=== PATIENT | female | born 1930 | race Caucasian/White ===

== ENCOUNTER 2018-07-12 09:23 | Inpatient (IN) | payer BC ==
[~2018-07-12] VITALS: Ht 170.2 cm; Wt 77.6 kg
[~2018-07-12 09:23] MED LIST: LEVO125T5 PO; MELO15TA23 PO; METO50TA6 PO; VERA180T6 PO; bp med
[2018-07-12] MEDS ORDERED: IV NORMAL SALINE 1000ML BAG 1,000 ML IV SCH (10:13)
[2018-07-12] MEDS ORDERED: IPRATRPIUM/ALBUTEROL 0.5/2.5MG 3 ML NEBU. NEB ONE (10:15)
[2018-07-12] MEDS ORDERED: methylPREDNISolone SOD SUCC PF 125 MG/2 ML VIAL. IV ONE (10:15)
[2018-07-12 10:25] LABS: BASO # 0.1 x10^3/uL (0.0-0.2); BASO % 0 % (0-3); EOS # 0.1 x10^3/uL (0.0-0.7); EOS % 1 % (0-3); HEMATOCRIT 35.1 % (36.0-47.0); LYMPH # 1.2 x10^3/uL (1.0-4.8); LYMPH % 9 % (24-48); MEAN CORPUSCULAR HEMOGLOBIN 33 pg (25-35); MEAN CORPUSCULAR HGB CONC 34 g/dL (31-37); MEAN CORPUSCULAR VOLUME 96 fL (79-100); MONO # 0.9 x10^3/uL (0.0-1.1); MONO % 7 % (0-9); NEUT # 10.8 x10^3uL (1.8-7.7); NEUT % 83 % (31-73); PLATELET COUNT 207 x10^3/uL (140-400); RED BLOOD COUNT 3.67 x10^6/uL (3.50-5.40); RED CELL DISTRIBUTION WIDTH 14.1 % (11.5-14.5)
[2018-07-12 10:45] LABS: CALCIUM 9.8 mg/dL (8.5-10.1); CREATININE 1.1 mg/dL (0.6-1.0); GFR 47.1; POTASSIUM 3.9 mmol/L (3.5-5.1)
--- NOTE | 2018-07-12 10:52 | RAD ---
CHEST PA LATERAL Clinical indications: shortness of breath COMPARISON: 03/15/2018. Findings: Bilateral mild perihilar interstitial pulmonary edema is seen. Small bilateral pleural effusions are seen right greater than left. There is mild right lung base atelectasis or focal alveolar pulmonary edema. No pneumothorax is seen. The heart size is enlarged but stable. The mediastinum and pulmonary vasculature are unremarkable. Impression: Mild to moderate CHF. Electronically signed by: Eddi Castillo MD (07/12/2018 10:49 AM) [place] [id number]
[2018-07-12 10:53] LABS: ALBUMIN 3.6 g/dL (3.4-5.0); ALBUMIN/GLOBULIN RATIO 1.3 (1.0-1.7); TOTAL BILIRUBIN 0.7 mg/dL (0.2-1.0); TOTAL PROTEIN 6.3 g/dL (6.4-8.2)
[2018-07-12] MEDS ORDERED: cefTRIAXone IV Push 1 GM VIAL. IVP ONE (11:15)
--- NOTE | 2018-07-12 11:21 | PHYS DOC ---
Past Medical History Past Medical History: Arthritis, Hypertension, Hypothyroid Additional Past Medical Histor: CHRONIC KNEE PAIN Past Surgical History: No Surgical History Alcohol Use: None Drug Use: None Adult General Chief Complaint Chief Complaint: SHORTNESS OF BREATH HPI HPI Patient is a 88 year old female who presents with complaining of shortness of breath. Patient complaining of nonproductive cough and shortness of breath for 2 weeks and seen by her primary care physician and treated with a course of antibiotic that was finished one week ago but continued to have shortness of breath and generalized weakness and not feeling good. Patient complaining of mild nasal congestion and sore throat and denies chest pain, fever and chills, vomiting and diarrhea, urinary symptoms, sick contact. Review of Systems Review of Systems Constitutional: Denies fever or chills [] Eyes: Denies change in visual acuity, redness, or eye pain [] HENT: Reports nasal congestion and sore throat Respiratory: Reports cough and shortness of breath Cardiovascular: No additional information not addressed in HPI [] GI: Denies abdominal pain, nausea, vomiting, bloody stools or diarrhea [] : Denies dysuria or hematuria [] Musculoskeletal: Denies back pain or joint pain [] Integument: Denies rash or skin lesions [] Neurologic: Denies headache, focal weakness or sensory changes [] Endocrine: Denies polyuria or polydipsia [] All other systems were reviewed and found to be within normal limits, except as documented in this note. Current Medications Current Medications Current Medications Medications (Trade) Dose Ordered Sig/Jagdish Start Time Stop Time Status Last Admin Dose Admin Albuterol/ Ipratropium (Duoneb) 3 ml 1X ONCE 07/12/18 10:15 07/12/18 10:18 DC 07/12/18 11:14 3 ML Methylprednisolone Sodium Succinate (SOLU-Medrol 125MG VIAL) 125 mg 1X ONCE 07/12/18 10:15 07/12/18 10:18 DC 07/12/18 10:15 125 MG Sodium Chloride 1,000 ml @ 1,000 mls/hr Q1H 07/12/18 10:13 07/12/18 11:12 DC 07/12/18 10:13 1,000 MLS/HR Allergies Allergies Allergies Coded Allergies Type Severity Reaction Last Updated Verified No Known Drug Allergies 03/10/18 No Physical Exam Physical Exam Constitutional: Well developed, well nourished, moderate distress, non-toxic appearance. [] HENT: Normocephalic, atraumatic, bilateral external ears normal, oropharynx moist, no oral exudates, nose normal. [] Eyes: PERRLA, EOMI, conjunctiva normal, no discharge. [] Neck: Normal range of motion, no tenderness, supple, no stridor. [] Cardiovascular:Heart rate regular rhythm, no murmur [] Lungs & Thorax: Mild respiratory distress with intercostal dissection and bilateral basilar rales. Abdomen: Bowel sounds normal, soft, no tenderness, no masses, no pulsatile masses. [] Skin: Warm, dry, no erythema, no rash. [] Back: No tenderness, no CVA tenderness. [] Extremities: No tenderness, no cyanosis, no clubbing, ROM intact, trace bilateral lower extremity edema. [] Neurologic: Alert and oriented X 3, normal motor function, normal sensory function, no focal deficits noted. [] Psychologic: Affect anxious, judgement normal, mood normal. [] Current Patient Data Vital Signs Vital Signs Date Time Temp Pulse Resp B/P (MAP) Pulse Ox O2 Delivery O2 Flow Rate FiO2 07/12/18 11:00 78 16 159/75 (103) 94 Room Air 07/12/18 10:07 97.5 97.5 Lab Values Laboratory Tests Test 07/12/18 10:05 White Blood Count 13.0 x10^3/uL (4.0-11.0) H Red Blood Count 3.67 x10^6/uL (3.50-5.40) Hemoglobin 12.0 g/dL (12.0-15.5) Hematocrit 35.1 % (36.0-47.0) L Mean Corpuscular Volume 96 fL (79-100) Mean Corpuscular Hemoglobin 33 pg (25-35) Mean Corpuscular Hemoglobin Concent 34 g/dL (31-37) Red Cell Distribution Width 14.1 % (11.5-14.5) Platelet Count 207 x10^3/uL (140-400) Neutrophils (%) (Auto) 83 % (31-73) H Lymphocytes (%) (Auto) 9 % (24-48) L Monocytes (%) (Auto) 7 % (0-9) Eosinophils (%) (Auto) 1 % (0-3) Basophils (%) (Auto) 0 % (0-3) Neutrophils # (Auto) 10.8 x10^3uL (1.8-7.7) H Lymphocytes # (Auto) 1.2 x10^3/uL (1.0-4.8) Monocytes # (Auto) 0.9 x10^3/uL (0.0-1.1) Eosinophils # (Auto) 0.1 x10^3/uL (0.0-0.7) Basophils # (Auto) 0.1 x10^3/uL (0.0-0.2) D-Dimer (Payton) 2.20 ug/mlFEU (0.00-0.50) H Sodium Level 144 mmol/L (136-145) Potassium Level 3.9 mmol/L (3.5-5.1) Chloride Level 108 mmol/L (98-107) H Carbon Dioxide Level 23 mmol/L (21-32) Anion Gap 13 (6-14) Blood Urea Nitrogen 20 mg/dL (7-20) Creatinine 1.1 mg/dL (0.6-1.0) H Estimated GFR (Cockcroft-Gault) 47.1 BUN/Creatinine Ratio 18 (6-20) Glucose Level 105 mg/dL (70-99) H Lactic Acid Level 2.3 mmol/L (0.4-2.0) H Calcium Level 9.8 mg/dL (8.5-10.1) Total Bilirubin 0.7 mg/dL (0.2-1.0) Aspartate Amino Transferase (AST) 23 U/L (15-37) Alanine Aminotransferase (ALT) 19 U/L (14-59) Alkaline Phosphatase 83 U/L (46-116) Creatine Kinase 53 U/L (26-192) Troponin I Quantitative 0.329 ng/mL (0.000-0.055) SK-Laz-E-Type Natriuretic Peptide 38240 pg/mL (0-449) H Total Protein 6.3 g/dL (6.4-8.2) L Albumin 3.6 g/dL (3.4-5.0) Albumin/Globulin Ratio 1.3 (1.0-1.7) Triglycerides Level 106 mg/dL (0-150) Cholesterol Level 166 mg/dL (0-200) LDL Cholesterol, Calculated 78 mg/dL (0-100) VLDL Cholesterol, Calculated 21 mg/dL (0-40) Non-HDL Cholesterol Calculated 99 mg/dL (0-129) HDL Cholesterol 67 mg/dL (40-60) H Cholesterol/HDL Ratio 2.5 Thyroid Stimulating Hormone (TSH) 4.138 uIU/mL (0.358-3.74) H Laboratory Tests 07/12/18 10:05 Laboratory Tests 07/12/18 10:05 EKG EKG EKG interpreted by a bee. EKG at 1107 showed normal sinus rhythm at rate of 78, Q-wave in anteroseptal leads, questionable ST elevation in V2 that was not presenting EKG dated 03/10/2018 with new inverted T waves in lateral leads. Radiology/Procedures Radiology/Procedures [place] [id number] [place] [address] IMAGING REPORT Signed PATIENT: FATEMEH CLAY ACCOUNT: [id number] : 1930 LOCATION: ER AGE: 88 SEX: F EXAM STATUS: REG ER ORD. PHYSICIAN: BHAVYA FIGUEROA MD REASON: shortness of breath PROCEDURE: CHEST PA & LATERAL CHEST PA LATERAL Clinical indications: shortness of breath COMPARISON: 03/15/2018. Findings: Bilateral mild perihilar interstitial pulmonary edema is seen. Small bilateral pleural effusions are seen right greater than left. There is mild right lung base atelectasis or focal alveolar pulmonary edema. No pneumothorax is seen. The heart size is enlarged but stable. The mediastinum and pulmonary vasculature are unremarkable. Impression: Mild to moderate CHF. Electronically signed by: Geetha Castillo MD (07/12/2018 10:49 AM) [facility] DICTATED and SIGNED BY: GEETHA CASTILLO MD DATE: 07/12/18 1049 [facility] [address] [place], [place] [id number] IMAGING REPORT Signed PATIENT: FATEMEH CLAY ACCOUNT: [id number] : 1930 LOCATION: [address] [place] [address] AGE: 88 SEX: F EXAM STATUS: ADM IN ORD. PHYSICIAN: BHAVYA FIGUEROA MD REASON: shortness of breath, elevated d-dimer PROCEDURE: CT ANGIOGRAPHY CHEST Examination: CT ANGIOGRAPHY CHEST History: soa elevated d dimer inj 90ml Omni 350 no prev Comparison/Correlation: 07/12/2018 two-view chest x-ray exam Findings: Axial images of chest were obtained following IV contrast contrast arteriography protocol. Sagittal and coronal reformatted images were provided. MIP images provided. Moderate size right pleural effusion is present. Small moderate-sized left pleural effusion noted. Minimal adjacent atelectasis bilaterally is present. Pulmonary arterial vasculature is normal with no thromboembolic disease. Ascending thoracic aortic diameter 4.4 cm is present. Descending thoracic aortic diameter of 3.1 cm evident. Bony structures are unremarkable. Cardiomegaly noted. Mitral annular calcification is notable. Pulmonary vasculature is congested. Right main and right lower lobe bronchomalacia noted. Moderate-sized hiatal hernia is present. Partially visualized upper abdomen is unremarkable. Right renal superficial cyst noted. Calcified granulomas involve the spleen. Impression: No pulmonary arterial thromboembolic disease although evaluation may be limited in the small regions of atelectasis involving the lower lobes. Moderate-sized right pleural effusion. Small moderate-sized left pleural effusion. Congestive heart failure. Hiatal hernia. PQRS Compliance Statement: One or more of the following individualized dose reduction techniques were utilized for this examination: 1. Automated exposure control 2. Adjustment of the mA and/or kV according to patient size 3. Use of iterative reconstruction technique Electronically signed by: Shad Benson MD (07/12/2018 1:03 PM) [facility] DICTATED and SIGNED BY: SAHD BENSON MD DATE: 07/12/18 1303 Course & Med Decision Making Course & Med Decision Making Pertinent Labs and Imaging studies reviewed. (See chart for details) Evaluation of patient in ER showed 88-year-old female patient with complaining of shortness of breath and nonproductive cough for 2 weeks that did not get better with outpatient treatment. Patient had BNP of 12,000 with marked elevation of troponin and lactic acid. Chest x-ray showed pleural effusion without infiltration. Patient had 1 dose of antibiotic in ER.Patient requiring admission for further evaluation and treatment. Discussed with Dr. Rai who is in agreement with admission. Discussed findings and plan with patient and family, who acknowledge understanding and agreement. Dragon Disclaimer Dragon Disclaimer This electronic medical record was generated, in whole or in part, using a voice recognition dictation system. Departure Departure Impression: Primary Impression: Acute respiratory distress Additional Impressions: Acute exacerbation of CHF (congestive heart failure) SIRS (systemic inflammatory response syndrome) Elevated troponin Elevated d-dimer Pleural effusion on right Disposition: 09 ADMITTED INPATIENT (@1113) Admitting Physician: Yaya Muñoz (accepted admission at 1112) Condition: GUARDED Referrals: YAYA MUÑOZ MD (PCP) Problem Qualifiers Additional Impressions: Acute exacerbation of CHF (congestive heart failure) Heart failure type: unspecified Qualified Codes: I50.9 - Heart failure, unspecified BHAVYA FIGUEROA MD Jul 12, 2018 11:21
--- NOTE | 2018-07-12 11:36 | EKG ---
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
[2018-07-12] MEDS ORDERED: ASPIRIN 325 MG TABLET ONE (11:39)
[2018-07-12] MEDS ORDERED: NITROGLYCERIN SUBLINGUAL 0.4 MG BOTTLE OF 25. SL ONE (11:39)
[2018-07-12] MEDS ORDERED: IOHEXOL 300 MG/ML 100ML VIAL. IV ONE (11:45)
--- NOTE | 2018-07-12 11:57 | PDOC2 ---
ANETTE ALTMAN SET UP MECHANIC 07/12/18 1157: CARDIAC CONSULT DATE OF CONSULT Date of Consult DATE: 07/12/18 TIME: 11:44 REASON FOR CONSULT Reason for Consult: Dyspnea, CHF REFERRING PHYSICIAN Referring Physician: Moise SOURCE Source: Chart review, Patient HISTORY OF PRESENT ILLNESS HISTORY OF PRESENT ILLNESS This is a pleasant 88 yo female admitted for complains of shortness of breath. Reports that she went to her PCP about 2 weeks ago and was treated for bronchitis. At that time she was having nonproductive cough and no fever. She was given antibiotics and inhalers. Her symptoms did not get better. Reports that in the last 2 weeks her SOA has been progressing particularly with exertion and has gotten worse and her activity tolerance has decreased and experiencing orthopnea. No wheezing, fever, nor productive cough but intermittently has been having diaphoresis. No sensation of nausea or chest pain but did have some right neck and shoulder tightness that did not last long. Occasionally has been having palpitations. No significant leg edema. She does not check her BP but h er BP is currently high and has been taking her medications regularly. No recent falls, injury, syncope, arrhythmias and no hx of CAD nor CHF. No past stress test or LHC. She does take ASA. She has not been getting much sleep and stressed and taking care of her who has alzheimers. PAST MEDICAL HISTORY Past Medical History Cardiovascular: HTN, Hyperlipidemia, mod AI Pulmonary: No pertinent hx CENTRAL NERVOUS SYSTEM: Essential tremors, 02/2018 CVA GI: No pertinent hx Heme/Onc: No pertinent hx Hepatobiliary: No pertinent hx Psych: Anxiety Musculoskeletal: Osteoarthritis, 02/2018 fall resulting to left distal radius fracture Rheumatologic: No pertinent hx Infectious disease: No pertinent hx ENT: [place], uses hearing aids Renal/: UTI Endocrine: Hypothyroidism, Osteoporosis Dermatology: No pertinent hx PAST SURGICAL HISTORY Past Surgical History Left radius ORIF, cataract removal FAMILY HISTORY Family History: Coronary Artery Disease (father), Heart Disease (mother "has hole in her heart") SOCIAL HISTORY Smoke: No ALCOHOL: none Drugs: None Lives: with Family CURRENT MEDICATIONS CURRENT MEDICATIONS Current Medications Medications (Trade) Dose Ordered Sig/Jagdish Route PRN Reason Start Time Stop Time Status Last Admin Dose Admin Sodium Chloride 1,000 ml @ 1,000 mls/hr Q1H IV 07/12/18 10:13 07/12/18 11:12 DC 07/12/18 10:13 Albuterol/ Ipratropium (Duoneb) 3 ml 1X ONCE NEB 07/12/18 10:15 07/12/18 10:18 DC 07/12/18 11:14 Methylprednisolone Sodium Succinate (SOLU-Medrol 125MG VIAL) 125 mg 1X ONCE IV 07/12/18 10:15 07/12/18 10:18 DC 07/12/18 10:15 ALLERGIES ALLERGIES: Coded Allergies: No Known Drug Allergies (Unverified , 03/10/18) ROS Review of System 14 point ROS evaluated with pertinent positives noted per HPI PHYSICAL EXAM General: Alert, Oriented X3, Cooperative, No acute distress HEENT: Atraumatic, Mucous membr. moist/pink Lungs: Clear to auscultation, Normal air movement Heart: Regular rate (SR), Other (2/6 diatolic murmur to ERB) Abdomen: Soft, No tenderness Extremities: No cyanosis, Other (trace LE edema) Skin: No breakdown, No significant lesion Neuro: Normal speech, Sensation intact Psych/Mental Status: Mental status NL, Mood NL MUSCULOSKELETAL: Osteoarthritic changes both hands VITALS VITALS Vital Signs Date Time Temp Pulse Resp B/P (MAP) Pulse Ox O2 Delivery O2 Flow Rate FiO2 07/12/18 11:15 95 Room Air 07/12/18 10:07 97.5 79 17 141/69 (93) 97.5 LABS Lab: Laboratory Tests Test 07/12/18 10:05 White Blood Count 13.0 x10^3/uL (4.0-11.0) Red Blood Count 3.67 x10^6/uL (3.50-5.40) Hemoglobin 12.0 g/dL (12.0-15.5) Hematocrit 35.1 % (36.0-47.0) Mean Corpuscular Volume 96 fL (79-100) Mean Corpuscular Hemoglobin 33 pg (25-35) Mean Corpuscular Hemoglobin Concent 34 g/dL (31-37) Red Cell Distribution Width 14.1 % (11.5-14.5) Platelet Count 207 x10^3/uL (140-400) Neutrophils (%) (Auto) 83 % (31-73) Lymphocytes (%) (Auto) 9 % (24-48) Monocytes (%) (Auto) 7 % (0-9) Eosinophils (%) (Auto) 1 % (0-3) Basophils (%) (Auto) 0 % (0-3) Neutrophils # (Auto) 10.8 x10^3uL (1.8-7.7) Lymphocytes # (Auto) 1.2 x10^3/uL (1.0-4.8) Monocytes # (Auto) 0.9 x10^3/uL (0.0-1.1) Eosinophils # (Auto) 0.1 x10^3/uL (0.0-0.7) Basophils # (Auto) 0.1 x10^3/uL (0.0-0.2) D-Dimer (Payton) 2.20 ug/mlFEU (0.00-0.50) Sodium Level 144 mmol/L (136-145) Potassium Level 3.9 mmol/L (3.5-5.1) Chloride Level 108 mmol/L (98-107) Carbon Dioxide Level 23 mmol/L (21-32) Anion Gap 13 (6-14) Blood Urea Nitrogen 20 mg/dL (7-20) Creatinine 1.1 mg/dL (0.6-1.0) Estimated GFR (Cockcroft-Gault) 47.1 BUN/Creatinine Ratio 18 (6-20) Glucose Level 105 mg/dL (70-99) Lactic Acid Level 2.3 mmol/L (0.4-2.0) Calcium Level 9.8 mg/dL (8.5-10.1) Total Bilirubin 0.7 mg/dL (0.2-1.0) Aspartate Amino Transf (AST/SGOT) 23 U/L (15-37) Alanine Aminotransferase (ALT/SGPT) 19 U/L (14-59) Alkaline Phosphatase 83 U/L (46-116) Creatine Kinase 53 U/L (26-192) Troponin I Quantitative 0.329 ng/mL (0.000-0.055) NT-Nmd-E-Type Natriuretic Peptide 64250 pg/mL (0-449) Total Protein 6.3 g/dL (6.4-8.2) Albumin 3.6 g/dL (3.4-5.0) Albumin/Globulin Ratio 1.3 (1.0-1.7) ECHOCARDIOGRAM ECHOCARDIOGRAM <Conclusion> The left ventricular systolic function is normal and the ejection fraction is within normal range. The Ejection Fraction is 55-60%. There is normal LV segmental wall motion. Doppler and Color Flow revealed moderate aortic regurgitation. The ascending aorta is mildly dilated at 4.0 cm. DATE: 03/13/18 1028 ASSESSMENT/PLAN ASSESSMENT/PLAN 1. Acute diastolic CHF: suspect ischemic in origin 2. NSTEMI: initial trop at 0.32 with EKG suspicious of ischemia. No CP currently 3. Valvular insufficiency: mod AI 4. HTN: labile 5. Recent CVA: 02/2018 Recommendations 1. ASA. Heparin drip 2. Lipids. TSH, Limited TTE. 3. Lasix therapy 4. Awaiting CTA of chest. [facility] tentatively planned for tomorrow, risks and benefits discussed with pt and daughters, agreeable to proceed. 5. Monitor BP trend post lasix. labetolol IV PRN. BRITANY CUENCA MD 07/12/18 0908: CARDIAC CONSULT ASSESSMENT/PLAN ASSESSMENT/PLAN Pt. seen and examined. Agree with above TERMINAL SUPERINTENDENT note. EKG concerning for LAD disease. Symptoms suspicious for coronary etiology. Patient is still functional. Will plan for aggressive care. ANETTE ALTMAN SET UP MECHANIC Jul 12, 2018 11:57 BRITANY CUENCA MD Jul 12, 2018 17:58
[2018-07-12] MEDS ORDERED: CONTRAST GIVEN. MC PRN (12:00)
[2018-07-12] MEDS ORDERED: IOHEXOL 350 MG/ML 100 ML VIAL. IV ONE ×2 (12:00)
[2018-07-12 12:21] LABS: CHOLESTEROL/HDL RATIO 2.5
[2018-07-12] MEDS ORDERED: FUROSEMIDE 40 MG/4 ML VIAL. ONE (12:25)
--- NOTE | 2018-07-12 12:47 | NUR ---
Patient arrived to room 203 via bed from ER at 1247. Patient A&Ox4. No complaints of pain. Patient has shortness of breath. BP elevated. The patient, FATEMEH CLAY, 88 y/o, F admitted by HARDEEP MARIE MD, was given written information regarding hospital policies, unit procedures and contact persons. Valuables were checked and noted. Will continue to monitor.
[2018-07-12 12:50] VITALS: BP 169/93
[2018-07-12] MEDS ORDERED: METOPROLOL TART IMMED RELEASE 50 MG TABLET. PO SCH (13:00)
[2018-07-12] MEDS ORDERED: LABETALOL 20 MG/4 ML DISP.SYRIN. IVP PRN (13:00)
[2018-07-12] MEDS ORDERED: ENOXAPARIN 40 MG/0.4 ML SYRINGE. SQ SCH (13:00)
[2018-07-12] MEDS ORDERED: VERAPAMIL SR 180 MG TABLET.ER. PO SCH (13:00)
[2018-07-12] MEDS: LEVOTHYROXINE 125 MCG TABLET PO SCH (13:00)
[2018-07-12] MEDS ORDERED: FUROSEMIDE 40 MG/4 ML VIAL. IVP ONE (13:00)
[2018-07-12 13:01] LABS: INFLUENZA A PATIENT NEGATIVE (NEGATIVE); INFLUENZA B PATIENT NEGATIVE (NEGATIVE)
--- NOTE | 2018-07-12 13:06 | RAD ---
Examination: CT ANGIOGRAPHY CHEST History: soa elevated d dimer inj 90ml Omni 350 no prev Comparison/Correlation: 07/12/2018 two-view chest x-ray exam Findings: Axial images of chest were obtained following IV contrast contrast arteriography protocol. Sagittal and coronal reformatted images were provided. MIP images provided. Moderate size right pleural effusion is present. Small moderate-sized left pleural effusion noted. Minimal adjacent atelectasis bilaterally is present. Pulmonary arterial vasculature is normal with no thromboembolic disease. Ascending thoracic aortic diameter 4.4 cm is present. Descending thoracic aortic diameter of 3.1 cm evident. Bony structures are unremarkable. Cardiomegaly noted. Mitral annular calcification is notable. Pulmonary vasculature is congested. Right main and right lower lobe bronchomalacia noted. Moderate-sized hiatal hernia is present. Partially visualized upper abdomen is unremarkable. Right renal superficial cyst noted. Calcified granulomas involve the spleen. Impression: No pulmonary arterial thromboembolic disease although evaluation may be limited in the small regions of atelectasis involving the lower lobes. Moderate-sized right pleural effusion. Small moderate-sized left pleural effusion. Congestive heart failure. Hiatal hernia. PQRS Compliance Statement: One or more of the following individualized dose reduction techniques were utilized for this examination: 1. Automated exposure control 2. Adjustment of the mA and/or kV according to patient size 3. Use of iterative reconstruction technique Electronically signed by: Shad Mancera MD (07/12/2018 1:03 PM) [facility]
[2018-07-12] MEDS ORDERED: BUDE10.2 IH (13:13)
[2018-07-12] MEDS ORDERED: ALPR0.5T PO (13:13)
[2018-07-12] MEDS ORDERED: CALC500T30 PO (13:13)
[2018-07-12] MEDS ORDERED: ASPI325T8 PO (13:13)
--- NOTE | 2018-07-12 13:15 | HP ---
ADMIT DATE: 07/12/2018 CHIEF COMPLAINT: Shortness of breath. HISTORY OF PRESENT ILLNESS: The patient is an 88-year-old female who for the last 24 hours began having increasing shortness of breath, especially when she does activity or lies down. She was told to go directly to the Emergency Room after office enquiry, but the patient delayed approximately 24 hours and then came to the hospital with increasing shortness of breath. She was found to have evidence of congestive heart failure and slightly elevated troponin as well as positive D-dimer. Due to constellation of symptoms, the patient was admitted for rule out TN protocol and treatment for CHF. Evaluation for pulmonary embolus is still pending at this time and non-ST elevated TN. The patient also had elevated lactic acid of 2.3. PAST MEDICAL HISTORY: Significant for recent right lacunar CVA, longstanding hypertension, hypothyroidism, high cholesterol, osteoporosis, essential tremor, generalized anxiety disorder, moderate aortic insufficiency. MEDICATIONS: The patient's medications on admission are metoprolol extended release 50 mg daily, verapamil 180 mg daily, aspirin 325 mg daily, Synthroid 125 mcg daily, Meloxicam 50 mg daily, Xanax 0.5 t.i.d. p.r.n. PAST SURGICAL HISTORY: Significant for left wrist surgery after fracture. FAMILY HISTORY: Noncontributory. SOCIAL HISTORY: The patient never smokes. She does not use alcohol. She is and lives with her spouse who is diagnosed with end-stage Alzheimer's and is at total care at this time. ALLERGIES: The patient has no known drug allergies. REVIEW OF SYSTEMS: Significant for shortness of breath as mentioned in HPI. She denies cough, congestion, fever, chills, abdominal pain, nausea, vomiting, diarrhea, recent weight gain or weight loss. PHYSICAL EXAMINATION: GENERAL: She is a well-nourished, well-developed 88-year-old female, in no apparent distress on my exam, she is alert and oriented x 3. HEENT: Benign. NECK: Supple. CARDIAC: Regular rate and rhythm. LUNGS: Clear with decreased breath sounds in the bases. ABDOMEN: Soft, nontender, without masses. EXTREMITIES: 2+ pulse without significant edema. NEUROLOGIC: Showed no unilateral findings. ASSESSMENT: 1. Non-ST elevated myocardial infarction. 2. Acute systolic congestive heart failure. 3. Lactic acidosis. 4. Aortic insufficiency history. PLAN: To proceed with diuresis, cardiology consultation, await CTA for evaluation of pulmonary embolus, proceed with rule out TN and stress testing or cardiac catheterization as indicated. HARDEEP MARIE MD DR: DENISHA/bao JOB#: [id number] / [id number]
[2018-07-12] MEDS ORDERED: HEPARIN for IV BOLUS 10,000 UNIT/10 ML VIAL. IV PRN (13:45)
[2018-07-12] MEDS ORDERED: HEPARIN 25,000UTS/500ML PREMIX 500 ML IV PRN (13:45)
[2018-07-12 15:09] VITALS: BP 171/79
[2018-07-12 15:27] LABS: BILIRUBIN,URINE NEGATIVE (NEG); CLARITY,URINE CLEAR; NITRITE,URINE NEGATIVE (NEG); PROTEIN,URINE NEGATIVE (NEG-TRACE); UROBILINOGEN,URINE 0.2 mg/dL (0.2 mg/dL)
[2018-07-12 15:31] LABS: COLOR,URINE STRAW
[2018-07-12 15:33] LABS: BACTERIA,URINE FEW /HPF (0-FEW); RBC,URINE OCC /HPF (0-2); WBC,URINE OCC /HPF (0-4)
[2018-07-12 15:34] LABS: SQUAMOUS EPITHELIAL CELL,UR FEW /LPF
[2018-07-12 15:49] VITALS: BP 117/57
[2018-07-12] MEDS: ASPIRIN 325 MG TABLET PO SCH (16:00)
[2018-07-12] MEDS: ALPRAZolam 0.5 MG TABLET PO SCH ×2 (16:15→20:16)
[2018-07-12 19:00] VITALS: BP 153/91
--- NOTE | 2018-07-12 19:40 | CARD ---
MR#: [id number] Date of Study: 07/12/2018 Ordering Physician: ANETTE ALTMAN, Referring Physician: HARDEEP MARIE, Tech: Allegra Dickinson APPROVED REPORT EXAM: Two-dimensional and M-mode echocardiogram with Doppler and color Doppler. Other Information Quality : GoodHR: 88bpm INDICATION Elevated Troponin 2D DIMENSIONS RVDd2.2 (2.9-3.5cm)Left Atrium(2D)4.6 (1.6-4.0cm) IVSd1.6 (0.7-1.1cm)Aortic Root(2D)3.1 (2.0-3.7cm) LVDd5.5 (3.9-5.9cm)LVOT Diameter2.3 (1.8-2.4cm) PWd1.3 (0.7-1.1cm)LVDs3.7 (2.5-4.0cm) FS (%) 31.7 %SV85.6 ml LVEF(%)59.1 (>50%) Tricuspid Valve RAP [id number] LEFT VENTRICLE The Left Ventricle is moderately dilated. There is moderate concentric left ventricular hypertrophy. The systolic function is severely impaired. EF 25% The septum, apex, and anterior wall are severely h ypokinetic. Diastology Doppler and color-flow analysis was not performed. RIGHT VENTRICLE The right ventricle is normal size. There is normal right ventricular wall thickness. The right ventr icular systolic function is normal. ATRIA The left atrium size is normal. The right atrium size is normal. The interatrial septum is intact wit h no evidence for an atrial septal defect or patent foramen ovale as noted on 2-D or Doppler imaging. AORTIC VALVE The aortic valve is thickened with restricted leaflet motion and moderate calcification. Doppler and color-flow analysis was not performed. GREAT VESSELS The aortic root is normal in size. Significant ascending aortic dilation noted at 4.4 cm The IVC is n ormal in size and collapses >50% with inspiration. PERICARDIAL EFFUSION There is a large left pleural effusion. There is a trace pericardial effusion. Critical Notification Critical Value: No <Conclusion> The systolic function is severely impaired. EF 25% The septum, apex, and anterior wall are severely hypokinetic. Significant ascending aortic dilation noted at 4.4 cm There is a large left pleural effusion. Signed by : Charanjit Kyle, Electronically Approved : 07/12/2018 19:39:55
[2018-07-12] MEDS: METOPROLOL TART IMMED RELEASE 25 MG TABLET. PO SCH (21:15)
[2018-07-12 23:00] VITALS: BP 141/83
[2018-07-13] VITALS (7 sets, daily range): BP systolic 107–151; BP diastolic 65–91
[2018-07-13 04:28] LABS: BASO % 0 % (0-3); EOS % 0 % (0-3); HEMATOCRIT 33.4 % (36.0-47.0); HEMOGLOBIN 11.3 g/dL (12.0-15.5); LYMPH # 1.3 x10^3/uL (1.0-4.8); LYMPH % 13 % (24-48); MEAN CORPUSCULAR HEMOGLOBIN 32 pg (25-35); MEAN CORPUSCULAR HGB CONC 34 g/dL (31-37); MEAN CORPUSCULAR VOLUME 95 fL (79-100); MONO # 0.5 x10^3/uL (0.0-1.1); MONO % 5 % (0-9); NEUT # 8.1 x10^3uL (1.8-7.7); NEUT % 82 % (31-73); PLATELET COUNT 193 x10^3/uL (140-400); RED BLOOD COUNT 3.51 x10^6/uL (3.50-5.40); RED CELL DISTRIBUTION WIDTH 14.5 % (11.5-14.5); WHITE BLOOD COUNT 9.9 x10^3/uL (4.0-11.0)
[2018-07-13 04:39] LABS: CREATININE 1.1 mg/dL (0.6-1.0); GFR 47.1; POTASSIUM 3.3 mmol/L (3.5-5.1)
[2018-07-13] MEDS: LEVOTHYROXINE 125 MCG TABLET PO SCH (05:35)
[2018-07-13] MEDS ORDERED: LIDOCAINE 1% PF 2 ML VIAL. ONE (08:33)
[2018-07-13] MEDS: FUROSEMIDE 40 MG/4 ML VIAL. IVP SCH (08:49)
[2018-07-13] MEDS: POTASSIUM CHLORIDE 20 MEQ TABLET.ER. PO SCH (08:49)
[2018-07-13] MEDS: ASPIRIN 325 MG TABLET PO SCH (08:49)
[2018-07-13] MEDS: ALPRAZolam 0.5 MG TABLET PO SCH ×3 (08:49→21:25)
[2018-07-13] MEDS: METOPROLOL TART IMMED RELEASE 25 MG TABLET. PO SCH ×2 (08:50→21:24)
[2018-07-13] MEDS ORDERED: IOHEXOL 300 MG/ML 100ML VIAL. ONE ×2 (09:10→10:12)
[2018-07-13] MEDS ORDERED: MIDAZOLAM HCL/PF 2 MG/2 ML VIAL. ONE (09:33)
[2018-07-13] MEDS ORDERED: VERAPAMIL 5 MG/2 ML VIAL. ONE (09:33)
[2018-07-13] MEDS ORDERED: fentaNYL PF VIAL 100 MCG/2 ML VIAL ONE (09:33)
[2018-07-13] MEDS ORDERED: HEPARIN for IV BOLUS 10,000 UNIT/10 ML VIAL. ONE (09:33)
[2018-07-13] MEDS ORDERED: NITROGLYCERIN 200 MCG/2 ML SYRINGE FOR CATH/VASC LAB. ONE ×2 (09:34→10:22)
[2018-07-13] MEDS ORDERED: TIROFIBAN 5MG -0.9% NS 100 ML IV ONE (10:00)
[2018-07-13] MEDS ORDERED: HEPARIN for IV BOLUS 10,000 UNIT/10 ML VIAL. IART ONE (10:30)
[2018-07-13] MEDS ORDERED: HEPARIN for IV BOLUS 10,000 UNIT/10 ML VIAL. IV ONE (10:30)
[2018-07-13] MEDS ORDERED: fentaNYL PF VIAL 100 MCG/2 ML VIAL IV ONE (10:30)
[2018-07-13] MEDS ORDERED: LIDOCAINE 1% PF 2 ML VIAL. INJ ONE (10:30)
[2018-07-13] MEDS ORDERED: MIDAZOLAM HCL/PF 2 MG/2 ML VIAL. IV ONE (10:30)
[2018-07-13] MEDS ORDERED: IOHEXOL 300 MG/ML 100ML VIAL. IART ONE (10:30)
[2018-07-13] MEDS ORDERED: VERAPAMIL 5 MG/2 ML VIAL. IART ONE (10:30)
[2018-07-13] MEDS ORDERED: TIROFIBAN 5MG -0.9% NS 100 ML IV PRN (10:30)
[2018-07-13] MEDS ORDERED: TICAGRELOR 90 MG TABLET. PO ONE (10:30)
[2018-07-13] MEDS ORDERED: NITROGLYCERIN 200 MCG/2 ML SYRINGE FOR CATH/VASC LAB. IART ONE (10:30)
[2018-07-13] MEDS ORDERED: TICAGRELOR 90 MG TABLET. ONE (10:38)
--- NOTE | 2018-07-13 11:04 | PDOC ---
MODERATE SEDATION ASSESSMENT RISKS/ALTERNATIVES Risks/Alternatives Risks and alternatives of this type of sedation and procedure discussed with: RISK/ALTERNATIVES: Patient H & P ON CHART H & P H & P on chart and reviewed for co-morbid conditions and appropriate labs. H&P ON CHART: Yes STATUS PREG STATUS ASSESSED: N/A MEDS/ALLERGIES REVIEWED Meds/Allergies Reviewed Medications and Allergies including time and route of recently administered narcotics and sedatives. MEDS/ALLERGIES REVIEWED: Yes ASA RATING ASA RATING: II AIRWAY ASSESSMENT Airway Assessment Airway patency, oral function limitations, presence of caps, crowns, dentures, partials, and ability to extend neck assessed. AIRWAY ASSESSMENT: Yes MALLAMPATI SCORE MALLAMPATI SCORE: II PRE-SEDATION ASSESSMENT PRE-SEDATION ASSESSMENT: Yes BRITANY CUENCA MD Jul 13, 2018 11:04
[2018-07-13] MEDS ORDERED: 0.9 % SODIUM CHLORIDE 10 ML DISP.SYRIN. IV PRN (11:15)
[2018-07-13] MEDS ORDERED: fentaNYL PF VIAL 100 MCG/2 ML VIAL IV PRN (11:15)
[2018-07-13] MEDS ORDERED: AMIODARONE 150 MG in IV DEXTROSE 5% 100ML 100 ML IV PRN (11:15)
[2018-07-13] MEDS ORDERED: ACETAMINOPHEN 325 MG TABLET. PO PRN (11:15)
[2018-07-13] MEDS ORDERED: NITROGLYCERIN SUBLINGUAL 0.4 MG BOTTLE OF 25. SL PRN (11:15)
[2018-07-13] MEDS ORDERED: ATROPINE 0.5 MG/5 ML DISP.SYRINGE. IV PRN (11:15)
[2018-07-13] MEDS ORDERED: LIDOCAINE 2% 100 MG/5 ML SYRINGE. IV PRN (11:15)
--- NOTE | 2018-07-13 15:40 | NUR ---
SS following up with discharge planning. SS reviewed pt chart. Pt is from home with spouse and is currently on room air. Pt receiving heart cath. PT/OT ordered. SS will await PT/OT evaluations and recommendations and will proceed accordingly with discharge planning.
--- NOTE | 2018-07-13 17:06 | CARD ---
MR#: [id number] Date of Study: 07/13/2018 Ordering Physician: ANETTE ALTMAN, Referring Physician: HARDEEP MARIE, Tech: RT Amira (R) BLAINE APPROVED REPORT Technologist: RT Amira (R) BLAINE Nurse: Aidee Miner R.N. Procedure(s) performed: MOD SED: 56 FLUORO TIME 13.2MIN DOSE: 94.02 CONTRAST 188ML LHC, Coronary angiography, PCI of the LAD HISTORY The patient is a 88 year-old female with a history of : coronary artery disease, hypertension, dyslip idemia. INDICATION The indication(s) include : pericarditis, non-STEMI , abnormal ECG, dyspnea, cardiomyopathy. CS Clinical Frailty Scale [facility] Clinical Frailty Scale: Moderately Frail Heart Failure Heart Failure: Yes If Yes, Newly Diagnosed: Yes If Yes, HF Type: Diastolic Systolic If Yes, NYHA Class: Class III PROCEDURE NARRATIVE INFORMED CONSENT: After explaining the risks and benefits of the procedure and alternatives, informed consent was obtained. The patient was brought electively to the cardiac catheterization lab. A timeout was performed confi rming the patient's name, date of , procedure, and site of procedure. All necessary personnel w ere wearing the appropriate protective equipment and radiation monitor devices. (See nursing notes for medications administered). ACCESS: The right wrist was sterilely prepped and draped in the usual fashion. The right wrist was infiltrat ed with 1 mL of 2% lidocaine for subcutaneous anesthesia. A 6 [place] [employer] glide sheath was inserte d into the right radial artery without difficulty. CORONARY ANGIOGRAPHY: Right and left coronary angiography was performed using a 6Fr TIG 4.0 catheter. Left ventricular en d diastolic pressure was obtained with a TIG catheter and pullback was performed. All catheter excha nges and advancements were performed over a guidewire. FINDINGS: HEMODYNAMICS: LVEDP 22 mm Hg No gradient on LV to aortic pullback. AO: 128/78 LEFT VENTRICULOGRAM: Deferred due to known EF of 25%. CORONARY ANGIOGRAPHY: LM is a large caliber vessel with normal angiographic appearance. LAD is a large caliber vessel with a proximal 90% stenosis with NIECY 1 flow. Ramus is a moderate to large caliber vessel with normal angiographic apeparance. LCx is a moderate caliber non-dominant vessel with mild luminal irregularities. OM1 is a moderate caliber vessel with normal angiographic appearance. RCA is a large caliber dominant vessel with mild luminal irregularities. RPDA and RPL are moderate caliber vessels with normal angiographic appearance. The distal RPDA is see n to provide robust right to left collaterals to the LAD. INTERVENTIONAL TECHNIQUE: PCI OF THE LAD This case was complex due to significant tortuousity of the LAD and difficulty with wiring. Heparin a nd tirofiban were used for anticoagulation. Through a 6Fr EBU 4.0 guide catheter, a 0.014'' Choice PT wire was used to cross the lesion. Next, the lesion was angioplastied with a Trek 3.0/12 mm balloon at stented with a Resolute 3.5/18 LIYAH at 16 dima. Final post-PCI angiography demonstrated excellent st ent expansion with NIECY 3 flow in the LAD. The patient received Ticagrelor 180mg at case completion. CLOSURE: At case completion the right radial sheath was removed and a Terumo radial band was applied with 13 m l of air. COMPLICATIONS: The patient tolerated the procedure well and there were no immediate complications. NIECY Flow NIECY Flow (Pre-Intervention): NIECY-1 NIECY Flow (Post-Intervention): NIECY-3 Conclusion 1. One vessel CAD 2. Elevated left sided filling pressures. 3. Successful PCI of the LAD with implantation of a Resolute 3.5/18 LIYAH. Recommendations ASA 81mg daily Atorvastatin therapy Ticagrelor 90mg bid for 1 year if tolerated. Signed by : Charanjit Kyle, Electronically Approved : 07/13/2018 17:06:24
--- NOTE | 2018-07-13 17:32 | PDOC ---
PROGRESS NOTES Subjective Subjective Patient doing well status post cardiac catheter with new stent to LAD. Patient still having some epigastric discomfort and shortness of breath and O2 sats are stable. Cardiac echo shows EF down to 25% with anterior hypokinesis Objective Objective Vital Signs Date Time Temp Pulse Resp B/P (MAP) Pulse Ox O2 Delivery O2 Flow Rate FiO2 07/13/18 15:00 98.1 82 18 151/86 (107) 97 Room Air 98.1 Intake and Output 07/13/18 07:00 Intake Total 1011.6 ml Output Total 1400 ml Balance -388.4 ml Intake Oral 700 ml IV Total 311.6 ml Output Urine Total 1400 ml # Voids 3 # Bowel Movements 2 Physical Exam Abdomen: Normal bowel sounds Heart: Regular rate Extremities: No edema General: Alert Lungs: Clear to auscultation Assessment Assessment Problems Medical Problems: (1) Acute exacerbation of CHF (congestive heart failure) Status: Acute (2) Acute respiratory distress Status: Acute (3) Elevated d-dimer Status: Acute (4) Elevated troponin Status: Acute (5) Pleural effusion on right Status: Acute (6) SIRS (systemic inflammatory response syndrome) Status: Acute Coronary artery disease Status post stent to LAD Non-ST elevated myocardial infarction. Acute systolic congestive heart failure. Acute respiratory failure Lactic acidosis. Aortic insufficiency history. Plan Plan of Care Continue cardiac care. Proceed with PT and OT modalities. Comment Review of Relevant I have reviewed the following items luna (where applicable) has been applied. Labs Laboratory Tests Test 07/12/18 10:05 07/12/18 12:30 07/12/18 13:50 07/12/18 14:45 White Blood Count 13.0 x10^3/uL (4.0-11.0) Red Blood Count 3.67 x10^6/uL (3.50-5.40) Hemoglobin 12.0 g/dL (12.0-15.5) Hematocrit 35.1 % (36.0-47.0) Mean Corpuscular Volume 96 fL (79-100) Mean Corpuscular Hemoglobin 33 pg (25-35) Mean Corpuscular Hemoglobin Concent 34 g/dL (31-37) Red Cell Distribution Width 14.1 % (11.5-14.5) Platelet Count 207 x10^3/uL (140-400) Neutrophils (%) (Auto) 83 % (31-73) Lymphocytes (%) (Auto) 9 % (24-48) Monocytes (%) (Auto) 7 % (0-9) Eosinophils (%) (Auto) 1 % (0-3) Basophils (%) (Auto) 0 % (0-3) Neutrophils # (Auto) 10.8 x10^3uL (1.8-7.7) Lymphocytes # (Auto) 1.2 x10^3/uL (1.0-4.8) Monocytes # (Auto) 0.9 x10^3/uL (0.0-1.1) Eosinophils # (Auto) 0.1 x10^3/uL (0.0-0.7) Basophils # (Auto) 0.1 x10^3/uL (0.0-0.2) D-Dimer (Payton) 2.20 ug/mlFEU (0.00-0.50) Sodium Level 144 mmol/L (136-145) Potassium Level 3.9 mmol/L (3.5-5.1) Chloride Level 108 mmol/L (98-107) Carbon Dioxide Level 23 mmol/L (21-32) Anion Gap 13 (6-14) Blood Urea Nitrogen 20 mg/dL (7-20) Creatinine 1.1 mg/dL (0.6-1.0) Estimated GFR (Cockcroft-Gault) 47.1 BUN/Creatinine Ratio 18 (6-20) Glucose Level 105 mg/dL (70-99) Lactic Acid Level 2.3 mmol/L (0.4-2.0) 2.0 mmol/L (0.4-2.0) Calcium Level 9.8 mg/dL (8.5-10.1) Total Bilirubin 0.7 mg/dL (0.2-1.0) Aspartate Amino Transf (AST/SGOT) 23 U/L (15-37) Alanine Aminotransferase (ALT/SGPT) 19 U/L (14-59) Alkaline Phosphatase 83 U/L (46-116) Creatine Kinase 53 U/L (26-192) Troponin I Quantitative 0.329 ng/mL (0.000-0.055) 0.304 ng/mL (0.000-0.055) NG-Zep-O-Type Natriuretic Peptide 30365 pg/mL (0-449) Total Protein 6.3 g/dL (6.4-8.2) Albumin 3.6 g/dL (3.4-5.0) Albumin/Globulin Ratio 1.3 (1.0-1.7) Triglycerides Level 106 mg/dL (0-150) Cholesterol Level 166 mg/dL (0-200) LDL Cholesterol, Calculated 78 mg/dL (0-100) VLDL Cholesterol, Calculated 21 mg/dL (0-40) Non-HDL Cholesterol Calculated 99 mg/dL (0-129) HDL Cholesterol 67 mg/dL (40-60) Cholesterol/HDL Ratio 2.5 Thyroid Stimulating Hormone (TSH) 4.138 uIU/mL (0.358-3.74) Influenza Type A Antigen Negative (NEGATIVE) Influenza Type B Antigen Negative (NEGATIVE) Urine Collection Type Unknown Urine Color Straw Urine Clarity Clear Urine pH 6.0 Urine Specific [place] 1.015 Urine Protein Negative mg/dL (NEG-TRACE) Urine Glucose (UA) Negative mg/dL (NEG) Urine Ketones (Stick) Negative mg/dL (NEG) Urine Blood Negative (NEG) Urine Nitrite Negative (NEG) Urine Bilirubin Negative (NEG) Urine Urobilinogen Dipstick 0.2 mg/dL (0.2 mg/dL) Urine Leukocyte Esterase Negative (NEG) Urine RBC Occ /HPF (0-2) Urine WBC Occ /HPF (0-4) Urine Squamous Epithelial Cells Few /LPF Urine Bacteria Few /HPF (0-FEW) Test 07/12/18 20:30 07/13/18 03:00 07/13/18 03:15 Heparin Anti-Xa Act, Unfractionated 0.29 IU/mL (0.30-0.70) 0.56 IU/mL (0.30-0.70) Troponin I Quantitative 0.270 ng/mL (0.000-0.055) White Blood Count 9.9 x10^3/uL (4.0-11.0) Red Blood Count 3.51 x10^6/uL (3.50-5.40) Hemoglobin 11.3 g/dL (12.0-15.5) Hematocrit 33.4 % (36.0-47.0) Mean Corpuscular Volume 95 fL (79-100) Mean Corpuscular Hemoglobin 32 pg (25-35) Mean Corpuscular Hemoglobin Concent 34 g/dL (31-37) Red Cell Distribution Width 14.5 % (11.5-14.5) Platelet Count 193 x10^3/uL (140-400) Neutrophils (%) (Auto) 82 % (31-73) Lymphocytes (%) (Auto) 13 % (24-48) Monocytes (%) (Auto) 5 % (0-9) Eosinophils (%) (Auto) 0 % (0-3) Basophils (%) (Auto) 0 % (0-3) Neutrophils # (Auto) 8.1 x10^3uL (1.8-7.7) Lymphocytes # (Auto) 1.3 x10^3/uL (1.0-4.8) Monocytes # (Auto) 0.5 x10^3/uL (0.0-1.1) Eosinophils # (Auto) 0.0 x10^3/uL (0.0-0.7) Basophils # (Auto) 0.0 x10^3/uL (0.0-0.2) Sodium Level 143 mmol/L (136-145) Potassium Level 3.3 mmol/L (3.5-5.1) Chloride Level 106 mmol/L (98-107) Carbon Dioxide Level 23 mmol/L (21-32) Anion Gap 14 (6-14) Blood Urea Nitrogen 20 mg/dL (7-20) Creatinine 1.1 mg/dL (0.6-1.0) Estimated GFR (Cockcroft-Gault) 47.1 Glucose Level 138 mg/dL (70-99) Calcium Level 9.0 mg/dL (8.5-10.1) Laboratory Tests Test 07/12/18 20:30 07/13/18 03:00 07/13/18 03:15 Heparin Anti-Xa Act, Unfractionated 0.29 IU/mL (0.30-0.70) 0.56 IU/mL (0.30-0.70) Troponin I Quantitative 0.270 ng/mL (0.000-0.055) White Blood Count 9.9 x10^3/uL (4.0-11.0) Red Blood Count 3.51 x10^6/uL (3.50-5.40) Hemoglobin 11.3 g/dL (12.0-15.5) Hematocrit 33.4 % (36.0-47.0) Mean Corpuscular Volume 95 fL (79-100) Mean Corpuscular Hemoglobin 32 pg (25-35) Mean Corpuscular Hemoglobin Concent 34 g/dL (31-37) Red Cell Distribution Width 14.5 % (11.5-14.5) Platelet Count 193 x10^3/uL (140-400) Neutrophils (%) (Auto) 82 % (31-73) Lymphocytes (%) (Auto) 13 % (24-48) Monocytes (%) (Auto) 5 % (0-9) Eosinophils (%) (Auto) 0 % (0-3) Basophils (%) (Auto) 0 % (0-3) Neutrophils # (Auto) 8.1 x10^3uL (1.8-7.7) Lymphocytes # (Auto) 1.3 x10^3/uL (1.0-4.8) Monocytes # (Auto) 0.5 x10^3/uL (0.0-1.1) Eosinophils # (Auto) 0.0 x10^3/uL (0.0-0.7) Basophils # (Auto) 0.0 x10^3/uL (0.0-0.2) Sodium Level 143 mmol/L (136-145) Potassium Level 3.3 mmol/L (3.5-5.1) Chloride Level 106 mmol/L (98-107) Carbon Dioxide Level 23 mmol/L (21-32) Anion Gap 14 (6-14) Blood Urea Nitrogen 20 mg/dL (7-20) Creatinine 1.1 mg/dL (0.6-1.0) Estimated GFR (Cockcroft-Gault) 47.1 Glucose Level 138 mg/dL (70-99) Calcium Level 9.0 mg/dL (8.5-10.1) Microbiology 07/12/18 Blood Culture - Preliminary, Resulted NO GROWTH AFTER 1 DAY Medications Current Medications Sodium Chloride 1,000 ml @ 1,000 mls/hr Q1H IV Last administered on 07/12/18at 10:13; Start 07/12/18 at 10:13; Stop 07/12/18 at 11:12; Status DC Albuterol/ Ipratropium (Duoneb) 3 ml 1X ONCE NEB Last administered on 07/12/18at 11:14; Start 07/12/18 at 10:15; Stop 07/12/18 at 10:18; Status DC Methylprednisolone Sodium Succinate (SOLU-Medrol 125MG VIAL) 125 mg 1X ONCE IV Last administered on 07/12/18at 10:15; Start 07/12/18 at 10:15; Stop 07/12/18 at 10:18; Status DC Ceftriaxone Sodium (Rocephin) 1 gm 1X ONCE IVP Last administered on 07/12/18at 11:15; Start 07/12/18 at 11:15; Stop 07/12/18 at 11:16; Status DC Aspirin (Rhett Aspirin) 325 mg STK-MED ONCE .ROUTE ; Start 07/12/18 at 11:39; Stop 07/12/18 at 11:40; Status DC Nitroglycerin (Nitrostat) 0.4 mg STK-MED ONCE SL ; Start 07/12/18 at 11:39; Stop 07/12/18 at 11:40; Status DC Iohexol (Omnipaque 300 Mg/ml) 90 ml 1X ONCE IV Last administered on 07/13/18at 10:34; Start 07/12/18 at 11:45; Stop 07/12/18 at 11:47; Status DC Iohexol (Omnipaque 350 Mg/ml) 90 ml 1X ONCE IV Last administered on 07/12/18at 12:00; Start 07/12/18 at 12:00; Stop 07/12/18 at 12:01; Status DC Iohexol (Omnipaque 350 Mg/ml) 90 ml 1X ONCE IV ; Start 07/12/18 at 12:00; Stop 07/12/18 at 12:01; Status DC Info (CONTRAST GIVEN -- Rx MONITORING) 1 each PRN DAILY PRN MC SEE COMMENTS; Start 07/12/18 at 12:00; Stop 07/14/18 at 11:59 Furosemide (Lasix) 40 mg 1X ONCE IVP Last administered on 07/12/18at 12:28; Start 07/12/18 at 13:00; Stop 07/12/18 at 13:01; Status DC Furosemide (Lasix) 40 mg STK-MED ONCE .ROUTE ; Start 07/12/18 at 12:25; Stop 07/12/18 at 12:26; Status DC Metoprolol Tartrate (Lopressor) 50 mg DAILY PO ; Start 07/12/18 at 13:00; Stop 07/13/18 at 09:44; Status DC Levothyroxine Sodium (Synthroid) 125 mcg DAILY06 PO Last administered on 07/13/18at 05:35; Start 07/12/18 at 13:00 Verapamil HCl (Calan Sr) 180 mg DAILY PO ; Start 07/12/18 at 13:00; Stop 07/12/18 at 20:50; Status DC Enoxaparin Sodium (Lovenox 40mg Syringe) 40 mg Q24H SQ ; Start 07/12/18 at 1 3:00; Stop 07/12/18 at 13:00; Status DC Labetalol HCl (Normodyne Iv Push) 20 mg PRN Q2HR PRN IVP HYPERTENSION, SEE COMMENTS; Start 07/12/18 at 13:00 Heparin Sodium/ Dextrose 500 ml @ 19.8 mls/hr CONT PRN IV SEE I/O RECORD Last administered on 07/12/18at 14:39; Start 07/12/18 at 13:45 Heparin Sodium (Porcine) (Heparin Sodium) 2,050 unit PRN Q6HRS PRN IV FOR UFH LEVEL LESS THAN 0.2; Start 07/12/18 at 13:45 Alprazolam (Xanax) 0.25 mg TID PO Last administered on 07/13/18at 14:05; Start 07/12/18 at 16:15 Aspirin (Rhett Aspirin) 325 mg DAILY PO Last administered on 07/13/18at 08:49; Start 07/12/18 at 16:00 Metoprolol Tartrate (Lopressor) 25 mg BID PO Last administered on 07/13/18at 08:50; Start 07/12/18 at 21:00 Furosemide (Lasix) 40 mg DAILY IVP Last administered on 07/13/18at 08:49; Start 07/13/18 at 09:00 Potassium Chloride (Klor-Con) 20 meq DAILYWBKFT PO Last administered on at 08:49; Start 07/13/18 at 08:00 Lidocaine HCl (Xylocaine-Mpf 1% 2ml Vial) 2 ml STK-MED ONCE .ROUTE ; Start 07/13/18 at 08:33; Stop 07/13/18 at 08:34; Status DC Heparin Sodium/ Sodium Chloride 1,000 ml @ As Directed STK-MED ONCE .ROUTE ; Start 07/13/18 at 08:33; Stop 07/13/18 at 08:34; Status DC Iohexol (Omnipaque 300 Mg/ml) 100 ml STK-MED ONCE .ROUTE ; Start 07/13/18 at 09:10; Stop 07/13/18 at 09:11; Status DC Fentanyl Citrate (Fentanyl 2ml Vial) 100 mcg STK-MED ONCE .ROUTE ; Start 07/13/18 at 09:33; Stop 07/13/18 at 09:34; Status DC Midazolam HCl (Versed) 2 mg STK-MED ONCE .ROUTE ; Start 07/13/18 at 09:33; Stop 07/13/18 at 09:34; Status DC Heparin Sodium (Porcine) (Heparin Sodium) 10,000 unit STK-MED ONCE .ROUTE ; Start 07/13/18 at 09:33; Stop 07/13/18 at 09:34; Status DC Verapamil HCl (Verapamil) 5 mg STK-MED ONCE .ROUTE ; Start 07/13/18 at 09:33; Stop 07/13/18 at 09:34; Status DC Nitroglycerin (Nitroglycerin) 200 mcg STK-MED ONCE .ROUTE ; Start 07/13/18 at 09:34; Stop 07/13/18 at 09:35; Status DC Tirofiban/Sodium Chloride 100 ml @ As Directed STK-MED ONCE IV ; Start 07/13/18 at 10:00; Stop 07/13/18 at 10:01; Status DC Iohexol (Omnipaque 300 Mg/ml) 100 ml STK-MED ONCE .ROUTE ; Start 07/13/18 at 10:12; Stop 07/13/18 at 10:13; Status DC Nitroglycerin (Nitroglycerin) 200 mcg STK-MED ONCE .ROUTE ; Start 07/13/18 at 10:22; Stop 07/13/18 at 10:23; Status DC Nitroglycerin (Nitroglycerin) 400 mcg 1X ONCE IART Last administered on 07/13/18at 10:37; Start 07/13/18 at 10:30; Stop 07/13/18 at 10:31; Status DC Verapamil HCl (Verapamil) 2.5 mg 1X ONCE IART Last administered on 07/13/18at 10:35; Start 07/13/18 at 10:30; Stop 07/13/18 at 10:31; Status DC Heparin Sodium (Porcine) (Heparin Sodium) 2,500 unit 1X ONCE IART Last administered on 07/13/18at 10:40; Start 07/13/18 at 10:30; Stop 07/13/18 at 10:31; Status DC Heparin Sodium/ Sodium Chloride (HEPARIN for ARTERIAL LINE FLUSH) 1,000 unit 1X ONCE IART Last administered on 07/13/18 10:32; Start 07/13/18 at 10:30; Stop 07/13/18 at 10:31; Status DC Midazolam HCl (Versed) 1 mg 1X ONCE IV Last administered on 07/13/18 10:36; Start 07/13/18 at 10:30; Stop 07/13/18 at 10:31; Status DC Fentanyl Citrate (Fentanyl 2ml Vial) 50 mcg 1X ONCE IV Last administered on 07/13/18 10:35; Start 07/13/18 at 10:30; Stop 07/13/18 at 10:31; Status DC Iohexol (Omnipaque 300 Mg/ml) 100 ml 1X ONCE IART Last administered on 07/13/18 10:34; Start 07/13/18 at 10:30; Stop 07/13/18 at 10:31; Status DC Heparin Sodium (Porcine) (Heparin Sodium) 3,000 unit 1X ONCE IV Last administered on 07/13/18 10:33; Start 07/13/18 at 10:30; Stop 07/13/18 at 10:31; Status DC Tirofiban/Sodium Chloride 100 ml @ 0 mls/hr CONT PRN IV PER PROTOCOL Last administered on 07/13/18at 10:37; Start 07/13/18 at 10:30; Stop 07/13/18 at 10:40; Status DC Lidocaine HCl (Xylocaine-Mpf 1% 2ml Vial) 1 ml 1X ONCE INJ Last administered on 07/13/18 10:30; Start 07/13/18 at 10:30; Stop 07/13/18 at 10:31; Status DC Ticagrelor (Brilinta) 180 mg 1X ONCE PO Last administered on 07/13/18 10:40; Start 07/13/18 at 10:30; Stop 07/13/18 at 10:31; Status DC Ticagrelor (Brilinta) 90 mg STK-MED ONCE .ROUTE ; Start 07/13/18 at 10:38; Stop 07/13/18 at 10:39; Status DC Sodium Chloride (Normal Saline Flush) 3 ml QSHIFT PRN IV AFTER MEDS AND BLOOD DRAWS; Start 07/13/18 at 11:15 Ticagrelor (Brilinta) 90 mg BID PO ; Start 07/14/18 at 09:00 Atorvastatin Calcium (Lipitor) 40 mg QHS PO ; Start 07/13/18 at 21:00 Acetaminophen (Tylenol) 650 mg PRN Q6HRS PRN PO MILD PAIN / TEMP; Start 07/13/18 at 11:15 Fentanyl Citrate (Fentanyl 2ml Vial) 50 mcg PRN Q1HR PRN IV MODERATE OR SEVERE PAIN; Start 07/13/18 at 11:15 Nitroglycerin (Nitrostat) 0.4 mg PRN Q5MIN PRN SL CHEST PAIN; Start 07/13/18 at 11:15 Amiodarone HCl 150 mg/Dextrose 103 ml @ 600 mls/hr 1X PRN PRN IV FOR VENTRICUL AR TACHYCARDIA; Start 07/13/18 at 11:15 Lidocaine HCl (Lidocaine HCl 2% Abboject) 100 mg 1X PRN PRN IV FOR VENTRICULAR TACHYCARDIA; Start 07/13/18 at 11:15 Atropine Sulfate (ATROPINE 0.5mg SYRINGE) 0.5 mg PRN 1X PRN IV BRADYCARDIA; Start 07/13/18 at 11:15 Active Scripts Active Reported Calcium (Calcium Carbonate) 500 Mg Tablet 500 Mg PO DAILY Xanax (Alprazolam) 0.5 Mg Tablet 0.5 Tab PO TID Symbicort 160-4.5 Mcg Inhaler (Budesonide/Formoterol Fumarate) 10.2 Gm Hfa.aer.ad 2 Puff IH BID Aspirin 325 Mg Tablet 325 Mg PO DAILY Levothyroxine Sodium 125 Mcg Tablet 1 Tab PO DAILY Meloxicam 15 Mg Tablet 1 Tab PO DAILY Metoprolol Tartrate 50 Mg Tablet 1 Tab PO DAILY Verapamil Er (Verapamil Hcl) 180 Mg Tablet.er 180 Mg PO DAILY [bp med] Vitals/I & O Vital Sign - Last 24 Hours 07/12/18 07/12/18 07/12/18 07/12/18 19:00 19:50 21:15 23:00 Temp 97.9 97.6 97.9 97.6 Pulse 85 85 78 Resp 18 20 B/P (MAP) 153/91 (111) 153/91 141/83 (102) Pulse Ox 92 90 O2 Delivery Room Air Room Air Room Air 07/13/18 07/13/18 07/13/18 07/13/18 03:00 07:00 08:00 08:50 Temp 97.7 97.4 97.7 97.4 Pulse 85 82 82 Resp 22 18 B/P (MAP) 150/91 (110) 150/74 (99) 150/74 Pulse Ox 87 91 O2 Delivery Room Air Room Air Room Air 07/13/18 07/13/18 07/13/18 07/13/18 10:35 10:35 10:45 11:30 Temp 96.2 96.2 Pulse 82 78 79 Resp 12 18 20 B/P (MAP) 150/74 145/82 (103) Pulse Ox 91 90 96 O2 Delivery Room Air Room Air Room Air 07/13/18 15:00 Temp 98.1 98.1 Pulse 82 Resp 18 B/P (MAP) 151/86 (107) Pulse Ox 97 O2 Delivery Room Air Intake and Output 07/12/18 07/12/18 07/13/18 15:00 23:00 07:00 Intake Total 500 ml 511.6 ml Output Total 600 ml 500 ml 300 ml Balance -600 ml 0 ml 211.6 ml HARDEEP MARIE MD Jul 13, 2018 17:32
--- NOTE | 2018-07-13 17:43 | RAD ---
PORTABLE CHEST 1V History: Shortness of breath.. Comparison with one day earlier. The cardiac silhouette remains widened. There is an increase in bilateral predominantly interstitial infiltrates. Small pleural effusions are similar. No evidence of pneumothorax. No area of new lobar airspace consolidation is seen. Regional skeleton appears grossly intact IMPRESSION: Worsening of bilateral pulmonary edema/infiltrate. Similar small pleural effusions. Electronically signed by: Yaya Saul MD (07/13/2018 5:40 PM) [id number]
[2018-07-13] MEDS: ATORVASTATIN CALCIUM 20 MG TABLET PO SCH (21:24)
[2018-07-14] VITALS (8 sets, daily range): BP systolic 91–132; BP diastolic 50–69
[2018-07-14] MEDS: LEVOTHYROXINE 125 MCG TABLET PO SCH (06:01)
[2018-07-14 06:15] LABS: CALCIUM 8.8 mg/dL (8.5-10.1); CREATININE 1.2 mg/dL (0.6-1.0); GFR 42.6; POTASSIUM 3.2 mmol/L (3.5-5.1)
[2018-07-14] MEDS: METOPROLOL TART IMMED RELEASE 25 MG TABLET. PO SCH ×2 (08:12→20:35)
[2018-07-14] MEDS ORDERED: DIGOXIN IV 500 MCG/2 ML AMPUL. ONE (08:16)
[2018-07-14] MEDS ORDERED: METOPROLOL TARTRATE 5 MG/5 ML VIAL. IVP ONE ×2 (08:16→08:30)
--- NOTE | 2018-07-14 08:27 | PDOC ---
DIRK BEAN ROCK STAR 07/14/18 0827: CARDIO Progress Notes Date and Time Date of Service 07/14/18 Time of Evaluation 0825 Subjective Subjective: No Chest Pain Comments: palpitatons this am. Also had bloody BM last night adn again this am Vitals Vitals Vital Signs Date Time Temp Pulse Resp B/P (MAP) Pulse Ox O2 Delivery O2 Flow Rate FiO2 07/14/18 08:12 154 126/69 07/14/18 02:43 20 94 Room Air 07/13/18 23:03 97.6 97.6 07/13/18 19:45 2.0 Weight Weight [ ] Input and Output Intake and Output Intake and Output 07/14/18 07:00 Intake Total 740.17 ml Output Total 200 ml Balance 540.17 ml Intake Oral 650 ml IV Total 90.17 ml Output Urine Total 200 ml # Voids 7 # Bowel Movements 1 Laboratory Labs Laboratory Tests Test 07/14/18 05:15 Sodium Level 144 mmol/L (136-145) Potassium Level 3.2 mmol/L (3.5-5.1) Chloride Level 108 mmol/L (98-107) Carbon Dioxide Level 23 mmol/L (21-32) Anion Gap 13 (6-14) Blood Urea Nitrogen 35 mg/dL (7-20) Creatinine 1.2 mg/dL (0.6-1.0) Estimated GFR (Cockcroft-Gault) 42.6 Glucose Level 120 mg/dL (70-99) Calcium Level 8.8 mg/dL (8.5-10.1) Microbiology Micro Microbiology 07/12/18 Blood Culture - Preliminary, Resulted NO GROWTH AFTER 1 DAY Physical Exam HEENT: Neck Supple W Full Motion Chest: Symmetric LUNGS: Clear to Auscultation, Other (diminished bases) Heart: S1S2, irregularly irregular (AFIB rate 150) Abdomen: Soft N/T Extremities: No Edema, Other (right radial arteriotomy site soft, clean, and dry. Neurovascular status intact) Neurology: alert, oriented, follow commands Assessment Assessment 1. CAD s/p PCI/LIYAH to LAD 2. Acute systolic HF 3. NSTEMI 4. ICM; LVEF 25% 5. AFIB with RVR; new onset. rate presently 150 6. Valvular insufficiency: mod AI 7. Hypertension 8. Recent CVA 9. Ascending aortic aneurysm; 4.4 cm per echo 10. Hypokalemia 11. Hematochezia; episode last night and agin this morning with moderate amount of blood. Recommendations Digoxin IV x1 now Metoprolol 5mg IV x1 now. Fluid challenge with 1/2 NS 500cc bolus If rate unresponsive to above, will start Amiodarone gtt Replace K, Check Mg- replace as warranted Recheck H and H Hold ASA and Brilinta now with significant rectal bleeding. Continue statin, BB Add ACEi given significant CMP Cardiac rehab referral BRITANY CUENCA MD 07/14/18 1655: CARDIO Progress Notes Plan Plan Pt. seen and examined. Agree with above RECORDS AND INFORMATION MANAGER note. She has been tachycardic but resting comfortably in bed. No chest pain. On amio, metoprolol and given dig TIcagrelor held due to bleeding. When no further bloody stools, restart asa, plavix. She does not appear to be in kilo HF, no aggressive diuresis given low BP's. Consider CVN tuesday if she still is tachycardic but this may be an issue if she is not able to be anticoagulated. Hopefully, she will continue to improve. Overall, she is critically ill and i discussed this with her daughter. Late presentation of a NSTEMI likely with severe ischemic CMP. Supportive care. DIRK BEAN APRN Jul 14, 2018 08:27 BRITANY CUENCA MD Jul 14, 2018 16:55
[2018-07-14] MEDS ORDERED: DIGOXIN IV 500 MCG/2 ML AMPUL. IV ONE ×2 (08:30→10:00)
[2018-07-14] MEDS ORDERED: POTASSIUM CHLORIDE 20 MEQ TABLET.ER. PO ONE (08:45)
[2018-07-14] MEDS: ASPIRIN ENTERIC COATED 81 MG TABLET.DR. PO SCH (09:00)
[2018-07-14] MEDS: FUROSEMIDE 40 MG/4 ML VIAL. IVP SCH ×2 (09:00→10:10)
[2018-07-14] MEDS: LISINOPRIL 5 MG TABLET. PO SCH (09:00)
[2018-07-14] MEDS: TICAGRELOR 90 MG TABLET. PO SCH ×2 (09:00→20:35)
--- NOTE | 2018-07-14 09:18 | HP ---
ADMIT DATE: 07/12/2018 CHIEF COMPLAINT: Shortness of breath. HISTORY OF PRESENT ILLNESS: The patient is an 88-year-old female who for the last 24 hours began having increasing shortness of breath, especially when she does activity or lies down. She was told to go directly to the Emergency Room after office enquiry, but the patient delayed approximately 24 hours and then came to the hospital with increasing shortness of breath. She was found to have evidence of congestive heart failure and slightly elevated troponin as well as positive D-dimer. Due to constellation of symptoms, the patient was admitted for rule out CO protocol and treatment for CHF. Evaluation for pulmonary embolus is still pending at this time and non-ST elevated CO. The patient also had elevated lactic acid of 2.3. PAST MEDICAL HISTORY: Significant for recent right lacunar CVA, longstanding hypertension, hypothyroidism, high cholesterol, osteoporosis, essential tremor, generalized anxiety disorder, moderate aortic insufficiency. MEDICATIONS: The patient's medications on admission are metoprolol extended release 50 mg daily, verapamil 180 mg daily, aspirin 325 mg daily, Synthroid 125 mcg daily, Meloxicam 50 mg daily, Xanax 0.5 t.i.d. p.r.n. PAST SURGICAL HISTORY: Significant for left wrist surgery after fracture. FAMILY HISTORY: Noncontributory. SOCIAL HISTORY: The patient never smokes. She does not use alcohol. She is and lives with her spouse who is diagnosed with end-stage Alzheimer's and is at total care at this time. ALLERGIES: The patient has no known drug allergies. REVIEW OF SYSTEMS: Significant for shortness of breath as mentioned in HPI. She denies cough, congestion, fever, chills, abdominal pain, nausea, vomiting, diarrhea, recent weight gain or weight loss. PHYSICAL EXAMINATION: GENERAL: She is a well-nourished, well-developed 88-year-old female, in no apparent distress on my exam, she is alert and oriented x 3. HEENT: Benign. NECK: Supple. CARDIAC: Regular rate and rhythm. LUNGS: Clear with decreased breath sounds in the bases. ABDOMEN: Soft, nontender, without masses. EXTREMITIES: 2+ pulse without significant edema. NEUROLOGIC: Showed no unilateral findings. ASSESSMENT: 1. Non-ST elevated myocardial infarction. 2. Acute systolic congestive heart failure. 3. Lactic acidosis. 4. Aortic insufficiency history. PLAN: To proceed with diuresis, cardiology consultation, await CTA for evaluation of pulmonary embolus, proceed with rule out CO and stress testing or cardiac catheterization as indicated. HARDEEP MARIE MD DR: DENISHA/bao JOB#: [id number] / [id number]
--- NOTE | 2018-07-14 09:19 | PDOC ---
PROGRESS NOTES Subjective Subjective Patient feeling weak this am bloody BM reported last night. SVT with rate ~150. HGB pending and IV dig and Beta anjum given this am. Objective Objective Vital Signs Date Time Temp Pulse Resp B/P (MAP) Pulse Ox O2 Delivery O2 Flow Rate FiO2 07/14/18 08:27 154 126/69 07/14/18 07:00 98.1 22 97 Room Air 98.1 07/13/18 19:45 2.0 Intake and Output 07/14/18 07:00 Intake Total 740.17 ml Output Total 200 ml Balance 540.17 ml Intake Oral 650 ml IV Total 90.17 ml Output Urine Total 200 ml # Voids 7 # Bowel Movements 1 Physical Exam Abdomen: Normal bowel sounds Heart: Other (Tach) Extremities: No edema General: Alert Lungs: Clear to auscultation Assessment Assessment Problems Medical Problems: (1) Acute exacerbation of CHF (congestive heart failure) Status: Acute (2) Acute respiratory distress Status: Acute (3) Elevated d-dimer Status: Acute (4) Elevated troponin Status: Acute (5) Pleural effusion on right Status: Acute (6) SIRS (systemic inflammatory response syndrome) Status: Acute SVT lower GI bleed Coronary artery disease Status post stent to LAD Non-ST elevated myocardial infarction. Acute systolic congestive heart failure. Acute respiratory failure Lactic acidosis. Aortic insufficiency history. Plan Plan of Care Rate control per card Consult GI Continue post MO & stent management Comment Review of Relevant I have reviewed the following items luna (where applicable) has been applied. Labs Laboratory Tests Test 07/12/18 10:05 07/12/18 12:30 07/12/18 13:50 07/12/18 14:45 White Blood Count 13.0 x10^3/uL (4.0-11.0) Red Blood Count 3.67 x10^6/uL (3.50-5.40) Hemoglobin 12.0 g/dL (12.0-15.5) Hematocrit 35.1 % (36.0-47.0) Mean Corpuscular Volume 96 fL (79-100) Mean Corpuscular Hemoglobin 33 pg (25-35) Mean Corpuscular Hemoglobin Concent 34 g/dL (31-37) Red Cell Distribution Width 14.1 % (11.5-14.5) Platelet Count 207 x10^3/uL (140-400) Neutrophils (%) (Auto) 83 % (31-73) Lymphocytes (%) (Auto) 9 % (24-48) Monocytes (%) (Auto) 7 % (0-9) Eosinophils (%) (Auto) 1 % (0-3) Basophils (%) (Auto) 0 % (0-3) Neutrophils # (Auto) 10.8 x10^3uL (1.8-7.7) Lymphocytes # (Auto) 1.2 x10^3/uL (1.0-4.8) Monocytes # (Auto) 0.9 x10^3/uL (0.0-1.1) Eosinophils # (Auto) 0.1 x10^3/uL (0.0-0.7) Basophils # (Auto) 0.1 x10^3/uL (0.0-0.2) D-Dimer (Payton) 2.20 ug/mlFEU (0.00-0.50) Sodium Level 144 mmol/L (136-145) Potassium Level 3.9 mmol/L (3.5-5.1) Chloride Level 108 mmol/L (98-107) Carbon Dioxide Level 23 mmol/L (21-32) Anion Gap 13 (6-14) Blood Urea Nitrogen 20 mg/dL (7-20) Creatinine 1.1 mg/dL (0.6-1.0) Estimated GFR (Cockcroft-Gault) 47.1 BUN/Creatinine Ratio 18 (6-20) Glucose Level 105 mg/dL (70-99) Lactic Acid Level 2.3 mmol/L (0.4-2.0) 2.0 mmol/L (0.4-2.0) Calcium Level 9.8 mg/dL (8.5-10.1) Total Bilirubin 0.7 mg/dL (0.2-1.0) Aspartate Amino Transf (AST/SGOT) 23 U/L (15-37) Alanine Aminotransferase (ALT/SGPT) 19 U/L (14-59) Alkaline Phosphatase 83 U/L (46-116) Creatine Kinase 53 U/L (26-192) Troponin I Quantitative 0.329 ng/mL (0.000-0.055) 0.304 ng/mL (0.000-0.055) UL-Msu-H-Type Natriuretic Peptide 35735 pg/mL (0-449) Total Protein 6.3 g/dL (6.4-8.2) Albumin 3.6 g/dL (3.4-5.0) Albumin/Globulin Ratio 1.3 (1.0-1.7) Triglycerides Level 106 mg/dL (0-150) Cholesterol Level 166 mg/dL (0-200) LDL Cholesterol, Calculated 78 mg/dL (0-100) VLDL Cholesterol, Calculated 21 mg/dL (0-40) Non-HDL Cholesterol Calculated 99 mg/dL (0-129) HDL Cholesterol 67 mg/dL (40-60) Cholesterol/HDL Ratio 2.5 Thyroid Stimulating Hormone (TSH) 4.138 uIU/mL (0.358-3.74) Influenza Type A Antigen Negative (NEGATIVE) Influenza Type B Antigen Negative (NEGATIVE) Urine Collection Type Unknown Urine Color Straw Urine Clarity Clear Urine pH 6.0 Urine Specific [place] 1.015 Urine Protein Negative mg/dL (NEG-TRACE) Urine Glucose (UA) Negative mg/dL (NEG) Urine Ketones (Stick) Negative mg/dL (NEG) Urine Blood Negative (NEG) Urine Nitrite Negative (NEG) Urine Bilirubin Negative (NEG) Urine Urobilinogen Dipstick 0.2 mg/dL (0.2 mg/dL) Urine Leukocyte Esterase Negative (NEG) Urine RBC Occ /HPF (0-2) Urine WBC Occ /HPF (0-4) Urine Squamous Epithelial Cells Few /LPF Urine Bacteria Few /HPF (0-FEW) Test 07/12/18 20:30 07/13/18 03:00 07/13/18 03:15 07/14/18 05:15 Heparin Anti-Xa Act, Unfractionated 0.29 IU/mL (0.30-0.70) 0.56 IU/mL (0.30-0.70) Troponin I Quantitative 0.270 ng/mL (0.000-0.055) White Blood Count 9.9 x10^3/uL (4.0-11.0) Red Blood Count 3.51 x10^6/uL (3.50-5.40) Hemoglobin 11.3 g/dL (12.0-15.5) Hematocrit 33.4 % (36.0-47.0) Mean Corpuscular Volume 95 fL (79-100) Mean Corpuscular Hemoglobin 32 pg (25-35) Mean Corpuscular Hemoglobin Concent 34 g/dL (31-37) Red Cell Distribution Width 14.5 % (11.5-14.5) Platelet Count 193 x10^3/uL (140-400) Neutrophils (%) (Auto) 82 % (31-73) Lymphocytes (%) (Auto) 13 % (24-48) Monocytes (%) (Auto) 5 % (0-9) Eosinophils (%) (Auto) 0 % (0-3) Basophils (%) (Auto) 0 % (0-3) Neutrophils # (Auto) 8.1 x10^3uL (1.8-7.7) Lymphocytes # (Auto) 1.3 x10^3/uL (1.0-4.8) Monocytes # (Auto) 0.5 x10^3/uL (0.0-1.1) Eosinophils # (Auto) 0.0 x10^3/uL (0.0-0.7) Basophils # (Auto) 0.0 x10^3/uL (0.0-0.2) Sodium Level 143 mmol/L (136-145) 144 mmol/L (136-145) Potassium Level 3.3 mmol/L (3.5-5.1) 3.2 mmol/L (3.5-5.1) Chloride Level 106 mmol/L (98-107) 108 mmol/L (98-107) Carbon Dioxide Level 23 mmol/L (21-32) 23 mmol/L (21-32) Anion Gap 14 (6-14) 13 (6-14) Blood Urea Nitrogen 20 mg/dL (7-20) 35 mg/dL (7-20) Creatinine 1.1 mg/dL (0.6-1.0) 1.2 mg/dL (0.6-1.0) Estimated GFR (Cockcroft-Gault) 47.1 42.6 Glucose Level 138 mg/dL (70-99) 120 mg/dL (70-99) Calcium Level 9.0 mg/dL (8.5-10.1) 8.8 mg/dL (8.5-10.1) Magnesium Level 2.1 mg/dL (1.8-2.4) Laboratory Tests Test 07/14/18 05:15 Sodium Level 144 mmol/L (136-145) Potassium Level 3.2 mmol/L (3.5-5.1) Chloride Level 108 mmol/L (98-107) Carbon Dioxide Level 23 mmol/L (21-32) Anion Gap 13 (6-14) Blood Urea Nitrogen 35 mg/dL (7-20) Creatinine 1.2 mg/dL (0.6-1.0) Estimated GFR (Cockcroft-Gault) 42.6 Glucose Level 120 mg/dL (70-99) Calcium Level 8.8 mg/dL (8.5-10.1) Magnesium Level 2.1 mg/dL (1.8-2.4) Microbiology 07/12/18 Blood Culture - Preliminary, Resulted NO GROWTH AFTER 1 DAY Medications Current Medications Sodium Chloride 1,000 ml @ 1,000 mls/hr Q1H IV Last administered on 07/12/18at 10:13; Start 07/12/18 at 10:13; Stop 07/12/18 at 11:12; Status DC Albuterol/ Ipratropium (Duoneb) 3 ml 1X ONCE NEB Last administered on 07/12/18at 11:14; Start 07/12/18 at 10:15; Stop 07/12/18 at 10:18; Status DC Methylprednisolone Sodium Succinate (SOLU-Medrol 125MG VIAL) 125 mg 1X ONCE IV Last administered on 07/12/18at 10:15; Start 07/12/18 at 10:15; Stop 07/12/18 at 10:18; Status DC Ceftriaxone Sodium (Rocephin) 1 gm 1X ONCE IVP Last administered on 07/12/18at 11:15; Start 07/12/18 at 11:15; Stop 07/12/18 at 11:16; Status DC Aspirin (Rhett Aspirin) 325 mg STK-MED ONCE .ROUTE ; Start 07/12/18 at 11:39; Stop 07/12/18 at 11:40; Status DC Nitroglycerin (Nitrostat) 0.4 mg STK-MED ONCE SL ; Start 07/12/18 at 11:39; St op 07/12/18 at 11:40; Status DC Iohexol (Omnipaque 300 Mg/ml) 90 ml 1X ONCE IV Last administered on 07/13/18at 10:34; Start 07/12/18 at 11:45; Stop 07/12/18 at 11:47; Status DC Iohexol (Omnipaque 350 Mg/ml) 90 ml 1X ONCE IV Last administered on 07/12/18at 12:00; Start 07/12/18 at 12:00; Stop 07/12/18 at 12:01; Status DC Iohexol (Omnipaque 350 Mg/ml) 90 ml 1X ONCE IV ; Start 07/12/18 at 12:00; Stop 07/12/18 at 12:01; Status DC Info (CONTRAST GIVEN -- Rx MONITORING) 1 each PRN DAILY PRN MC SEE COMMENTS; Start 07/12/18 at 12:00; Stop 07/14/18 at 11:59 Furosemide (Lasix) 40 mg 1X ONCE IVP Last administered on 07/12/18at 12:28; Start 07/12/18 at 13:00; Stop 07/12/18 at 13:01; Status DC Furosemide (Lasix) 40 mg STK-MED ONCE .ROUTE ; Start 07/12/18 at 12:25; Stop 07/12/18 at 12:26; Status DC Metoprolol Tartrate (Lopressor) 50 mg DAILY PO ; Start 07/12/18 at 13:00; Stop 07/13/18 at 09:44; Status DC Levothyroxine Sodium (Synthroid) 125 mcg DAILY06 PO Last administered on 07/14/18at 06:01; Start 07/12/18 at 13:00 Verapamil HCl (Calan Sr) 180 mg DAILY PO ; Start 07/12/18 at 13:00; Stop 07/12/18 at 20:50; Status DC Enoxaparin Sodium (Lovenox 40mg Syringe) 40 mg Q24H SQ ; Start 07/12/18 at 13:00; Stop 07/12/18 at 13:00; Status DC Labetalol HCl (Normodyne Iv Push) 20 mg PRN Q2HR PRN IVP HYPERTENSION, SEE COMMENTS; Start 07/12/18 at 13:00 Heparin Sodium/ Dextrose 500 ml @ 19.8 mls/hr CONT PRN IV SEE I/O RECORD Last administered on 07/12/18at 14:39; Start 07/12/18 at 13:45 Heparin Sodium (Porcine) (Heparin Sodium) 2,050 unit PRN Q6HRS PRN IV FOR UFH LEVEL LESS THAN 0.2; Start 07/12/18 at 13:45 Alprazolam (Xanax) 0.25 mg TID PO Last administered on 07/13/18at 21:25; Start 07/12/18 at 16:15 Aspirin (Rhett Aspirin) 325 mg DAILY PO Last administered on 07/13/18at 08:49; Start 07/12/18 at 16:00; Stop 07/14/18 at 08:24; Status DC Metoprolol Tartrate (Lopressor) 25 mg BID PO Last administered on 07/14/18at 08:12; Start 07/12/18 at 21:00 Furosemide (Lasix) 40 mg DAILY IVP Last administered on 07/13/18at 08:49; Start 07/13/18 at 09:00 Potassium Chloride (Klor-Con) 20 meq DAILYWBKFT PO Last administered on 07/13/18at 08:49; Start 07/13/18 at 08:00 Lidocaine HCl (Xylocaine-Mpf 1% 2ml Vial) 2 ml STK-MED ONCE .ROUTE ; Start 07/13/18 at 08:33; Stop 07/13/18 at 08:34; Status DC Heparin Sodium/ Sodium Chloride 1,000 ml @ As Directed STK-MED ONCE .ROUTE ; Start 07/13/18 at 08:33; Stop 07/13/18 at 08:34; Status DC Iohexol (Omnipaque 300 Mg/ml) 100 ml STK-MED ONCE .ROUTE ; Start 07/13/18 at 09:10; Stop 07/13/18 at 09:11; Status DC Fentanyl Citrate (Fentanyl 2ml Vial) 100 mcg STK-MED ONCE .ROUTE ; Start 07/13/18 at 09:33; Stop 07/13/18 at 09:34; Status DC Midazolam HCl (Versed) 2 mg STK-MED ONCE .ROUTE ; Start 07/13/18 at 09:33; Stop 07/13/18 at 09:34; Status DC Heparin Sodium (Porcine) (Heparin Sodium) 10,000 unit STK-MED ONCE .ROUTE ; Start 07/13/18 at 09:33; Stop 07/13/18 at 09:34; Status DC Verapamil HCl (Verapamil) 5 mg STK-MED ONCE .ROUTE ; Start 07/13/18 at 09:33; Stop 07/13/18 at 09:34; Status DC Nitroglycerin (Nitroglycerin) 200 mcg STK-MED ONCE .ROUTE ; Start 07/13/18 at 09:34; Stop 07/13/18 at 09:35; Status DC Tirofiban/Sodium Chloride 100 ml @ As Directed STK-MED ONCE IV ; Start 07/13/18 at 10:00; Stop 07/13/18 at 10:01; Status DC Iohexol (Omnipaque 300 Mg/ml) 100 ml STK-MED ONCE .ROUTE ; Start 07/13/18 at 10:12; Stop 07/13/18 at 10:13; Status DC Nitroglycerin (Nitroglycerin) 200 mcg STK-MED ONCE .ROUTE ; Start 07/13/18 at 10:22; Stop 07/13/18 at 10:23; Status DC Nitroglycerin (Nitroglycerin) 400 mcg 1X ONCE IART Last administered on 07/13/18at 10:37; Start 07/13/18 at 10:30; Stop 07/13/18 at 10:31; Status DC Verapamil HCl (Verapamil) 2.5 mg 1X ONCE IART Last administered on 07/13/18at 10:35; Start 07/13/18 at 10:30; Stop 07/13/18 at 10:31; Status DC Heparin Sodium (Porcine) (Heparin Sodium) 2,500 unit 1X ONCE IART Last administered on 07/13/18at 10:40; Start 07/13/18 at 10:30; Stop 07/13/18 at 10:31; Status DC Heparin Sodium/ Sodium Chloride (HEPARIN for ARTERIAL LINE FLUSH) 1,000 unit 1X ONCE IART Last administered on 07/13/18at 10:32; Start 07/13/18 at 10:30; Stop 07/13/18 at 10:31; Status DC Midazolam HCl (Versed) 1 mg 1X ONCE IV Last administered on 07/13/18at 10:36; Start 07/13/18 at 10:30; Stop 07/13/18 at 10:31; Status DC Fentanyl Citrate (Fentanyl 2ml Vial) 50 mcg 1X ONCE IV Last administered on 07/13/18at 10:35; Start 07/13/18 at 10:30; Stop 07/13/18 at 10:31; Status DC Iohexol (Omnipaque 300 Mg/ml) 100 ml 1X ONCE IART Last administered on 07/13/18at 10:34; Start 07/13/18 at 10:30; Stop 07/13/18 at 10:31; Status DC Heparin Sodium (Porcine) (Heparin Sodium) 3,000 unit 1X ONCE IV Last administered on 07/13/18at 10:33; Start 07/13/18 at 10:30; Stop 07/13/18 at 10:31; Status DC Tirofiban/Sodium Chloride 100 ml @ 0 mls/hr CONT PRN IV PER PROTOCOL Last administered on 07/13/18at 10:37; Start 07/13/18 at 10:30; Stop 07/13/18 at 10:40; Status DC Lidocaine HCl (Xylocaine-Mpf 1% 2ml Vial) 1 ml 1X ONCE INJ Last administered on 07/13/18at 10:30; Start 07/13/18 at 10:30; Stop 07/13/18 at 10:31; Status DC Ticagrelor (Brilinta) 180 mg 1X ONCE PO Last administered on 07/13/18at 10:40; Start 07/13/18 at 10:30; Stop 07/13/18 at 10:31; Status DC Ticagrelor (Brilinta) 90 mg STK-MED ONCE .ROUTE ; Start 07/13/18 at 10:38; Stop 07/13/18 at 10:39; Status DC Sodium Chloride (Normal Saline Flush) 3 ml QSHIFT PRN IV AFTER MEDS AND BLOOD DRAWS; Start 07/13/18 at 11:15 Ticagrelor (Brilinta) 90 mg BID PO ; Start 07/14/18 at 09:00 Atorvastatin Calcium (Lipitor) 40 mg QHS PO Last administered on 07/13/18at 21:24; Start 07/13/18 at 21:00 Acetaminophen (Tylenol) 650 mg PRN Q6HRS PRN PO MILD PAIN / TEMP; Start 07/13/18 at 11:15 Fentanyl Citrate (Fentanyl 2ml Vial) 50 mcg PRN Q1HR PRN IV MODERATE OR SEVERE PAIN; Start 07/13/18 at 11:15 Nitroglycerin (Nitrostat) 0.4 mg PRN Q5MIN PRN SL CHEST PAIN; Start 07/13/18 at 11:15 Amiodarone HCl 150 mg/Dextrose 103 ml @ 600 mls/hr 1X PRN PRN IV FOR VENTRIC ULAR TACHYCARDIA; Start 07/13/18 at 11:15 Lidocaine HCl (Lidocaine HCl 2% Abboject) 100 mg 1X PRN PRN IV FOR VENTRICULAR TACHYCARDIA; Start 07/13/18 at 11:15 Atropine Sulfate (ATROPINE 0.5mg SYRINGE) 0.5 mg PRN 1X PRN IV BRADYCARDIA; Start 07/13/18 at 11:15 Digoxin (Lanoxin) 500 mcg 1X ONCE IV Last administered on 07/14/18at 08:27; Start 07/14/18 at 08:30; Stop 07/14/18 at 08:31; Status DC Metoprolol Tartrate (Lopressor Vial) 5 mg 1X ONCE IVP Last administered on 07/14/18at 08:18; Start 07/14/18 at 08:30; Stop 07/14/18 at 08:31; Status DC Metoprolol Tartrate (Lopressor Vial) 5 mg STK-MED ONCE IVP ; Start 07/14/18 at 08:16; Stop 07/14/18 at 08:17; Status DC Digoxin (Lanoxin) 500 mcg STK-MED ONCE .ROUTE ; Start 07/14/18 at 08:16; Stop 07/14/18 at 08:17; Status DC Aspirin (Ecotrin) 81 mg DAILYWBKFT PO ; Start 07/14/18 at 09:00 Lisinopril (Prinivil) 5 mg DAILY PO ; Start 07/14/18 at 09:00 Potassium Chloride (Klor-Con) 20 meq 1X ONCE PO ; Start 07/14/18 at 08:45; Stop 07/14/18 at 08:46; Status DC Active Scripts Active Reported Calcium (Calcium Carbonate) 500 Mg Tablet 500 Mg PO DAILY Xanax (Alprazolam) 0.5 Mg Tablet 0.5 Tab PO TID Symbicort 160-4.5 Mcg Inhaler (Budesonide/Formoterol Fumarate) 10.2 Gm Hfa.aer.ad 2 Puff IH BID Aspirin 325 Mg Tablet 325 Mg PO DAILY Levothyroxine Sodium 125 Mcg Tablet 1 Tab PO DAILY Meloxicam 15 Mg Tablet 1 Tab PO DAILY Metoprolol Tartrate 50 Mg Tablet 1 Tab PO DAILY Verapamil Er (Verapamil Hcl) 180 Mg Tablet.er 180 Mg PO DAILY [bp med] Vitals/I & O Vital Sign - Last 24 Hours 07/13/18 07/13/18 07/13/18 07/13/18 10:35 10:35 10:45 11:30 Temp 96.2 96.2 Pulse 82 78 79 Resp 12 18 20 B/P (MAP) 150/74 145/82 (103) Pulse Ox 91 90 96 O2 Delivery Room Air Room Air Room Air 07/13/18 07/13/18 07/13/18 07/13/18 15:00 19:30 19:45 21:24 Temp 98.1 98.1 98.1 98.1 Pulse 82 84 84 Resp 18 18 B/P (MAP) 151/86 (107) 107/69 (82) 107/69 Pulse Ox 97 96 O2 Delivery Room Air Room Air Nasal Cannula O2 Flow Rate 2.0 07/13/18 07/14/18 07/14/18 07/14/18 23:03 02:43 07:00 08:12 Temp 97.6 98.1 97.6 98.1 Pulse 82 80 94 154 Resp 18 20 22 B/P (MAP) 107/65 (79) 126/69 (88) 123/60 (81) 126/69 Pulse Ox 95 94 97 O2 Delivery Room Air Room Air Room Air 07/14/18 07/14/18 08:18 08:27 Pulse 154 154 B/P (MAP) 126/69 126/69 Intake and Output 07/13/18 07/13/18 07/14/18 15:00 23:00 07:00 Intake Total 420 ml 320.17 ml Output Total 200 ml Balance 420 ml 320.17 ml -200 ml HARDEEP MARIE MD Jul 14, 2018 09:19
[2018-07-14 10:00] LABS: BASO # 0.1 x10^3/uL (0.0-0.2); BASO % 1 % (0-3); EOS # 0.1 x10^3/uL (0.0-0.7); EOS % 1 % (0-3); HEMATOCRIT 30.1 % (36.0-47.0); LYMPH # 3.3 x10^3/uL (1.0-4.8); LYMPH % 18 % (24-48); MEAN CORPUSCULAR HEMOGLOBIN 32 pg (25-35); MEAN CORPUSCULAR HGB CONC 33 g/dL (31-37); MEAN CORPUSCULAR VOLUME 97 fL (79-100); MONO # 1.7 x10^3/uL (0.0-1.1); MONO % 9 % (0-9); NEUT # 12.8 x10^3uL (1.8-7.7); NEUT % 71 % (31-73); PLATELET COUNT 223 x10^3/uL (140-400); RED BLOOD COUNT 3.11 x10^6/uL (3.50-5.40); RED CELL DISTRIBUTION WIDTH 14.7 % (11.5-14.5)
[2018-07-14] MEDS ORDERED: IV 1/2 NORMAL SALINE 500 ML IV ONE (10:00)
[2018-07-14] MEDS: POTASSIUM CHLORIDE 20 MEQ TABLET.ER. PO SCH (10:10)
[2018-07-14] MEDS: ALPRAZolam 0.5 MG TABLET PO SCH ×3 (10:11→20:35)
[2018-07-14] MEDS ORDERED: AMIODARONE 150 MG in IV DEXTROSE 5% 100ML 100 ML IV ONE (10:30)
[2018-07-14] MEDS ORDERED: AMIODARONE 900 MG in IV DEXTROSE 5% 500 ML IV PRN (10:30)
[2018-07-14 11:15] LABS: % ATYL 5 % (0-0); % BANDS 1 % (0-9); % LYMPHS 12 % (24-48); % MONOS 5 % (0-10); % SEGS 77 % (35-66); PLT ESTIMATE ADEQUATE (ADEQUATE)
--- NOTE | 2018-07-14 11:38 | PDOC2 ---
GI CONSULT Reason For Consult: Bloody stool HPI: HPI: 88 y/o female s/p cardiac cath w/ stent placement yesterday. Has since passed "bloody stool" x 2 - staff says once last night and once this morning, pt says "quite a bit of dark red blood." History is a bit challenging - she is a bit drowsy, [place], and family says her speech is slurred. ASA and Brilinta held. Currently tachycardic. Rare reflux. Denies dysphagia, n/v, and abd pain. Denies diarrhea or constipation. No previous EGD or colonoscopy. No GB, liver, pancreas, or PUD history. PMH: PMH: CAD w/ stent, ICM, A Fib, HTN, HLD, AAA, essential tremor, CVA, anxiety, OA, [place], UTI, hypothyroidism, osteoporosis left radius ORIF, cataract removal FH: Family History: CAD Social History: Smoke: No ALCOHOL: none Drugs: None ROS: Per HPI. Vitals: Vitals: Vital Signs Date Time Temp Pulse Resp B/P (MAP) Pulse Ox O2 Delivery O2 Flow Rate FiO2 07/14/18 11:00 98.2 135 24 91/60 (70) 100 Room Air 98.2 07/14/18 08:00 2.0 Labs: Labs: Laboratory Tests Test 07/14/18 05:15 07/14/18 09:45 Sodium Level 144 mmol/L (136-145) Potassium Level 3.2 mmol/L (3.5-5.1) Chloride Level 108 mmol/L (98-107) Carbon Dioxide Level 23 mmol/L (21-32) Anion Gap 13 (6-14) Blood Urea Nitrogen 35 mg/dL (7-20) Creatinine 1.2 mg/dL (0.6-1.0) Estimated GFR (Cockcroft-Gault) 42.6 Glucose Level 120 mg/dL (70-99) Calcium Level 8.8 mg/dL (8.5-10.1) Magnesium Level 2.1 mg/dL (1.8-2.4) White Blood Count 18.0 x10^3/uL (4.0-11.0) Red Blood Count 3.11 x10^6/uL (3.50-5.40) Hemoglobin 10.0 g/dL (12.0-15.5) Hematocrit 30.1 % (36.0-47.0) Mean Corpuscular Volume 97 fL (79-100) Mean Corpuscular Hemoglobin 32 pg (25-35) Mean Corpuscular Hemoglobin Concent 33 g/dL (31-37) Red Cell Distribution Width 14.7 % (11.5-14.5) Platelet Count 223 x10^3/uL (140-400) Neutrophils (%) (Auto) 71 % (31-73) Lymphocytes (%) (Auto) 18 % (24-48) Monocytes (%) (Auto) 9 % (0-9) Eosinophils (%) (Auto) 1 % (0-3) Basophils (%) (Auto) 1 % (0-3) Neutrophils # (Auto) 12.8 x10^3uL (1.8-7.7) Lymphocytes # (Auto) 3.3 x10^3/uL (1.0-4.8) Monocytes # (Auto) 1.7 x10^3/uL (0.0-1.1) Eosinophils # (Auto) 0.1 x10^3/uL (0.0-0.7) Basophils # (Auto) 0.1 x10^3/uL (0.0-0.2) Segmented Neutrophils % 77 % (35-66) Band Neutrophils % 1 % (0-9) Lymphocytes % 12 % (24-48) Atypical Lymphocytes % (Manual) 5 % (0-0) Monocytes % 5 % (0-10) Platelet Estimate Adequate (ADEQUATE) Allergies: Coded Allergies: No Known Drug Allergies (Unverified , 03/10/18) Medications: Current Medications Medications (Trade) Dose Ordered Sig/Jagdish Route PRN Reason Start Time Stop Time Status Last Admin Dose Admin Atorvastatin Calcium (Lipitor) 40 mg QHS PO 07/13/18 21:00 07/13/18 21:24 Digoxin (Lanoxin) 500 mcg 1X ONCE IV 07/14/18 08:30 07/14/18 08:31 DC 07/14/18 08:27 Metoprolol Tartrate (Lopressor Vial) 5 mg 1X ONCE IVP 07/14/18 08:30 07/14/18 08:31 DC 07/14/18 08:18 Potassium Chloride (Klor-Con) 20 meq 1X ONCE PO 07/14/18 08:45 07/14/18 08:46 DC 07/14/18 10:10 Digoxin (Lanoxin) 250 mcg 1X ONCE IV 07/14/18 10:00 07/14/18 10:01 DC 07/14/18 09:52 Amiodarone HCl 150 mg/Dextrose 103 ml @ 600 mls/hr 1X ONCE IV 07/14/18 10:30 07/14/18 10:40 DC 07/14/18 10:55 Imaging: Imaging: CXR 07/12 Impression: Mild to moderate CHF. Chest CTA Impression: No pulmonary arterial thromboembolic disease although evaluation may be limited in the small regions of atelectasis involving the lower lobes. Moderate-sized right pleural effusion. Small moderate-sized left pleural effusion. Congestive heart failure. Hiatal hernia. Echocardiogram <Conclusion> The systolic function is severely impaired. EF 25% The septum, apex, and anterior wall are severely hypokinetic. Significant ascending aortic dilation noted at 4.4 cm There is a large left pleural effusion. CXR 07/13 IMPRESSION: Worsening of bilateral pulmonary edema/infiltrate. Similar small pleural effusions. Cardiac Cath Conclusion 1. One vessel CAD 2. Elevated left sided filling pressures. 3. Successful PCI of the LAD with implantation of a Resolute 3.08/05 LIYAH. PE: GEN: ill HEENT: Atraumatic, PERRL LUNGS: tachypneic HEART: tachycardic, irregular ABD: NABS, S/ND/NT EXTREMITY: No edema SKIN: No rashes, no jaundice NEURO/PSYCH: A & O 3 A/P: A/P: NSTEMI, ICM, CHF, CAD s/p stent placement 07/13/18 H/o CVA Hematochezia Anemia CRC screen - none -- Returned to see w/ Dr. Sosa, d/w RN - family concerned w/ slurred speech, defer to Dr. Muñoz re: ?neuro eval. Difficult situation w/ bleeding and recent stent placement - medical therapy for now, consider bleeding scan (though unclear if she'd tolerate). Monitor labs and for recurrent bleeding, transfuse as needed. JOSE DE JESUS LYMAN Jul 14, 2018 11:38
[2018-07-14] MEDS: PANTOPRAZOLE 40 MG TABLET.DR. PO SCH (13:00)
[2018-07-14] MEDS: ATORVASTATIN CALCIUM 20 MG TABLET PO SCH (20:35)
[2018-07-15] VITALS (9 sets, daily range): BP systolic 104–148; BP diastolic 55–70
[2018-07-15] MEDS: LEVOTHYROXINE 125 MCG TABLET PO SCH (06:14)
[2018-07-15] MEDS: PANTOPRAZOLE 40 MG TABLET.DR. PO SCH (08:54)
[2018-07-15] MEDS: METOPROLOL TART IMMED RELEASE 25 MG TABLET. PO SCH ×2 (08:55→21:08)
[2018-07-15] MEDS: LISINOPRIL 5 MG TABLET. PO SCH (08:55)
[2018-07-15] MEDS: POTASSIUM CHLORIDE 20 MEQ TABLET.ER. PO SCH ×2 (08:55→16:33)
[2018-07-15] MEDS: ALPRAZolam 0.5 MG TABLET PO SCH ×3 (08:55→21:08)
[2018-07-15] MEDS: FUROSEMIDE 40 MG/4 ML VIAL. IVP SCH (08:56)
[2018-07-15] MEDS: ASPIRIN ENTERIC COATED 81 MG TABLET.DR. PO SCH (11:00)
[2018-07-15] MEDS: TICAGRELOR 90 MG TABLET. PO SCH ×2 (11:00→21:09)
--- NOTE | 2018-07-15 11:10 | PDOC ---
PROGRESS NOTES Subjective Subjective Patient denied any palpitations or chest pain Objective Objective Vital Signs Date Time Temp Pulse Resp B/P (MAP) Pulse Ox O2 Delivery O2 Flow Rate FiO2 07/15/18 08:55 79 119/58 07/15/18 08:00 Nasal Cannula 2.0 07/15/18 07:20 97.7 18 99 97.7 Intake and Output 07/15/18 06:59 Intake Total 900 ml Balance 900 ml Intake Oral 900 ml # Bowel Movements 1 Physical Exam Abdomen: Normal bowel sounds Heart: Other (Tach) Extremities: No edema General: Alert HEENT: Atraumatic, Mucous membr. moist/pink Lungs: Clear to auscultation MUSCULOSKELETAL: Osteoarthritic changes both hands Neuro: Normal speech, Sensation intact Psych/Mental Status: Mental status NL, Mood NL Skin: No breakdown, No significant lesion Assessment Assessment 1. CAD s/p PCI/LIYAH to LAD. Clinically stable and chest pain-free. Ticagrelor resumed. 2. Acute on chronic systolic HF. ICM, EF 25%. Clinically well compensated. Continue current medical regimen. 3. Paroxysmal AFIB: Presently in sinus rhythm but telemetry showed episodes of A. fib with RVR. Continue amiodarone infusion and change to PO once protocol completed. She is a poor candidate for long-term anticoagulation 4. Hypertension: Controlled 5. Ascending aortic aneurysm; 4.4 cm per echo 6. Hematochezia, improved, treat per GI Plan Plan of Care Problems Medical Problems: (1) Acute exacerbation of CHF (congestive heart failure) Status: Acute (2) Acute respiratory distress Status: Acute (3) Elevated d-dimer Status: Acute (4) Elevated troponin Status: Acute (5) Pleural effusion on right Status: Acute (6) SIRS (systemic inflammatory response syndrome) Status: Acute Comment Review of Relevant I have reviewed the following items luna (where applicable) has been applied. Labs Microbiology 07/12/18 Blood Culture - Preliminary, Resulted NO GROWTH AFTER 3 DAYS Medications Current Medications Pantoprazole Sodium (Protonix) 40 mg DAILYAC PO Last administered on 07/15/18at 08:54; Start 07/14/18 at 13:00 Vitals/I & O Vital Sign - Last 24 Hours 07/14/18 07/14/18 07/14/18 07/14/18 15:18 19:15 19:15 20:35 Temp 97.3 97.6 97.3 97.6 Pulse 134 128 86 Resp 20 17 B/P (MAP) 102/50 (67) 113/52 (72) 113/52 Pulse Ox 100 98 O2 Delivery Nasal Cannula Nasal Cannula Nasal Cannula O2 Flow Rate 2.0 2.0 07/14/18 07/14/18 07/14/18 07/15/18 21:00 22:00 23:51 00:01 Temp 97.9 97.9 Pulse 82 70 70 72 Resp 18 B/P (MAP) 115/56 (75) 132/62 (85) 125/57 (79) 105/56 (72) Pulse Ox 97 O2 Delivery Nasal Cannula O2 Flow Rate 2.0 07/15/18 07/15/18 07/15/18 07/15/18 01:00 02:00 03:48 07:20 Temp 99.3 97.7 99.3 97.7 Pulse 80 82 75 79 Resp 18 18 B/P (MAP) 113/62 (79) 112/57 (75) 125/60 (81) 119/58 (78) Pulse Ox 98 99 O2 Delivery Nasal Cannula Nasal Cannula O2 Flow Rate 2.0 2.0 07/15/18 07/15/18 07/15/18 08:00 08:55 08:55 Pulse 79 79 B/P (MAP) 119/58 119/58 O2 Delivery Nasal Cannula O2 Flow Rate 2.0 Intake and Output 07/14/18 07/14/18 07/15/18 14:59 22:59 06:59 Intake Total 300 ml 400 ml 200 ml Balance 300 ml 400 ml 200 ml ARACELI PARSONS MD Jul 15, 2018 11:10
--- NOTE | 2018-07-15 13:38 | PDOC ---
PROGRESS NOTES Subjective Subjective Patient without complaint, denies CP or SOA at this time. Objective Objective Vital Signs Date Time Temp Pulse Resp B/P (MAP) Pulse Ox O2 Delivery O2 Flow Rate FiO2 07/15/18 11:00 95.8 71 18 104/55 (71) 100 Nasal Cannula 2.0 95.8 Intake and Output 07/15/18 06:59 Intake Total 900 ml Balance 900 ml Intake Oral 900 ml # Bowel Movements 1 Physical Exam Abdomen: Normal bowel sounds, Soft, No tenderness Heart: Regular rate Extremities: No edema General: Alert, Oriented X3, No acute distress Lungs: Clear to auscultation Assessment Assessment Problems Medical Problems: (1) Acute exacerbation of CHF (congestive heart failure) Status: Acute (2) Acute respiratory distress Status: Acute (3) Elevated d-dimer Status: Acute (4) Elevated troponin Status: Acute (5) Pleural effusion on right Status: Acute (6) SIRS (systemic inflammatory response syndrome) Status: Acute Plan Plan of Care 1. NSTEMI with acute systolic CHF - s/p stent placement. Stable. Had Afib with RVR but this appears to have resolved and she is now maintaining sinus rhythm. Continue tx per Cardiology. On ASA and Brilinta. 2. rectal bleeding - has occurred intermittently since cath. Last stool today was without visible blood. Check CBC in AM. GI following. 3. hypokalemia - increase po replacement and follow lab. 4. HTN - well controlled, continue present medication. Comment Review of Relevant I have reviewed the following items luna (where applicable) has been applied. Labs Laboratory Tests Test 07/14/18 05:15 07/14/18 09:45 Sodium Level 144 mmol/L (136-145) Potassium Level 3.2 mmol/L (3.5-5.1) Chloride Level 108 mmol/L (98-107) Carbon Dioxide Level 23 mmol/L (21-32) Anion Gap 13 (6-14) Blood Urea Nitrogen 35 mg/dL (7-20) Creatinine 1.2 mg/dL (0.6-1.0) Estimated GFR (Cockcroft-Gault) 42.6 Glucose Level 120 mg/dL (70-99) Calcium Level 8.8 mg/dL (8.5-10.1) Magnesium Level 2.1 mg/dL (1.8-2.4) White Blood Count 18.0 x10^3/uL (4.0-11.0) Red Blood Count 3.11 x10^6/uL (3.50-5.40) Hemoglobin 10.0 g/dL (12.0-15.5) Hematocrit 30.1 % (36.0-47.0) Mean Corpuscular Volume 97 fL (79-100) Mean Corpuscular Hemoglobin 32 pg (25-35) Mean Corpuscular Hemoglobin Concent 33 g/dL (31-37) Red Cell Distribution Width 14.7 % (11.5-14.5) Platelet Count 223 x10^3/uL (140-400) Neutrophils (%) (Auto) 71 % (31-73) Lymphocytes (%) (Auto) 18 % (24-48) Monocytes (%) (Auto) 9 % (0-9) Eosinophils (%) (Auto) 1 % (0-3) Basophils (%) (Auto) 1 % (0-3) Neutrophils # (Auto) 12.8 x10^3uL (1.8-7.7) Lymphocytes # (Auto) 3.3 x10^3/uL (1.0-4.8) Monocytes # (Auto) 1.7 x10^3/uL (0.0-1.1) Eosinophils # (Auto) 0.1 x10^3/uL (0.0-0.7) Basophils # (Auto) 0.1 x10^3/uL (0.0-0.2) Segmented Neutrophils % 77 % (35-66) Band Neutrophils % 1 % (0-9) Lymphocytes % 12 % (24-48) Atypical Lymphocytes % (Manual) 5 % (0-0) Monocytes % 5 % (0-10) Platelet Estimate Adequate (ADEQUATE) Microbiology 07/12/18 Blood Culture - Preliminary, Resulted NO GROWTH AFTER 3 DAYS Medications Current Medications Sodium Chloride 1,000 ml @ 1,000 mls/hr Q1H IV Last administered on 07/12/18at 10:13; Start 07/12/18 at 10:13; Stop 07/12/18 at 11:12; Status DC Albuterol/ Ipratropium (Duoneb) 3 ml 1X ONCE NEB Last administered on 07/12/18at 11:14; Start 07/12/18 at 10:15; Stop 07/12/18 at 10:18; Status DC Methylprednisolone Sodium Succinate (SOLU-Medrol 125MG VIAL) 125 mg 1X ONCE IV Last administered on 07/12/18at 10:15; Start 07/12/18 at 10:15; Stop 07/12/18 at 10:18; Status DC Ceftriaxone Sodium (Rocephin) 1 gm 1X ONCE IVP Last administered on 07/12/18at 11:15; Start 07/12/18 at 11:15; Stop 07/12/18 at 11:16; Status DC Aspirin (Rhett Aspirin) 325 mg STK-MED ONCE .ROUTE ; Start 07/12/18 at 11:39; Stop 07/12/18 at 11:40; Status DC Nitroglycerin (Nitrostat) 0.4 mg STK-MED ONCE SL ; Start 07/12/18 at 11:39; Stop 07/12/18 at 11:40; Status DC Iohexol (Omnipaque 300 Mg/ml) 90 ml 1X ONCE IV Last administered on 07/13/18at 10:34; Start 07/12/18 at 11:45; Stop 07/12/18 at 11:47; Status DC Iohexol (Omnipaque 350 Mg/ml) 90 ml 1X ONCE IV Last administered on 07/12/18at 12:00; Start 07/12/18 at 12:00; Stop 07/12/18 at 12:01; Status DC Iohexol (Omnipaque 350 Mg/ml) 90 ml 1X ONCE IV ; Start 07/12/18 at 12:00; Stop 07/12/18 at 12:01; Status DC Info (CONTRAST GIVEN -- Rx MONITORING) 1 each PRN DAILY PRN MC SEE COMMENTS; Start 07/12/18 at 12:00; Stop 07/14/18 at 11:59; Status DC Furosemide (Lasix) 40 mg 1X ONCE IVP Last administered on 07/12/18at 12:28; Start 07/12/18 at 13:00; Stop 07/12/18 at 13:01; Status DC Furosemide (Lasix) 40 mg STK-MED ONCE .ROUTE ; Start 07/12/18 at 12:25; Stop 07/12/18 at 12:26; Status DC Metoprolol Tartrate (Lopressor) 50 mg DAILY PO ; Start 07/12/18 at 13:00; Stop 07/13/18 at 09:44; Status DC Levothyroxine Sodium (Synthroid) 125 mcg DAILY06 PO Last administered on 07/15/18at 06:14; Start 07/12/18 at 13:00 Verapamil HCl (Calan Sr) 180 mg DAILY PO ; Start 07/12/18 at 13:00; Stop 07/12/18 at 20:50; Status DC Enoxaparin Sodium (Lovenox 40mg Syringe) 40 mg Q24H SQ ; Start 07/12/18 at 13:00; Stop 07/12/18 at 13:00; Status DC Labetalol HCl (Normodyne Iv Push) 20 mg PRN Q2HR PRN IVP HYPERTENSION, SEE COMMENTS; Start 07/12/18 at 13:00 Heparin Sodium/ Dextrose 500 ml @ 19.8 mls/hr CONT PRN IV SEE I/O RECORD Last administered on 07/12/18at 14:39; Start 07/12/18 at 13:45; Stop 07/14/18 at 10:52; Status DC Heparin Sodium (Porcine) (Heparin Sodium) 2,050 unit PRN Q6HRS PRN IV FOR UFH LEVEL LESS THAN 0.2; Start 07/12/18 at 13:45; Stop 07/14/18 at 10:52; Status DC Alprazolam (Xanax) 0.25 mg TID PO Last administered on 07/15/18at 08:55; Start 07/12/18 at 16:15 Aspirin (Rhett Aspirin) 325 mg DAILY PO Last administered on 07/13/18at 08:49; Start 07/12/18 at 16:00; Stop 07/14/18 at 08:24; Status DC Metoprolol Tartrate (Lopressor) 25 mg BID PO Last administered on 07/15/18at 08:55; Start 07/12/18 at 21:00 Furosemide (Lasix) 40 mg DAILY IVP Last administered on 07/15/18at 08:56; Start 07/13/18 at 09:00 Potassium Chloride (Klor-Con) 20 meq DAILYWBKFT PO Last administered on 07/15/18at 08:55; Start 07/13/18 at 08:00 Lidocaine HCl (Xylocaine-Mpf 1% 2ml Vial) 2 ml STK-MED ONCE .ROUTE ; Start 07/13/18 at 08:33; Stop 07/13/18 at 08:34; Status DC Heparin Sodium/ Sodium Chloride 1,000 ml @ As Directed STK-MED ONCE .ROUTE ; Start 07/13/18 at 08:33; Stop 07/13/18 at 08:34; Status DC Iohexol (Omnipaque 300 Mg/ml) 100 ml STK-MED ONCE .ROUTE ; Start 07/13/18 at 09:10; Stop 07/13/18 at 09:11; Status DC Fentanyl Citrate (Fentanyl 2ml Vial) 100 mcg STK-MED ONCE .ROUTE ; Start 07/13/18 at 09:33; Stop 07/13/18 at 09:34; Status DC Midazolam HCl (Versed) 2 mg STK-MED ONCE .ROUTE ; Start 07/13/18 at 09:33; Stop 07/13/18 at 09:34; Status DC Heparin Sodium (Porcine) (Heparin Sodium) 10,000 unit STK-MED ONCE .ROUTE ; Start 07/13/18 at 09:33; Stop 07/13/18 at 09:34; Status DC Verapamil HCl (Verapamil) 5 mg STK-MED ONCE .ROUTE ; Start 07/13/18 at 09:33; Stop 07/13/18 at 09:34; Status DC Nitroglycerin (Nitroglycerin) 200 mcg STK-MED ONCE .ROUTE ; Start 07/13/18 at 09:34; Stop 07/13/18 at 09:35; Status DC Tirofiban/Sodium Chloride 100 ml @ As Directed STK-MED ONCE IV ; Start 07/13/18 at 10:00; Stop 07/13/18 at 10:01; Status DC Iohexol (Omnipaque 300 Mg/ml) 100 ml STK-MED ONCE .ROUTE ; Start 07/13/18 at 10:12; Stop 07/13/18 at 10:13; Status DC Nitroglycerin (Nitroglycerin) 200 mcg STK-MED ONCE .ROUTE ; Start 07/13/18 at 10:22; Stop 07/13/18 at 10:23; Status DC Nitroglycerin (Nitroglycerin) 400 mcg 1X ONCE IART Last administered on 07/13/18at 10:37; Start 07/13/18 at 10:30; Stop 07/13/18 at 10:31; Status DC Verapamil HCl (Verapamil) 2.5 mg 1X ONCE IART Last administered on 07/13/18 10:35; Start 07/13/18 at 10:30; Stop 07/13/18 at 10:31; Status DC Heparin Sodium (Porcine) (Heparin Sodium) 2,500 unit 1X ONCE IART Last administered on 07/13/18at 10:40; Start 07/13/18 at 10:30; Stop 07/13/18 at 10:31; Status DC Heparin Sodium/ Sodium Chloride (HEPARIN for ARTERIAL LINE FLUSH) 1,000 unit 1X ONCE IART Last administered on 07/13/18 10:32; Start 07/13/18 at 10:30; Stop 07/13/18 at 10:31; Status DC Midazolam HCl (Versed) 1 mg 1X ONCE IV Last administered on 07/13/18at 10:36; Start 07/13/18 at 10:30; Stop 07/13/18 at 10:31; Status DC Fentanyl Citrate (Fentanyl 2ml Vial) 50 mcg 1X ONCE IV Last administered on 07/13/18 10:35; Start 07/13/18 at 10:30; Stop 07/13/18 at 10:31; Status DC Iohexol (Omnipaque 300 Mg/ml) 100 ml 1X ONCE IART Last administered on 07/13/18at 10:34; Start 07/13/18 at 10:30; Stop 07/13/18 at 10:31; Status DC Heparin Sodium (Porcine) (Heparin Sodium) 3,000 unit 1X ONCE IV Last administered on 07/13/18 10:33; Start 07/13/18 at 10:30; Stop 07/13/18 at 10:31; Status DC Tirofiban/Sodium Chloride 100 ml @ 0 mls/hr CONT PRN IV PER PROTOCOL Last administered on 07/13/18at 10:37; Start 07/13/18 at 10:30; Stop 07/13/18 at 10:40; Status DC Lidocaine HCl (Xylocaine-Mpf 1% 2ml Vial) 1 ml 1X ONCE INJ Last administered on 07/13/18at 10:30; Start 07/13/18 at 10:30; Stop 07/13/18 at 10:31; Status DC Ticagrelor (Brilinta) 180 mg 1X ONCE PO Last administered on 07/13/18at 10:40; Start 07/13/18 at 10:30; Stop 07/13/18 at 10:31; Status DC Ticagrelor (Brilinta) 90 mg STK-MED ONCE .ROUTE ; Start 07/13/18 at 10:38; Stop 07/13/18 at 10:39; Status DC Sodium Chloride (Normal Saline Flush) 3 ml QSHIFT PRN IV AFTER MEDS AND BLOOD DRAWS; Start 07/13/18 at 11:15 Ticagrelor (Brilinta) 90 mg BID PO Last administered on 07/15/18at 11:00; Start 07/14/18 at 09:00 Atorvastatin Calcium (Lipitor) 40 mg QHS PO Last administered on 07/14/18at 20:35; Start 07/13/18 at 21:00 Acetaminophen (Tylenol) 650 mg PRN Q6HRS PRN PO MILD PAIN / TEMP; Start 07/13/18 at 11:15 Fentanyl Citrate (Fentanyl 2ml Vial) 50 mcg PRN Q1HR PRN IV MODERATE OR SEVERE PAIN; Start 07/13/18 at 11:15 Nitroglycerin (Nitrostat) 0.4 mg PRN Q5MIN PRN SL CHEST PAIN; Start 07/13/18 at 11:15 Amiodarone HCl 150 mg/Dextrose 103 ml @ 600 mls/hr 1X PRN PRN IV FOR VENTRICULAR TACHYCARDIA; Start 07/13/18 at 11:15 Lidocaine HCl (Lidocaine HCl 2% Abboject) 100 mg 1X PRN PRN IV FOR VENTRICULAR TACHYCARDIA; Start 07/13/18 at 11:15 Atropine Sulfate (ATROPINE 0.5mg SYRINGE) 0.5 mg PRN 1X PRN IV BRADYCARDIA; Start 07/13/18 at 11:15 Digoxin (Lanoxin) 500 mcg 1X ONCE IV Last administered on 07/14/18at 08:27; Start 07/14/18 at 08:30; Stop 07/14/18 at 08:31; Status DC Metoprolol Tartrate (Lopressor Vial) 5 mg 1X ONCE IVP Last administered on 07/14/18at 08:18; Start 07/14/18 at 08:30; Stop 07/14/18 at 08:31; Status DC Metoprolol Tartrate (Lopressor Vial) 5 mg STK-MED ONCE IVP ; Start 07/14/18 at 08:16; Stop 07/14/18 at 08:17; Status DC Digoxin (Lanoxin) 500 mcg STK-MED ONCE .ROUTE ; Start 07/14/18 at 08:16; Stop 07/14/18 at 08:17; Status DC Aspirin (Ecotrin) 81 mg DAILYWBKFT PO Last administered on 07/15/18at 11:00; Start 07/14/18 at 09:00 Lisinopril (Prinivil) 5 mg DAILY PO Last administered on 07/15/18at 08:55; Start 07/14/18 at 09:00 Potassium Chloride (Klor-Con) 20 meq 1X ONCE PO Last administered on 07/14/18at 10:10; Start 07/14/18 at 08:45; Stop 07/14/18 at 08:46; Status DC Digoxin (Lanoxin) 250 mcg 1X ONCE IV Last administered on 07/14/18at 09:52; Start 07/14/18 at 10:00; Stop 07/14/18 at 10:01; Status DC Sodium Chloride 500 ml @ 0 mls/hr 1X ONCE IV Last administered on 07/14/18at 10:00; Start 07/14/18 at 10:00; Stop 07/14/18 at 10:01; Status DC Amiodarone HCl 150 mg/Dextrose 103 ml @ 600 mls/hr 1X ONCE IV Last administered on 07/14/18at 10:55; Start 07/14/18 at 10:30; Stop 07/14/18 at 10:40; Status DC Amiodarone HCl 900 mg/Dextrose 518 ml @ 0 mls/hr CONT PRN IV SEE I/O RECORD; Start 07/14/18 at 10:30; Stop 07/15/18 at 10:29; Status DC Pantoprazole Sodium (Protonix) 40 mg DAILYAC PO Last administered on 07/15/18at 08:54; Start 07/14/18 at 13:00 Active Scripts Active Reported Calcium (Calcium Carbonate) 500 Mg Tablet 500 Mg PO DAILY Xanax (Alprazolam) 0.5 Mg Tablet 0.5 Tab PO TID Symbicort 160-4.5 Mcg Inhaler (Budesonide/Formoterol Fumarate) 10.2 Gm Hfa.aer.ad 2 Puff IH BID Aspirin 325 Mg Tablet 325 Mg PO DAILY Levothyroxine Sodium 125 Mcg Tablet 1 Tab PO DAILY Meloxicam 15 Mg Tablet 1 Tab PO DAILY Metoprolol Tartrate 50 Mg Tablet 1 Tab PO DAILY Verapamil Er (Verapamil Hcl) 180 Mg Tablet.er 180 Mg PO DAILY [bp med] Vitals/I & O Vital Sign - Last 24 Hours 07/14/18 07/14/18 07/14/18 07/14/18 15:18 19:15 19:15 20:35 Temp 97.3 97.6 97.3 97.6 Pulse 134 128 86 Resp B/P (MAP) 102/50 (67) 113/52 (72) 113/52 Pulse Ox 100 98 O2 Delivery Nasal Cannula Nasal Cannula Nasal Cannula O2 Flow Rate 2.0 2.0 07/14/18 07/14/18 07/14/18 07/15/18 21:00 22:00 23:51 00:01 Temp 97.9 97.9 Pulse 82 70 70 72 Resp B/P (MAP) 115/56 (75) 132/62 (85) 125/57 (79) 105/56 (72) Pulse Ox 97 O2 Delivery Nasal Cannula O2 Flow Rate 2.0 07/15/18 07/15/18 07/15/18 07/15/18 01:00 02:00 03:48 07:20 Temp 99.3 97.7 99.3 97.7 Pulse 80 82 75 79 Resp 18 18 B/P (MAP) 113/62 (79) 112/57 (75) 125/60 (81) 119/58 (78) Pulse Ox 98 99 O2 Delivery Nasal Cannula Nasal Cannula O2 Flow Rate 2.0 2.0 07/15/18 07/15/18 07/15/18 07/15/18 08:00 08:55 08:55 11:00 Temp 95.8 95.8 Pulse 79 79 71 Resp 18 B/P (MAP) 119/58 119/58 104/55 (71) Pulse Ox 100 O2 Delivery Nasal Cannula Nasal Cannula O2 Flow Rate 2.0 2.0 Intake and Output 07/14/18 07/14/18 07/15/18 14:59 22:59 06:59 Intake Total 300 ml 400 ml 200 ml Balance 300 ml 400 ml 200 ml JR RUDOLPH MD Jul 15, 2018 13:38
--- NOTE | 2018-07-15 14:01 | PDOC ---
Subjective: Subjective: One stool with blood this am. One brown stool that followed. Hgb not checked today Objective: Vital Signs: Vital Signs Date Time Temp Pulse Resp B/P (MAP) Pulse Ox O2 Delivery O2 Flow Rate FiO2 07/15/18 11:00 95.8 71 18 104/55 (71) 100 Nasal Cannula 2.0 95.8 Labs: NA Physical Exam: Physical Exam: PE: GEN: ill HEENT: Atraumatic, PERRL LUNGS: tachypneic HEART: tachycardic, irregular ABD: NABS, S/ND/NT EXTREMITY: No edema SKIN: No rashes, no jaundice NEURO/PSYCH: A & O 3 Assessment & Plan: Assessment : A/P: A/P: NSTEMI, ICM, CHF, CAD s/p stent placement 07/13/18 H/o CVA Hematochezia Anemia CRC screen - none Plan: 1) Check Hgb today and tomorrow ADAN BRADLEY MD Jul 15, 2018 14:01
[2018-07-15 16:01] LABS: BASO % 0 % (0-3); EOS # 0.5 x10^3/uL (0.0-0.7); EOS % 4 % (0-3); HEMATOCRIT 28.1 % (36.0-47.0); HEMOGLOBIN 9.3 g/dL (12.0-15.5); LYMPH # 1.8 x10^3/uL (1.0-4.8); LYMPH % 13 % (24-48); MEAN CORPUSCULAR HEMOGLOBIN 32 pg (25-35); MEAN CORPUSCULAR HGB CONC 33 g/dL (31-37); MEAN CORPUSCULAR VOLUME 98 fL (79-100); MONO % 7 % (0-9); NEUT # 10.9 x10^3uL (1.8-7.7); NEUT % 77 % (31-73); PLATELET COUNT 181 x10^3/uL (140-400); RED BLOOD COUNT 2.88 x10^6/uL (3.50-5.40); RED CELL DISTRIBUTION WIDTH 14.8 % (11.5-14.5); WHITE BLOOD COUNT 14.2 x10^3/uL (4.0-11.0)
[2018-07-15] MEDS: AMIODARONE HCL 200 MG TABLET. PO SCH (16:33)
[2018-07-15] MEDS: ATORVASTATIN CALCIUM 20 MG TABLET PO SCH (21:09)
[2018-07-16 03:00] VITALS: BP 124/62
[2018-07-16] MEDS: LEVOTHYROXINE 125 MCG TABLET PO SCH (04:19)
[2018-07-16 05:26] LABS: BASO # 0.1 x10^3/uL (0.0-0.2); BASO % 1 % (0-3); EOS # 0.7 x10^3/uL (0.0-0.7); EOS % 6 % (0-3); HEMATOCRIT 25.8 % (36.0-47.0); HEMOGLOBIN 8.6 g/dL (12.0-15.5); LYMPH # 1.9 x10^3/uL (1.0-4.8); LYMPH % 16 % (24-48); MEAN CORPUSCULAR HEMOGLOBIN 32 pg (25-35); MEAN CORPUSCULAR HGB CONC 33 g/dL (31-37); MEAN CORPUSCULAR VOLUME 97 fL (79-100); MONO # 0.9 x10^3/uL (0.0-1.1); MONO % 8 % (0-9); NEUT # 8.2 x10^3uL (1.8-7.7); NEUT % 69 % (31-73); PLATELET COUNT 161 x10^3/uL (140-400); RED BLOOD COUNT 2.66 x10^6/uL (3.50-5.40); WHITE BLOOD COUNT 11.8 x10^3/uL (4.0-11.0)
[2018-07-16 05:45] LABS: CALCIUM 8.8 mg/dL (8.5-10.1); CREATININE 1.1 mg/dL (0.6-1.0); GFR 47.1; POTASSIUM 3.4 mmol/L (3.5-5.1)
[2018-07-16 07:26] VITALS: BP 117/63
[2018-07-16] MEDS: METOPROLOL TART IMMED RELEASE 25 MG TABLET. PO SCH ×2 (09:07→20:58)
[2018-07-16] MEDS: POTASSIUM CHLORIDE 20 MEQ TABLET.ER. PO SCH ×3 (09:07→16:39)
[2018-07-16] MEDS: ASPIRIN ENTERIC COATED 81 MG TABLET.DR. PO SCH (09:07)
[2018-07-16] MEDS: ALPRAZolam 0.5 MG TABLET PO SCH ×3 (09:08→20:58)
[2018-07-16] MEDS: AMIODARONE HCL 200 MG TABLET. PO SCH (09:08)
[2018-07-16] MEDS: TICAGRELOR 90 MG TABLET. PO SCH ×2 (09:08→20:58)
[2018-07-16] MEDS: LISINOPRIL 5 MG TABLET. PO SCH (09:08)
[2018-07-16] MEDS: FUROSEMIDE 40 MG/4 ML VIAL. IVP SCH (09:08)
[2018-07-16] MEDS: PANTOPRAZOLE 40 MG TABLET.DR. PO SCH (09:08)
[2018-07-16 10:35] VITALS: BP 152/66
--- NOTE | 2018-07-16 11:00 | PDOC ---
Subjective: Subjective: She admits to blood yesterday in her bowel movement Objective: Vital Signs: Vital Signs Date Time Temp Pulse Resp B/P (MAP) Pulse Ox O2 Delivery O2 Flow Rate FiO2 07/16/18 10:35 97.9 69 18 152/66 (94) 98 Room Air 97.9 07/16/18 08:00 2.0 Labs: Laboratory Tests Test 07/15/18 15:43 07/16/18 04:44 White Blood Count 14.2 x10^3/uL (4.0-11.0) 11.8 x10^3/uL (4.0-11.0) Red Blood Count 2.88 x10^6/uL (3.50-5.40) 2.66 x10^6/uL (3.50-5.40) Hemoglobin 9.3 g/dL (12.0-15.5) 8.6 g/dL (12.0-15.5) Hematocrit 28.1 % (36.0-47.0) 25.8 % (36.0-47.0) Mean Corpuscular Volume 98 fL (79-100) 97 fL (79-100) Mean Corpuscular Hemoglobin 32 pg (25-35) 32 pg (25-35) Mean Corpuscular Hemoglobin Concent 33 g/dL (31-37) 33 g/dL (31-37) Red Cell Distribution Width 14.8 % (11.5-14.5) 15.0 % (11.5-14.5) Platelet Count 181 x10^3/uL (140-400) 161 x10^3/uL (140-400) Neutrophils (%) (Auto) 77 % (31-73) 69 % (31-73) Lymphocytes (%) (Auto) 13 % (24-48) 16 % (24-48) Monocytes (%) (Auto) 7 % (0-9) 8 % (0-9) Eosinophils (%) (Auto) 4 % (0-3) 6 % (0-3) Basophils (%) (Auto) 0 % (0-3) 1 % (0-3) Neutrophils # (Auto) 10.9 x10^3uL (1.8-7.7) 8.2 x10^3uL (1.8-7.7) Lymphocytes # (Auto) 1.8 x10^3/uL (1.0-4.8) 1.9 x10^3/uL (1.0-4.8) Monocytes # (Auto) 1.0 x10^3/uL (0.0-1.1) 0.9 x10^3/uL (0.0-1.1) Eosinophils # (Auto) 0.5 x10^3/uL (0.0-0.7) 0.7 x10^3/uL (0.0-0.7) Basophils # (Auto) 0.0 x10^3/uL (0.0-0.2) 0.1 x10^3/uL (0.0-0.2) Sodium Level 144 mmol/L (136-145) Potassium Level 3.4 mmol/L (3.5-5.1) Chloride Level 110 mmol/L (98-107) Carbon Dioxide Level 24 mmol/L (21-32) Anion Gap 10 (6-14) Blood Urea Nitrogen 25 mg/dL (7-20) Creatinine 1.1 mg/dL (0.6-1.0) Estimated GFR (Cockcroft-Gault) 47.1 Glucose Level 99 mg/dL (70-99) Calcium Level 8.8 mg/dL (8.5-10.1) Physical Exam: Physical Exam: GEN: NAD HEENT: OP clear CV: S1S2 without murmurs, rubs, or gallops RESP: CTAB without wheezing, rhonchi, or crackles ABD: NABS, SNT/ND EXT: No edema NEURO: AAO x 3 Assessment & Plan: Assessment : A/P: A/P: NSTEMI, ICM, CHF, CAD s/p stent placement 07/13/18 H/o CVA Hematochezia Anemia Hgb 9/3 to 8.6 CRC screen - none Plan: 1) Check Hgb tomorrow. ADAN Toney MD Jul 16, 2018 11:00
--- NOTE | 2018-07-16 11:18 | PDOC ---
PROGRESS NOTES Subjective Subjective Patient without complaint. Denies pain. Objective Objective Vital Signs Date Time Temp Pulse Resp B/P (MAP) Pulse Ox O2 Delivery O2 Flow Rate FiO2 07/16/18 10:35 97.9 69 18 152/66 (94) 98 Room Air 97.9 07/16/18 08:00 2.0 Intake and Output 07/16/18 06:59 Intake Total 515 ml Output Total 850 ml Balance -335 ml Intake Oral 515 ml Output Urine Total 600 ml Stool Total 250 ml # Voids 2 # Bowel Movements 2 Physical Exam Abdomen: Normal bowel sounds, Soft, No tenderness Heart: Regular rate Extremities: No edema General: Alert, Oriented X3, No acute distress Lungs: Clear to auscultation Assessment Assessment Problems Medical Problems: (1) Acute exacerbation of CHF (congestive heart failure) Status: Acute (2) Acute respiratory distress Status: Acute (3) Elevated d-dimer Status: Acute (4) Elevated troponin Status: Acute (5) Pleural effusion on right Status: Acute (6) SIRS (systemic inflammatory response syndrome) Status: Acute Plan Plan of Care 1. NSTEMI with acute systolic CHF - stable. Continue tx per Cardiology, including ASA and Brilinta. 2. afib with RVR - resolved, now on po Amiodarone. 3. rectal bleeding - Hgb a little lower than two days ago, now 8.6. Some blood seen with stool intermittently but does not appear to be large amounts. Continue to follow closely. 4. HTN - controlled, continue present medications. 5. hypokalemia - level still a little low, increase po replacement again and follow lab. Comment Review of Relevant I have reviewed the following items luna (where applicable) has been applied. Labs Laboratory Tests Test 07/15/18 15:43 07/16/18 04:44 White Blood Count 14.2 x10^3/uL (4.0-11.0) 11.8 x10^3/uL (4.0-11.0) Red Blood Count 2.88 x10^6/uL (3.50-5.40) 2.66 x10^6/uL (3.50-5.40) Hemoglobin 9.3 g/dL (12.0-15.5) 8.6 g/dL (12.0-15.5) Hematocrit 28.1 % (36.0-47.0) 25.8 % (36.0-47.0) Mean Corpuscular Volume 98 fL (79-100) 97 fL (79-100) Mean Corpuscular Hemoglobin 32 pg (25-35) 32 pg (25-35) Mean Corpuscular Hemoglobin Concent 33 g/dL (31-37) 33 g/dL (31-37) Red Cell Distribution Width 14.8 % (11.5-14.5) 15.0 % (11.5-14.5) Platelet Count 181 x10^3/uL (140-400) 161 x10^3/uL (140-400) Neutrophils (%) (Auto) 77 % (31-73) 69 % (31-73) Lymphocytes (%) (Auto) 13 % (24-48) 16 % (24-48) Monocytes (%) (Auto) 7 % (0-9) 8 % (0-9) Eosinophils (%) (Auto) 4 % (0-3) 6 % (0-3) Basophils (%) (Auto) 0 % (0-3) 1 % (0-3) Neutrophils # (Auto) 10.9 x10^3uL (1.8-7.7) 8.2 x10^3uL (1.8-7.7) Lymphocytes # (Auto) 1.8 x10^3/uL (1.0-4.8) 1.9 x10^3/uL (1.0-4.8) Monocytes # (Auto) 1.0 x10^3/uL (0.0-1.1) 0.9 x10^3/uL (0.0-1.1) Eosinophils # (Auto) 0.5 x10^3/uL (0.0-0.7) 0.7 x10^3/uL (0.0-0.7) Basophils # (Auto) 0.0 x10^3/uL (0.0-0.2) 0.1 x10^3/uL (0.0-0.2) Sodium Level 144 mmol/L (136-145) Potassium Level 3.4 mmol/L (3.5-5.1) Chloride Level 110 mmol/L (98-107) Carbon Dioxide Level 24 mmol/L (21-32) Anion Gap 10 (6-14) Blood Urea Nitrogen 25 mg/dL (7-20) Creatinine 1.1 mg/dL (0.6-1.0) Estimated GFR (Cockcroft-Gault) 47.1 Glucose Level 99 mg/dL (70-99) Calcium Level 8.8 mg/dL (8.5-10.1) Laboratory Tests Test 07/15/18 15:43 07/16/18 04:44 White Blood Count 14.2 x10^3/uL (4.0-11.0) 11.8 x10^3/uL (4.0-11.0) Red Blood Count 2.88 x10^6/uL (3.50-5.40) 2.66 x10^6/uL (3.50-5.40) Hemoglobin 9.3 g/dL (12.0-15.5) 8.6 g/dL (12.0-15.5) Hematocrit 28.1 % (36.0-47.0) 25.8 % (36.0-47.0) Mean Corpuscular Volume 98 fL (79-100) 97 fL (79-100) Mean Corpuscular Hemoglobin 32 pg (25-35) 32 pg (25-35) Mean Corpuscular Hemoglobin Concent 33 g/dL (31-37) 33 g/dL (31-37) Red Cell Distribution Width 14.8 % (11.5-14.5) 15.0 % (11.5-14.5) Platelet Count 181 x10^3/uL (140-400) 161 x10^3/uL (140-400) Neutrophils (%) (Auto) 77 % (31-73) 69 % (31-73) Lymphocytes (%) (Auto) 13 % (24-48) 16 % (24-48) Monocytes (%) (Auto) 7 % (0-9) 8 % (0-9) Eosinophils (%) (Auto) 4 % (0-3) 6 % (0-3) Basophils (%) (Auto) 0 % (0-3) 1 % (0-3) Neutrophils # (Auto) 10.9 x10^3uL (1.8-7.7) 8.2 x10^3uL (1.8-7.7) Lymphocytes # (Auto) 1.8 x10^3/uL (1.0-4.8) 1.9 x10^3/uL (1.0-4.8) Monocytes # (Auto) 1.0 x10^3/uL (0.0-1.1) 0.9 x10^3/uL (0.0-1.1) Eosinophils # (Auto) 0.5 x10^3/uL (0.0-0.7) 0.7 x10^3/uL (0.0-0.7) Basophils # (Auto) 0.0 x10^3/uL (0.0-0.2) 0.1 x10^3/uL (0.0-0.2) Sodium Level 144 mmol/L (136-145) Potassium Level 3.4 mmol/L (3.5-5.1) Chloride Level 110 mmol/L (98-107) Carbon Dioxide Level 24 mmol/L (21-32) Anion Gap 10 (6-14) Blood Urea Nitrogen 25 mg/dL (7-20) Creatinine 1.1 mg/dL (0.6-1.0) Estimated GFR (Cockcroft-Gault) 47.1 Glucose Level 99 mg/dL (70-99) Calcium Level 8.8 mg/dL (8.5-10.1) Microbiology 07/12/18 Blood Culture - Preliminary, Resulted NO GROWTH AFTER 4 DAYS Medications Current Medications Sodium Chloride 1,000 ml @ 1,000 mls/hr Q1H IV Last administered on 07/12/18at 10:13; Start 07/12/18 at 10:13; Stop 07/12/18 at 11:12; Status DC Albuterol/ Ipratropium (Duoneb) 3 ml 1X ONCE NEB Last administered on 07/12/18at 11:14; Start 07/12/18 at 10:15; Stop 07/12/18 at 10:18; Status DC Methylprednisolone Sodium Succinate (SOLU-Medrol 125MG VIAL) 125 mg 1X ONCE IV Last administered on 07/12/18at 10:15; Start 07/12/18 at 10:15; Stop 07/12/18 at 10:18; Status DC Ceftriaxone Sodium (Rocephin) 1 gm 1X ONCE IVP Last administered on 07/12/18at 11:15; Start 07/12/18 at 11:15; Stop 07/12/18 at 11:16; Status DC Aspirin (Rhett Aspirin) 325 mg STK-MED ONCE .ROUTE ; Start 07/12/18 at 11:39; Stop 07/12/18 at 11:40; Status DC Nitroglycerin (Nitrostat) 0.4 mg STK-MED ONCE SL ; Start 07/12/18 at 11:39; Stop 07/12/18 at 11:40; Status DC Iohexol (Omnipaque 300 Mg/ml) 90 ml 1X ONCE IV Last administered on 07/13/18at 10:34; Start 07/12/18 at 11:45; Stop 07/12/18 at 11:47; Status DC Iohexol (Omnipaque 350 Mg/ml) 90 ml 1X ONCE IV Last administered on 07/12/18at 12:00; Start 07/12/18 at 12:00; Stop 07/12/18 at 12:01; Status DC Iohexol (Omnipaque 350 Mg/ml) 90 ml 1X ONCE IV ; Start 07/12/18 at 12:00; Stop 07/12/18 at 12:01; Status DC Info (CONTRAST GIVEN -- Rx MONITORING) 1 each PRN DAILY PRN MC SEE COMMENTS; Start 07/12/18 at 12:00; Stop 07/14/18 at 11:59; Status DC Furosemide (Lasix) 40 mg 1X ONCE IVP Last administered on 07/12/18at 12:28; Start 07/12/18 at 13:00; Stop 07/12/18 at 13:01; Status DC Furosemide (Lasix) 40 mg STK-MED ONCE .ROUTE ; Start 07/12/18 at 12:25; Stop 07/12/18 at 12:26; Status DC Metoprolol Tartrate (Lopressor) 50 mg DAILY PO ; Start 07/12/18 at 13:00; Stop 07/13/18 at 09:44; Status DC Levothyroxine Sodium (Synthroid) 125 mcg DAILY06 PO Last administered on 07/16/18at 04:19; Start 07/12/18 at 13:00 Verapamil HCl (Calan Sr) 180 mg DAILY PO ; Start 07/12/18 at 13:00; Stop 07/12/18 at 20:50; Status DC Enoxaparin Sodium (Lovenox 40mg Syringe) 40 mg Q24H SQ ; Start 07/12/18 at 13:00; Stop 07/12/18 at 13:00; Status DC Labetalol HCl (Normodyne Iv Push) 20 mg PRN Q2HR PRN IVP HYPERTENSION, SEE COMMENTS; Start 07/12/18 at 13:00 Heparin Sodium/ Dextrose 500 ml @ 19.8 mls/hr CONT PRN IV SEE I/O RECORD Last administered on 07/12/18at 14:39; Start 07/12/18 at 13:45; Stop 07/14/18 at 10:52; Status DC Heparin Sodium (Porcine) (Heparin Sodium) 2,050 unit PRN Q6HRS PRN IV FOR UFH LEVEL LESS THAN 0.2; Start 07/12/18 at 13:45; Stop 07/14/18 at 10:52; Status DC Alprazolam (Xanax) 0.25 mg TID PO Last administered on 07/16/18at 09:08; Start 07/12/18 at 16:15 Aspirin (Rhett Aspirin) 325 mg DAILY PO Last administered on 07/13/18at 08:49; Start 07/12/18 at 16:00; Stop 07/14/18 at 08:24; Status DC Metoprolol Tartrate (Lopressor) 25 mg BID PO Last administered on 07/16/18at 09:07; Start 07/12/18 at 21:00 Furosemide (Lasix) 40 mg DAILY IVP Last administered on 07/16/18at 09:08; Start 07/13/18 at 09:00 Potassium Chloride (Klor-Con) 20 meq DAILYWBKFT PO Last administered on 07/15/18at 08:55; Start 07/13/18 at 08:00; Stop 07/15/18 at 13:34; Status DC Lidocaine HCl (Xylocaine-Mpf 1% 2ml Vial) 2 ml STK-MED ONCE .ROUTE ; Start 07/13/18 at 08:33; Stop 07/13/18 at 08:34; Status DC Heparin Sodium/ Sodium Chloride 1,000 ml @ As Directed STK-MED ONCE .ROUTE ; Start 07/13/18 at 08:33; Stop 07/13/18 at 08:34; Status DC Iohexol (Omnipaque 300 Mg/ml) 100 ml STK-MED ONCE .ROUTE ; Start 07/13/18 at 09:10; Stop 07/13/18 at 09:11; Status DC Fentanyl Citrate (Fentanyl 2ml Vial) 100 mcg STK-MED ONCE .ROUTE ; Start 07/13/18 at 09:33; Stop 07/13/18 at 09:34; Status DC Midazolam HCl (Versed) 2 mg STK-MED ONCE .ROUTE ; Start 07/13/18 at 09:33; Stop 07/13/18 at 09:34; Status DC Heparin Sodium (Porcine) (Heparin Sodium) 10,000 unit STK-MED ONCE .ROUTE ; Start 07/13/18 at 09:33; Stop 07/13/18 at 09:34; Status DC Verapamil HCl (Verapamil) 5 mg STK-MED ONCE .ROUTE ; Start 07/13/18 at 09:33; Stop 07/13/18 at 09:34; Status DC Nitroglycerin (Nitroglycerin) 200 mcg STK-MED ONCE .ROUTE ; Start 07/13/18 at 09:34; Stop 07/13/18 at 09:35; Status DC Tirofiban/Sodium Chloride 100 ml @ As Directed STK-MED ONCE IV ; Start 07/13/18 at 10:00; Stop 07/13/18 at 10:01; Status DC Iohexol (Omnipaque 300 Mg/ml) 100 ml STK-MED ONCE .ROUTE ; Start 07/13/18 at 10:12; Stop 07/13/18 at 10:13; Status DC Nitroglycerin (Nitroglycerin) 200 mcg STK-MED ONCE .ROUTE ; Start 07/13/18 at 10:22; Stop 07/13/18 at 10:23; Status DC Nitroglycerin (Nitroglycerin) 400 mcg 1X ONCE IART Last administered on 07/13/18at 10:37; Start 07/13/18 at 10:30; Stop 07/13/18 at 10:31; Status DC Verapamil HCl (Verapamil) 2.5 mg 1X ONCE IART Last administered on 07/13/18at 10:35; Start 07/13/18 at 10:30; Stop 07/13/18 at 10:31; Status DC Heparin Sodium (Porcine) (Heparin Sodium) 2,500 unit 1X ONCE IART Last administered on 07/13/18 10:40; Start 07/13/18 at 10:30; Stop 07/13/18 at 10:31; Status DC Heparin Sodium/ Sodium Chloride (HEPARIN for ARTERIAL LINE FLUSH) 1,000 unit 1X ONCE IART Last administered on 07/13/18 10:32; Start 07/13/18 at 10:30; Stop 07/13/18 at 10:31; Status DC Midazolam HCl (Versed) 1 mg 1X ONCE IV Last administered on 07/13/18 10:36; Start 07/13/18 at 10:30; Stop 07/13/18 at 10:31; Status DC Fentanyl Citrate (Fentanyl 2ml Vial) 50 mcg 1X ONCE IV Last administered on 07/13/18 10:35; Start 07/13/18 at 10:30; Stop 07/13/18 at 10:31; Status DC Iohexol (Omnipaque 300 Mg/ml) 100 ml 1X ONCE IART Last administered on 07/13/18 10:34; Start 07/13/18 at 10:30; Stop 07/13/18 at 10:31; Status DC Heparin Sodium (Porcine) (Heparin Sodium) 3,000 unit 1X ONCE IV Last administered on 07/13/18 10:33; Start 07/13/18 at 10:30; Stop 07/13/18 at 10:31; Status DC Tirofiban/Sodium Chloride 100 ml @ 0 mls/hr CONT PRN IV PER PROTOCOL Last administered on 07/13/18 10:37; Start 07/13/18 at 10:30; Stop 07/13/18 at 10:40; Status DC Lidocaine HCl (Xylocaine-Mpf 1% 2ml Vial) 1 ml 1X ONCE INJ Last administered on 07/13/18at 10:30; Start 07/13/18 at 10:30; Stop 07/13/18 at 10:31; Status DC Ticagrelor (Brilinta) 180 mg 1X ONCE PO Last administered on 07/13/18at 10:40; Start 07/13/18 at 10:30; Stop 07/13/18 at 10:31; Status DC Ticagrelor (Brilinta) 90 mg STK-MED ONCE .ROUTE ; Start 07/13/18 at 10:38; Stop 07/13/18 at 10:39; Status DC Sodium Chloride (Normal Saline Flush) 3 ml QSHIFT PRN IV AFTER MEDS AND BLOOD DRAWS; Start 07/13/18 at 11:15 Ticagrelor (Brilinta) 90 mg BID PO Last administered on 07/16/18at 09:08; Start 07/14/18 at 09:00 Atorvastatin Calcium (Lipitor) 40 mg QHS PO Last administered on 07/15/18at 21:09; Start 07/13/18 at 21:00 Acetaminophen (Tylenol) 650 mg PRN Q6HRS PRN PO MILD PAIN / TEMP; Start 07/13/18 at 11:15 Fentanyl Citrate (Fentanyl 2ml Vial) 50 mcg PRN Q1HR PRN IV MODERATE OR SEVERE PAIN; Start 07/13/18 at 11:15 Nitroglycerin (Nitrostat) 0.4 mg PRN Q5MIN PRN SL CHEST PAIN; Start 07/13/18 at 11:15 Amiodarone HCl 150 mg/Dextrose 103 ml @ 600 mls/hr 1X PRN PRN IV FOR VENTRICULAR TACHYCARDIA; Start 07/13/18 at 11:15 Lidocaine HCl (Lidocaine HCl 2% Abboject) 100 mg 1X PRN PRN IV FOR VENTRICULAR TACHYCARDIA; Start 07/13/18 at 11:15 Atropine Sulfate (ATROPINE 0.5mg SYRINGE) 0.5 mg PRN 1X PRN IV BRADYCARDIA; Start 07/13/18 at 11:15 Digoxin (Lanoxin) 500 mcg 1X ONCE IV Last administered on 07/14/18at 08:27; Start 07/14/18 at 08:30; Stop 07/14/18 at 08:31; Status DC Metoprolol Tartrate (Lopressor Vial) 5 mg 1X ONCE IVP Last administered on 07/14/18at 08:18; Start 07/14/18 at 08:30; Stop 07/14/18 at 08:31; Status DC Metoprolol Tartrate (Lopressor Vial) 5 mg STK-MED ONCE IVP ; Start 07/14/18 at 08:16; Stop 07/14/18 at 08:17; Status DC Digoxin (Lanoxin) 500 mcg STK-MED ONCE .ROUTE ; Start 07/14/18 at 08:16; Stop 07/14/18 at 08:17; Status DC Aspirin (Ecotrin) 81 mg DAILYWBKFT PO Last administered on 07/16/18 09:07; Start 07/14/18 at 09:00 Lisinopril (Prinivil) 5 mg DAILY PO Last administered on 07/16/18 09:08; Start 07/14/18 at 09:00 Potassium Chloride (Klor-Con) 20 meq 1X ONCE PO Last administered on 07/14/18 10:10; Start 07/14/18 at 08:45; Stop 07/14/18 at 08:46; Status DC Digoxin (Lanoxin) 250 mcg 1X ONCE IV Last administered on 07/14/18 09:52; Start 07/14/18 at 10:00; Stop 07/14/18 at 10:01; Status DC Sodium Chloride 500 ml @ 0 mls/hr 1X ONCE IV Last administered on 07/14/18 10:00; Start 07/14/18 at 10:00; Stop 07/14/18 at 10:01; Status DC Amiodarone HCl 150 mg/Dextrose 103 ml @ 600 mls/hr 1X ONCE IV Last administered on 07/14/18at 10:55; Start 07/14/18 at 10:30; Stop 07/14/18 at 10:40; Status DC Amiodarone HCl 900 mg/Dextrose 518 ml @ 0 mls/hr CONT PRN IV SEE I/O RECORD; Start 07/14/18 at 10:30; Stop 07/15/18 at 10:29; Status DC Pantoprazole Sodium (Protonix) 40 mg DAILYAC PO Last administered on 07/16/18 09:08; Start 07/14/18 at 13:00 Potassium Chloride (Klor-Con) 20 meq BIDWMEALS PO Last administered on 07/16/18 09:07; Start 07/15/18 at 17:00 Amiodarone HCl (Cordarone) 200 mg DAILY PO Last administered on 07/16/18 09:08; Start 07/15/18 at 15:30 Active Scripts Active Reported Calcium (Calcium Carbonate) 500 Mg Tablet 500 Mg PO DAILY Xanax (Alprazolam) 0.5 Mg Tablet 0.5 Tab PO TID Symbicort 160-4.5 Mcg Inhaler (Budesonide/Formoterol Fumarate) 10.2 Gm Hfa.aer.ad 2 Puff IH BID Aspirin 325 Mg Tablet 325 Mg PO DAILY Levothyroxine Sodium 125 Mcg Tablet 1 Tab PO DAILY Meloxicam 15 Mg Tablet 1 Tab PO DAILY Metoprolol Tartrate 50 Mg Tablet 1 Tab PO DAILY Verapamil Er (Verapamil Hcl) 180 Mg Tablet.er 180 Mg PO DAILY [bp med] Vitals/I & O Vital Sign - Last 24 Hours 07/15/18 07/15/18 07/15/18 07/15/18 14:57 16:33 19:00 19:32 Temp 96.9 98.4 96.9 98.4 Pulse 74 74 81 Resp 18 16 B/P (MAP) 117/57 (77) 117/57 135/70 (91) Pulse Ox 100 100 O2 Delivery Nasal Cannula Nasal Cannula Nasal Cannula O2 Flow Rate 2.0 2.0 2.0 07/15/18 07/15/18 07/16/18 07/16/18 21:08 23:00 03:00 07:26 Temp 97.7 97.7 98.0 97.7 97.7 98.0 Pulse 74 69 72 81 Resp 17 17 17 B/P (MAP) 117/57 148/67 (94) 124/62 (82) 117/63 (81) Pulse Ox 100 98 98 O2 Delivery Nasal Cannula Nasal Cannula Nasal Cannula O2 Flow Rate 2.0 2.0 2.0 07/16/18 07/16/18 07/16/18 07/16/18 08:00 09:07 09:08 09:08 Pulse 81 81 81 B/P (MAP) 117/63 117/63 117/63 O2 Delivery Nasal Cannula O2 Flow Rate 2.0 07/16/18 10:35 Temp 97.9 97.9 Pulse 69 Resp 18 B/P (MAP) 152/66 (94) Pulse Ox 98 O2 Delivery Room Air Intake and Output 07/15/18 07/15/18 07/16/18 14:59 22:59 06:59 Intake Total 270 ml 230 ml 15 ml Output Total 250 ml 600 ml Balance 20 ml -370 ml 15 ml JR RUDOLPH MD Jul 16, 2018 11:18
--- NOTE | 2018-07-16 11:34 | PDOC ---
PROGRESS NOTES Subjective Subjective Denied any chest pain or palpitations Objective Objective Vital Signs Date Time Temp Pulse Resp B/P (MAP) Pulse Ox O2 Delivery O2 Flow Rate FiO2 07/16/18 10:35 97.9 69 18 152/66 (94) 98 Room Air 97.9 07/16/18 08:00 2.0 l Intake and Output 07/16/18 06:59 Intake Total 515 ml Output Total 850 ml Balance -335 ml Intake Oral 515 ml Output Urine Total 600 ml Stool Total 250 ml # Voids 2 # Bowel Movements 2 Physical Exam Abdomen: Normal bowel sounds, Soft, No tenderness Heart: Regular rate Extremities: No edema General: Alert, Oriented X3, No acute distress HEENT: Atraumatic, Mucous membr. moist/pink Lungs: Clear to auscultation MUSCULOSKELETAL: Osteoarthritic changes both hands Neuro: Normal speech, Sensation intact Psych/Mental Status: Mental status NL, Mood NL Skin: No breakdown, No significant lesion Assessment Assessment 1. CAD s/p PCI/LIYAH to LAD. Clinically stable and chest pain-free. Continue current medications including Ticagrelor 2. Acute on chronic systolic HF. ICM, EF 25%. Clinically well compensated. Continue current medical regimen. 3. Paroxysmal AFIB: Presently in sinus rhythm but telemetry showed episodes of A. fib with RVR. Continue amiodarone. She is a poor candidate for long-term anticoagulation 4. Hypertension: Controlled 5. Ascending aortic aneurysm; 4.4 cm per echo 6. Hematochezia, improved, treat per GI Plan Plan of Care Problems Medical Problems: (1) Acute exacerbation of CHF (congestive heart failure) Status: Acute (2) Acute respiratory distress Status: Acute (3) Elevated d-dimer Status: Acute (4) Elevated troponin Status: Acute (5) Pleural effusion on right Status: Acute (6) SIRS (systemic inflammatory response syndrome) Status: Acute Comment Review of Relevant I have reviewed the following items luna (where applicable) has been applied. Labs Laboratory Tests Test 07/15/18 15:43 07/16/18 04:44 White Blood Count 14.2 x10^3/uL (4.0-11.0) 11.8 x10^3/uL (4.0-11.0) Red Blood Count 2.88 x10^6/uL (3.50-5.40) 2.66 x10^6/uL (3.50-5.40) Hemoglobin 9.3 g/dL (12.0-15.5) 8.6 g/dL (12.0-15.5) Hematocrit 28.1 % (36.0-47.0) 25.8 % (36.0-47.0) Mean Corpuscular Volume 98 fL (79-100) 97 fL (79-100) Mean Corpuscular Hemoglobin 32 pg (25-35) 32 pg (25-35) Mean Corpuscular Hemoglobin Concent 33 g/dL (31-37) 33 g/dL (31-37) Red Cell Distribution Width 14.8 % (11.5-14.5) 15.0 % (11.5-14.5) Platelet Count 181 x10^3/uL (140-400) 161 x10^3/uL (140-400) Neutrophils (%) (Auto) 77 % (31-73) 69 % (31-73) Lymphocytes (%) (Auto) 13 % (24-48) 16 % (24-48) Monocytes (%) (Auto) 7 % (0-9) 8 % (0-9) Eosinophils (%) (Auto) 4 % (0-3) 6 % (0-3) Basophils (%) (Auto) 0 % (0-3) 1 % (0-3) Neutrophils # (Auto) 10.9 x10^3uL (1.8-7.7) 8.2 x10^3uL (1.8-7.7) Lymphocytes # (Auto) 1.8 x10^3/uL (1.0-4.8) 1.9 x10^3/uL (1.0-4.8) Monocytes # (Auto) 1.0 x10^3/uL (0.0-1.1) 0.9 x10^3/uL (0.0-1.1) Eosinophils # (Auto) 0.5 x10^3/uL (0.0-0.7) 0.7 x10^3/uL (0.0-0.7) Basophils # (Auto) 0.0 x10^3/uL (0.0-0.2) 0.1 x10^3/uL (0.0-0.2) Sodium Level 144 mmol/L (136-145) Potassium Level 3.4 mmol/L (3.5-5.1) Chloride Level 110 mmol/L (98-107) Carbon Dioxide Level 24 mmol/L (21-32) Anion Gap 10 (6-14) Blood Urea Nitrogen 25 mg/dL (7-20) Creatinine 1.1 mg/dL (0.6-1.0) Estimated GFR (Cockcroft-Gault) 47.1 Glucose Level 99 mg/dL (70-99) Calcium Level 8.8 mg/dL (8.5-10.1) Microbiology 07/12/18 Blood Culture - Preliminary, Resulted NO GROWTH AFTER 4 DAYS Medications Current Medications Amiodarone HCl (Cordarone) 200 mg DAILY PO Last administered on 07/16/18at 09:08; Start 07/15/18 at 15:30 Potassium Chloride (Klor-Con) 20 meq BIDWMEALS PO Last administered on 07/16/18at 09:07; Start 07/15/18 at 17:00; Stop 07/16/18 at 11:09; Status DC Potassium Chloride (Klor-Con) 20 meq TIDWMEALS PO ; Start 07/16/18 at 12:00 Vitals/I & O Vital Sign - Last 24 Hours 07/15/18 07/15/18 07/15/18 07/15/18 14:57 16:33 19:00 19:32 Temp 96.9 98.4 96.9 98.4 Pulse 74 74 81 Resp 18 16 B/P (MAP) 117/57 (77) 117/57 135/70 (91) Pulse Ox 100 100 O2 Delivery Nasal Cannula Nasal Cannula Nasal Cannula O2 Flow Rate 2.0 2.0 2.0 07/15/18 07/15/18 07/16/18 07/16/18 21:08 23:00 03:00 07:26 Temp 97.7 97.7 98.0 97.7 97.7 98.0 Pulse 74 69 72 81 Resp 17 17 17 B/P (MAP) 117/57 148/67 (94) 124/62 (82) 117/63 (81) Pulse Ox 100 98 98 O2 Delivery Nasal Cannula Nasal Cannula Nasal Cannula O2 Flow Rate 2.0 2.0 2.0 07/16/18 07/16/18 07/16/18 07/16/18 08:00 09:07 09:08 09:08 Pulse 81 81 81 B/P (MAP) 117/63 117/63 117/63 O2 Delivery Nasal Cannula O2 Flow Rate 2.0 07/16/18 10:35 Temp 97.9 97.9 Pulse 69 Resp 18 B/P (MAP) 152/66 (94) Pulse Ox 98 O2 Delivery Room Air Intake and Output 07/15/18 07/15/18 07/16/18 14:59 22:59 06:59 Intake Total 270 ml 230 ml 15 ml Output Total 250 ml 600 ml Balance 20 ml -370 ml 15 ml ARACELI PARSONS MD Jul 16, 2018 11:33
[2018-07-16 14:51] VITALS: BP 119/62
[2018-07-16 19:10] VITALS: BP 106/62
[2018-07-16] MEDS: ATORVASTATIN CALCIUM 20 MG TABLET PO SCH (20:58)
[2018-07-16 23:39] VITALS: BP 114/50
[2018-07-17] VITALS (8 sets, daily range): BP systolic 103–155; BP diastolic 58–67
[2018-07-17] MEDS: LEVOTHYROXINE 125 MCG TABLET PO SCH (05:38)
[2018-07-17 06:19] LABS: HEMATOCRIT 27.7 % (36.0-47.0); HEMOGLOBIN 9.3 g/dL (12.0-15.5); RED BLOOD COUNT 2.87 x10^6/uL (3.50-5.40); RED CELL DISTRIBUTION WIDTH 14.9 % (11.5-14.5); WHITE BLOOD COUNT 10.5 x10^3/uL (4.0-11.0)
[2018-07-17 06:22] LABS: CALCIUM 8.8 mg/dL (8.5-10.1); CREATININE 1.2 mg/dL (0.6-1.0); GFR 42.6; POTASSIUM 3.7 mmol/L (3.5-5.1)
[2018-07-17] MEDS: FUROSEMIDE 40 MG/4 ML VIAL. IVP SCH (09:16)
[2018-07-17] MEDS: POTASSIUM CHLORIDE 20 MEQ TABLET.ER. PO SCH ×3 (09:16→17:14)
[2018-07-17] MEDS: LISINOPRIL 5 MG TABLET. PO SCH (09:17)
[2018-07-17] MEDS: ALPRAZolam 0.5 MG TABLET PO SCH ×3 (09:17→20:49)
[2018-07-17] MEDS: ASPIRIN ENTERIC COATED 81 MG TABLET.DR. PO SCH (09:17)
[2018-07-17] MEDS: TICAGRELOR 90 MG TABLET. PO SCH ×2 (09:17→20:49)
[2018-07-17] MEDS: METOPROLOL TART IMMED RELEASE 25 MG TABLET. PO SCH ×2 (09:18→20:49)
[2018-07-17] MEDS: PANTOPRAZOLE 40 MG TABLET.DR. PO SCH (09:18)
[2018-07-17] MEDS: AMIODARONE HCL 200 MG TABLET. PO SCH (09:18)
--- NOTE | 2018-07-17 11:29 | PDOC ---
Subjective: Subjective: No bleeding - had a normal stool this morning, tolerating PO - "eating better," denies pain. Family present. Objective: Objective: D/w RN - no bleeding, ?DC soon Vital Signs: Vital Signs Date Time Temp Pulse Resp B/P (MAP) Pulse Ox O2 Delivery O2 Flow Rate FiO2 07/17/18 10:54 97.3 63 16 122/58 (79) 97 Room Air 97.3 07/16/18 08:00 2.0 Labs: Laboratory Tests Test 07/17/18 05:00 07/17/18 05:30 White Blood Count 10.5 x10^3/uL Red Blood Count 2.87 x10^6/uL Hemoglobin 9.3 g/dL Hematocrit 27.7 % Mean Corpuscular Volume 97 fL Mean Corpuscular Hemoglobin 32 pg Mean Corpuscular Hemoglobin Concent 34 g/dL Red Cell Distribution Width 14.9 % Platelet Count 179 x10^3/uL Sodium Level 145 mmol/L Potassium Level 3.7 mmol/L Chloride Level 110 mmol/L Carbon Dioxide Level 25 mmol/L Anion Gap 10 Blood Urea Nitrogen 20 mg/dL Creatinine 1.2 mg/dL Estimated GFR (Cockcroft-Gault) 42.6 Glucose Level 106 mg/dL Calcium Level 8.8 mg/dL BLOOD CULTURE Final NO GROWTH AFTER 5 DAYS PE: GEN: NAD LUNGS: CTAB HEART: RRR ABD: NABS, S/ND/NT NEURO/PSYCH: A & O 3 A/P: CAD s/p stent placement, A Fib - back on Brilinta and ASA Hematochezia - resolved, no previous colonoscopy Anemia - stable -- No further bleeding. Drift in Hgb since admission but stable. JOSE DE JESUS LYMAN Jul 17, 2018 11:29
[2018-07-17] MEDS ORDERED: ATOR20TA58 PO (13:44)
[2018-07-17] MEDS ORDERED: LISI-338 PO (13:44)
[2018-07-17] MEDS ORDERED: POTA20TA4 PO (13:44)
[2018-07-17] MEDS ORDERED: TICA90TA PO (13:44)
[2018-07-17] MEDS ORDERED: AMIO200T4 PO (13:44)
[2018-07-17] MEDS ORDERED: FURO-68 PO (13:44)
[2018-07-17] MEDS ORDERED: Pantoprazole PO (13:44)
--- NOTE | 2018-07-17 13:48 | PDOC ---
PROGRESS NOTES Subjective Subjective Patient feeling better but still very weak. PT recc SNU care. Objective Objective Vital Signs Date Time Temp Pulse Resp B/P (MAP) Pulse Ox O2 Delivery O2 Flow Rate FiO2 07/17/18 10:54 97.3 63 16 122/58 (79) 97 Room Air 97.3 07/16/18 08:00 2.0 Intake and Output 07/17/18 06:59 Intake Total 420 ml Output Total 350 ml Balance 70 ml Intake Oral 420 ml Output Urine Total 350 ml # Voids 2 # Bowel Movements 2 Physical Exam Abdomen: Normal bowel sounds Heart: Regular rate Extremities: No edema General: Alert Lungs: Clear to auscultation Assessment Assessment Problems Medical Problems: (1) Acute exacerbation of CHF (congestive heart failure) Status: Acute (2) Acute respiratory distress Status: Acute (3) Elevated d-dimer Status: Acute (4) Elevated troponin Status: Acute (5) Pleural effusion on right Status: Acute (6) SIRS (systemic inflammatory response syndrome) Status: Acute Coronary artery disease Status post stent to LAD Non-ST elevated myocardial infarction. Acute systolic congestive heart failure. EF 25% Acute respiratory failure Aortic insufficiency history. Lower GI bleed Plan Plan of Care Continue PT/Ot transfer to SNU when able. Change to po Lasix if ok with cardiology Comment Review of Relevant I have reviewed the following items luna (where applicable) has been applied. Labs Laboratory Tests Test 07/15/18 15:43 07/16/18 04:44 07/17/18 05:00 07/17/18 05:30 White Blood Count 14.2 x10^3/uL (4.0-11.0) 11.8 x10^3/uL (4.0-11.0) 10.5 x10^3/uL (4.0-11.0) Red Blood Count 2.88 x10^6/uL (3.50-5.40) 2.66 x10^6/uL (3.50-5.40) 2.87 x10^6/uL (3.50-5.40) Hemoglobin 9.3 g/dL (12.0-15.5) 8.6 g/dL (12.0-15.5) 9.3 g/dL (12.0-15.5) Hematocrit 28.1 % (36.0-47.0) 25.8 % (36.0-47.0) 27.7 % (36.0-47.0) Mean Corpuscular Volume 98 fL (79-100) 97 fL (79-100) 97 fL (79-100) Mean Corpuscular Hemoglobin 32 pg (25-35) 32 pg (25-35) 32 pg (25-35) Mean Corpuscular Hemoglobin Concent 33 g/dL (31-37) 33 g/dL (31-37) 34 g/dL (31-37) Red Cell Distribution Width 14.8 % (11.5-14.5) 15.0 % (11.5-14.5) 14.9 % (11.5-14.5) Platelet Count 181 x10^3/uL (140-400) 161 x10^3/uL (140-400) 179 x10^3/uL (140-400) Neutrophils (%) (Auto) 77 % (31-73) 69 % (31-73) Lymphocytes (%) (Auto) 13 % (24-48) 16 % (24-48) Monocytes (%) (Auto) 7 % (0-9) 8 % (0-9) Eosinophils (%) (Auto) 4 % (0-3) 6 % (0-3) Basophils (%) (Auto) 0 % (0-3) 1 % (0-3) Neutrophils # (Auto) 10.9 x10^3uL (1.8-7.7) 8.2 x10^3uL (1.8-7.7) Lymphocytes # (Auto) 1.8 x10^3/uL (1.0-4.8) 1.9 x10^3/uL (1.0-4.8) Monocytes # (Auto) 1.0 x10^3/uL (0.0-1.1) 0.9 x10^3/uL (0.0-1.1) Eosinophils # (Auto) 0.5 x10^3/uL (0.0-0.7) 0.7 x10^3/uL (0.0-0.7) Basophils # (Auto) 0.0 x10^3/uL (0.0-0.2) 0.1 x10^3/uL (0.0-0.2) Sodium Level 144 mmol/L (136-145) 145 mmol/L (136-145) Potassium Level 3.4 mmol/L (3.5-5.1) 3.7 mmol/L (3.5-5.1) Chloride Level 110 mmol/L (98-107) 110 mmol/L (98-107) Carbon Dioxide Level 24 mmol/L (21-32) 25 mmol/L (21-32) Anion Gap 10 (6-14) 10 (6-14) Blood Urea Nitrogen 25 mg/dL (7-20) 20 mg/dL (7-20) Creatinine 1.1 mg/dL (0.6-1.0) 1.2 mg/dL (0.6-1.0) Estimated GFR (Cockcroft-Gault) 47.1 42.6 Glucose Level 99 mg/dL (70-99) 106 mg/dL (70-99) Calcium Level 8.8 mg/dL (8.5-10.1) 8.8 mg/dL (8.5-10.1) Laboratory Tests Test 07/17/18 05:00 07/17/18 05:30 White Blood Count 10.5 x10^3/uL (4.0-11.0) Red Blood Count 2.87 x10^6/uL (3.50-5.40) Hemoglobin 9.3 g/dL (12.0-15.5) Hematocrit 27.7 % (36.0-47.0) Mean Corpuscular Volume 97 fL (79-100) Mean Corpuscular Hemoglobin 32 pg (25-35) Mean Corpuscular Hemoglobin Concent 34 g/dL (31-37) Red Cell Distribution Width 14.9 % (11.5-14.5) Platelet Count 179 x10^3/uL (140-400) Sodium Level 145 mmol/L (136-145) Potassium Level 3.7 mmol/L (3.5-5.1) Chloride Level 110 mmol/L (98-107) Carbon Dioxide Level 25 mmol/L (21-32) Anion Gap 10 (6-14) Blood Urea Nitrogen 20 mg/dL (7-20) Creatinine 1.2 mg/dL (0.6-1.0) Estimated GFR (Cockcroft-Gault) 42.6 Glucose Level 106 mg/dL (70-99) Calcium Level 8.8 mg/dL (8.5-10.1) Microbiology 07/12/18 Blood Culture - Final, Complete NO GROWTH AFTER 5 DAYS Medications Current Medications Sodium Chloride 1,000 ml @ 1,000 mls/hr Q1H IV Last administered on 07/12/18at 10:13; Start 07/12/18 at 10:13; Stop 07/12/18 at 11:12; Status DC Albuterol/ Ipratropium (Duoneb) 3 ml 1X ONCE NEB Last administered on 07/12/18at 11:14; Start 07/12/18 at 10:15; Stop 07/12/18 at 10:18; Status DC Methylprednisolone Sodium Succinate (SOLU-Medrol 125MG VIAL) 125 mg 1X ONCE IV Last administered on 07/12/18at 10:15; Start 07/12/18 at 10:15; Stop 07/12/18 at 10:18; Status DC Ceftriaxone Sodium (Rocephin) 1 gm 1X ONCE IVP Last administered on 07/12/18at 11:15; Start 07/12/18 at 11:15; Stop 07/12/18 at 11:16; Status DC Aspirin (Rhett Aspirin) 325 mg STK-MED ONCE .ROUTE ; Start 07/12/18 at 11:39; Stop 07/12/18 at 11:40; Status DC Nitroglycerin (Nitrostat) 0.4 mg STK-MED ONCE SL ; Start 07/12/18 at 11:39; Stop 07/12/18 at 11:40; Status DC Iohexol (Omnipaque 300 Mg/ml) 90 ml 1X ONCE IV Last administered on 07/13/18at 10:34; Start 07/12/18 at 11:45; Stop 07/12/18 at 11:47; Status DC Iohexol (Omnipaque 350 Mg/ml) 90 ml 1X ONCE IV Last administered on 07/12/18at 12:00; Start 07/12/18 at 12:00; Stop 07/12/18 at 12:01; Status DC Iohexol (Omnipaque 350 Mg/ml) 90 ml 1X ONCE IV ; Start 07/12/18 at 12:00; Stop 07/12/18 at 12:01; Status DC Info (CONTRAST GIVEN -- Rx MONITORING) 1 each PRN DAILY PRN MC SEE COMMENTS; Start 07/12/18 at 12:00; Stop 07/14/18 at 11:59; Status DC Furosemide (Lasix) 40 mg 1X ONCE IVP Last administered on 07/12/18at 12:28; Start 07/12/18 at 13:00; Stop 07/12/18 at 13:01; Status DC Furosemide (Lasix) 40 mg STK-MED ONCE .ROUTE ; Start 07/12/18 at 12:25; Stop 07/12/18 at 12:26; Status DC Metoprolol Tartrate (Lopressor) 50 mg DAILY PO ; Start 07/12/18 at 13:00; Stop 07/13/18 at 09:44; Status DC Levothyroxine Sodium (Synthroid) 125 mcg DAILY06 PO Last administered on 07/17/18at 05:38; Start 07/12/18 at 13:00 Verapamil HCl (Calan Sr) 180 mg DAILY PO ; Start 07/12/18 at 13:00; Stop 07/12/18 at 20:50; Status DC Enoxaparin Sodium (Lovenox 40mg Syringe) 40 mg Q24H SQ ; Start 07/12/18 at 13:00; Stop 07/12/18 at 13:00; Status DC Labetalol HCl (Normodyne Iv Push) 20 mg PRN Q2HR PRN IVP HYPERTENSION, SEE COMMENTS; Start 07/12/18 at 13:00 Heparin Sodium/ Dextrose 500 ml @ 19.8 mls/hr CONT PRN IV SEE I/O RECORD Last administered on 07/12/18at 14:39; Start 07/12/18 at 13:45; Stop 07/14/18 at 10:52; Status DC Heparin Sodium (Porcine) (Heparin Sodium) 2,050 unit PRN Q6HRS PRN IV FOR UFH LEVEL LESS THAN 0.2; Start 07/12/18 at 13:45; Stop 07/14/18 at 10:52; Status DC Alprazolam (Xanax) 0.25 mg TID PO Last administered on 07/17/18at 09:17; Start 07/12/18 at 16:15 Aspirin (Rhett Aspirin) 325 mg DAILY PO Last administered on 07/13/18at 08:49; Start 07/12/18 at 16:00; Stop 07/14/18 at 08:24; Status DC Metoprolol Tartrate (Lopressor) 25 mg BID PO Last administered on 07/17/18at 09:18; Start 07/12/18 at 21:00 Furosemide (Lasix) 40 mg DAILY IVP Last administered on 07/17/18at 09:16; Start 07/13/18 at 09:00 Potassium Chloride (Klor-Con) 20 meq DAILYWBKFT PO Last administered on 07/15/18at 08:55; Start 07/13/18 at 08:00; Stop 07/15/18 at 13:34; Status DC Lidocaine HCl (Xylocaine-Mpf 1% 2ml Vial) 2 ml STK-MED ONCE .ROUTE ; Start 07/13/18 at 08:33; Stop 07/13/18 at 08:34; Status DC Heparin Sodium/ Sodium Chloride 1,000 ml @ As Directed STK-MED ONCE .ROUTE ; Start 07/13/18 at 08:33; Stop 07/13/18 at 08:34; Status DC Iohexol (Omnipaque 300 Mg/ml) 100 ml STK-MED ONCE .ROUTE ; Start 07/13/18 at 09:10; Stop 07/13/18 at 09:11; Status DC Fentanyl Citrate (Fentanyl 2ml Vial) 100 mcg STK-MED ONCE .ROUTE ; Start 07/13/18 at 09:33; Stop 07/13/18 at 09:34; Status DC Midazolam HCl (Versed) 2 mg STK-MED ONCE .ROUTE ; Start 07/13/18 at 09:33; Stop 07/13/18 at 09:34; Status DC Heparin Sodium (Porcine) (Heparin Sodium) 10,000 unit STK-MED ONCE .ROUTE ; Start 07/13/18 at 09:33; Stop 07/13/18 at 09:34; Status DC Verapamil HCl (Verapamil) 5 mg STK-MED ONCE .ROUTE ; Start 07/13/18 at 09:33; Stop 07/13/18 at 09:34; Status DC Nitroglycerin (Nitroglycerin) 200 mcg STK-MED ONCE .ROUTE ; Start 07/13/18 at 09:34; Stop 07/13/18 at 09:35; Status DC Tirofiban/Sodium Chloride 100 ml @ As Directed STK-MED ONCE IV ; Start 07/13/18 at 10:00; Stop 07/13/18 at 10:01; Status DC Iohexol (Omnipaque 300 Mg/ml) 100 ml STK-MED ONCE .ROUTE ; Start 07/13/18 at 10:12; Stop 07/13/18 at 10:13; Status DC Nitroglycerin (Nitroglycerin) 200 mcg STK-MED ONCE .ROUTE ; Start 07/13/18 at 10:22; Stop 07/13/18 at 10:23; Status DC Nitroglycerin (Nitroglycerin) 400 mcg 1X ONCE IART Last administered on 07/13/18at 10:37; Start 07/13/18 at 10:30; Stop 07/13/18 at 10:31; Status DC Verapamil HCl (Verapamil) 2.5 mg 1X ONCE IART Last administered on 07/13/18at 10:35; Start 07/13/18 at 10:30; Stop 07/13/18 at 10:31; Status DC Heparin Sodium (Porcine) (Heparin Sodium) 2,500 unit 1X ONCE IART Last administered on 07/13/18at 10:40; Start 07/13/18 at 10:30; Stop 07/13/18 at 10:31; Status DC Heparin Sodium/ Sodium Chloride (HEPARIN for ARTERIAL LINE FLUSH) 1,000 unit 1X ONCE IART Last administered on 07/13/18at 10:32; Start 07/13/18 at 10:30; Stop 07/13/18 at 10:31; Status DC Midazolam HCl (Versed) 1 mg 1X ONCE IV Last administered on 07/13/18at 10:36; Start 07/13/18 at 10:30; Stop 07/13/18 at 10:31; Status DC Fentanyl Citrate (Fentanyl 2ml Vial) 50 mcg 1X ONCE IV Last administered on 07/13/18at 10:35; Start 07/13/18 at 10:30; Stop 07/13/18 at 10:31; Status DC Iohexol (Omnipaque 300 Mg/ml) 100 ml 1X ONCE IART Last administered on 07/13/18at 10:34; Start 07/13/18 at 10:30; Stop 07/13/18 at 10:31; Status DC Heparin Sodium (Porcine) (Heparin Sodium) 3,000 unit 1X ONCE IV Last a dministered on 07/13/18at 10:33; Start 07/13/18 at 10:30; Stop 07/13/18 at 10:31; Status DC Tirofiban/Sodium Chloride 100 ml @ 0 mls/hr CONT PRN IV PER PROTOCOL Last administered on 07/13/18at 10:37; Start 07/13/18 at 10:30; Stop 07/13/18 at 10:40; Status DC Lidocaine HCl (Xylocaine-Mpf 1% 2ml Vial) 1 ml 1X ONCE INJ Last administered on 07/13/18at 10:30; Start 07/13/18 at 10:30; Stop 07/13/18 at 10:31; Status DC Ticagrelor (Brilinta) 180 mg 1X ONCE PO Last administered on 07/13/18at 10:40; Start 07/13/18 at 10:30; Stop 07/13/18 at 10:31; Status DC Ticagrelor (Brilinta) 90 mg STK-MED ONCE .ROUTE ; Start 07/13/18 at 10:38; Stop 07/13/18 at 10:39; Status DC Sodium Chloride (Normal Saline Flush) 3 ml QSHIFT PRN IV AFTER MEDS AND BLOOD DRAWS; Start 07/13/18 at 11:15 Ticagrelor (Brilinta) 90 mg BID PO Last administered on 07/17/18at 09:17; Start 07/14/18 at 09:00 Atorvastatin Calcium (Lipitor) 40 mg QHS PO Last administered on 07/16/18at 20:58; Start 07/13/18 at 21:00 Acetaminophen (Tylenol) 650 mg PRN Q6HRS PRN PO MILD PAIN / TEMP; Start 07/13/18 at 11:15 Fentanyl Citrate (Fentanyl 2ml Vial) 50 mcg PRN Q1HR PRN IV MODERATE OR SEVERE PAIN; Start 07/13/18 at 11:15 Nitroglycerin (Nitrostat) 0.4 mg PRN Q5MIN PRN SL CHEST PAIN; Start 07/13/18 at 11:15 Amiodarone HCl 150 mg/Dextrose 103 ml @ 600 mls/hr 1X PRN PRN IV FOR VENTRICULAR TACHYCARDIA; Start 07/13/18 at 11:15 Lidocaine HCl (Lidocaine HCl 2% Abboject) 100 mg 1X PRN PRN IV FOR VENTRICULAR TACHYCARDIA; Start 07/13/18 at 11:15 Atropine Sulfate (ATROPINE 0.5mg SYRINGE) 0.5 mg PRN 1X PRN IV BRADYCARDIA; Start 07/13/18 at 11:15 Digoxin (Lanoxin) 500 mcg 1X ONCE IV Last administered on 07/14/18at 08:27; Start 07/14/18 at 08:30; Stop 07/14/18 at 08:31; Status DC Metoprolol Tartrate (Lopressor Vial) 5 mg 1X ONCE IVP Last administered on 07/14/18at 08:18; Start 07/14/18 at 08:30; Stop 07/14/18 at 08:31; Status DC Metoprolol Tartrate (Lopressor Vial) 5 mg STK-MED ONCE IVP ; Start 07/14/18 at 08:16; Stop 07/14/18 at 08:17; Status DC Digoxin (Lanoxin) 500 mcg STK-MED ONCE .ROUTE ; Start 07/14/18 at 08:16; Stop 07/14/18 at 08:17; Status DC Aspirin (Ecotrin) 81 mg DAILYWBKFT PO Last administered on 07/17/18at 09:17; Start 07/14/18 at 09:00 Lisinopril (Prinivil) 5 mg DAILY PO Last administered on 07/17/18at 09:17; Start 07/14/18 at 09:00 Potassium Chloride (Klor-Con) 20 meq 1X ONCE PO Last administered on 07/14/18at 10:10; Start 07/14/18 at 08:45; Stop 07/14/18 at 08:46; Status DC Digoxin (Lanoxin) 250 mcg 1X ONCE IV Last administered on 07/14/18at 09:52; Start 07/14/18 at 10:00; Stop 07/14/18 at 10:01; Status DC Sodium Chloride 500 ml @ 0 mls/hr 1X ONCE IV Last administered on 07/14/18at 10:00; Start 07/14/18 at 10:00; Stop 07/14/18 at 10:01; Status DC Amiodarone HCl 150 mg/Dextrose 103 ml @ 600 mls/hr 1X ONCE IV Last administered on 07/14/18at 10:55; Start 07/14/18 at 10:30; Stop 07/14/18 at 10:40; Status DC Amiodarone HCl 900 mg/Dextrose 518 ml @ 0 mls/hr CONT PRN IV SEE I/O RECORD; Start 07/14/18 at 10:30; Stop 07/15/18 at 10:29; Status DC Pantoprazole Sodium (Protonix) 40 mg DAILYAC PO Last administered on 07/17/18at 09:18; Start 07/14/18 at 13:00 Potassium Chloride (Klor-Con) 20 meq BIDWMEALS PO Last administered on 07/16/18at 09:07; Start 07/15/18 at 17:00; Stop 07/16/18 at 11:09; Status DC Amiodarone HCl (Cordarone) 200 mg DAILY PO Last administered on 07/17/18at 09:18; Start 07/15/18 at 15:30 Potassium Chloride (Klor-Con) 20 meq TIDWMEALS PO Last administered on 07/17/18at 12:25; Start 07/16/18 at 12:00 Active Scripts Active Lasix (Furosemide) 40 Mg Tablet 1 Tab PO DAILY [Pantoprazole] 40 MG Tablet.dr 40 Mg PO DAILYAC 30 Days Klor-Con M20 (Potassium Chloride) 20 Meq Tab.er.prt 20 Meq PO DAILY 30 Days Lisinopril 5 Mg Tablet 5 Mg PO DAILY 30 Days Atorvastatin Calcium 20 Mg Tablet 40 Mg PO QHS 30 Days Amiodarone Hcl 200 Mg Tablet 200 Mg PO DAILY 30 Days Brilinta (Ticagrelor) 90 Mg Tablet 90 Mg PO BID 30 Days Reported Calcium (Calcium Carbonate) 500 Mg Tablet 500 Mg PO DAILY Xanax (Alprazolam) 0.5 Mg Tablet 0.5 Tab PO TID Symbicort 160-4.5 Mcg Inhaler (Budesonide/Formoterol Fumarate) 10.2 Gm Hfa.aer.ad 2 Puff IH BID Aspirin 325 Mg Tablet 325 Mg PO DAILY Levothyroxine Sodium 125 Mcg Tablet 1 Tab PO DAILY Meloxicam 15 Mg Tablet 1 Tab PO DAILY Metoprolol Tartrate 50 Mg Tablet 1 Tab PO DAILY Verapamil Er (Verapamil Hcl) 180 Mg Tablet.er 180 Mg PO DAILY [bp med] Vitals/I & O Vital Sign - Last 24 Hours 07/16/18 07/16/18 07/16/18 07/16/18 14:51 19:10 19:41 20:58 Temp 98.1 97.6 98.1 97.6 Pulse 79 85 85 Resp 18 17 B/P (MAP) 119/62 (81) 106/62 (77) 106/62 Pulse Ox 97 96 O2 Delivery Room Air Room Air Room Air 07/16/18 07/17/18 07/17/18 07/17/18 23:39 03:35 07:00 08:00 Temp 98.1 97.8 97.4 98.1 97.8 97.4 Pulse 66 71 71 Resp 18 18 16 B/P (MAP) 114/50 (71) 149/67 (94) 155/67 (96) Pulse Ox 97 96 98 O2 Delivery Room Air Room Air Room Air Room Air 07/17/18 07/17/18 07/17/18 07/17/18 08:01 08:05 09:17 09:18 Temp 97.4 97.4 97.4 97.4 Pulse 71 71 71 71 Resp 16 16 B/P (MAP) 155/63 (93) 155/63 (93) 155/63 155/63 Pulse Ox 98 98 O2 Delivery Room Air Room Air 07/17/18 07/17/18 09:18 10:54 Temp 97.3 97.3 Pulse 71 63 Resp 16 B/P (MAP) 155/63 122/58 (79) Pulse Ox 97 O2 Delivery Room Air Intake and Output 07/16/18 07/16/18 07/17/18 14:59 22:59 06:59 Intake Total 320 ml 100 ml Output Total 200 ml 150 ml Balance 320 ml -200 ml -50 ml HARDEEP MARIE MD Jul 17, 2018 13:48
--- NOTE | 2018-07-17 14:17 | NUR ---
SW following up with referral regarding SNU evaluation. SW met with to discuss PT/OT recommendations, alf unit choices, and Medicare coverage. Pt has been notified of Medicare coverage (stay is covered in full the first 20 days and starting on day 21, they will be responsible for 20% of the cost) regarding alf units. Pt [facility] due to being there in the past. SW phoned and faxed referral, phone: [phone], fax: [phone]. SW will await acceptance decision and proceed accordingly.
[2018-07-17] MEDS: ATORVASTATIN CALCIUM 20 MG TABLET PO SCH (20:49)
--- NOTE | 2018-07-17 21:04 | PDOC ---
PROGRESS NOTES Subjective Subjective Feeling better but complaining of generalized fatigue Objective Objective Vital Signs Date Time Temp Pulse Resp B/P (MAP) Pulse Ox O2 Delivery O2 Flow Rate FiO2 07/17/18 20:49 76 114/63 07/17/18 19:36 98.0 16 100 Room Air 98.0 07/16/18 08:00 2.0 Intake and Output 07/17/18 07:00 Intake Total 420 ml Output Total 350 ml Balance 70 ml Intake Oral 420 ml Output Urine Total 350 ml # Voids 2 # Bowel Movements 2 Physical Exam Abdomen: Normal bowel sounds Heart: Regular rate Extremities: No edema General: Alert HEENT: Atraumatic, Mucous membr. moist/pink Lungs: Clear to auscultation MUSCULOSKELETAL: Osteoarthritic changes both hands Neuro: Normal speech, Sensation intact Psych/Mental Status: Mental status NL, Mood NL Skin: No breakdown, No significant lesion Assessment Assessment 1. CAD s/p PCI/LIYAH to LAD. Clinically stable and chest pain-free. Continue current medications including Ticagrelor 2. Acute on chronic systolic HF. ICM, EF 25%. Clinically well compensated. Change Lasix to PO 3. Paroxysmal AFIB: Presently in sinus rhythm but telemetry showed episodes of A. fib with RVR. Continue amiodarone. She is a poor candidate for long-term anticoagulation 4. Hypertension: Controlled 5. Ascending aortic aneurysm; 4.4 cm per echo 6. Hematochezia, improved, treat per GI Plan for transfer to SNU. Follow up with our office in one month. Plan Plan of Care Problems Medical Problems: (1) Acute exacerbation of CHF (congestive heart failure) Status: Acute (2) Acute respiratory distress Status: Acute (3) Elevated d-dimer Status: Acute (4) Elevated troponin Status: Acute (5) Pleural effusion on right Status: Acute (6) SIRS (systemic inflammatory response syndrome) Status: Acute Comment Review of Relevant I have reviewed the following items luna (where applicable) has been applied. Labs Laboratory Tests Test 07/17/18 05:00 07/17/18 05:30 White Blood Count 10.5 x10^3/uL (4.0-11.0) Red Blood Count 2.87 x10^6/uL (3.50-5.40) Hemoglobin 9.3 g/dL (12.0-15.5) Hematocrit 27.7 % (36.0-47.0) Mean Corpuscular Volume 97 fL (79-100) Mean Corpuscular Hemoglobin 32 pg (25-35) Mean Corpuscular Hemoglobin Concent 34 g/dL (31-37) Red Cell Distribution Width 14.9 % (11.5-14.5) Platelet Count 179 x10^3/uL (140-400) Sodium Level 145 mmol/L (136-145) Potassium Level 3.7 mmol/L (3.5-5.1) Chloride Level 110 mmol/L (98-107) Carbon Dioxide Level 25 mmol/L (21-32) Anion Gap 10 (6-14) Blood Urea Nitrogen 20 mg/dL (7-20) Creatinine 1.2 mg/dL (0.6-1.0) Estimated GFR (Cockcroft-Gault) 42.6 Glucose Level 106 mg/dL (70-99) Calcium Level 8.8 mg/dL (8.5-10.1) Microbiology 07/12/18 Blood Culture - Final, Complete NO GROWTH AFTER 5 DAYS Vitals/I & O Vital Sign - Last 24 Hours 07/16/18 07/17/18 07/17/18 07/17/18 23:39 03:35 07:00 08:00 Temp 98.1 97.8 97.4 98.1 97.8 97.4 Pulse 66 71 71 Resp 18 18 16 B/P (MAP) 114/50 (71) 149/67 (94) 155/67 (96) Pulse Ox 97 96 98 O2 Delivery Room Air Room Air Room Air Room Air 07/17/18 07/17/18 07/17/18 07/17/18 08:01 08:05 09:17 09:18 Temp 97.4 97.4 97.4 97.4 Pulse 71 71 71 71 Resp 16 16 B/P (MAP) 155/63 (93) 155/63 (93) 155/63 155/63 Pulse Ox 98 98 O2 Delivery Room Air Room Air 07/17/18 07/17/18 07/17/18 07/17/18 09:18 10:54 15:17 19:10 Temp 97.3 97.7 97.3 97.7 Pulse 71 63 70 Resp 16 16 B/P (MAP) 155/63 122/58 (79) 103/58 (73) Pulse Ox 97 98 O2 Delivery Room Air Room Air Room Air 07/17/18 07/17/18 19:36 20:49 Temp 98.0 98.0 Pulse 76 76 Resp 16 B/P (MAP) 114/63 (80) 114/63 Pulse Ox 100 O2 Delivery Room Air Intake and Output 07/16/18 07/16/18 07/17/18 15:00 23:00 07:00 Intake Total 320 ml 100 ml Output Total 200 ml 150 ml Balance 320 ml -200 ml -50 ml ARACELI PARSONS MD Jul 17, 2018 21:04
[2018-07-18 03:56] VITALS: BP 125/60
[2018-07-18] MEDS: LEVOTHYROXINE 125 MCG TABLET PO SCH (05:05)
[2018-07-18 07:00] VITALS: BP 130/61
[2018-07-18] MEDS: TICAGRELOR 90 MG TABLET. PO SCH ×2 (08:40→20:13)
[2018-07-18] MEDS: AMIODARONE HCL 200 MG TABLET. PO SCH (08:40)
[2018-07-18] MEDS: ASPIRIN ENTERIC COATED 81 MG TABLET.DR. PO SCH (08:40)
[2018-07-18] MEDS: METOPROLOL TART IMMED RELEASE 25 MG TABLET. PO SCH ×2 (08:41→20:13)
[2018-07-18] MEDS: FUROSEMIDE 40 MG TABLET. PO SCH (08:41)
[2018-07-18] MEDS: PANTOPRAZOLE 40 MG TABLET.DR. PO SCH (08:42)
[2018-07-18] MEDS: POTASSIUM CHLORIDE 20 MEQ TABLET.ER. PO SCH ×3 (08:42→17:00)
[2018-07-18] MEDS: ALPRAZolam 0.5 MG TABLET PO SCH ×3 (08:43→20:13)
[2018-07-18] MEDS: LISINOPRIL 5 MG TABLET. PO SCH (08:43)
--- NOTE | 2018-07-18 09:23 | SNU/HH DC ---
DISCHARGE ORDERS DISCHARGE INFORMATION: DISCHARGE DATE: Jul 18, 2018 FINAL DIAGNOSIS Problems Medical Problems: (1) Acute exacerbation of CHF (congestive heart failure) Status: Acute (2) Acute respiratory distress Status: Acute (3) Elevated d-dimer Status: Acute (4) Elevated troponin Status: Acute (5) Pleural effusion on right Status: Acute (6) SIRS (systemic inflammatory response syndrome) Status: Acute CONDITION ON DISCHARGE: Stable CODE STATUS: Code Status: Full RESIDENTIAL: SNF STAY <30 DAYS: Yes POST DISCHARGE ORDERS: ACTIVITY ORDERS: Activity as tolerated WEIGHT BEARING STATUS: No restrictions DIET AFTER DISCHARGE: Cardiac WOUND/INCISION CARE: Ice to area for comfort, Keep wound/cast CDI CHECKS AFTER DISCHARGE: CHECKS AFTER DISCHARGE: Check blood press - daily TREATMENT/EQUIPMENT ORDERS: Physical Therapy For: Evalulation/Treatment Occupational Therapy For: Evaluation/Treatment Speech Language Pathology For: Evaluation/Treatment DISCHARGE MEDICATIONS: Home Meds Active Scripts Furosemide (LASIX) 40 Mg Tablet, 1 TAB PO DAILY for chf, #90 TAB 1 Refill Prov:HARDEEP MARIE MD 07/17/18 [Pantoprazole] [address] [place] Conflict Check, 40 MG PO DAILYAC for gi bleed for 30 Days, #30 Prov:HARDEEP MARIE MD 07/17/18 Potassium Chloride (KLOR-CON M20) 20 Meq Tab.er.prt, 20 MEQ PO DAILY for chf for 30 Days, #30 TAB.SR Prov:HARDEEP MARIE MD 07/17/18 Lisinopril (LISINOPRIL) 5 Mg Tablet, 5 MG PO DAILY for cad for 30 Days, #30 TAB Prov:HARDEEP MARIE MD 07/17/18 Atorvastatin Calcium (ATORVASTATIN CALCIUM) 20 Mg Tablet, 40 MG PO QHS for cad for 30 Days, #60 TAB Prov:HARDEEP MARIE MD 07/17/18 Amiodarone Hcl (AMIODARONE HCL) 200 Mg Tablet, 200 MG PO DAILY for afib for 30 Days, #30 TAB Prov:HARDEEP MARIE MD 07/17/18 Ticagrelor (BRILINTA) 90 Mg Tablet, 90 MG PO BID for CAD for 30 Days, #60 TAB 3 Refills Prov:HARDEEP MARIE MD 07/17/18 Reported Medications Calcium Carbonate (CALCIUM) 500 Mg Tablet, 500 MG PO DAILY for , TAB 07/12/18 Alprazolam (XANAX) 0.5 Mg Tablet, 0.5 TAB PO TID for , #90 TAB 07/12/18 Budesonide/Formoterol Fumarate (SYMBICORT 160-4.5 MCG INHALER) 10.2 Gm Hfa.aer.ad, 2 PUFF IH BID for , #1 INHALER 5 Refills 07/12/18 Aspirin (ASPIRIN) 325 Mg Tablet, 325 MG PO DAILY for , TAB 07/12/18 Levothyroxine Sodium (LEVOTHYROXINE SODIUM) 125 Mcg Tablet, 1 TAB PO DAILY for hypothyroidism, #30 TAB 5 Refills 03/11/18 Metoprolol Tartrate (METOPROLOL TARTRATE) 50 Mg Tablet, 1 TAB PO DAILY for hypertension, #60 TAB 5 Refills 03/11/18 Discontinued Reported Medications Meloxicam (MELOXICAM) 15 Mg Tablet, 1 TAB PO DAILY for antinflammatory, #30 TAB 2 Refills 03/11/18 Verapamil Hcl (VERAPAMIL ER) 180 Mg Tablet.er, 180 MG PO DAILY for heart rhythm, TAB.SR 03/11/18 [bp med] No Conflict Check, for bp 03/11/18 HARDEEP MARIE MD Jul 18, 2018 09:23
[2018-07-18 09:53] LABS: BASO # 0.1 x10^3/uL (0.0-0.2); BASO % 1 % (0-3); EOS # 0.5 x10^3/uL (0.0-0.7); EOS % 5 % (0-3); HEMATOCRIT 30.3 % (36.0-47.0); HEMOGLOBIN 10.2 g/dL (12.0-15.5); LYMPH % 19 % (24-48); MEAN CORPUSCULAR HEMOGLOBIN 33 pg (25-35); MEAN CORPUSCULAR HGB CONC 34 g/dL (31-37); MEAN CORPUSCULAR VOLUME 98 fL (79-100); MONO # 0.8 x10^3/uL (0.0-1.1); MONO % 8 % (0-9); NEUT % 68 % (31-73); PLATELET COUNT 221 x10^3/uL (140-400); RED BLOOD COUNT 3.09 x10^6/uL (3.50-5.40); RED CELL DISTRIBUTION WIDTH 15.6 % (11.5-14.5); WHITE BLOOD COUNT 10.3 x10^3/uL (4.0-11.0)
--- NOTE | 2018-07-18 10:02 | PDOC ---
Subjective: Subjective: Denies bleeding. Objective: Objective: Reviewed w/ RN - no bleeding, awaiting bed at for DC. Vital Signs: Vital Signs Date Time Temp Pulse Resp B/P (MAP) Pulse Ox O2 Delivery O2 Flow Rate FiO2 07/18/18 08:43 69 125/60 07/18/18 08:00 Room Air 07/18/18 07:00 97.4 18 98 97.4 Labs: Laboratory Tests Test 07/18/18 08:35 White Blood Count 10.3 x10^3/uL Red Blood Count 3.09 x10^6/uL Hemoglobin 10.2 g/dL Hematocrit 30.3 % Mean Corpuscular Volume 98 fL Mean Corpuscular Hemoglobin 33 pg Mean Corpuscular Hemoglobin Concent 34 g/dL Red Cell Distribution Width 15.6 % Platelet Count 221 x10^3/uL Neutrophils (%) (Auto) 68 % Lymphocytes (%) (Auto) 19 % Monocytes (%) (Auto) 8 % Eosinophils (%) (Auto) 5 % Basophils (%) (Auto) 1 % Neutrophils # (Auto) 7.0 x10^3uL Lymphocytes # (Auto) 2.0 x10^3/uL Monocytes # (Auto) 0.8 x10^3/uL Eosinophils # (Auto) 0.5 x10^3/uL Basophils # (Auto) 0.1 x10^3/uL PE: GEN: NAD - sitting on toilet in restroom, staff helping LUNGS: room air NEURO/PSYCH: A & O 3 A/P: CAD s/p stent placement, A Fib Hematochezia - resolved Anemia - stable -- Stable from GI standpoint. DC per primary. JOSE DE JESUS LYMAN Jul 18, 2018 10:02
[2018-07-18 10:11] LABS: CREATININE 1.3 mg/dL (0.6-1.0); GFR 38.8
[2018-07-18 11:00] VITALS: BP 95/54
--- NOTE | 2018-07-18 13:00 | NUR ---
[facility] following pt. S[facility]EN re-faxed referral to [facility]. Pt is accepted pending insurance approval. Per Granddaughter request, SOREN provided pt's granddaughter with Medicaid application. DELMIS ACOSTA.
[2018-07-18 15:00] VITALS: BP 100/55
--- NOTE | 2018-07-18 15:39 | PDOC ---
PROGRESS NOTES Subjective Subjective Patient doing well. Patient still extremely fatigued. Objective Objective Vital Signs Date Time Temp Pulse Resp B/P (MAP) Pulse Ox O2 Delivery O2 Flow Rate FiO2 07/18/18 11:00 97.4 67 18 95/54 (68) 98 Room Air 97.4 07/16/18 08:00 2.0 Intake and Output 07/18/18 07:00 Intake Total 520 ml Output Total 200 ml Balance 320 ml Intake Oral 520 ml Output Urine Total 200 ml # Voids 8 Physical Exam Abdomen: Normal bowel sounds Heart: Regular rate Extremities: No edema General: Alert Lungs: Clear to auscultation Assessment Assessment Problems Medical Problems: (1) Acute exacerbation of CHF (congestive heart failure) Status: Acute (2) Acute respiratory distress Status: Acute (3) Elevated d-dimer Status: Acute (4) Elevated troponin Status: Acute (5) Pleural effusion on right Status: Acute (6) SIRS (systemic inflammatory response syndrome) Status: Acute Coronary artery disease Status post stent to LAD Non-ST elevated myocardial infarction. Acute systolic congestive heart failure. EF 25% Acute respiratory failure Aortic insufficiency history. Lower GI bleed Plan Plan of Care Continue PT/Ot transfer to SNU when able. Change to po Lasix if ok with cardiology Comment Review of Relevant I have reviewed the following items luna (where applicable) has been applied. Labs Laboratory Tests Test 07/17/18 05:00 07/17/18 05:30 07/18/18 08:35 White Blood Count 10.5 x10^3/uL (4.0-11.0) 10.3 x10^3/uL (4.0-11.0) Red Blood Count 2.87 x10^6/uL (3.50-5.40) 3.09 x10^6/uL (3.50-5.40) Hemoglobin 9.3 g/dL (12.0-15.5) 10.2 g/dL (12.0-15.5) Hematocrit 27.7 % (36.0-47.0) 30.3 % (36.0-47.0) Mean Corpuscular Volume 97 fL (79-100) 98 fL (79-100) Mean Corpuscular Hemoglobin 32 pg (25-35) 33 pg (25-35) Mean Corpuscular Hemoglobin Concent 34 g/dL (31-37) 34 g/dL (31-37) Red Cell Distribution Width 14.9 % (11.5-14.5) 15.6 % (11.5-14.5) Platelet Count 179 x10^3/uL (140-400) 221 x10^3/uL (140-400) Sodium Level 145 mmol/L (136-145) 144 mmol/L (136-145) Potassium Level 3.7 mmol/L (3.5-5.1) 4.0 mmol/L (3.5-5.1) Chloride Level 110 mmol/L (98-107) 108 mmol/L (98-107) Carbon Dioxide Level 25 mmol/L (21-32) 26 mmol/L (21-32) Anion Gap 10 (6-14) 10 (6-14) Blood Urea Nitrogen 20 mg/dL (7-20) 18 mg/dL (7-20) Creatinine 1.2 mg/dL (0.6-1.0) 1.3 mg/dL (0.6-1.0) Estimated GFR (Cockcroft-Gault) 42.6 38.8 Glucose Level 106 mg/dL (70-99) 100 mg/dL (70-99) Calcium Level 8.8 mg/dL (8.5-10.1) 9.0 mg/dL (8.5-10.1) Neutrophils (%) (Auto) 68 % (31-73) Lymphocytes (%) (Auto) 19 % (24-48) Monocytes (%) (Auto) 8 % (0-9) Eosinophils (%) (Auto) 5 % (0-3) Basophils (%) (Auto) 1 % (0-3) Neutrophils # (Auto) 7.0 x10^3uL (1.8-7.7) Lymphocytes # (Auto) 2.0 x10^3/uL (1.0-4.8) Monocytes # (Auto) 0.8 x10^3/uL (0.0-1.1) Eosinophils # (Auto) 0.5 x10^3/uL (0.0-0.7) Basophils # (Auto) 0.1 x10^3/uL (0.0-0.2) Laboratory Tests Test 07/18/18 08:35 White Blood Count 10.3 x10^3/uL (4.0-11.0) Red Blood Count 3.09 x10^6/uL (3.50-5.40) Hemoglobin 10.2 g/dL (12.0-15.5) Hematocrit 30.3 % (36.0-47.0) Mean Corpuscular Volume 98 fL (79-100) Mean Corpuscular Hemoglobin 33 pg (25-35) Mean Corpuscular Hemoglobin Concent 34 g/dL (31-37) Red Cell Distribution Width 15.6 % (11.5-14.5) Platelet Count 221 x10^3/uL (140-400) Neutrophils (%) (Auto) 68 % (31-73) Lymphocytes (%) (Auto) 19 % (24-48) Monocytes (%) (Auto) 8 % (0-9) Eosinophils (%) (Auto) 5 % (0-3) Basophils (%) (Auto) 1 % (0-3) Neutrophils # (Auto) 7.0 x10^3uL (1.8-7.7) Lymphocytes # (Auto) 2.0 x10^3/uL (1.0-4.8) Monocytes # (Auto) 0.8 x10^3/uL (0.0-1.1) Eosinophils # (Auto) 0.5 x10^3/uL (0.0-0.7) Basophils # (Auto) 0.1 x10^3/uL (0.0-0.2) Sodium Level 144 mmol/L (136-145) Potassium Level 4.0 mmol/L (3.5-5.1) Chloride Level 108 mmol/L (98-107) Carbon Dioxide Level 26 mmol/L (21-32) Anion Gap 10 (6-14) Blood Urea Nitrogen 18 mg/dL (7-20) Creatinine 1.3 mg/dL (0.6-1.0) Estimated GFR (Cockcroft-Gault) 38.8 Glucose Level 100 mg/dL (70-99) Calcium Level 9.0 mg/dL (8.5-10.1) Microbiology 07/12/18 Blood Culture - Final, Complete NO GROWTH AFTER 5 DAYS Medications Current Medications Sodium Chloride 1,000 ml @ 1,000 mls/hr Q1H IV Last administered on 07/12/18at 10:13; Start 07/12/18 at 10:13; Stop 07/12/18 at 11:12; Status DC Albuterol/ Ipratropium (Duoneb) 3 ml 1X ONCE NEB Last administered on 07/12/18at 11:14; Start 07/12/18 at 10:15; Stop 07/12/18 at 10:18; Status DC Methylprednisolone Sodium Succinate (SOLU-Medrol 125MG VIAL) 125 mg 1X ONCE IV Last administered on 07/12/18at 10:15; Start 07/12/18 at 10:15; Stop 07/12/18 at 10:18; Status DC Ceftriaxone Sodium (Rocephin) 1 gm 1X ONCE IVP Last administered on 07/12/18at 11:15; Start 07/12/18 at 11:15; Stop 07/12/18 at 11:16; Status DC Aspirin (Rhett Aspirin) 325 mg STK-MED ONCE .ROUTE ; Start 07/12/18 at 11:39; Stop 07/12/18 at 11:40; Status DC Nitroglycerin (Nitrostat) 0.4 mg STK-MED ONCE SL ; Start 07/12/18 at 11:39; Stop 07/12/18 at 11:40; Status DC Iohexol (Omnipaque 300 Mg/ml) 90 ml 1X ONCE IV Last administered on 07/13/18at 10:34; Start 07/12/18 at 11:45; Stop 07/12/18 at 11:47; Status DC Iohexol (Omnipaque 350 Mg/ml) 90 ml 1X ONCE IV Last administered on 07/12/18at 12:00; Start 07/12/18 at 12:00; Stop 07/12/18 at 12:01; Status DC Iohexol (Omnipaque 350 Mg/ml) 90 ml 1X ONCE IV ; Start 07/12/18 at 12:00; Stop 07/12/18 at 12:01; Status DC Info (CONTRAST GIVEN -- Rx MONITORING) 1 each PRN DAILY PRN MC SEE COMMENTS; Start 07/12/18 at 12:00; Stop 07/14/18 at 11:59; Status DC Furosemide (Lasix) 40 mg 1X ONCE IVP Last administered on 07/12/18at 12:28; St art 07/12/18 at 13:00; Stop 07/12/18 at 13:01; Status DC Furosemide (Lasix) 40 mg STK-MED ONCE .ROUTE ; Start 07/12/18 at 12:25; Stop 07/12/18 at 12:26; Status DC Metoprolol Tartrate (Lopressor) 50 mg DAILY PO ; Start 07/12/18 at 13:00; Stop 07/13/18 at 09:44; Status DC Levothyroxine Sodium (Synthroid) 125 mcg DAILY06 PO Last administered on 07/18/18at 05:05; Start 07/12/18 at 13:00 Verapamil HCl (Calan Sr) 180 mg DAILY PO ; Start 07/12/18 at 13:00; Stop 07/12/18 at 20:50; Status DC Enoxaparin Sodium (Lovenox 40mg Syringe) 40 mg Q24H SQ ; Start 07/12/18 at 13:00; Stop 07/12/18 at 13:00; Status DC Labetalol HCl (Normodyne Iv Push) 20 mg PRN Q2HR PRN IVP HYPERTENSION, SEE COMMENTS; Start 07/12/18 at 13:00 Heparin Sodium/ Dextrose 500 ml @ 19.8 mls/hr CONT PRN IV SEE I/O RECORD Last administered on 07/12/18at 14:39; Start 07/12/18 at 13:45; Stop 07/14/18 at 10:52; Status DC Heparin Sodium (Porcine) (Heparin Sodium) 2,050 unit PRN Q6HRS PRN IV FOR UFH LEVEL LESS THAN 0.2; Start 07/12/18 at 13:45; Stop 07/14/18 at 10:52; Status DC Alprazolam (Xanax) 0.25 mg TID PO Last administered on 07/18/18at 14:15; Start 07/12/18 at 16:15 Aspirin (Rhett Aspirin) 325 mg DAILY PO Last administered on 07/13/18at 08:49; Start 07/12/18 at 16:00; Stop 07/14/18 at 08:24; Status DC Metoprolol Tartrate (Lopressor) 25 mg BID PO Last administered on 07/18/18at 08:41; Start 07/12/18 at 21:00 Furosemide (Lasix) 40 mg DAILY IVP Last administered on 07/17/18at 09:16; Start 07/13/18 at 09:00; Stop 07/17/18 at 21:05; Status DC Potassium Chloride (Klor-Con) 20 meq DAILYWBKFT PO Last administered on 07/15/18at 08:55; Start 07/13/18 at 08:00; Stop 07/15/18 at 13:34; Status DC Lidocaine HCl (Xylocaine-Mpf 1% 2ml Vial) 2 ml STK-MED ONCE .ROUTE ; Start 07/13/18 at 08:33; Stop 07/13/18 at 08:34; Status DC Heparin Sodium/ Sodium Chloride 1,000 ml @ As Directed STK-MED ONCE .ROUTE ; Start 07/13/18 at 08:33; Stop 07/13/18 at 08:34; Status DC Iohexol (Omnipaque 300 Mg/ml) 100 ml STK-MED ONCE .ROUTE ; Start 07/13/18 at 09:10; Stop 07/13/18 at 09:11; Status DC Fentanyl Citrate (Fentanyl 2ml Vial) 100 mcg STK-MED ONCE .ROUTE ; Start 07/13/18 at 09:33; Stop 07/13/18 at 09:34; Status DC Midazolam HCl (Versed) 2 mg STK-MED ONCE .ROUTE ; Start 07/13/18 at 09:33; Stop 07/13/18 at 09:34; Status DC Heparin Sodium (Porcine) (Heparin Sodium) 10,000 unit STK-MED ONCE .ROUTE ; Start 07/13/18 at 09:33; Stop 07/13/18 at 09:34; Status DC Verapamil HCl (Verapamil) 5 mg STK-MED ONCE .ROUTE ; Start 07/13/18 at 09:33; Stop 07/13/18 at 09:34; Status DC Nitroglycerin (Nitroglycerin) 200 mcg STK-MED ONCE .ROUTE ; Start 07/13/18 at 09:34; Stop 07/13/18 at 09:35; Status DC Tirofiban/Sodium Chloride 100 ml @ As Directed STK-MED ONCE IV ; Start 07/13/18 at 10:00; Stop 07/13/18 at 10:01; Status DC Iohexol (Omnipaque 300 Mg/ml) 100 ml STK-MED ONCE .ROUTE ; Start 07/13/18 at 10:12; Stop 07/13/18 at 10:13; Status DC Nitroglycerin (Nitroglycerin) 200 mcg STK-MED ONCE .ROUTE ; Start 07/13/18 at 10:22; Stop 07/13/18 at 10:23; Status DC Nitroglycerin (Nitroglycerin) 400 mcg 1X ONCE IART Last administered on 07/13/18 10:37; Start 07/13/18 at 10:30; Stop 07/13/18 at 10:31; Status DC Verapamil HCl (Verapamil) 2.5 mg 1X ONCE IART Last administered on 07/13/18 10:35; Start 07/13/18 at 10:30; Stop 07/13/18 at 10:31; Status DC Heparin Sodium (Porcine) (Heparin Sodium) 2,500 unit 1X ONCE IART Last administered on 07/13/18 10:40; Start 07/13/18 at 10:30; Stop 07/13/18 at 10:31; Status DC Heparin Sodium/ Sodium Chloride (HEPARIN for ARTERIAL LINE FLUSH) 1,000 unit 1X ONCE IART Last administered on 07/13/18 10:32; Start 07/13/18 at 10:30; Stop 07/13/18 at 10:31; Status DC Midazolam HCl (Versed) 1 mg 1X ONCE IV Last administered on 07/13/18 10:36; Start 07/13/18 at 10:30; Stop 07/13/18 at 10:31; Status DC Fentanyl Citrate (Fentanyl 2ml Vial) 50 mcg 1X ONCE IV Last administered on 07/13/18 10:35; Start 07/13/18 at 10:30; Stop 07/13/18 at 10:31; Status DC Iohexol (Omnipaque 300 Mg/ml) 100 ml 1X ONCE IART Last administered on 07/13/18 10:34; Start 07/13/18 at 10:30; Stop 07/13/18 at 10:31; Status DC Heparin Sodium (Porcine) (Heparin Sodium) 3,000 unit 1X ONCE IV Last administered on 07/13/18 10:33; Start 07/13/18 at 10:30; Stop 07/13/18 at 10:31; Status DC Tirofiban/Sodium Chloride 100 ml @ 0 mls/hr CONT PRN IV PER PROTOCOL Last administered on 4/25/19at 10:37; Start 07/13/18 at 10:30; Stop 07/13/18 at 10:40; Status DC Lidocaine HCl (Xylocaine-Mpf 1% 2ml Vial) 1 ml 1X ONCE INJ Last administered on 07/13/18at 10:30; Start 07/13/18 at 10:30; Stop 07/13/18 at 10:31; Status DC Ticagrelor (Brilinta) 180 mg 1X ONCE PO Last administered on 07/13/18at 10:40; Start 07/13/18 at 10:30; Stop 07/13/18 at 10:31; Status DC Ticagrelor (Brilinta) 90 mg STK-MED ONCE .ROUTE ; Start 07/13/18 at 10:38; Stop 07/13/18 at 10:39; Status DC Sodium Chloride (Normal Saline Flush) 3 ml QSHIFT PRN IV AFTER MEDS AND BLOOD DRAWS; Start 07/13/18 at 11:15 Ticagrelor (Brilinta) 90 mg BID PO Last administered on 07/18/18at 08:40; Start 07/14/18 at 09:00 Atorvastatin Calcium (Lipitor) 40 mg QHS PO Last administered on 07/17/18at 20:49; Start 07/13/18 at 21:00 Acetaminophen (Tylenol) 650 mg PRN Q6HRS PRN PO MILD PAIN / TEMP; Start 07/13/18 at 11:15 Fentanyl Citrate (Fentanyl 2ml Vial) 50 mcg PRN Q1HR PRN IV MODERATE OR SEVERE PAIN; Start 07/13/18 at 11:15 Nitroglycerin (Nitrostat) 0.4 mg PRN Q5MIN PRN SL CHEST PAIN; Start 07/13/18 at 11:15 Amiodarone HCl 150 mg/Dextrose 103 ml @ 600 mls/hr 1X PRN PRN IV FOR VENTRICULAR TACHYCARDIA; Start 07/13/18 at 11:15 Lidocaine HCl (Lidocaine HCl 2% Abboject) 100 mg 1X PRN PRN IV FOR VENTRICULAR TACHYCARDIA; Start 07/13/18 at 11:15 Atropine Sulfate (ATROPINE 0.5mg SYRINGE) 0.5 mg PRN 1X PRN IV BRADYCARDIA; Start 07/13/18 at 11:15 Digoxin (Lanoxin) 500 mcg 1X ONCE IV Last administered on 07/14/18at 08:27; Start 07/14/18 at 08:30; Stop 07/14/18 at 08:31; Status DC Metoprolol Tartrate (Lopressor Vial) 5 mg 1X ONCE IVP Last administered on 07/14/18at 08:18; Start 07/14/18 at 08:30; Stop 07/14/18 at 08:31; Status DC Metoprolol Tartrate (Lopressor Vial) 5 mg STK-MED ONCE IVP ; Start 07/14/18 at 08:16; Stop 07/14/18 at 08:17; Status DC Digoxin (Lanoxin) 500 mcg STK-MED ONCE .ROUTE ; Start 07/14/18 at 08:16; Stop 07/14/18 at 08:17; Status DC Aspirin (Ecotrin) 81 mg DAILYWBKFT PO Last administered on 07/18/18at 08:40; Start 07/14/18 at 09:00 Lisinopril (Prinivil) 5 mg DAILY PO Last administered on 07/18/18at 08:43; Start 07/14/18 at 09:00 Potassium Chloride (Klor-Con) 20 meq 1X ONCE PO Last administered on 07/14/18at 10:10; Start 07/14/18 at 08:45; Stop 07/14/18 at 08:46; Status DC Digoxin (Lanoxin) 250 mcg 1X ONCE IV Last administered on 07/14/18at 09:52; Start 07/14/18 at 10:00; Stop 07/14/18 at 10:01; Status DC Sodium Chloride 500 ml @ 0 mls/hr 1X ONCE IV Last administered on 07/14/18at 10:00; Start 07/14/18 at 10:00; Stop 07/14/18 at 10:01; Status DC Amiodarone HCl 150 mg/Dextrose 103 ml @ 600 mls/hr 1X ONCE IV Last admin istered on 07/14/18at 10:55; Start 07/14/18 at 10:30; Stop 07/14/18 at 10:40; Status DC Amiodarone HCl 900 mg/Dextrose 518 ml @ 0 mls/hr CONT PRN IV SEE I/O RECORD; Start 07/14/18 at 10:30; Stop 07/15/18 at 10:29; Status DC Pantoprazole Sodium (Protonix) 40 mg DAILYAC PO Last administered on 07/18/18 08:42; Start 07/14/18 at 13:00 Potassium Chloride (Klor-Con) 20 meq BIDWMEALS PO Last administered on 07/16/18at 09:07; Start 07/15/18 at 17:00; Stop 07/16/18 at 11:09; Status DC Amiodarone HCl (Cordarone) 200 mg DAILY PO Last administered on 07/18/18at 08:40; Start 07/15/18 at 15:30 Potassium Chloride (Klor-Con) 20 meq TIDWMEALS PO Last administered on 07/18/18at 12:20; Start 07/16/18 at 12:00 Furosemide (Lasix) 40 mg DAILY PO Last administered on 07/18/18at 08:41; Start 07/18/18 at 09:00 Active Scripts Active Lasix (Furosemide) 40 Mg Tablet 1 Tab PO DAILY [Pantoprazole] 40 MG Tablet.dr 40 Mg PO DAILYAC 30 Days Klor-Con M20 (Potassium Chloride) 20 Meq Tab.er.prt 20 Meq PO DAILY 30 Days Lisinopril 5 Mg Tablet 5 Mg PO DAILY 30 Days Atorvastatin Calcium 20 Mg Tablet 40 Mg PO QHS 30 Days Amiodarone Hcl 200 Mg Tablet 200 Mg PO DAILY 30 Days Brilinta (Ticagrelor) 90 Mg Tablet 90 Mg PO BID 30 Days Reported Calcium (Calcium Carbonate) 500 Mg Tablet 500 Mg PO DAILY Xanax (Alprazolam) 0.5 Mg Tablet 0.5 Tab PO TID Symbicort 160-4.5 Mcg Inhaler (Budesonide/Formoterol Fumarate) 10.2 Gm Hfa.aer.ad 2 Puff IH BID Aspirin 325 Mg Tablet 325 Mg PO DAILY Levothyroxine Sodium 125 Mcg Tablet 1 Tab PO DAILY Metoprolol Tartrate 50 Mg Tablet 1 Tab PO DAILY Vitals/I & O Vital Sign - Last 24 Hours 07/17/18 07/17/18 07/17/18 07/17/18 19:10 19:36 20:49 23:38 Temp 98.0 97.5 98.0 97.5 Pulse 76 76 67 Resp 16 16 B/P (MAP) 114/63 (80) 114/63 117/61 (79) Pulse Ox 100 98 O2 Delivery Room Air Room Air Room Air 07/18/18 07/18/18 07/18/18 07/18/18 03:56 07:00 08:00 08:40 Temp 97.7 97.4 97.7 97.4 Pulse 69 73 69 Resp 16 18 B/P (MAP) 125/60 (81) 130/61 (84) 125/60 Pulse Ox 100 98 O2 Delivery Room Air Room Air Room Air 07/18/18 07/18/18 07/18/18 08:41 08:43 11:00 Temp 97.4 97.4 Pulse 69 69 67 Resp 18 B/P (MAP) 125/60 125/60 95/54 (68) Pulse Ox 98 O2 Delivery Room Air Intake and Output 07/17/18 07/17/18 07/18/18 15:00 23:00 07:00 Intake Total 120 ml 0 ml 400 ml Output Total 200 ml Balance 120 ml -200 ml 400 ml HARDEEP MARIE MD Jul 18, 2018 15:39
[2018-07-18 19:12] VITALS: BP 133/68
[2018-07-18] MEDS: ATORVASTATIN CALCIUM 20 MG TABLET PO SCH (20:13)
[2018-07-18 23:03] VITALS: BP 110/61
[2018-07-19 03:26] VITALS: BP 134/61
[2018-07-19] MEDS: LEVOTHYROXINE 125 MCG TABLET PO SCH (04:41)
[2018-07-19 07:00] VITALS: BP 118/63
[2018-07-19] MEDS: FUROSEMIDE 40 MG TABLET. PO SCH (08:25)
[2018-07-19] MEDS: TICAGRELOR 90 MG TABLET. PO SCH (08:25)
[2018-07-19] MEDS: PANTOPRAZOLE 40 MG TABLET.DR. PO SCH (08:25)
[2018-07-19] MEDS: POTASSIUM CHLORIDE 20 MEQ TABLET.ER. PO SCH ×2 (08:25→13:03)
[2018-07-19] MEDS: ASPIRIN ENTERIC COATED 81 MG TABLET.DR. PO SCH (08:25)
[2018-07-19] MEDS: AMIODARONE HCL 200 MG TABLET. PO SCH (08:25)
[2018-07-19] MEDS: LISINOPRIL 5 MG TABLET. PO SCH (08:26)
[2018-07-19] MEDS: ALPRAZolam 0.5 MG TABLET PO SCH ×2 (08:26→13:02)
[2018-07-19] MEDS: METOPROLOL TART IMMED RELEASE 25 MG TABLET. PO SCH (08:27)
--- NOTE | 2018-07-19 10:59 | PDOC ---
Subjective: Subjective: Awaiting discharge, no bleeding, feels tired. Family present. Objective: Vital Signs: Vital Signs Date Time Temp Pulse Resp B/P (MAP) Pulse Ox O2 Delivery O2 Flow Rate FiO2 07/19/18 08:27 70 118/63 07/19/18 08:00 Room Air 07/19/18 07:00 97.3 18 98 97.3 PE: GEN: NAD LUNGS: CTAB HEART: RRR ABD: NABS, S/ND/NT NEURO/PSYCH: A & O 3 A/P: CAD s/p stent placement, A Fib Hematochezia, anemia - resolved/stable -- DC per primary. JOSE DE JESUS LYMAN July 19, 2018 10:59
--- NOTE | 2018-07-19 11:07 | NUR ---
SS following up with discharge planning. Discharge orders on the chart for [facility]. SS phoned and faxed discharge orders to [facility], ; fax [phone]. Per [facility] insurance authorization is still pending. Pending insurance authorization pt will discharge today and go to [facility] at 1400 via [facility] transport, [id number]. Pt, pt's family, and pt's RN notified.
[2018-07-19 11:21] VITALS: BP 106/57
--- NOTE | 2018-07-19 14:42 | NUR ---
Discharge Note: FATEMEH CLAY Discharge instructions and discharge home medications reviewed with Other facility and a copy given. All questions have been answered and understanding verbalized. Stent card and follow up appointments given to patient daughter
--- NOTE | 2018-08-09 20:01 | DS ---
DATE OF DISCHARGE: 07/19/2018 ADMIT DIAGNOSES: 1. Acute myocardial infarction, non-ST elevation. 2. Acute systolic congestive heart failure. 3. Lactic acidosis. 4. Aortic insufficiency, chronic. 5. Recent lacunar cerebrovascular accident. 6. Hypertension. 7. Hypothyroidism. 8. High cholesterol. 9. Osteoporosis. 10. Essential tremor. 11. Generalized anxiety disorder. HISTORY OF PRESENT ILLNESS AND HOSPITAL COURSE: An 88-year-old female who lives in her home with her who she cares for due to significant dementia began having difficulty with shortness of breath and cannot lay down and came into the Emergency Room after a two-day history of increasing shortness of breath and some chest pain. She was found to have elevated troponins and evidence of congestive heart failure on chest x-ray and on laboratory evaluation. Due to significant findings, she was admitted for further evaluation by Cardiology. She also had mild lactic acidosis. She improved with diuresis and underwent cardiac catheterization obtaining a stent to LAD but having significantly decreased ejection fraction down to 25%. She also developed AFib and GI bleed during postoperative course. These were treated. She was discovered to have an ascending aortic aneurysm 4.4 cm, which was stable. She improved, but was significantly debilitated; therefore, plans for discharge the patient to group home were made. DISCHARGE MEDICATIONS: She was discharged on the following medications: Amiodarone 200 mg daily, atorvastatin 40 mg daily, Lasix 40 mg daily, lisinopril 5 mg daily, pantoprazole 40 mg daily, potassium 20 mEq daily, Brilinta 90 mg b.i.d., Xanax 0.25 t.i.d., aspirin 325 mg daily, Symbicort two puffs b.i.d., calcium carbonate 500 mg daily, levothyroxine 125 mcg daily, metoprolol 50 mg daily. She will follow up in group home and subsequently in [facility] post discharge. HARDEEP MARIE MD DR: DENISHA/bao JOB#: [id number] / [id number]
== END 2018-07-19 14:48 | DRG 246 ==
LOC: ER 09:23 → 2 NORTH 11:14
PROVIDERS: ADMIT Family Medicine; ATTEND Family Medicine
PROC: 027034Z Dilation of Coronary Artery, One Artery with Drug-eluting Intraluminal Device, Percutaneous Approach (ICD-10-PCS; principal; 2018-07-13)
PROC: 4A023N7 Measurement of Cardiac Sampling and Pressure, Left Heart, Percutaneous Approach (ICD-10-PCS; 2018-07-13)
PROC: B2111ZZ Fluoroscopy of Multiple Coronary Arteries using Low Osmolar Contrast (ICD-10-PCS; 2018-07-13)
DX: I21.4 Non-ST elevation (NSTEMI) myocardial infarction (principal); J96.00 Acute respiratory failure, unspecified whether with hypoxia or hypercapnia; I50.43 Acute on chronic combined systolic (congestive) and diastolic (congestive) heart failure; E87.2 Acidosis; K92.1 Melena; I47.1 Supraventricular tachycardia; R65.10 Systemic inflammatory response syndrome (SIRS) of non-infectious origin without acute organ dysfunction; G89.29 Other chronic pain; M25.569 Pain in unspecified knee; I11.0 Hypertensive heart disease with heart failure; E03.9 Hypothyroidism, unspecified; M19.90 Unspecified osteoarthritis, unspecified site; M81.0 Age-related osteoporosis without current pathological fracture; I35.1 Nonrheumatic aortic (valve) insufficiency; G25.0 Essential tremor; F41.1 Generalized anxiety disorder; E78.00 Pure hypercholesterolemia, unspecified; E78.5 Hyperlipidemia, unspecified; D64.9 Anemia, unspecified; I25.10 Atherosclerotic heart disease of native coronary artery without angina pectoris; I71.2 Thoracic aortic aneurysm, without rupture; E87.6 Hypokalemia; I25.5 Ischemic cardiomyopathy; I48.0 Paroxysmal atrial fibrillation; Z86.73 Personal history of transient ischemic attack (TIA), and cerebral infarction without residual deficits; Z82.49 Family history of ischemic heart disease and other diseases of the circulatory system; Z98.49 Cataract extraction status, unspecified eye; Z79.82 Long term (current) use of aspirin
CPT/HCPCS: 36415; 71045; 71046; 71275; 80048; 80053; 80061; 81001; 82550; 83605; 83735; 83880; 84443; 84484; 85007; 85025; 85027; 85379; 85520; 87040; 87804; 92928; 93005; 93308; 93458; 94640; 94760; 96374; 96375; 99152; 99153; C1725; C1769; C1874; C1887; C1892; J0282; J0696; J1160; J1644; J1940; J2250; J2930; J3010; J3490; J7030; J7620; Q9967; 97110; 97116; 97535; 99285-25; J3246

== ENCOUNTER 2018-12-13 18:16 | Inpatient (IN) | payer BC ==
[~2018-12-13] VITALS: Ht 170.2 cm; Wt 74.9 kg
[~2018-12-13 18:16] MED LIST changes: +ALPR0.5T PO; +AMIO200T4 PO; +ASPI325T8 PO; +ATOR20TA58 PO; +BUDE10.2 IH; +CALC500T30 PO; +FURO-68 PO; +LISI-338 PO; +POTA20TA4 PO; +Pantoprazole PO; +TICA90TA PO
--- NOTE | 2018-12-13 20:43 | RAD ---
Single view pelvis and two-view left hip and three-view left elbow dated 12/13/2018. No comparison available. Clinical data indication: Pain after injury. FINDINGS: 3 views of left elbow show a fracture through the olecranon with estimated centimeters of proximal distraction of the olecranon tip relative to the ulnar shaft. There is intra-articular extension. The proximal radius and distal humerus are intact. There is diffuse soft tissue swelling. Elevation of the anterior and posterior fat pad suggesting joint effusion. Single view pelvis shows intact pelvic ring. No displaced fracture. There are moderate spondylotic changes of the lower lumbar spine. Mild degenerative change of the bilateral SI joint and bilateral hip joint. 2 views of the left hip show normal bony alignment. No displaced fracture. No acute osseous or articular abnormality. Mild soft tissue swelling laterally. IMPRESSION: 1. Distracted intra-articular fracture of the proximal ulna. 2. Soft tissue swelling with elbow joint effusion. 3. No evidence of displaced pelvic or hip fracture. There is persistent clinical concern for occult fracture or insufficiency fracture at the pelvis, MRI would better evaluate. Electronically signed by: Yaya Webb MD (12/13/2018 8:40 PM) [facility]
[2018-12-13] MEDS ORDERED: MORPHINE SULFATE 2 MG/ML VIAL. IV PRN (21:00)
[2018-12-13 21:24] LABS: BASO # 0.1 x10^3/uL (0.0-0.2); BASO % 1 % (0-3); EOS # 0.1 x10^3/uL (0.0-0.7); EOS % 1 % (0-3); HEMOGLOBIN 10.8 g/dL (12.0-15.5); LYMPH # 1.6 x10^3/uL (1.0-4.8); LYMPH % 16 % (24-48); MEAN CORPUSCULAR HEMOGLOBIN 30 pg (25-35); MEAN CORPUSCULAR HGB CONC 34 g/dL (31-37); MEAN CORPUSCULAR VOLUME 89 fL (79-100); MONO # 1.3 x10^3/uL (0.0-1.1); MONO % 13 % (0-9); NEUT # 7.1 x10^3/uL (1.8-7.7); NEUT % 70 % (31-73); PLATELET COUNT 175 x10^3/uL (140-400); RED BLOOD COUNT 3.61 x10^6/uL (3.50-5.40); RED CELL DISTRIBUTION WIDTH 17.9 % (11.5-14.5); WHITE BLOOD COUNT 10.3 x10^3/uL (4.0-11.0)
[2018-12-13 21:32] LABS: CALCIUM 9.4 mg/dL (8.5-10.1); CREATININE 1.3 mg/dL (0.6-1.0); GFR 38.8; POTASSIUM 3.9 mmol/L (3.5-5.1)
[2018-12-13 21:33] LABS: PROTHROMBIN TIME PATIENT 13.2 SEC (11.7-14.0)
[2018-12-13 21:37] LABS: ALBUMIN 3.2 g/dL (3.4-5.0); ALBUMIN/GLOBULIN RATIO 0.9 (1.0-1.7); TOTAL BILIRUBIN 1.2 mg/dL (0.2-1.0); TOTAL PROTEIN 6.6 g/dL (6.4-8.2)
--- NOTE | 2018-12-13 22:25 | PHYS DOC ---
Past Medical History Past Medical History: CAD, CVA, High Cholesterol, Hypertension Additional Past Medical Histor: CHRONIC KNEE PAIN Past Surgical History: No Surgical History Alcohol Use: None Drug Use: None Adult General Chief Complaint Chief Complaint: ELBOW PROBLEM HPI HPI Patient is a 88 year old F WITH CC OF ELBOW INJURY patient fell down yesterday mechanical fall at the assisted living HAD XRAY WITH PMD TODAY SHOWED FRACTURE ADVISED ER OR ORTHO EVAL NOTED HIP INJURY WELL BRUSIING THERE NO LOC NO HEAD OR NECK PAIN NO CHEST PAIN NO ABDO PAIN Review of Systems Review of Systems Constitutional: Denies fever or chills [] Eyes: Denies change in visual acuity, redness, or eye pain [] HENT: Denies nasal congestion or sore throat [] Respiratory: Denies cough or shortness of breath [] Cardiovascular: No additional information not addressed in HPI [] Neurologic: Denies headache, focal weakness or sensory changes [] Endocrine: Denies polyuria or polydipsia [] All other systems were reviewed and found to be within normal limits, except as documented in this note. Allergies Allergies Allergies Coded Allergies Type Severity Reaction Last Updated Verified No Known Drug Allergies 03/10/18 No Physical Exam Physical Exam Constitutional: Well developed, well nourished, no acute distress, non-toxic appearance. [] HENT: Normocephalic, atraumatic, bilateral external ears normal, oropharynx moist, no oral exudates, nose normal. [] Eyes: PERRLA, EOMI, conjunctiva normal, no discharge. [] Neck: Normal range of motion, no tenderness, supple, no stridor. [] Cardiovascular:Heart rate regular rhythm, no murmur [] Lungs & Thorax: Bilateral breath sounds clear to auscultation [] Abdomen: Bowel sounds normal, soft, no tenderness, no masses, no pulsatile masses. [] Skin:ECCHYMOSIS NOTED TOT HE LEFT HIP ROM INTACT SLIGHTLY LIMITED BY PAIN. Back: No tenderness, no CVA tenderness. [] Extremities: TTP AND ECCHYMOSIS NOTED TO THE LEFT ELBOW. ROM REDUCED DUE TO PAIN, RADIAL PULSE ITNACT. Neurologic: Alert and oriented X 3, normal motor function, normal sensory function, no focal deficits noted. [] Psychologic: Affect normal, judgement normal, mood normal. [] Current Patient Data Vital Signs Vital Signs Date Time Temp Pulse Resp B/P (MAP) Pulse Ox O2 Delivery O2 Flow Rate FiO2 12/13/18 19:10 98.1 60 16 134/63 (86) 95 Room Air 98.1 EKG EKG [] Radiology/Procedures Radiology/Procedures [] Impressions: IMPRESSION: 1. Distracted intra-articular fracture of the proximal ulna. 2. Soft tissue swelling with elbow joint effusion. 3. No evidence of displaced pelvic or hip fracture. There is persistent clinical concern for occult fracture or insufficiency fracture at the pelvis, MRI would better evaluate. Electronically signed by: Yaya Webb MD (12/13/2018 8:40 PM) [facility] Course & Med Decision Making Course & Med Decision Making Pertinent Labs and Imaging studies reviewed. (See chart for details) []sPLINT PLACEMENT: pERFORMED TO THE EMERGENCY ROOM BY STAFF i CHECKED THE PLACEMENT OF THE SPLINT PATIENT WAS NEUROVASCULARLY INTACT LEFT POSTERIOR LONG- ARM SLING WAS APPLIED. SPOKE WITH BRANNON ADMIT WILL PUT ON SCHEDULE FOR TOMORROW. 88 YO F SUFFERED MECH FALL YESTERDAY HAS PROX ULNA FRATURE WITH DISTRACTION, SPLINT PLACED LABS STABLE HIP NOTED BRUISING XRAY NEGATIVE ABLE TO AMBULATE WITH ASSISTANCE IN THE ER. D/W CASTLE FOR ADMIT Juany Disclaimer Juany Disclaimer This electronic medical record was generated, in whole or in part, using a voice recognition dictation system. Departure Departure Impression: Primary Impression: Elbow fracture Disposition: ADMITTED INPATIENT Admitting Physician: LOPEZ Condition: STABLE Referrals: RHONDA GARRIDO MD (PCP) LILLIE BOURGEOIS MD Dec 13, 2018 22:25
--- NOTE | 2018-12-13 22:25 | PDOC ---
PROGRESS NOTES Subjective Subjective Problems overnight: Objective Vital Signs Vital Signs Date Time Temp Pulse Resp B/P (MAP) Pulse Ox O2 Delivery O2 Flow Rate FiO2 12/13/18 19:10 98.1 60 16 134/63 (86) 95 Room Air 98.1 Labs Laboratory Tests Test 12/13/18 21:15 White Blood Count 10.3 x10^3/uL (4.0-11.0) Red Blood Count 3.61 x10^6/uL (3.50-5.40) Hemoglobin 10.8 g/dL (12.0-15.5) Hematocrit 32.0 % (36.0-47.0) Mean Corpuscular Volume 89 fL (79-100) Mean Corpuscular Hemoglobin 30 pg (25-35) Mean Corpuscular Hemoglobin Concent 34 g/dL (31-37) Red Cell Distribution Width 17.9 % (11.5-14.5) Platelet Count 175 x10^3/uL (140-400) Neutrophils (%) (Auto) 70 % (31-73) Lymphocytes (%) (Auto) 16 % (24-48) Monocytes (%) (Auto) 13 % (0-9) Eosinophils (%) (Auto) 1 % (0-3) Basophils (%) (Auto) 1 % (0-3) Neutrophils # (Auto) 7.1 x10^3/uL (1.8-7.7) Lymphocytes # (Auto) 1.6 x10^3/uL (1.0-4.8) Monocytes # (Auto) 1.3 x10^3/uL (0.0-1.1) Eosinophils # (Auto) 0.1 x10^3/uL (0.0-0.7) Basophils # (Auto) 0.1 x10^3/uL (0.0-0.2) Prothrombin Time 13.2 SEC (11.7-14.0) Prothromb Time International Ratio 1.0 (0.8-1.1) Sodium Level 143 mmol/L (136-145) Potassium Level 3.9 mmol/L (3.5-5.1) Chloride Level 107 mmol/L (98-107) Carbon Dioxide Level 27 mmol/L (21-32) Anion Gap 9 (6-14) Blood Urea Nitrogen 26 mg/dL (7-20) Creatinine 1.3 mg/dL (0.6-1.0) Estimated GFR (Cockcroft-Gault) 38.8 BUN/Creatinine Ratio 20 (6-20) Glucose Level 113 mg/dL (70-99) Calcium Level 9.4 mg/dL (8.5-10.1) Total Bilirubin 1.2 mg/dL (0.2-1.0) Aspartate Amino Transf (AST/SGOT) 24 U/L (15-37) Alanine Aminotransferase (ALT/SGPT) 12 U/L (14-59) Alkaline Phosphatase 114 U/L (46-116) Total Protein 6.6 g/dL (6.4-8.2) Albumin 3.2 g/dL (3.4-5.0) Albumin/Globulin Ratio 0.9 (1.0-1.7) Laboratory Tests Test 12/13/18 21:15 White Blood Count 10.3 x10^3/uL (4.0-11.0) Red Blood Count 3.61 x10^6/uL (3.50-5.40) Hemoglobin 10.8 g/dL (12.0-15.5) Hematocrit 32.0 % (36.0-47.0) Mean Corpuscular Volume 89 fL (79-100) Mean Corpuscular Hemoglobin 30 pg (25-35) Mean Corpuscular Hemoglobin Concent 34 g/dL (31-37) Red Cell Distribution Width 17.9 % (11.5-14.5) Platelet Count 175 x10^3/uL (140-400) Neutrophils (%) (Auto) 70 % (31-73) Lymphocytes (%) (Auto) 16 % (24-48) Monocytes (%) (Auto) 13 % (0-9) Eosinophils (%) (Auto) 1 % (0-3) Basophils (%) (Auto) 1 % (0-3) Neutrophils # (Auto) 7.1 x10^3/uL (1.8-7.7) Lymphocytes # (Auto) 1.6 x10^3/uL (1.0-4.8) Monocytes # (Auto) 1.3 x10^3/uL (0.0-1.1) Eosinophils # (Auto) 0.1 x10^3/uL (0.0-0.7) Basophils # (Auto) 0.1 x10^3/uL (0.0-0.2) Prothrombin Time 13.2 SEC (11.7-14.0) Prothromb Time International Ratio 1.0 (0.8-1.1) Sodium Level 143 mmol/L (136-145) Potassium Level 3.9 mmol/L (3.5-5.1) Chloride Level 107 mmol/L (98-107) Carbon Dioxide Level 27 mmol/L (21-32) Anion Gap 9 (6-14) Blood Urea Nitrogen 26 mg/dL (7-20) Creatinine 1.3 mg/dL (0.6-1.0) Estimated GFR (Cockcroft-Gault) 38.8 BUN/Creatinine Ratio 20 (6-20) Glucose Level 113 mg/dL (70-99) Calcium Level 9.4 mg/dL (8.5-10.1) Total Bilirubin 1.2 mg/dL (0.2-1.0) Aspartate Amino Transf (AST/SGOT) 24 U/L (15-37) Alanine Aminotransferase (ALT/SGPT) 12 U/L (14-59) Alkaline Phosphatase 114 U/L (46-116) Total Protein 6.6 g/dL (6.4-8.2) Albumin 3.2 g/dL (3.4-5.0) Albumin/Globulin Ratio 0.9 (1.0-1.7) Assessment Assessment POD# Plan Plan of Care Reviewed x-rays which show a displaced left olecranon fracture Plan surgical correction following medical evaluation and clearance Detailed orthopedic consult to be dictated SHAWN SOUTH MD Dec 13, 2018 22:25
[2018-12-14] VITALS (12 sets, daily range): BP systolic 104–170; BP diastolic 42–78
[2018-12-14] MEDS: IV NORMAL SALINE 1000ML BAG 1,000 ML IV SCH ×2 (00:38→11:05)
[2018-12-14] MEDS ORDERED: ATOR20TA PO (02:06)
--- NOTE | 2018-12-14 02:08 | NUR ---
Pt. arrived on unit at 2350 from ED and by bed. Pt.'s granddaughter Batsheva is at her bedside. Pt. denies any pain but requested to use the restroom. A bedside commode was provided for her and she was able to go with 2x assist. Assessment done at this time. Most of the admission questions were answered by granddaughter. Call light is within reach and bed in lowest position. Will continue to monitor patient.
[2018-12-14] MEDS ORDERED: ONDANSETRON PF 4 MG/2 ML VIAL. IV PRN ×2 (02:30→18:45)
[2018-12-14] MEDS ORDERED: ACETAMINOPHEN/CODEINE 300/30MG TABLET. PO PRN (08:45)
[2018-12-14] MEDS ORDERED: cloNIDine HCL 0.1 MG TABLET PO PRN (08:45)
[2018-12-14] MEDS: FUROSEMIDE 40 MG TABLET. PO SCH (09:00)
[2018-12-14] MEDS: LEVOTHYROXINE 125 MCG TABLET PO SCH (09:00)
[2018-12-14] MEDS ORDERED: NON FORMULARY ITEM (Budesonide/Formoterol Fumarate (Symbicort 160-4.5 Mcg Inhaler) 2 PUFF) IH SCH (09:00)
[2018-12-14] MEDS: CALCIUM CARBONATE 500 MG TABLET PO SCH (09:00)
[2018-12-14] MEDS: POTASSIUM CHLORIDE 20 MEQ TABLET.ER. PO SCH (09:00)
[2018-12-14] MEDS: PANTOPRAZOLE 40 MG TABLET.DR. PO SCH (09:00)
[2018-12-14] MEDS: METOPROLOL TART IMMED RELEASE 50 MG TABLET. PO SCH (11:04)
[2018-12-14] MEDS: AMIODARONE HCL 200 MG TABLET. PO SCH (11:04)
[2018-12-14] MEDS: LISINOPRIL 5 MG TABLET. PO SCH (11:05)
[2018-12-14] MEDS: ALBUTEROL SULFATE 2.5 MG/3 ML NEBU. NEB SCH ×3 (11:49→19:51)
--- NOTE | 2018-12-14 12:49 | PDOC1 ---
History and Physical Date of Admission Date of Admission DATE: 12/14/18 TIME: 12:44 Identification/Chief Complaint Chief Complaint fall from AL, hurt her left side Source Source: Caregiver, Chart review, Patient History of Present Illness History of Present Illness 88-year-old white female, full code, had a fall mechanical at assisted living and hurt her left side. No head trauma. But she is on Brilinta and aspirin 81 for A. fib along with amiodarone and beta anjum Cardizem etc (DR Floyd groves). She is bruised her left hip. Unable to bear weight. Left elbow hurts and was found to have a left olecranon fracture and is slated for surgery later by Dr. Hull of the left elbow. Her left hip is still painful, bruised up. X-ray shows, no fracture. But we will check a CT to rule out any occult fracture. Otherwise I have held the Brilinta and aspirin. A. fib is under control. PE within normal limits aside from the left arm sling and the left hip that is bruised up Past Medical History Cardiovascular: AFIB, HTN Pulmonary: No pertinent hx CENTRAL NERVOUS SYSTEM: Other GI: No pertinent hx Heme/Onc: No pertinent hx Hepatobiliary: No pertinent hx Psych: Anxiety Musculoskeletal: Osteoarthritis Rheumatologic: No pertinent hx Infectious disease: No pertinent hx Renal/: No pertinent hx Endocrine: Hypothyroidism Past Surgical History Past Surgical History: Cataract Removal Family History Family History: Coronary Artery Disease, Heart Disease Social History Smoke: No ALCOHOL: none Drugs: None Current Medications Current Medications Current Medications Morphine Sulfate (Morphine Sulfate) 2 mg PRN Q2HR PRN IV SEVERE PAIN 7-10 Last administered on 12/13/18at 23:21; Start 12/13/18 at 21:00; Stop 12/14/18 at 20:59 Sodium Chloride 1,000 ml @ 75 mls/hr [id number] IV Last administered on 12/14/18at 11:05; Start 12/13/18 at 21:00; Stop 12/14/18 at 20:59 Ondansetron HCl (Zofran) 4 mg PRN Q6HRS PRN IV NAUSEA/VOMITING 1ST CHOICE; Start 12/14/18 at 02:30 Acetaminophen (Tylenol) 500 mg PRN Q6HRS PRN PO MILD PAIN / TEMP; Start 12/14/18 at 08:45 Acetaminophen/ Codeine Phosphate (Tylenol #3) 1 tab PRN Q6HRS PRN PO MODERATE PAIN; Start 12/14/18 at 08:45 Clonidine HCl (Catapres) 0.1 mg PRN Q1HR PRN PO HYPERTENSION; Start 12/14/18 at 08:45 Amiodarone HCl (Cordarone) 200 mg DAILY PO Last administered on 12/14/18at 11:04; Start 12/14/18 at 09:00 Atorvastatin Calcium (Lipitor) 40 mg QHS PO ; Start 12/14/18 at 21:00 Calcium Carbonate/ Glycine (Oscal) 500 mg DAILY PO ; Start 12/14/18 at 09:00 Furosemide (Lasix) 40 mg DAILY PO ; Start 12/14/18 at 09:00 Levothyroxine Sodium (Synthroid) 125 mcg DAILY07 PO ; Start 12/14/18 at 09:00 Lisinopril (Prinivil) 5 mg DAILY PO Last administered on 12/14/18at 11:05; Start 12/14/18 at 09:00 Metoprolol Tartrate (Lopressor) 50 mg DAILY PO Last administered on 12/14/18at 11:04; Start 12/14/18 at 09:00 Potassium Chloride (Klor-Con) 20 meq DAILY PO ; Start 12/14/18 at 09:00 Non-Formulary Medication (Budesonide/ Formoterol Fumarate (Symbicort 160-4.5 Mcg Inhaler)) 2 puff BID IH ; Start 12/14/18 at 09:00; Status UNV Pantoprazole Sodium (Protonix) 40 mg DAILYAC PO ; Start 12/14/18 at 09:00 Budesonide (Pulmicort) 0.5 mg RTBID NEB ; Start 12/14/18 at 20:00 Albuterol Sulfate (Ventolin Neb Soln) 2.5 mg RTQID NEB Last administered on 12/14/18at 11:49; Start 12/14/18 at 12:00 Active Scripts Active Lasix (Furosemide) 40 Mg Tablet 1 Tab PO DAILY [Pantoprazole] 40 MG Tablet.dr 40 Mg PO DAILYAC 30 Days Klor-Con M20 (Potassium Chloride) 20 Meq Tab.er.prt 20 Meq PO DAILY 30 Days Lisinopril 5 Mg Tablet 5 Mg PO DAILY 30 Days Atorvastatin Calcium 20 Mg Tablet 40 Mg PO QHS 30 Days Amiodarone Hcl 200 Mg Tablet 200 Mg PO DAILY 30 Days Brilinta (Ticagrelor) 90 Mg Tablet 90 Mg PO BID 30 Days Reported Lipitor (Atorvastatin Calcium) 20 Mg Tablet 1 Tab PO DAILY Calcium (Calcium Carbonate) 500 Mg Tablet 500 Mg PO DAILY Xanax (Alprazolam) 0.5 Mg Tablet 0.5 Tab PO TID Symbicort 160-4.5 Mcg Inhaler (Budesonide/Formoterol Fumarate) 10.2 Gm Hfa.aer.ad 2 Puff IH BID Aspirin 325 Mg Tablet 325 Mg PO DAILY Levothyroxine Sodium 125 Mcg Tablet 1 Tab PO DAILY Metoprolol Tartrate 50 Mg Tablet 1 Tab PO DAILY Allergies Allergies: Coded Allergies: No Known Drug Allergies (Unverified , 03/10/18) ROS Review of System left hip hurts, left elbow hurts, the rest of ROS 14 point negative Physical Exam General: Alert, Oriented X3, Cooperative, No acute distress HEENT: Atraumatic, PERRLA, EOMI Lungs: Clear to auscultation, Normal air movement Heart: S1S2, no thrills, no rubs, no gallops, no murmurs, irregularly irreg ular, other (rate 60s) Cardiovascular: S1, S2 Abdomen: Normal bowel sounds, Soft, No tenderness, No hepatosplenomegaly, No masses Rectal Exam: not examined PELVIC: Nml ext genitalia Extremities: No clubbing, No cyanosis, Normal pulses, Other (tenderness on that left hip that is black and blue, but no hematoma palpable, left arm sling) Skin: Other Neuro: Normal gait, Normal speech, Strength at 5/5 X4 ext, Normal tone, Sensation intact, Cranial nerves 3-12 NL, Reflexes 2+ Psych/Mental Status: Mental status NL, Mood NL Vitals Vitals Vital Signs Date Time Temp Pulse Resp B/P (MAP) Pulse Ox O2 Delivery O2 Flow Rate FiO2 12/14/18 11:52 97 12/14/18 11:05 58 151/54 12/14/18 11:04 97.9 20 Room Air 97.9 Labs Labs Laboratory Tests Test 12/13/18 21:15 12/14/18 09:05 White Blood Count 10.3 x10^3/uL (4.0-11.0) Red Blood Count 3.61 x10^6/uL (3.50-5.40) Hemoglobin 10.8 g/dL (12.0-15.5) Hematocrit 32.0 % (36.0-47.0) Mean Corpuscular Volume 89 fL (79-100) Mean Corpuscular Hemoglobin 30 pg (25-35) Mean Corpuscular Hemoglobin Concent 34 g/dL (31-37) Red Cell Distribution Width 17.9 % (11.5-14.5) Platelet Count 175 x10^3/uL (140-400) Neutrophils (%) (Auto) 70 % (31-73) Lymphocytes (%) (Auto) 16 % (24-48) Monocytes (%) (Auto) 13 % (0-9) Eosinophils (%) (Auto) 1 % (0-3) Basophils (%) (Auto) 1 % (0-3) Neutrophils # (Auto) 7.1 x10^3/uL (1.8-7.7) Lymphocytes # (Auto) 1.6 x10^3/uL (1.0-4.8) Monocytes # (Auto) 1.3 x10^3/uL (0.0-1.1) Eosinophils # (Auto) 0.1 x10^3/uL (0.0-0.7) Basophils # (Auto) 0.1 x10^3/uL (0.0-0.2) Prothrombin Time 13.2 SEC (11.7-14.0) Prothromb Time International Ratio 1.0 (0.8-1.1) Sodium Level 143 mmol/L (136-145) Potassium Level 3.9 mmol/L (3.5-5.1) Chloride Level 107 mmol/L (98-107) Carbon Dioxide Level 27 mmol/L (21-32) Anion Gap 9 (6-14) Blood Urea Nitrogen 26 mg/dL (7-20) Creatinine 1.3 mg/dL (0.6-1.0) Estimated GFR (Cockcroft-Gault) 38.8 BUN/Creatinine Ratio 20 (6-20) Glucose Level 113 mg/dL (70-99) Calcium Level 9.4 mg/dL (8.5-10.1) Total Bilirubin 1.2 mg/dL (0.2-1.0) Aspartate Amino Transf (AST/SGOT) 24 U/L (15-37) Alanine Aminotransferase (ALT/SGPT) 12 U/L (14-59) Alkaline Phosphatase 114 U/L (46-116) Total Protein 6.6 g/dL (6.4-8.2) Albumin 3.2 g/dL (3.4-5.0) Albumin/Globulin Ratio 0.9 (1.0-1.7) 25-Hydroxy Vitamin D Total 30.1 ng/mL (30-100) Laboratory Tests Test 12/13/18 21:15 12/14/18 09:05 White Blood Count 10.3 x10^3/uL (4.0-11.0) Red Blood Count 3.61 x10^6/uL (3.50-5.40) Hemoglobin 10.8 g/dL (12.0-15.5) Hematocrit 32.0 % (36.0-47.0) Mean Corpuscular Volume 89 fL (79-100) Mean Corpuscular Hemoglobin 30 pg (25-35) Mean Corpuscular Hemoglobin Concent 34 g/dL (31-37) Red Cell Distribution Width 17.9 % (11.5-14.5) Platelet Count 175 x10^3/uL (140-400) Neutrophils (%) (Auto) 70 % (31-73) Lymphocytes (%) (Auto) 16 % (24-48) Monocytes (%) (Auto) 13 % (0-9) Eosinophils (%) (Auto) 1 % (0-3) Basophils (%) (Auto) 1 % (0-3) Neutrophils # (Auto) 7.1 x10^3/uL (1.8-7.7) Lymphocytes # (Auto) 1.6 x10^3/uL (1.0-4.8) Monocytes # (Auto) 1.3 x10^3/uL (0.0-1.1) Eosinophils # (Auto) 0.1 x10^3/uL (0.0-0.7) Basophils # (Auto) 0.1 x10^3/uL (0.0-0.2) Prothrombin Time 13.2 SEC (11.7-14.0) Prothromb Time International Ratio 1.0 (0.8-1.1) Sodium Level 143 mmol/L (136-145) Potassium Level 3.9 mmol/L (3.5-5.1) Chloride Level 107 mmol/L (98-107) Carbon Dioxide Level 27 mmol/L (21-32) Anion Gap 9 (6-14) Blood Urea Nitrogen 26 mg/dL (7-20) Creatinine 1.3 mg/dL (0.6-1.0) Estimated GFR (Cockcroft-Gault) 38.8 BUN/Creatinine Ratio 20 (6-20) Glucose Level 113 mg/dL (70-99) Calcium Level 9.4 mg/dL (8.5-10.1) Total Bilirubin 1.2 mg/dL (0.2-1.0) Aspartate Amino Transf (AST/SGOT) 24 U/L (15-37) Alanine Aminotransferase (ALT/SGPT) 12 U/L (14-59) Alkaline Phosphatase 114 U/L (46-116) Total Protein 6.6 g/dL (6.4-8.2) Albumin 3.2 g/dL (3.4-5.0) Albumin/Globulin Ratio 0.9 (1.0-1.7) 25-Hydroxy Vitamin D Total 30.1 ng/mL (30-100) VTE Prophylaxis Ordered VTE Prophylaxis Devices: Yes VTE Pharmacological Prophylaxi: Yes Assessment/Plan Assessment/Plan Olecranon fracture, displaced in a mechanical fall in [place], closed Hypertension, A. fib, chronic stable CHF chronic stable Left hip pain-no fracture on x-ray, check a CT to rule out occult fracture Plan: has been nothing by mouth Check CT hip stat Hold Brilinta and aspirin May okay to resume postop Check postop labs Check vitamin D levels Full code I have reconciled home meds except the blood thinners Ortho has been consulted Discussed with sister at bedside HUNG AMAYA MD Dec 14, 2018 12:49
--- NOTE | 2018-12-14 13:15 | NUR ---
Report received from DAVE Peña, this nurse taking over for care of this pt.
--- NOTE | 2018-12-14 13:43 | NUR ---
SS following for discharge planning. SS reviewed pt chart. Pt is from home with spouse and is currently on room air. Pt has had skilled services in the past at [facility]. SS will continue to follow for discharge planning.
[2018-12-14] MEDS ORDERED: BUPIVACAINE MPF 0.5% 30 ML VIAL. ONE (14:19)
[2018-12-14] MEDS ORDERED: ROPIVacaine 0.5% PF 20 ML VIAL. ONE (14:19)
--- NOTE | 2018-12-14 14:21 | RAD ---
EXAM: CT pelvis without contrast DATE: 12/14/2018 12:43 PM COMPARISON: No prior INDICATION: Right hip pain, evaluate for occult fracture unable to bear weight. TECHNIQUE: CT of the pelvis was performed without IV contrast. PQRS compliance statement - One or more of the following individualized dose reduction techniques were utilized for this study: 1. Automated exposure control 2. Adjustment of the mA and/or kV according to patient size 3. Use of iterative reconstruction technique FINDINGS: Essentially nondisplaced fractures of the left superior and inferior pubic rami with extension into the left pubic body. Within the constraints of osteopenia, no definite additional fracture is seen. Gallbladder is partially evaluated, distended with high density material within the sludge. Colonic diverticulosis without evidence for acute diverticulitis. Associated infiltration along the left anterior pelvic soft tissues likely from pelvic fractures described above without discrete free or loculated fluid collection. No pelvic ascites. No pelvic lymphadenopathy. Atherosclerotic vascular calcifications are seen. IMPRESSION: 1. Essentially nondisplaced fractures of the left superior and inferior pubic rami. 2. Within the constraints of marked osteopenia, no definite additional fracture is identified. Electronically signed by: Zaid Leong MD (12/14/2018 2:18 PM) [id number]
--- NOTE | 2018-12-14 14:22 | NUR ---
Pt to surgery by bed, dtr at bedside.
[2018-12-14] MEDS ORDERED: PROPOFOL 20 ML IV ONE (15:52)
[2018-12-14] MEDS ORDERED: PHENYLEPHRINE in 0.9% NACL PF 1 MG/10 ML SYRINGE. IV ONE (15:52)
[2018-12-14] MEDS ORDERED: ONDANSETRON PF 4 MG/2 ML VIAL. ONE (15:52)
[2018-12-14] MEDS ORDERED: DEXAMETHASONE SOD PHOS 4 MG/ML VIAL ONE (15:52)
[2018-12-14] MEDS ORDERED: SEVOFLURANE 61 TO 120 MINUTES. IH ONE (15:52)
[2018-12-14] MEDS ORDERED: LIDOCAINE 2% PF 5 ML VIAL. ONE (15:52)
[2018-12-14] MEDS ORDERED: ePHEDrine PF IN SALINE 50 MG/10 ML SYRINGE. IV ONE (17:32)
[2018-12-14] MEDS ORDERED: BUPIVACAINE MPF 0.5% 30 ML VIAL. IJ ONE (17:55)
[2018-12-14] MEDS ORDERED: fentaNYL PF VIAL 100 MCG/2 ML VIAL ONE (18:06)
--- NOTE | 2018-12-14 18:21 | PDOC4 ---
Operative Note Operative Note Date of surgery: 12/14/2018 Preoperative diagnosis: Displaced left olecranon fracture Postoperative diagnosis: Same Operative procedure: Operative reduction internal fixation with tension band wiring left olecranon fracture Surgeon: Della Assist: Caitlyn Anesthesia: Gen. Estimated blood loss: 50 mL Complications: None Operative indications: Please see my dictated orthopedic consultation for detailed operative indications Operative text: Patient was identified procedure verified patient placed in supine position on the operating table. After adequate amounts of general anesthesia were administered the left upper extremity was prepped and draped with an upper arm tourniquet in standard sterile fashion. After timeout was performed patient procedure identified and verified a longitudinal incision was made over the olecranon subperiosteal dissection was carried out hematoma was evacuated and a total of 2.062 Jalyn wires were advanced proximally through the fracture site fracture site was anatomically reduced and the Jalyn wires were then advanced across the fracture site and an 18-gauge stainless steel wire was then placed in a [id number] fashion in a tension band construct and tightened excellent fixation was noted and stability of the fracture noted throughout elbow range of motion. Jalyn wires were then bent and impacted into the bone over the tension band wire proximally at the olecranon site thorough irrigation was carried out with normal saline solution anatomic reduction noted under multiple fluoroscopic views subcutaneous closure with buried Vicryl suture skin closure with 3-0 strata fix Monocryl sterile soft dressings were applied and patient was returned to recovery room in stable condition having tolerated procedure well SHAWN SOUTH MD Dec 14, 2018 18:21
[2018-12-14] MEDS ORDERED: IV RINGERS,LACTATED 1000ML 1,000 ML IV SCH (18:37)
[2018-12-14] MEDS ORDERED: fentaNYL PF VIAL 100 MCG/2 ML VIAL IV PRN ×2 (18:45)
[2018-12-14] MEDS ORDERED: LIDOCAINE 1% PF 2 ML VIAL. ID PRN (18:45)
[2018-12-14] MEDS ORDERED: HYDROmorphone 2 MG/ML VIAL IV PRN (18:45)
[2018-12-14] MEDS ORDERED: PROCHLORPERAZINE 10 MG/2 ML VIAL. IV PRN (18:45)
[2018-12-14] MEDS ORDERED: MORPHINE SULFATE 2 MG/ML VIAL. IV PRN (18:45)
[2018-12-14] MEDS: BUDESONIDE 0.5 MG/2 ML NEBU. NEB SCH (19:51)
[2018-12-14] MEDS: ATORVASTATIN CALCIUM 20 MG TABLET PO SCH (21:45)
[2018-12-14] MEDS: ACETAMINOPHEN 500 MG TABLET PO PRN (21:47)
--- NOTE | 2018-12-14 22:16 | CONS ---
DATE OF CONSULTATION: 12/14/2018 REQUESTING PHYSICIAN: Dr. Kori Workman. REASON FOR CONSULTATION: Left elbow fracture and left hip pain. HISTORY OF PRESENT ILLNESS: The patient is an 88-year-old female known to me from previous successful treatment of a distal radius fracture on her left, had a fall at her assisted living facility yesterday on her left side and x-rays showed a displaced olecranon fracture of her elbow and she was sent in for orthopedic evaluation. She also continues to complain of some left-sided hip and groin area pain and notes some bruising since the fall and she has difficulty bearing weight on her left leg. She denies any loss of consciousness. No neck or back pain, no radiating pain in the extremities, focal weakness, numbness or tingling. PAST MEDICAL HISTORY: Significant for previous stroke, heart disease, hypercholesterolemia, hypertension and some chronic knee pain. PAST SURGICAL HISTORY: Fixation of a left wrist fracture. ALLERGIES: She has no known drug allergies. MEDICATIONS: List is reviewed. FAMILY HISTORY: Noncontributory. SOCIAL HISTORY: Lives in assisted living facility. Denies tobacco, alcohol or drug use. REVIEW OF SYSTEMS: Denies any recent fever, chills, weight loss or gain, chest pain, shortness of breath or other constitutional symptoms. Otherwise, review of systems as above in the history of present illness. PHYSICAL EXAMINATION: GENERAL: Pleasant, cooperative 88-year-old female, alert and oriented, no acute distress. EXTREMITIES: Examination of the right elbow reveals obvious disruption of her extensor mechanism. She has no gross instability of the left elbow. Skin is overlying intact. She has normal examination of the contralateral right elbow, bilateral shoulders and wrists with normal grasp strength, the flexor profundus superficialis and extensor function is all intact. On examination of the left hip, she does have bruising laterally, some pain mildly in the groin on range of motion of the hip. No instability noted. Leg lengths are equal. She does have pain with weightbearing through an extended extremity on the left compared to the right and normal alignment, stability overall from bilateral hips, knees and ankles, intact motor function, distal pulses, sensation, reflexes, skin in both lower extremities throughout. X-rays of the pelvis supplement with a CT scan show minimally displaced superior and inferior pubic rami fractures on the left. X-rays of the left olecranon show a completely displaced fracture of the olecranon. No other abnormalities at the elbow. IMPRESSION: 1. Left olecranon fracture. 2. Left superior and inferior pubic rami fracture, status post fall. TREATMENT PLAN: I went over with the patient and her family the nonoperative treatment plan of the pubic rami fractures that those remain well aligned and her walking may be somewhat limited; however, she can weightbear as tolerated if she has adequate pain control. Likewise, we talked about the necessity of operative fixation of her elbow to keep her function as the extensor mechanism is detached currently and we described the procedure of wiring it back together, the restrictions in the interim and the possibility of some ambulation with a platform type walker, especially since she is having difficulty with the left hip area with her pubic rami fractures. We talked about the possibility of nonhealing, nerve or blood vessel damage, stiffness, weakness, medical or other anesthetic complications associated with surgery. All her questions were answered. She wishes to proceed with surgical evaluation and treatment, which will occur today. SHAWN SOUTH MD DR: HYACINTH/bao JOB#: [id number] / [id number]
[2018-12-15 03:00] VITALS: BP 107/41
[2018-12-15] MEDS: ACETAMINOPHEN 500 MG TABLET PO PRN (04:36)
[2018-12-15] MEDS: LEVOTHYROXINE 125 MCG TABLET PO SCH (06:22)
[2018-12-15 07:00] VITALS: BP 121/40
[2018-12-15] MEDS: BUDESONIDE 0.5 MG/2 ML NEBU. NEB SCH ×2 (07:43→20:18)
[2018-12-15] MEDS: ALBUTEROL SULFATE 2.5 MG/3 ML NEBU. NEB SCH ×3 (07:43→20:18)
[2018-12-15] MEDS ORDERED: MORPHINE SULFATE 2 MG/ML VIAL. IV PRN (09:15)
[2018-12-15] MEDS: FUROSEMIDE 40 MG TABLET. PO SCH (09:24)
[2018-12-15] MEDS: CALCIUM CARBONATE 500 MG TABLET PO SCH (09:24)
[2018-12-15] MEDS: CHOLECALCIFEROL (VITAMIN D3) 1,000 UNIT TABLET PO SCH (09:24)
[2018-12-15] MEDS: PANTOPRAZOLE 40 MG TABLET.DR. PO SCH (09:25)
[2018-12-15] MEDS: AMIODARONE HCL 200 MG TABLET. PO SCH (09:25)
[2018-12-15] MEDS: METOPROLOL TART IMMED RELEASE 50 MG TABLET. PO SCH (09:25)
[2018-12-15] MEDS: POTASSIUM CHLORIDE 20 MEQ TABLET.ER. PO SCH (09:25)
[2018-12-15] MEDS: LISINOPRIL 5 MG TABLET. PO SCH (09:25)
[2018-12-15] MEDS: HYDROcodone/APAP 5/325MG 1 TAB TABLET PO PRN ×2 (10:37→20:17)
[2018-12-15 11:00] VITALS: BP 109/37
--- NOTE | 2018-12-15 12:52 | PDOC ---
PROGRESS NOTES Chief Complaint Chief Complaint Olecranon fracture, displaced in a mechanical [place] in [place], closed s/p POD # 1 Hypertension, A. fib, chronic stable CHF chronic stable Left hip pain-no fracture on x-ray,neg ct for occult fx OLd pubic rami fxs genw eakness FULL CODE History of Present Illness History of Present Illness NO complaints No hip fx on CT but does have some pubic rami fxs on CT SLated for [facility]place FULL CODE SHe is trying to eat her lunch on her own PLAN: Pplace on dc this weekend 2 weeks ortho ff up CPM Vitals Vitals Vital Signs Date Time Temp Pulse Resp B/P (MAP) Pulse Ox O2 Delivery O2 Flow Rate FiO2 12/15/18 11:40 Room Air 12/15/18 11:00 98.0 47 18 109/37 (61) 93 98.0 12/14/18 19:53 3.0 Physical Exam General: Alert, Oriented X3, Cooperative, No acute distress Abdomen: Normal bowel sounds, Soft, No tenderness, No hepatosplenomegaly, No masses Extremities: No clubbing, No cyanosis, Normal pulses, Other (tenderness on that left hip that is black and blue, but no hematoma palpable, left arm sling) Skin: Other Review of Systems Review of Systems neg 14 pt, some post op soreness, the rest 14 pt neg Comment Review of Relevant I have reviewed the following items luna (where applicable) has been applied. Labs Laboratory Tests Test 12/13/18 21:15 12/14/18 09:05 White Blood Count 10.3 x10^3/uL (4.0-11.0) Red Blood Count 3.61 x10^6/uL (3.50-5.40) Hemoglobin 10.8 g/dL (12.0-15.5) Hematocrit 32.0 % (36.0-47.0) Mean Corpuscular Volume 89 fL (79-100) Mean Corpuscular Hemoglobin 30 pg (25-35) Mean Corpuscular Hemoglobin Concent 34 g/dL (31-37) Red Cell Distribution Width 17.9 % (11.5-14.5) Platelet Count 175 x10^3/uL (140-400) Neutrophils (%) (Auto) 70 % (31-73) Lymphocytes (%) (Auto) 16 % (24-48) Monocytes (%) (Auto) 13 % (0-9) Eosinophils (%) (Auto) 1 % (0-3) Basophils (%) (Auto) 1 % (0-3) Neutrophils # (Auto) 7.1 x10^3/uL (1.8-7.7) Lymphocytes # (Auto) 1.6 x10^3/uL (1.0-4.8) Monocytes # (Auto) 1.3 x10^3/uL (0.0-1.1) Eosinophils # (Auto) 0.1 x10^3/uL (0.0-0.7) Basophils # (Auto) 0.1 x10^3/uL (0.0-0.2) Prothrombin Time 13.2 SEC (11.7-14.0) Prothromb Time International Ratio 1.0 (0.8-1.1) Sodium Level 143 mmol/L (136-145) Potassium Level 3.9 mmol/L (3.5-5.1) Chloride Level 107 mmol/L (98-107) Carbon Dioxide Level 27 mmol/L (21-32) Anion Gap 9 (6-14) Blood Urea Nitrogen 26 mg/dL (7-20) Creatinine 1.3 mg/dL (0.6-1.0) Estimated GFR (Cockcroft-Gault) 38.8 BUN/Creatinine Ratio 20 (6-20) Glucose Level 113 mg/dL (70-99) Calcium Level 9.4 mg/dL (8.5-10.1) Total Bilirubin 1.2 mg/dL (0.2-1.0) Aspartate Amino Transf (AST/SGOT) 24 U/L (15-37) Alanine Aminotransferase (ALT/SGPT) 12 U/L (14-59) Alkaline Phosphatase 114 U/L (46-116) Total Protein 6.6 g/dL (6.4-8.2) Albumin 3.2 g/dL (3.4-5.0) Albumin/Globulin Ratio 0.9 (1.0-1.7) 25-Hydroxy Vitamin D Total 30.1 ng/mL (30-100) Medications Current Medications Morphine Sulfate (Morphine Sulfate) 2 mg PRN Q2HR PRN IV SEVERE PAIN 7-10 Last administered on 12/13/18at 23:21; Start 12/13/18 at 21:00; Stop 9/26/19 at 20:59; Status DC Sodium Chloride 1,000 ml @ 75 mls/hr [id number] IV Last administered on 12/14/18at 11:05; Start 12/13/18 at 21:00; Stop 12/14/18 at 20:59; Status DC Ondansetron HCl (Zofran) 4 mg PRN Q6HRS PRN IV NAUSEA/VOMITING 1ST CHOICE; Start 12/14/18 at 02:30 Acetaminophen (Tylenol) 500 mg PRN Q6HRS PRN PO MILD PAIN / TEMP Last administered on 12/15/18 04:36; Start 12/14/18 at 08:45 Acetaminophen/ Codeine Phosphate (Tylenol #3) 1 tab PRN Q6HRS PRN PO MODERATE PAIN; Start 12/14/18 at 08:45 Clonidine HCl (Catapres) 0.1 mg PRN Q1HR PRN PO HYPERTENSION Last administered on 12/14/18 18:57; Start 12/14/18 at 08:45 Amiodarone HCl (Cordarone) 200 mg DAILY PO Last administered on 12/15/18 09:25; Start 12/14/18 at 09:00 Atorvastatin Calcium (Lipitor) 40 mg QHS PO Last administered on 12/14/18at 21:45; Start 12/14/18 at 21:00 Calcium Carbonate/ Glycine (Oscal) 500 mg DAILY PO Last administered on 12/15/18 09:24; Start 12/14/18 at 09:00 Furosemide (Lasix) 40 mg DAILY PO Last administered on 12/15/18 09:24; Start 12/14/18 at 09:00 Levothyroxine Sodium (Synthroid) 125 mcg DAILY07 PO Last administered on 12/15/18 06:22; Start 12/14/18 at 09:00 Lisinopril (Prinivil) 5 mg DAILY PO Last administered on 12/15/18 09:25; Start 12/14/18 at 09:00 Metoprolol Tartrate (Lopressor) 50 mg DAILY PO Last administered on 12/15/18 09:25; Start 12/14/18 at 09:00 Potassium Chloride (Klor-Con) 20 meq DAILY PO Last administered on 9/27/19at 09:25; Start 12/14/18 at 09:00 Non-Formulary Medication (Budesonide/ Formoterol Fumarate (Symbicort 160-4.5 Mcg Inhaler)) 2 puff BID IH ; Start 12/14/18 at 09:00; Status UNV Pantoprazole Sodium (Protonix) 40 mg DAILYAC PO Last administered on 12/15/18at 09:25; Start 12/14/18 at 09:00 Budesonide (Pulmicort) 0.5 mg RTBID NEB Last administered on 12/15/18at 07:43; Start 12/14/18 at 20:00 Albuterol Sulfate (Ventolin Neb Soln) 2.5 mg RTQID NEB Last administered on 12/15/18at 07:43; Start 12/14/18 at 12:00 Ropivacaine (Naropin 0.5%) 20 ml STK-MED ONCE .ROUTE ; Start 12/14/18 at 14:19; Stop 12/14/18 at 14:19; Status DC Bupivacaine HCl (Sensorcaine Mpf 0.5%) 30 ml STK-MED ONCE .ROUTE ; Start 12/14/18 at 14:19; Stop 12/14/18 at 14:19; Status DC Cefazolin Sodium/ Dextrose 50 ml @ 100 mls/hr 1X ONCE IV Last administered on 12/14/18at 17:00; Start 12/14/18 at 16:00; Stop 12/14/18 at 16:29; Status DC Sevoflurane (Ultane) 60 ml STK-MED ONCE IH ; Start 12/14/18 at 15:52; Stop at 15:52; Status DC Propofol 20 ml @ As Directed STK-MED ONCE IV ; Start 12/14/18 at 15:52; Stop 12/14/18 at 15:52; Status DC Lidocaine HCl (Lidocaine Pf 2% Vial) 5 ml STK-MED ONCE .ROUTE ; Start 12/14/18 at 15:52; Stop 12/14/18 at 15:53; Status DC Dexamethasone Sodium Phosphate (Decadron) 4 mg STK-MED ONCE .ROUTE ; Start 12/14/18 at 15:52; Stop 12/14/18 at 15:53; Status DC Ondansetron HCl (Zofran) 4 mg STK-MED ONCE .ROUTE ; Start 12/14/18 at 15:52; Stop 12/14/18 at 15:53; Status DC Phenylephrine HCl (PHENYLEPHRINE in 0.9% NACL PF) 1 mg STK-MED ONCE IV ; Start 12/14/18 at 15:52; Stop 12/14/18 at 15:53; Status DC Ephedrine Sulfate (ePHEDrine PF IN SALINE SYRINGE) 50 mg STK-MED ONCE IV ; Start 12/14/18 at 17:32; Stop 12/14/18 at 17:33; Status DC Bupivacaine HCl (Sensorcaine Mpf 0.5%) 30 ml STK-MED ONCE IJ Last administered on 12/14/18at 17:55; Start 12/14/18 at 17:55; Stop 12/14/18 at 18:15; Status DC Fentanyl Citrate (Fentanyl 2ml Vial) 100 mcg STK-MED ONCE .ROUTE ; Start 12/14/18 at 18:06; Stop 12/14/18 at 18:06; Status DC Ondansetron HCl (Zofran) 4 mg PRN Q6HRS PRN IV NAUSEA/VOMITING; Start 12/14/18 at 18:45; Stop 12/14/18 at 19:33; Status DC Fentanyl Citrate (Fentanyl 2ml Vial) 25 mcg PRN Q5MIN PRN IV MILD PAIN 1-3; Start 12/14/18 at 18:45; Stop 12/14/18 at 19:33; Status DC Fentanyl Citrate (Fentanyl 2ml Vial) 50 mcg PRN Q5MIN PRN IV MODERATE TO SEVERE PAIN; Start 12/14/18 at 18:45; Stop 12/14/18 at 19:33; Status DC Morphine Sulfate (Morphine Sulfate) 1 mg PRN Q10MIN PRN IV SEVERE PAIN 7-10; Start 12/14/18 at 18:45; Stop 12/14/18 at 19:33; Status DC Ringer's Solution 1,000 ml @ 30 mls/hr Q24H IV ; Start 12/14/18 at 18:37; Stop 12/14/18 at 19:33; Status DC Lidocaine HCl (Xylocaine-Mpf 1% 2ml Vial) 2 ml PRN 1X PRN ID PRIOR TO IV START; Start 12/14/18 at 18:45; Stop 12/14/18 at 19:33; Status DC Hydromorphone HCl (Dilaudid) 0.5 mg PRN Q10MIN PRN IV SEV PAIN, Second choice; Start 12/14/18 at 18:45; Stop 12/14/18 at 19:33; Status DC Prochlorperazine Edisylate (Compazine) 5 mg PACU PRN PRN IV NAUSEA, MRX1; Start 12/14/18 at 18:45; Stop 12/14/18 at 19:34; Status DC Morphine Sulfate (Morphine Sulfate) 2 mg PRN Q2HR PRN IV PAIN; Start 12/15/18 at 09:15 Acetaminophen/ Hydrocodone Bitart (Lortab 5/325) 1 tab PRN Q4HRS PRN PO SEVERE PAIN Last administered on 12/15/18at 10:37; Start 12/15/18 at 09:15 Vitamin D (Vitamin D3) 1,000 unit DAILY PO Last administered on 12/15/18at 09:24; Start 12/15/18 at 10:00 Active Scripts Active Lasix (Furosemide) 40 Mg Tablet 1 Tab PO DAILY [Pantoprazole] 40 MG Tablet.dr 40 Mg PO DAILYAC 30 Days Klor-Con M20 (Potassium Chloride) 20 Meq Tab.er.prt 20 Meq PO DAILY 30 Days Lisinopril 5 Mg Tablet 5 Mg PO DAILY 30 Days Atorvastatin Calcium 20 Mg Tablet 40 Mg PO QHS 30 Days Amiodarone Hcl 200 Mg Tablet 200 Mg PO DAILY 30 Days Brilinta (Ticagrelor) 90 Mg Tablet 90 Mg PO BID 30 Days Reported Lipitor (Atorvastatin Calcium) 20 Mg Tablet 1 Tab PO DAILY Calcium (Calcium Carbonate) 500 Mg Tablet 500 Mg PO DAILY Xanax (Alprazolam) 0.5 Mg Tablet 0.5 Tab PO TID Symbicort 160-4.5 Mcg Inhaler (Budesonide/Formoterol Fumarate) 10.2 Gm Hfa.aer.ad 2 Puff IH BID Aspirin 325 Mg Tablet 325 Mg PO DAILY Levothyroxine Sodium 125 Mcg Tablet 1 Tab PO DAILY Metoprolol Tartrate 50 Mg Tablet 1 Tab PO DAILY Vitals/I & O Vital Sign - Last 24 Hours 12/14/18 12/14/18 12/14/18 12/14/18 14:33 18:08 18:08 18:24 Temp 97.8 99.5 99.5 97.8 99.5 99.5 Pulse 56 62 62 Resp 16 7 17 B/P (MAP) 184/70 138/66 186/64 Pulse Ox 97 98 98 O2 Delivery Room Air Mask Room Air Simple Mask O2 Flow Rate 10 10 10 12/14/18 12/14/18 12/14/18 12/14/18 18:42 18:54 18:57 19:00 Temp 99.5 98.6 98.4 99.5 98.6 98.4 Pulse 68 64 68 58 Resp 15 20 18 B/P (MAP) 195/73 172/76 195/76 170/65 (100) Pulse Ox 98 98 100 O2 Delivery Nasal Cannula Nasal Cannula Nasal Cannula O2 Flow Rate 2 2 2.0 12/14/18 12/14/18 12/14/18 12/14/18 19:00 19:15 19:30 19:52 Pulse 58 58 Resp 18 B/P (MAP) 152/69 (96) 158/68 (98) Pulse Ox 99 98 99 O2 Delivery Mask Room Air Room Air Nasal Cannula O2 Flow Rate 2 3.0 12/14/18 12/14/18 12/14/18 12/14/18 19:53 20:00 20:30 21:00 Pulse 62 60 64 B/P (MAP) 142/55 (84) 119/52 (74) 129/51 (77) Pulse Ox 99 90 97 93 O2 Delivery Nasal Cannula Room Air Room Air Room Air O2 Flow Rate 3.0 12/14/18 12/14/18 12/15/18 12/15/18 22:00 23:00 03:00 07:00 Temp 98.9 98.4 97.9 98.9 98.4 97.9 Pulse 62 61 57 63 Resp 18 18 18 B/P (MAP) 104/42 (62) 107/44 (65) 107/41 (63) 121/40 (67) Pulse Ox 91 92 92 90 O2 Delivery Room Air Room Air Room Air Room Air 12/15/18 12/15/18 12/15/18 12/15/18 07:38 07:43 09:25 09:25 Pulse 63 63 B/P (MAP) 121/40 121/40 Pulse Ox 96 O2 Delivery Room Air Room Air 12/15/18 12/15/18 12/15/18 12/15/18 09:25 10:37 11:00 11:21 Temp 98.0 98.0 Pulse 63 47 Resp 18 B/P (MAP) 121/40 109/37 (61) Pulse Ox 93 O2 Delivery Room Air Room Air Room Air 12/15/18 11:40 O2 Delivery Room Air Intake and Output 12/14/18 12/14/18 12/15/18 14:59 22:59 06:59 Intake Total 1000 ml 1530 ml 480 ml Output Total 50 ml Balance 1000 ml 1480 ml 480 ml HUNG AMAYA MD Dec 15, 2018 12:52
--- NOTE | 2018-12-15 14:54 | NUR ---
SS following up with discharge planning. PT/OT recommended acute rehabilitation at discharge. SS met with pt and pt requested that SS contact her daughter, Paris, , to discuss discharge planning. Paris reported that pt is from [facility] in the Memory Care Unit. Paris requested that referral for intermediate be phoned and faxed to [facility], ; fax [phone]. SS phoned and faxed referral. SS will await insurance determination and will proceed accordingly.
[2018-12-15 15:00] VITALS: BP 110/42
[2018-12-15 19:00] VITALS: BP 119/44
[2018-12-15] MEDS: ATORVASTATIN CALCIUM 20 MG TABLET PO SCH (20:11)
[2018-12-15 22:49] VITALS: BP 113/42
[2018-12-16 03:00] VITALS: BP 106/42
[2018-12-16] MEDS: LEVOTHYROXINE 125 MCG TABLET PO SCH (06:27)
[2018-12-16] MEDS: PANTOPRAZOLE 40 MG TABLET.DR. PO SCH (06:28)
[2018-12-16 07:00] VITALS: BP 127/50
[2018-12-16] MEDS: ALBUTEROL SULFATE 2.5 MG/3 ML NEBU. NEB SCH ×4 (08:30→20:52)
[2018-12-16] MEDS: BUDESONIDE 0.5 MG/2 ML NEBU. NEB SCH ×2 (08:30→20:52)
[2018-12-16] MEDS: METOPROLOL TART IMMED RELEASE 50 MG TABLET. PO SCH (08:49)
[2018-12-16] MEDS: POTASSIUM CHLORIDE 20 MEQ TABLET.ER. PO SCH (08:50)
[2018-12-16] MEDS: CALCIUM CARBONATE 500 MG TABLET PO SCH (08:50)
[2018-12-16] MEDS: FUROSEMIDE 40 MG TABLET. PO SCH (08:50)
[2018-12-16] MEDS: LISINOPRIL 5 MG TABLET. PO SCH (08:50)
[2018-12-16] MEDS: AMIODARONE HCL 200 MG TABLET. PO SCH (08:51)
[2018-12-16] MEDS: CHOLECALCIFEROL (VITAMIN D3) 1,000 UNIT TABLET PO SCH (08:56)
--- NOTE | 2018-12-16 10:05 | PDOC ---
PROGRESS NOTES Chief Complaint Chief Complaint Olecranon fracture, displaced in a mechanical [place] in [place], closed s/p POD # 1 Hypertension, A. fib, chronic stable CHF chronic stable Left hip pain-no fracture on x-ray,neg ct for occult fx OLd pubic rami fxs genw eakness FULL CODE History of Present Illness History of Present Illness NO complaints No hip fx on CT but does have some pubic rami fxs on CT [facility]? - viktoria RN sup FULL CODE SHe is thard of hearing but had no complaints to me and nods when i told her the plan PLAN: RN sup will look into rehab this tuesday 2 weeks ortho ff up CPM dw RN Vitals Vitals Vital Signs Date Time Temp Pulse Resp B/P (MAP) Pulse Ox O2 Delivery O2 Flow Rate FiO2 12/16/18 08:51 58 127/50 12/16/18 08:30 93 Room Air 12/16/18 07:00 97.4 18 97.4 12/15/18 21:17 2.0 Physical Exam General: Alert, Oriented X3, Cooperative, No acute distress Abdomen: Normal bowel sounds, Soft, No tenderness, No hepatosplenomegaly, No masses Extremities: No clubbing, No cyanosis, Normal pulses, Other (tenderness on that left hip that is black and blue, but no hematoma palpable, left arm sling) Skin: Other Review of Systems Review of Systems A 14 point ROS was completed with the following noted as positive: Other systems reviewed and negative. \CONSTITUTIONAL: No fever or chills EYES: No recent changes SKIN: No rash or itching CARDIOVASCULAR: No chest pain, syncope, palpitations, or edema RESPIRATORY: No SOB or cough GASTROINTESTINAL: No nausea, vomiting or abdominal pain NEUROLOGICAL: No headaches or weakness ENDOCRINE: No cold or heat intolerance GENITOURINARY: No urgency or frequency of urination MUSCULOSKELETAL: No back pain or joint pain LYMPHATICS: No enlarged lymph nodes PSYCHIATRIC: No anxiety or depression Comment Review of Relevant I have reviewed the following items luna (where applicable) has been applied. Medications Current Medications Morphine Sulfate (Morphine Sulfate) 2 mg PRN Q2HR PRN IV SEVERE PAIN 7-10 Last administered on 12/13/18at 23:21; Start 12/13/18 at 21:00; Stop 12/14/18 at 20:59; Status DC Sodium Chloride 1,000 ml @ 75 mls/hr [id number] IV Last administered on 12/14/18 11:05; Start 12/13/18 at 21:00; Stop 12/14/18 at 20:59; Status DC Ondansetron HCl (Zofran) 4 mg PRN Q6HRS PRN IV NAUSEA/VOMITING 1ST CHOICE; Start 12/14/18 at 02:30 Acetaminophen (Tylenol) 500 mg PRN Q6HRS PRN PO MILD PAIN / TEMP Last administered on 12/15/18 04:36; Start 12/14/18 at 08:45 Acetaminophen/ Codeine Phosphate (Tylenol #3) 1 tab PRN Q6HRS PRN PO MODERATE PAIN; Start 12/14/18 at 08:45 Clonidine HCl (Catapres) 0.1 mg PRN Q1HR PRN PO HYPERTENSION Last administered on 12/14/18 18:57; Start 12/14/18 at 08:45 Amiodarone HCl (Cordarone) 200 mg DAILY PO Last administered on 12/16/18 08:51; Start 12/14/18 at 09:00 Atorvastatin Calcium (Lipitor) 40 mg QHS PO Last administered on 12/15/18 20:11; Start 12/14/18 at 21:00 Calcium Carbonate/ Glycine (Oscal) 500 mg DAILY PO Last administered on 08:50; Start 12/14/18 at 09:00 Furosemide (Lasix) 40 mg DAILY PO Last administered on 12/16/18 08:50; Start 12/14/18 at 09:00 Levothyroxine Sodium (Synthroid) 125 mcg DAILY07 PO Last administered on 12/16/18 06:27; Start 12/14/18 at 09:00 Lisinopril (Prinivil) 5 mg DAILY PO Last administered on 12/16/18 08:50; Start 12/14/18 at 09:00 Metoprolol Tartrate (Lopressor) 50 mg DAILY PO Last administered on 12/16/18 08:49; Start 12/14/18 at 09:00 Potassium Chloride (Klor-Con) 20 meq DAILY PO Last administered on 12/16/18 08:50; Start 12/14/18 at 09:00 Non-Formulary Medication (Budesonide/ Formoterol Fumarate (Symbicort 160-4.5 Mcg Inhaler)) 2 puff BID IH ; Start 12/14/18 at 09:00; Status UNV Pantoprazole Sodium (Protonix) 40 mg DAILYAC PO Last administered on 12/16/18at 06:28; Start 12/14/18 at 09:00 Budesonide (Pulmicort) 0.5 mg RTBID NEB Last administered on 12/16/18at 08:30; Start 12/14/18 at 20:00 Albuterol Sulfate (Ventolin Neb Soln) 2.5 mg RTQID NEB Last administered on 12/16/18at 08:30; Start 12/14/18 at 12:00 Ropivacaine (Naropin 0.5%) 20 ml STK-MED ONCE .ROUTE ; Start 12/14/18 at 14:19; Stop 12/14/18 at 14:19; Status DC Bupivacaine HCl (Sensorcaine Mpf 0.5%) 30 ml STK-MED ONCE .ROUTE ; Start 12/14/18 at 14:19; Stop 12/14/18 at 14:19; Status DC Cefazolin Sodium/ Dextrose 50 ml @ 100 mls/hr 1X ONCE IV Last administered on 12/14/18at 17:00; Start 12/14/18 at 16:00; Stop 12/14/18 at 16:29; Status DC Sevoflurane (Ultane) 60 ml STK-MED ONCE IH ; Start 12/14/18 at 15:52; Stop 12/14/18 at 15:52; Status DC Propofol 20 ml @ As Directed STK-MED ONCE IV ; Start 12/14/18 at 15:52; Stop 12/14/18 at 15:52; Status DC Lidocaine HCl (Lidocaine Pf 2% Vial) 5 ml STK-MED ONCE .ROUTE ; Start 12/14/18 at 15:52; Stop 12/14/18 at 15:53; Status DC Dexamethasone Sodium Phosphate (Decadron) 4 mg STK-MED ONCE .ROUTE ; Start 12/14/18 at 15:52; Stop 12/14/18 at 15:53; Status DC Ondansetron HCl (Zofran) 4 mg STK-MED ONCE .ROUTE ; Start 12/14/18 at 15:52; Stop 12/14/18 at 15:53; Status DC Phenylephrine HCl (PHENYLEPHRINE in 0.9% NACL PF) 1 mg STK-MED ONCE IV ; Start 12/14/18 at 15:52; Stop 12/14/18 at 15:53; Status DC Ephedrine Sulfate (ePHEDrine PF IN SALINE SYRINGE) 50 mg STK-MED ONCE IV ; Start 12/14/18 at 17:32; Stop 12/14/18 at 17:33; Status DC Bupivacaine HCl (Sensorcaine Mpf 0.5%) 30 ml STK-MED ONCE IJ Last administered on 12/14/18at 17:55; Start 12/14/18 at 17:55; Stop 12/14/18 at 18:15; Status DC Fentanyl Citrate (Fentanyl 2ml Vial) 100 mcg STK-MED ONCE .ROUTE ; Start 12/14/18 at 18:06; Stop 12/14/18 at 18:06; Status DC Ondansetron HCl (Zofran) 4 mg PRN Q6HRS PRN IV NAUSEA/VOMITING; Start 12/14/18 at 18:45; Stop 12/14/18 at 19:33; Status DC Fentanyl Citrate (Fentanyl 2ml Vial) 25 mcg PRN Q5MIN PRN IV MILD PAIN 1-3; Start 12/14/18 at 18:45; Stop 12/14/18 at 19:33; Status DC Fentanyl Citrate (Fentanyl 2ml Vial) 50 mcg PRN Q5MIN PRN IV MODERATE TO SEVERE PAIN; Start 12/14/18 at 18:45; Stop 12/14/18 at 19:33; Status DC Morphine Sulfate (Morphine Sulfate) 1 mg PRN Q10MIN PRN IV SEVERE PAIN 7-10; Start 12/14/18 at 18:45; Stop 12/14/18 at 19:33; Status DC Ringer's Solution 1,000 ml @ 30 mls/hr Q24H IV ; Start 12/14/18 at 18:37; Stop 12/14/18 at 19:33; Status DC Lidocaine HCl (Xylocaine-Mpf 1% 2ml Vial) 2 ml PRN 1X PRN ID PRIOR TO IV START; Start 12/14/18 at 18:45; Stop 12/14/18 at 19:33; Status DC Hydromorphone HCl (Dilaudid) 0.5 mg PRN Q10MIN PRN IV SEV PAIN, Second choice; Start 12/14/18 at 18:45; Stop 12/14/18 at 19:33; Status DC Prochlorperazine Edisylate (Compazine) 5 mg PACU PRN PRN IV NAUSEA, MRX1; Start 12/14/18 at 18:45; Stop 12/14/18 at 19:34; Status DC Morphine Sulfate (Morphine Sulfate) 2 mg PRN Q2HR PRN IV PAIN; Start 12/15/18 at 09:15 Acetaminophen/ Hydrocodone Bitart (Lortab 5/325) 1 tab PRN Q4HRS PRN PO SEVERE PAIN Last administered on 12/15/18at 20:17; Start 12/15/18 at 09:15 Vitamin D (Vitamin D3) 1,000 unit DAILY PO Last administered on 12/16/18at 08:56; Start 12/15/18 at 10:00 Active Scripts Active Lasix (Furosemide) 40 Mg Tablet 1 Tab PO DAILY [Pantoprazole] 40 MG Tablet.dr 40 Mg PO DAILYAC 30 Days Klor-Con M20 (Potassium Chloride) 20 Meq Tab.er.prt 20 Meq PO DAILY 30 Days Lisinopril 5 Mg Tablet 5 Mg PO DAILY 30 Days Atorvastatin Calcium 20 Mg Tablet 40 Mg PO QHS 30 Days Amiodarone Hcl 200 Mg Tablet 200 Mg PO DAILY 30 Days Brilinta (Ticagrelor) 90 Mg Tablet 90 Mg PO BID 30 Days Reported Lipitor (Atorvastatin Calcium) 20 Mg Tablet 1 Tab PO DAILY Calcium (Calcium Carbonate) 500 Mg Tablet 500 Mg PO DAILY Xanax (Alprazolam) 0.5 Mg Tablet 0.5 Tab PO TID Symbicort 160-4.5 Mcg Inhaler (Budesonide/Formoterol Fumarate) 10.2 Gm Hfa.aer.ad 2 Puff IH BID Aspirin 325 Mg Tablet 325 Mg PO DAILY Levothyroxine Sodium 125 Mcg Tablet 1 Tab PO DAILY Metoprolol Tartrate 50 Mg Tablet 1 Tab PO DAILY Vitals/I & O Vital Sign - Last 24 Hours 12/15/18 12/15/18 12/15/18 12/15/18 10:37 11:00 11:21 11:40 Temp 98.0 98.0 Pulse 47 Resp 18 B/P (MAP) 109/37 (61) Pulse Ox 93 O2 Delivery Room Air Room Air Room Air Room Air 12/15/18 12/15/18 12/15/18 12/15/18 15:00 19:00 20:00 20:17 Temp 97.7 97.3 97.7 97.3 Pulse 48 57 Resp 18 18 17 B/P (MAP) 110/42 (64) 119/44 (69) Pulse Ox 92 97 O2 Delivery Room Air Room Air Room Air Room Air O2 Flow Rate 2.0 12/15/18 12/15/18 12/15/18 12/15/18 20:20 20:20 21:17 22:49 Temp 97.9 97.9 Pulse 61 Resp 15 16 B/P (MAP) 113/42 (65) Pulse Ox 95 95 93 O2 Delivery Room Air Room Air Nasal Cannula Room Air O2 Flow Rate 2.0 12/16/18 12/16/18 12/16/18 12/16/18 03:00 07:00 08:30 08:49 Temp 97.9 97.4 97.9 97.4 Pulse 60 58 58 Resp 18 18 B/P (MAP) 106/42 (63) 127/50 (75) 127/50 Pulse Ox 92 94 93 O2 Delivery Room Air Room Air Room Air 12/16/18 12/16/18 08:50 08:51 Pulse 58 58 B/P (MAP) 127/50 127/50 Intake and Output 12/15/18 12/15/18 12/16/18 15:00 23:00 07:00 Intake Total 480 ml 340 ml 270 ml Output Total 0 ml Balance 480 ml 340 ml 270 ml HUNG AMAYA MD Dec 16, 2018 10:05
[2018-12-16 10:33] LABS: BASO # 0.1 x10^3/uL (0.0-0.2); BASO % 1 % (0-3); EOS # 0.1 x10^3/uL (0.0-0.7); EOS % 1 % (0-3); HEMATOCRIT 25.2 % (36.0-47.0); HEMOGLOBIN 8.3 g/dL (12.0-15.5); LYMPH # 1.6 x10^3/uL (1.0-4.8); LYMPH % 19 % (24-48); MEAN CORPUSCULAR HEMOGLOBIN 30 pg (25-35); MEAN CORPUSCULAR HGB CONC 33 g/dL (31-37); MEAN CORPUSCULAR VOLUME 90 fL (79-100); MONO % 12 % (0-9); NEUT # 5.8 x10^3/uL (1.8-7.7); NEUT % 68 % (31-73); PLATELET COUNT 142 x10^3/uL (140-400); RED BLOOD COUNT 2.79 x10^6/uL (3.50-5.40); RED CELL DISTRIBUTION WIDTH 17.9 % (11.5-14.5); WHITE BLOOD COUNT 8.7 x10^3/uL (4.0-11.0)
[2018-12-16 11:00] VITALS: BP 94/61
[2018-12-16 11:06] LABS: CALCIUM 8.7 mg/dL (8.5-10.1); CREATININE 1.3 mg/dL (0.6-1.0); GFR 38.8; POTASSIUM 3.5 mmol/L (3.5-5.1)
[2018-12-16 15:00] VITALS: BP 152/39
[2018-12-16 19:00] VITALS: BP 137/48
[2018-12-16] MEDS: ATORVASTATIN CALCIUM 20 MG TABLET PO SCH (21:19)
[2018-12-16 23:00] VITALS: BP 126/45
[2018-12-17] MEDS: HYDROcodone/APAP 5/325MG 1 TAB TABLET PO PRN ×2 (01:06→11:54)
[2018-12-17 03:14] VITALS: BP 125/57
[2018-12-17] MEDS: LEVOTHYROXINE 125 MCG TABLET PO SCH (05:34)
[2018-12-17] MEDS: PANTOPRAZOLE 40 MG TABLET.DR. PO SCH (05:34)
[2018-12-17 07:00] VITALS: BP 126/49
[2018-12-17] MEDS: BUDESONIDE 0.5 MG/2 ML NEBU. NEB SCH ×2 (07:31→18:35)
[2018-12-17] MEDS: ALBUTEROL SULFATE 2.5 MG/3 ML NEBU. NEB SCH ×4 (07:31→18:35)
[2018-12-17] MEDS: POTASSIUM CHLORIDE 20 MEQ TABLET.ER. PO SCH (08:12)
[2018-12-17] MEDS: METOPROLOL TART IMMED RELEASE 50 MG TABLET. PO SCH (08:12)
[2018-12-17] MEDS: FUROSEMIDE 40 MG TABLET. PO SCH (08:12)
[2018-12-17] MEDS: CHOLECALCIFEROL (VITAMIN D3) 1,000 UNIT TABLET PO SCH (08:12)
[2018-12-17] MEDS: CALCIUM CARBONATE 500 MG TABLET PO SCH (08:12)
[2018-12-17] MEDS: LISINOPRIL 5 MG TABLET. PO SCH (08:13)
[2018-12-17] MEDS: AMIODARONE HCL 200 MG TABLET. PO SCH (08:13)
[2018-12-17] MEDS ORDERED: ALBU2.5V8 NEB (09:09)
[2018-12-17] MEDS ORDERED: HYDR-2761 PO (09:09)
[2018-12-17] MEDS ORDERED: CHOL10003 PO (09:10)
--- NOTE | 2018-12-17 09:11 | SNU/HH DC ---
DISCHARGE ORDERS DISCHARGE INFORMATION: DISCHARGE DATE: Dec 17, 2018 CONDITION ON DISCHARGE: Stable CODE STATUS: Code Status: Full FDC: SNF STAY <30 DAYS: Yes HOSPICE: HOSPICE: No HOSPICE EVAL & TREAT: No LTAC: ADMIT TO LTAC: No POST DISCHARGE ORDERS: ACTIVITY ORDERS: Activity as tolerated WEIGHT BEARING STATUS: As tolerated DIET AFTER DISCHARGE: Cardiac WOUND/INCISION CARE: Ice to area for comfort, Keep wound/cast CDI CHECKS AFTER DISCHARGE: CHECKS AFTER DISCHARGE: Check blood press - daily, Check your Temp as needed FOLLOW-UP: PHYSICIAN FOLLOW-UP: dr bullard 2 weks (ortho) TREATMENT/EQUIPMENT ORDERS: ADAPTIVE EQUIPMENT NEEDED: Walker Physical Therapy For: Evalulation/Treatment Occupational Therapy For: Evaluation/Treatment Speech Language Pathology For: Evaluation/Treatment DISCHARGE MEDICATIONS: Home Meds Active Scripts Cholecalciferol (Vitamin D3) (VITAMIN D3) 1,000 Unit Tablet, 1000 UNIT PO DAILY for low Vut D, #30 TAB Prov:HUNG AMAYA MD 12/17/18 Hydrocodone Bit/Acetaminophen (HYDROCODONE-APAP 5-325 ) 1 Tab Tablet, 1 TAB PO PRN Q4HRS PRN for SEVERE PAIN, #20 TAB Prov:HUNG AMAYA MD 12/17/18 Albuterol Sulfate (Proair Hfa) 8.5 Gm Hfa.aer.ad, 2.5 MG NEB RTQID for soa, #60 INHALER Prov:HUNG AMAYA MD 12/17/18 Furosemide (LASIX) 40 Mg Tablet, 1 TAB PO DAILY for chf, #90 TAB 1 Refill Prov:HARDEEP MARIE MD 07/17/18 [Pantoprazole] [address] [place] Conflict Check, 40 MG PO DAILYAC for gi bleed for 30 Days, #30 Prov:HARDEEP MARIE MD 07/17/18 Potassium Chloride (KLOR-CON M20) 20 Meq Tab.er.prt, 20 MEQ PO DAILY for chf for 30 Days, #30 TAB.SR Prov:HARDEEP MARIE MD 07/17/18 Lisinopril (LISINOPRIL) 5 Mg Tablet, 5 MG PO DAILY for cad for 30 Days, #30 TAB Prov:HARDEEP MARIE MD 07/17/18 Atorvastatin Calcium (ATORVASTATIN CALCIUM) 20 Mg Tablet, 40 MG PO QHS for cad for 30 Days, #60 TAB Prov:HARDEEP MARIE MD 07/17/18 Amiodarone Hcl (AMIODARONE HCL) 200 Mg Tablet, 200 MG PO DAILY for afib for 30 Days, #30 TAB Prov:HARDEEP MARIE MD 07/17/18 Ticagrelor (BRILINTA) 90 Mg Tablet, 90 MG PO BID for CAD for 30 Days, #60 TAB 3 Refills Prov:HARDEEP MARIE MD 07/17/18 Reported Medications Calcium Carbonate (CALCIUM) 500 Mg Tablet, 500 MG PO DAILY for , TAB 07/12/18 Alprazolam (XANAX) 0.5 Mg Tablet, 0.5 TAB PO TID for , #90 TAB 07/12/18 Budesonide/Formoterol Fumarate (SYMBICORT 160-4.5 MCG INHALER) 10.2 Gm Hfa.aer.ad, 2 PUFF IH BID for , #1 INHALER 5 Refills 07/12/18 Aspirin (ASPIRIN) 325 Mg Tablet, 325 MG PO DAILY for , TAB 07/12/18 Levothyroxine Sodium (LEVOTHYROXINE SODIUM) 125 Mcg Tablet, 1 TAB PO DAILY for hypothyroidism, #30 TAB 5 Refills 03/11/18 Metoprolol Tartrate (METOPROLOL TARTRATE) 50 Mg Tablet, 1 TAB PO DAILY for hypertension, #60 TAB 5 Refills 03/11/18 Discontinued Reported Medications Atorvastatin Calcium (LIPITOR) 20 Mg Tablet, 1 TAB PO DAILY for high cholesterol, #90 TAB 1 Refill 12/14/18 HUNG AMAYA MD Dec 17, 2018 09:11
[2018-12-17 11:00] VITALS: BP 154/65
--- NOTE | 2018-12-17 11:05 | PDOC ---
PROGRESS NOTES Subjective Subjective Problems overnight: Left elbow feels a bit better I came in and she said her dressings have been off for about an hour and her elbow is currently draining on a pillow prepped under her left elbow Objective Vital Signs Vital Signs Date Time Temp Pulse Resp B/P (MAP) Pulse Ox O2 Delivery O2 Flow Rate FiO2 12/17/18 08:13 68 126/49 12/17/18 08:00 Room Air 12/17/18 07:34 96 12/17/18 07:00 98.0 20 98.0 12/15/18 21:17 2.0 Physical Exam Packing was removed from the left elbow ChloraPrep was applied and the elbow was dressed with a soft dressing She has no elbow pain on range of motion minimal tenderness on palpation Labs Laboratory Tests Test 12/16/18 10:20 White Blood Count 8.7 x10^3/uL (4.0-11.0) Red Blood Count 2.79 x10^6/uL (3.50-5.40) Hemoglobin 8.3 g/dL (12.0-15.5) Hematocrit 25.2 % (36.0-47.0) Mean Corpuscular Volume 90 fL (79-100) Mean Corpuscular Hemoglobin 30 pg (25-35) Mean Corpuscular Hemoglobin Concent 33 g/dL (31-37) Red Cell Distribution Width 17.9 % (11.5-14.5) Platelet Count 142 x10^3/uL (140-400) Neutrophils (%) (Auto) 68 % (31-73) Lymphocytes (%) (Auto) 19 % (24-48) Monocytes (%) (Auto) 12 % (0-9) Eosinophils (%) (Auto) 1 % (0-3) Basophils (%) (Auto) 1 % (0-3) Neutrophils # (Auto) 5.8 x10^3/uL (1.8-7.7) Lymphocytes # (Auto) 1.6 x10^3/uL (1.0-4.8) Monocytes # (Auto) 1.0 x10^3/uL (0.0-1.1) Eosinophils # (Auto) 0.1 x10^3/uL (0.0-0.7) Basophils # (Auto) 0.1 x10^3/uL (0.0-0.2) Sodium Level 140 mmol/L (136-145) Potassium Level 3.5 mmol/L (3.5-5.1) Chloride Level 107 mmol/L (98-107) Carbon Dioxide Level 27 mmol/L (21-32) Anion Gap 6 (6-14) Blood Urea Nitrogen 27 mg/dL (7-20) Creatinine 1.3 mg/dL (0.6-1.0) Estimated GFR (Cockcroft-Gault) 38.8 Glucose Level 102 mg/dL (70-99) Calcium Level 8.7 mg/dL (8.5-10.1) Assessment Assessment POD# 2 irrigation debridement septic left elbow olecranon bursitis Plan Plan of Care She is going to continue daily dressing changes as ordered and antibiotics with cultures pending SHAWN SOUTH MD Dec 17, 2018 11:05
--- NOTE | 2018-12-17 12:35 | PDOC ---
PROGRESS NOTES Chief Complaint Chief Complaint POD# 2 irrigation debridement septic left elbow olecranon bursitis Hypertension, A. fib, chronic stable CHF chronic stable Left hip pain-no fracture on x-ray,neg ct for occult fx OLd pubic rami fxs genw eakness FULL CODE History of Present Illness History of Present Illness NO complaints No hip fx on CT but does have some pubic rami fxs on CT SLated for [facility]? - viktoria RN naveen - might just happen on tuesday FULL CODE SHe is hard of hearing but had no complaints to me and nods when i told her the plan PLAN: RN naveen unable to make rehab happen tuesday, so will wait for Tuesday 2 weeks ortho ff up, otherwsie ready for dc CPM viktoria RN Vitals Vitals Vital Signs Date Time Temp Pulse Resp B/P (MAP) Pulse Ox O2 Delivery O2 Flow Rate FiO2 12/17/18 11:54 Room Air 12/17/18 11:45 97 12/17/18 08:13 68 126/49 12/17/18 07:00 98.0 20 98.0 Physical Exam General: Alert, Oriented X3, Cooperative, No acute distress Abdomen: Normal bowel sounds, Soft, No tenderness, No hepatosplenomegaly, No masses Extremities: No clubbing, No cyanosis, Normal pulses, Other (tenderness on that left hip that is black and blue, but no hematoma palpable, left arm sling) Skin: Other Review of Systems Review of Systems neg 14 pt dw her Comment Review of Relevant I have reviewed the following items luna (where applicable) has been applied. Labs Laboratory Tests Test 12/16/18 10:20 White Blood Count 8.7 x10^3/uL (4.0-11.0) Red Blood Count 2.79 x10^6/uL (3.50-5.40) Hemoglobin 8.3 g/dL (12.0-15.5) Hematocrit 25.2 % (36.0-47.0) Mean Corpuscular Volume 90 fL (79-100) Mean Corpuscular Hemoglobin 30 pg (25-35) Mean Corpuscular Hemoglobin Concent 33 g/dL (31-37) Red Cell Distribution Width 17.9 % (11.5-14.5) Platelet Count 142 x10^3/uL (140-400) Neutrophils (%) (Auto) 68 % (31-73) Lymphocytes (%) (Auto) 19 % (24-48) Monocytes (%) (Auto) 12 % (0-9) Eosinophils (%) (Auto) 1 % (0-3) Basophils (%) (Auto) 1 % (0-3) Neutrophils # (Auto) 5.8 x10^3/uL (1.8-7.7) Lymphocytes # (Auto) 1.6 x10^3/uL (1.0-4.8) Monocytes # (Auto) 1.0 x10^3/uL (0.0-1.1) Eosinophils # (Auto) 0.1 x10^3/uL (0.0-0.7) Basophils # (Auto) 0.1 x10^3/uL (0.0-0.2) Sodium Level 140 mmol/L (136-145) Potassium Level 3.5 mmol/L (3.5-5.1) Chloride Level 107 mmol/L (98-107) Carbon Dioxide Level 27 mmol/L (21-32) Anion Gap 6 (6-14) Blood Urea Nitrogen 27 mg/dL (7-20) Creatinine 1.3 mg/dL (0.6-1.0) Estimated GFR (Cockcroft-Gault) 38.8 Glucose Level 102 mg/dL (70-99) Calcium Level 8.7 mg/dL (8.5-10.1) Medications Current Medications Morphine Sulfate (Morphine Sulfate) 2 mg PRN Q2HR PRN IV SEVERE PAIN 7-10 Last administered on 12/13/18at 23:21; Start 12/13/18 at 21:00; Stop 12/14/18 at 20:59; Status DC Sodium Chloride 1,000 ml @ 75 mls/hr [id number] IV Last administered on 12/14/18at 11:05; Start 12/13/18 at 21:00; Stop 12/14/18 at 20:59; Status DC Ondansetron HCl (Zofran) 4 mg PRN Q6HRS PRN IV NAUSEA/VOMITING 1ST CHOICE; Start 12/14/18 at 02:30 Acetaminophen (Tylenol) 500 mg PRN Q6HRS PRN PO MILD PAIN / TEMP Last administered on 12/15/18at 04:36; Start 12/14/18 at 08:45 Acetaminophen/ Codeine Phosphate (Tylenol #3) 1 tab PRN Q6HRS PRN PO MODERATE PAIN; Start 12/14/18 at 08:45 Clonidine HCl (Catapres) 0.1 mg PRN Q1HR PRN PO HYPERTENSION Last administered on 12/14/18 18:57; Start 12/14/18 at 08:45 Amiodarone HCl (Cordarone) 200 mg DAILY PO Last administered on 12/17/18 08:13; Start 12/14/18 at 09:00 Atorvastatin Calcium (Lipitor) 40 mg QHS PO Last administered on 12/16/18 21:19; Start 12/14/18 at 21:00 Calcium Carbonate/ Glycine (Oscal) 500 mg DAILY PO Last administered on 12/17/18 08:12; Start 12/14/18 at 09:00 Furosemide (Lasix) 40 mg DAILY PO Last administered on 12/17/18 08:12; Start 12/14/18 at 09:00 Levothyroxine Sodium (Synthroid) 125 mcg DAILY07 PO Last administered on 12/17/18 05:34; Start 12/14/18 at 09:00 Lisinopril (Prinivil) 5 mg DAILY PO Last administered on 12/17/18 08:13; Start 12/14/18 at 09:00 Metoprolol Tartrate (Lopressor) 50 mg DAILY PO Last administered on 12/17/18 08:12; Start 12/14/18 at 09:00 Potassium Chloride (Klor-Con) 20 meq DAILY PO Last administered on 12/17/18 08:12; Start 12/14/18 at 09:00 Non-Formulary Medication (Budesonide/ Formoterol Fumarate (Symbicort 160-4.5 Mcg Inhaler)) 2 puff BID IH ; Start 12/14/18 at 09:00; Status UNV Pantoprazole Sodium (Protonix) 40 mg DAILYAC PO Last administered on 12/17/18 05:34; Start 12/14/18 at 09:00 Budesonide (Pulmicort) 0.5 mg RTBID NEB Last administered on 12/17/18 07:31; Start 12/14/18 at 20:00 Albuterol Sulfate (Ventolin Neb Soln) 2.5 mg RTQID NEB Last administered on 12/17/18at 11:44; Start 12/14/18 at 12:00 Ropivacaine (Naropin 0.5%) 20 ml STK-MED ONCE .ROUTE ; Start 12/14/18 at 14:19; Stop 12/14/18 at 14:19; Status DC Bupivacaine HCl (Sensorcaine Mpf 0.5%) 30 ml STK-MED ONCE .ROUTE ; Start 12/14/18 at 14:19; Stop 12/14/18 at 14:19; Status DC Cefazolin Sodium/ Dextrose 50 ml @ 100 mls/hr 1X ONCE IV Last administered on 12/14/18at 17:00; Start 12/14/18 at 16:00; Stop 12/14/18 at 16:29; Status DC Sevoflurane (Ultane) 60 ml STK-MED ONCE IH ; Start 12/14/18 at 15:52; Stop 12/14/18 at 15:52; Status DC Propofol 20 ml @ As Directed STK-MED ONCE IV ; Start 12/14/18 at 15:52; Stop 12/14/18 at 15:52; Status DC Lidocaine HCl (Lidocaine Pf 2% Vial) 5 ml STK-MED ONCE .ROUTE ; Start 12/14/18 at 15:52; Stop 12/14/18 at 15:53; Status DC Dexamethasone Sodium Phosphate (Decadron) 4 mg STK-MED ONCE .ROUTE ; Start 12/14/18 at 15:52; Stop 12/14/18 at 15:53; Status DC Ondansetron HCl (Zofran) 4 mg STK-MED ONCE .ROUTE ; Start 12/14/18 at 15:52; Stop 12/14/18 at 15:53; Status DC Phenylephrine HCl (PHENYLEPHRINE in 0.9% NACL PF) 1 mg STK-MED ONCE IV ; Start 12/14/18 at 15:52; Stop 12/14/18 at 15:53; Status DC Ephedrine Sulfate (ePHEDrine PF IN SALINE SYRINGE) 50 mg STK-MED ONCE IV ; Start 12/14/18 at 17:32; Stop 12/14/18 at 17:33; Status DC Bupivacaine HCl (Sensorcaine Mpf 0.5%) 30 ml STK-MED ONCE IJ Last administered on 12/14/18at 17:55; Start 12/14/18 at 17:55; Stop 12/14/18 at 18:15; Status DC Fentanyl Citrate (Fentanyl 2ml Vial) 100 mcg STK-MED ONCE .ROUTE ; Start 12/14/18 at 18:06; Stop 12/14/18 at 18:06; Status DC Ondansetron HCl (Zofran) 4 mg PRN Q6HRS PRN IV NAUSEA/VOMITING; Start 12/14/18 at 18:45; Stop 12/14/18 at 19:33; Status DC Fentanyl Citrate (Fentanyl 2ml Vial) 25 mcg PRN Q5MIN PRN IV MILD PAIN 1-3; Start 12/14/18 at 18:45; Stop 12/14/18 at 19:33; Status DC Fentanyl Citrate (Fentanyl 2ml Vial) 50 mcg PRN Q5MIN PRN IV MODERATE TO SEVERE PAIN; Start 12/14/18 at 18:45; Stop 12/14/18 at 19:33; Status DC Morphine Sulfate (Morphine Sulfate) 1 mg PRN Q10MIN PRN IV SEVERE PAIN 7-10; Start 12/14/18 at 18:45; Stop 12/14/18 at 19:33; Status DC Ringer's Solution 1,000 ml @ 30 mls/hr Q24H IV ; Start 12/14/18 at 18:37; Stop 12/14/18 at 19:33; Status DC Lidocaine HCl (Xylocaine-Mpf 1% 2ml Vial) 2 ml PRN 1X PRN ID PRIOR TO IV START; Start 12/14/18 at 18:45; Stop 12/14/18 at 19:33; Status DC Hydromorphone HCl (Dilaudid) 0.5 mg PRN Q10MIN PRN IV SEV PAIN, Second choice; Start 12/14/18 at 18:45; Stop 12/14/18 at 19:33; Status DC Prochlorperazine Edisylate (Compazine) 5 mg PACU PRN PRN IV NAUSEA, MRX1; Start 12/14/18 at 18:45; Stop 12/14/18 at 19:34; Status DC Morphine Sulfate (Morphine Sulfate) 2 mg PRN Q2HR PRN IV PAIN; Start 12/15/18 at 09:15 Acetaminophen/ Hydrocodone Bitart (Lortab 5/325) 1 tab PRN Q4HRS PRN PO SEVERE PAIN Last administered on 12/17/18at 11:54; Start 12/15/18 at 09:15 Vitamin D (Vitamin D3) 1,000 unit DAILY PO Last administered on 12/17/18at 08:12; Start 12/15/18 at 10:00 Active Scripts Active Vitamin D3 (Cholecalciferol (Vitamin D3)) 1,000 Unit Tablet 1,000 Unit PO DAILY Hydrocodone-Apap 5-325 (Hydrocodone Bit/Acetaminophen) 1 Tab Tablet 1 Tab PO PRN Q4HRS PRN Proair Hfa (Albuterol Sulfate) 8.5 Gm Hfa.aer.ad 2.5 Mg NEB RTQID Lasix (Furosemide) 40 Mg Tablet 1 Tab PO DAILY [Pantoprazole] 40 MG Tablet.dr 40 Mg PO DAILYAC 30 Days Klor-Con M20 (Potassium Chloride) 20 Meq Tab.er.prt 20 Meq PO DAILY 30 Days Lisinopril 5 Mg Tablet 5 Mg PO DAILY 30 Days Atorvastatin Calcium 20 Mg Tablet 40 Mg PO QHS 30 Days Amiodarone Hcl 200 Mg Tablet 200 Mg PO DAILY 30 Days Brilinta (Ticagrelor) 90 Mg Tablet 90 Mg PO BID 30 Days Reported Calcium (Calcium Carbonate) 500 Mg Tablet 500 Mg PO DAILY Xanax (Alprazolam) 0.5 Mg Tablet 0.5 Tab PO TID Symbicort 160-4.5 Mcg Inhaler (Budesonide/Formoterol Fumarate) 10.2 Gm Hfa.aer.ad 2 Puff IH BID Aspirin 325 Mg Tablet 325 Mg PO DAILY Levothyroxine Sodium 125 Mcg Tablet 1 Tab PO DAILY Metoprolol Tartrate 50 Mg Tablet 1 Tab PO DAILY Vitals/I & O Vital Sign - Last 24 Hours 12/16/18 12/16/18 12/16/18 12/16/18 12:59 15:00 19:00 20:00 Temp 98.3 98.5 98.3 98.5 Pulse 58 59 Resp 18 16 B/P (MAP) 152/39 (76) 137/48 (77) Pulse Ox 100 97 O2 Delivery Room Air Room Air Room Air Room Air 12/16/18 12/16/18 12/17/18 12/17/18 20:52 23:00 01:06 02:06 Pulse 57 Resp 14 16 B/P (MAP) 126/45 (72) Pulse Ox 95 96 O2 Delivery Room Air Room Air Room Air Room Air 12/17/18 12/17/18 12/17/18 12/17/18 03:14 07:00 07:34 08:00 Temp 97.6 98.0 97.6 98.0 Pulse 57 68 Resp 20 20 B/P (MAP) 125/57 (79) 126/49 (74) Pulse Ox 93 96 O2 Delivery Room Air Room Air Room Air Room Air 12/17/18 12/17/18 12/17/18 12/17/18 08:12 08:13 08:13 11:45 Pulse 68 68 68 B/P (MAP) 126/49 126/49 126/49 Pulse Ox 97 O2 Delivery Room Air 12/17/18 11:54 O2 Delivery Room Air HUNG AMAYA MD Dec 17, 2018 12:35
[2018-12-17 15:00] VITALS: BP 126/59
[2018-12-17] MEDS: ATORVASTATIN CALCIUM 20 MG TABLET PO SCH (20:43)
[2018-12-17 23:30] VITALS: BP 148/47
[2018-12-18] MEDS: HYDROcodone/APAP 5/325MG 1 TAB TABLET PO PRN ×2 (00:50→10:00)
[2018-12-18 03:30] VITALS: BP 136/46
[2018-12-18] MEDS: PANTOPRAZOLE 40 MG TABLET.DR. PO SCH (06:20)
[2018-12-18] MEDS: LEVOTHYROXINE 125 MCG TABLET PO SCH (06:21)
[2018-12-18 07:00] VITALS: BP 151/50
[2018-12-18] MEDS: BUDESONIDE 0.5 MG/2 ML NEBU. NEB SCH (07:10)
[2018-12-18] MEDS: ALBUTEROL SULFATE 2.5 MG/3 ML NEBU. NEB SCH ×2 (07:10→11:14)
--- NOTE | 2018-12-18 08:40 | PDOC ---
PROGRESS NOTES Chief Complaint Chief Complaint S/p irrigation debridement septic left elbow olecranon bursitis 12/14/18 Hypertension A. fib, chronic stable diastolic CHF chronic stable Left hip pain-no fracture on x-ray,neg ct for occult fx Old pubic rami fxs generalized weakness Plan: soft elbow dressings clean dry and intact status post ORIF olecranon fracture, patient can continue elbow motion fine motor use and weightbearing with a platform walker attachment on the left History of Present Illness History of Present Illness No hip fx on CT but does have some pubic rami fxs on CT She is feeling extremely weak today. No CP or SOB PLAN: RN naveen unable to make rehab happen tuesday, so will wait for SW to rehab today 2 weeks ortho ff up, otherwsstella ready for dc CPM dw RN Vitals Vitals Vital Signs Date Time Temp Pulse Resp B/P (MAP) Pulse Ox O2 Delivery O2 Flow Rate FiO2 12/18/18 07:11 93 Room Air 12/18/18 03:30 98.2 61 18 136/46 (76) 98.2 Physical Exam General: Alert, Cooperative, No acute distress Abdomen: Normal bowel sounds, Soft, No tenderness, No hepatosplenomegaly, No masses Extremities: No clubbing, No cyanosis, Normal pulses, Other (tenderness on that left hip that is black and blue, but no hematoma palpable, left arm sling) Skin: Other Comment Review of Relevant I have reviewed the following items luna (where applicable) has been applied. Labs Laboratory Tests Test 12/16/18 10:20 White Blood Count 8.7 x10^3/uL (4.0-11.0) Red Blood Count 2.79 x10^6/uL (3.50-5.40) Hemoglobin 8.3 g/dL (12.0-15.5) Hematocrit 25.2 % (36.0-47.0) Mean Corpuscular Volume 90 fL (79-100) Mean Corpuscular Hemoglobin 30 pg (25-35) Mean Corpuscular Hemoglobin Concent 33 g/dL (31-37) Red Cell Distribution Width 17.9 % (11.5-14.5) Platelet Count 142 x10^3/uL (140-400) Neutrophils (%) (Auto) 68 % (31-73) Lymphocytes (%) (Auto) 19 % (24-48) Monocytes (%) (Auto) 12 % (0-9) Eosinophils (%) (Auto) 1 % (0-3) Basophils (%) (Auto) 1 % (0-3) Neutrophils # (Auto) 5.8 x10^3/uL (1.8-7.7) Lymphocytes # (Auto) 1.6 x10^3/uL (1.0-4.8) Monocytes # (Auto) 1.0 x10^3/uL (0.0-1.1) Eosinophils # (Auto) 0.1 x10^3/uL (0.0-0.7) Basophils # (Auto) 0.1 x10^3/uL (0.0-0.2) Sodium Level 140 mmol/L (136-145) Potassium Level 3.5 mmol/L (3.5-5.1) Chloride Level 107 mmol/L (98-107) Carbon Dioxide Level 27 mmol/L (21-32) Anion Gap 6 (6-14) Blood Urea Nitrogen 27 mg/dL (7-20) Creatinine 1.3 mg/dL (0.6-1.0) Estimated GFR (Cockcroft-Gault) 38.8 Glucose Level 102 mg/dL (70-99) Calcium Level 8.7 mg/dL (8.5-10.1) Medications Current Medications Morphine Sulfate (Morphine Sulfate) 2 mg PRN Q2HR PRN IV SEVERE PAIN 7-10 Last administered on 12/13/18at 23:21; Start 12/13/18 at 21:00; Stop 12/14/18 at 20:59; Status DC Sodium Chloride 1,000 ml @ 75 mls/hr [id number] IV Last administered on 12/14/18at 11:05; Start 12/13/18 at 21:00; Stop 12/14/18 at 20:59; Status DC Ondansetron HCl (Zofran) 4 mg PRN Q6HRS PRN IV NAUSEA/VOMITING 1ST CHOICE; Start 12/14/18 at 02:30 Acetaminophen (Tylenol) 500 mg PRN Q6HRS PRN PO MILD PAIN / TEMP Last administered on 12/15/18at 04:36; Start 12/14/18 at 08:45 Acetaminophen/ Codeine Phosphate (Tylenol #3) 1 tab PRN Q6HRS PRN PO MODERATE PAIN; Start 12/14/18 at 08:45 Clonidine HCl (Catapres) 0.1 mg PRN Q1HR PRN PO HYPERTENSION Last administered on 12/14/18 18:57; Start 12/14/18 at 08:45 Amiodarone HCl (Cordarone) 200 mg DAILY PO Last administered on 12/17/18 08:13; Start 12/14/18 at 09:00 Atorvastatin Calcium (Lipitor) 40 mg QHS PO Last administered on 12/17/18 20:43; Start 12/14/18 at 21:00 Calcium Carbonate/ Glycine (Oscal) 500 mg DAILY PO Last administered on 12/17/18 08:12; Start 12/14/18 at 09:00 Furosemide (Lasix) 40 mg DAILY PO Last administered on 12/17/18 08:12; Start 12/14/18 at 09:00 Levothyroxine Sodium (Synthroid) 125 mcg DAILY07 PO Last administered on 12/18/18 06:21; Start 12/14/18 at 09:00 Lisinopril (Prinivil) 5 mg DAILY PO Last administered on 12/17/18 08:13; Start 12/14/18 at 09:00 Metoprolol Tartrate (Lopressor) 50 mg DAILY PO Last administered on 12/17/18 08:12; Start 12/14/18 at 09:00 Potassium Chloride (Klor-Con) 20 meq DAILY PO Last administered on 12/17/18 08:12; Start 12/14/18 at 09:00 Non-Formulary Medication (Budesonide/ Formoterol Fumarate (Symbicort 160-4.5 Mcg Inhaler)) 2 puff BID IH ; Start 12/14/18 at 09:00; Status UNV Pantoprazole Sodium (Protonix) 40 mg DAILYAC PO Last administered on 12/18/18 06:20; Start 12/14/18 at 09:00 Budesonide (Pulmicort) 0.5 mg RTBID NEB Last administered on 12/18/18 07:10; Start 12/14/18 at 20:00 Albuterol Sulfate (Ventolin Neb Soln) 2.5 mg RTQID NEB Last administered on 12/18/18 07:10; Start 12/14/18 at 12:00 Ropivacaine (Naropin 0.5%) 20 ml STK-MED ONCE .ROUTE ; Start 12/14/18 at 14:19; Stop 12/14/18 at 14:19; Status DC Bupivacaine HCl (Sensorcaine Mpf 0.5%) 30 ml STK-MED ONCE .ROUTE ; Start 12/14/18 at 14:19; Stop 12/14/18 at 14:19; Status DC Cefazolin Sodium/ Dextrose 50 ml @ 100 mls/hr 1X ONCE IV Last administered on 12/14/18at 17:00; Start 12/14/18 at 16:00; Stop 12/14/18 at 16:29; Status DC Sevoflurane (Ultane) 60 ml STK-MED ONCE IH ; Start 12/14/18 at 15:52; Stop 12/14/18 at 15:52; Status DC Propofol 20 ml @ As Directed STK-MED ONCE IV ; Start 12/14/18 at 15:52; Stop 12/14/18 at 15:52; Status DC Lidocaine HCl (Lidocaine Pf 2% Vial) 5 ml STK-MED ONCE .ROUTE ; Start 12/14/18 at 15:52; Stop 12/14/18 at 15:53; Status DC Dexamethasone Sodium Phosphate (Decadron) 4 mg STK-MED ONCE .ROUTE ; Start 12/14/18 at 15:52; Stop 12/14/18 at 15:53; Status DC Ondansetron HCl (Zofran) 4 mg STK-MED ONCE .ROUTE ; Start 12/14/18 at 15:52; Stop 12/14/18 at 15:53; Status DC Phenylephrine HCl (PHENYLEPHRINE in 0.9% NACL PF) 1 mg STK-MED ONCE IV ; Start 12/14/18 at 15:52; Stop 12/14/18 at 15:53; Status DC Ephedrine Sulfate (ePHEDrine PF IN SALINE SYRINGE) 50 mg STK-MED ONCE IV ; Start 12/14/18 at 17:32; Stop 12/14/18 at 17:33; Status DC Bupivacaine HCl (Sensorcaine Mpf 0.5%) 30 ml STK-MED ONCE IJ Last administered on 12/14/18at 17:55; Start 12/14/18 at 17:55; Stop 12/14/18 at 18:15; Status DC Fentanyl Citrate (Fentanyl 2ml Vial) 100 mcg STK-MED ONCE .ROUTE ; Start 12/14/18 at 18:06; Stop 12/14/18 at 18:06; Status DC Ondansetron HCl (Zofran) 4 mg PRN Q6HRS PRN IV NAUSEA/VOMITING; Start 12/14/18 at 18:45; Stop 12/14/18 at 19:33; Status DC Fentanyl Citrate (Fentanyl 2ml Vial) 25 mcg PRN Q5MIN PRN IV MILD PAIN 1-3; Start 12/14/18 at 18:45; Stop 12/14/18 at 19:33; Status DC Fentanyl Citrate (Fentanyl 2ml Vial) 50 mcg PRN Q5MIN PRN IV MODERATE TO SEVERE PAIN; Start 12/14/18 at 18:45; Stop 12/14/18 at 19:33; Status DC Morphine Sulfate (Morphine Sulfate) 1 mg PRN Q10MIN PRN IV SEVERE PAIN 7-10; Start 12/14/18 at 18:45; Stop 12/14/18 at 19:33; Status DC Ringer's Solution 1,000 ml @ 30 mls/hr Q24H IV ; Start 12/14/18 at 18:37; Stop 12/14/18 at 19:33; Status DC Lidocaine HCl (Xylocaine-Mpf 1% 2ml Vial) 2 ml PRN 1X PRN ID PRIOR TO IV START; Start 12/14/18 at 18:45; Stop 12/14/18 at 19:33; Status DC Hydromorphone HCl (Dilaudid) 0.5 mg PRN Q10MIN PRN IV SEV PAIN, Second choice; Start 12/14/18 at 18:45; Stop 12/14/18 at 19:33; Status DC Prochlorperazine Edisylate (Compazine) 5 mg PACU PRN PRN IV NAUSEA, MRX1; Start 12/14/18 at 18:45; Stop 12/14/18 at 19:34; Status DC Morphine Sulfate (Morphine Sulfate) 2 mg PRN Q2HR PRN IV PAIN; Start 12/15/18 at 09:15 Acetaminophen/ Hydrocodone Bitart (Lortab 5/325) 1 tab PRN Q4HRS PRN PO SEVERE PAIN Last administered on 12/18/18at 00:50; Start 12/15/18 at 09:15 Vitamin D (Vitamin D3) 1,000 unit DAILY PO Last administered on 12/17/18at 08:12; Start 12/15/18 at 10:00 Active Scripts Active Vitamin D3 (Cholecalciferol (Vitamin D3)) 1,000 Unit Tablet 1,000 Unit PO DAILY Hydrocodone-Apap 5-325 (Hydrocodone Bit/Acetaminophen) 1 Tab Tablet 1 Tab PO PRN Q4HRS PRN Proair Hfa (Albuterol Sulfate) 8.5 Gm Hfa.aer.ad 2.5 Mg NEB RTQID Lasix (Furosemide) 40 Mg Tablet 1 Tab PO DAILY [Pantoprazole] 40 MG Tablet.dr 40 Mg PO DAILYAC 30 Days Klor-Con M20 (Potassium Chloride) 20 Meq Tab.er.prt 20 Meq PO DAILY 30 Days Lisinopril 5 Mg Tablet 5 Mg PO DAILY 30 Days Atorvastatin Calcium 20 Mg Tablet 40 Mg PO QHS 30 Days Amiodarone Hcl 200 Mg Tablet 200 Mg PO DAILY 30 Days Brilinta (Ticagrelor) 90 Mg Tablet 90 Mg PO BID 30 Days Reported Calcium (Calcium Carbonate) 500 Mg Tablet 500 Mg PO DAILY Xanax (Alprazolam) 0.5 Mg Tablet 0.5 Tab PO TID Symbicort 160-4.5 Mcg Inhaler (Budesonide/Formoterol Fumarate) 10.2 Gm Hfa.aer.ad 2 Puff IH BID Aspirin 325 Mg Tablet 325 Mg PO DAILY Levothyroxine Sodium 125 Mcg Tablet 1 Tab PO DAILY Metoprolol Tartrate 50 Mg Tablet 1 Tab PO DAILY Vitals/I & O Vital Sign - Last 24 Hours 12/17/18 12/17/18 12/17/18 12/17/18 11:00 11:45 11:54 12:54 Temp 97.8 97.8 Pulse 57 Resp 14 B/P (MAP) 154/65 (94) Pulse Ox 97 97 O2 Delivery Room Air Room Air Room Air Room Air 12/17/18 12/17/18 12/17/18 12/17/18 15:00 15:44 18:36 20:00 Temp 97.8 97.8 Pulse 54 B/P (MAP) 126/59 (81) Pulse Ox 98 98 O2 Delivery Room Air Room Air Room Air Room Air 9/12/18/18 12/18/18 12/18/18 23:30 00:50 01:50 03:30 Temp 97.7 98.2 97.7 98.2 Pulse 60 61 Resp 18 20 20 18 B/P (MAP) 148/47 (80) 136/46 (76) Pulse Ox 98 98 O2 Delivery Room Air Room Air Room Air Room Air 12/18/18 07:11 Pulse Ox 93 O2 Delivery Room Air Intake and Output 12/17/18 12/17/18 12/18/18 15:00 23:00 07:00 Intake Total 150 ml 300 ml Balance 150 ml 300 ml SHANA CHAMPAGNE MD Dec 18, 2018 08:40
[2018-12-18] MEDS: METOPROLOL TART IMMED RELEASE 50 MG TABLET. PO SCH (09:59)
[2018-12-18] MEDS: CALCIUM CARBONATE 500 MG TABLET PO SCH (09:59)
[2018-12-18] MEDS: CHOLECALCIFEROL (VITAMIN D3) 1,000 UNIT TABLET PO SCH (09:59)
[2018-12-18] MEDS: FUROSEMIDE 40 MG TABLET. PO SCH (09:59)
[2018-12-18] MEDS: AMIODARONE HCL 200 MG TABLET. PO SCH (10:00)
[2018-12-18] MEDS: POTASSIUM CHLORIDE 20 MEQ TABLET.ER. PO SCH (10:00)
[2018-12-18] MEDS: LISINOPRIL 5 MG TABLET. PO SCH (10:00)
[2018-12-18 11:00] VITALS: BP 139/50
--- NOTE | 2018-12-18 14:02 | PDOC3 ---
Discharge Summary Visit Information Date of Admission: Dec 13, 2018 Date of Discharge: Dec 18, 2018 Admitting Diagnosis: Left elbow fracture, pelvic fracture Final Diagnosis Fall, left elbow fracture, left pelvic fracture Brief Hospital Course Allergies Allergies Coded Allergies Type Severity Reaction Last Updated Verified No Known Drug Allergies 03/10/18 No Vital Signs Vital Signs Date Time Temp Pulse Resp B/P (MAP) Pulse Ox O2 Delivery O2 Flow Rate FiO2 12/18/18 11:21 Room Air 12/18/18 11:00 97.8 49 18 139/50 (79) 98 97.8 Brief Hospital Course Ms Dhaliwal is an 88yo F w/ PMHx CAD w/ stent, ICM, A Fib, HTN, HLD, AAA, essential tremor, CVA, anxiety, OA, [place], hypothyroidism, osteoporosis who presents after a fall at her SNF, [facility] in the Memory Care Unit, she was found with a left olecranon displaced fracture of her elbow and some pubic rami fxs on CT. She had orthopedic evaluation and S/p irrigation debridement septic left elbow olecranon bursitis 12/14/18. PT and OT recommended acute rehab and her family have decided to continue at her current facility for rehabilitation prior to return to the memory unit. She is feeling extremely weak today. No CP or SOB Assessment. Left olecranon fracture Hypertension A. fib, chronic stable combined systolic/diastolic CHF chronic stable, EF 25% Left hip pain-no fracture on x-ray,neg ct for occult fx Old pubic rami fxs generalized weakness CAD w/ LAD stent 06/2018 HLD AAA Essential tremor CVA 02/2018 Anxiety OA [place] Hypothyroidism Osteoporosis Plan: soft elbow dressings clean dry and intact status post ORIF olecranon fracture, patient can continue elbow motion fine motor use and weightbearing with a platform walker attachment on the left SW to rehab today 2 weeks ortho ff up, otherwise ready for dc dw RN Greater than 30 minutes spent on discharge to SNF Discharge Information Condition at Discharge: Improved Follow Up: Weeks (2) Disposition/Orders: D/C to Another Facility Scheduled Albuterol Sulfate (Proair Hfa) 8.5 Gm Hfa.aer.ad, 2.5 MG NEB RTQID for soa, #60 Prescribed by: HUNG AMAYA on 12/17/18 0909 Alprazolam (Xanax) 0.5 Mg Tablet, 0.5 TAB PO TID for , #90 (Reported) Entered as Reported by: Alecia Atkins on 07/12/181312 Amiodarone Hcl (Amiodarone Hcl) 200 Mg Tablet, 200 MG PO DAILY for afib for 30 Days, #30 Prescribed by: HARDEEP MARIE on 07/17/181343 Last Action: Continued on 12/14/18845 by HUNG AMAYA Aspirin (Aspirin) 325 Mg Tablet, 325 MG PO DAILY for , (Reported) Entered as Reported by: Alecia Atkins on 07/12/181312 Last Action: HELD on 12/14/18845 by HUNG AMAYA Atorvastatin Calcium (Atorvastatin Calcium) 20 Mg Tablet, 40 MG PO QHS for cad for 30 Days, #60 Prescribed by: HARDEEP MARIE on 07/17/181343 Last Action: Continued on 12/14/18845 by HUNG AMAYA Budesonide/Formoterol Fumarate (Symbicort 160-4.5 Mcg Inhaler) 10.2 Gm Hfa.aer.ad, 2 PUFF IH BID for , #1 Ref 5 (Reported) Entered as Reported by: Alecia Atkins on 07/12/181312 Last Action: Converted on 12/14/18845 by HUNG AMAYA Calcium Carbonate (Calcium) 500 Mg Tablet, 500 MG PO DAILY for , (Reported) Entered as Reported by: Alecia Atkins on 07/12/181312 Last Action: Continued on 12/14/18845 by HUNG AMAYA Cholecalciferol (Vitamin D3) (Vitamin D3) 1,000 Unit Tablet, 1,000 UNIT PO DAILY for low Vut D, #30 Prescribed by: HUNG AMAYA on 12/17/18 09 Furosemide (Lasix) 40 Mg Tablet, 1 TAB PO DAILY for chf, #90 Ref 1 Prescribed by: HARDEEP MARIE on 07/17/181343 Last Action: Continued on 12/14/18845 by HUNG AMAYA Levothyroxine Sodium (Levothyroxine Sodium) 125 Mcg Tablet, 1 TAB PO DAILY for hypothyroidism, #30 Ref 5 (Reported) Entered as Reported by: IAN GALEAS on 03/11/18 0800 Last Action: Continued on 12/14/18845 by HUNG AMAYA Lisinopril (Lisinopril) 5 Mg Tablet, 5 MG PO DAILY for cad for 30 Days, #30 Prescribed by: HARDEEP MARIE on 07/17/181343 Last Action: Continued on 12/14/18845 by HUNG AMAYA Metoprolol Tartrate (Metoprolol Tartrate) 50 Mg Tablet, 1 TAB PO DAILY for hyp ertension, #60 Ref 5 (Reported) Entered as Reported by: IAN GALEAS on 03/11/18 08 Last Action: Continued on 12/14/18845 by HUNG AMAYA Potassium Chloride (Klor-Con M20) 20 Meq Tab.er.prt, 20 MEQ PO DAILY for chf for 30 Days, #30 Prescribed by: HARDEEP MARIE on 07/17/181343 Last Action: Continued on 12/14/18845 by HUNG AMAYA Ticagrelor (Brilinta) 90 Mg Tablet, 90 MG PO BID for CAD for 30 Days, #60 Ref 3 Prescribed by: HARDEEP MARIE on 07/17/181343 Last Action: HELD on 12/14/18845 by HUNG AMAYA [Pantoprazole] 40 MG TABLET.DR, 40 MG PO DAILYAC for gi bleed for 30 Days, #30 Prescribed by: AHRDEEP MARIE on 07/17/181343 Last Action: Converted on 12/14/18845 by HUNG AMAYA Scheduled PRN Hydrocodone Bit/Acetaminophen (Hydrocodone-Apap 5-325 ) 1 Tab Tablet, 1 TAB PO PRN Q4HRS PRN for SEVERE PAIN, #20 Prescribed by: HUNG AMAYA on 12/17/18 0909 Discontinued Medications Atorvastatin Calcium (Lipitor) 20 Mg Tablet, 1 TAB PO DAILY for high cholesterol, #90 Ref 1 (Reported) Entered as Reported by: LANNY MCMANUS on 12/14/18205 Last Taken: UNKNOWN on Unknown Date & Time Last Action: HELD on 12/14/18845 by SHANA KEVIN MD Dec 18, 2018 14:02
--- NOTE | 2018-12-18 16:04 | NUR ---
Pt discharged back to [place]. Called and attempted to give report. The nurse was unavailable. Left message IV removed. Assisted pt into wheelchair and was taken to main entrance and secured in vehicle with son.
== END 2018-12-18 15:02 | disposition home or self-care (01) | DRG 511 ==
LOC: ER 18:16 → ED HOLD 20:40 → 4 NORTH 12-14 00:10
PROVIDERS: ADMIT Internal Medicine; ATTEND Internal Medicine
PROC: 0PSL04Z Reposition Left Ulna with Internal Fixation Device, Open Approach (ICD-10-PCS; principal; 2018-12-14 15:00)
DX: S52.022A Displaced fracture of olecranon process without intraarticular extension of left ulna, initial encounter for closed fracture (principal); S32.592A Other specified fracture of left pubis, initial encounter for closed fracture; I50.42 Chronic combined systolic (congestive) and diastolic (congestive) heart failure; I25.10 Atherosclerotic heart disease of native coronary artery without angina pectoris; I11.0 Hypertensive heart disease with heart failure; E78.00 Pure hypercholesterolemia, unspecified; G89.29 Other chronic pain; M25.569 Pain in unspecified knee; W18.39XA Other fall on same level, initial encounter; I48.2 Chronic atrial fibrillation; E78.5 Hyperlipidemia, unspecified; I71.4 Abdominal aortic aneurysm, without rupture; F41.9 Anxiety disorder, unspecified; M19.90 Unspecified osteoarthritis, unspecified site; H91.90 Unspecified hearing loss, unspecified ear; M81.0 Age-related osteoporosis without current pathological fracture; E03.9 Hypothyroidism, unspecified; Z86.73 Personal history of transient ischemic attack (TIA), and cerebral infarction without residual deficits; Y93.89 Activity, other specified; Y92.128 Other place in nursing home as the place of occurrence of the external cause; Y99.8 Other external cause status; Z82.49 Family history of ischemic heart disease and other diseases of the circulatory system; Z95.5 Presence of coronary angioplasty implant and graft
CPT/HCPCS: 29105; 36415; 72192; 73080; 73502; 76000; 80048; 80053; 82306; 85025; 85610; 94640; 96374; A7015; C1713; J0171; J0696; J1100; J2001; J2270; J2370; J2405; J2704; J2795; J3490; J7030; J7613; J7626; 97110; 97116; 97530; 97535; 99285-25; G0378

== ENCOUNTER → 2019-02-23 | Outpatient (CLI) | payer BC ==
[~2019-02-23] MED LIST changes: +ALBU2.5V8 NEB; +ATOR20TA PO; +CHOL10003 PO; +HYDR-2761 PO
--- NOTE | 2019-02-23 13:47 | CARD ---
MR#: [id number] Date of Study: 02/23/2019 Ordering Physician: RBITANY CUENCA, Referring Physician: BRITANY CUENCA, Tech: Lexie Miller LAZARO APPROVED REPORT EXAM: Two-dimensional and M-mode echocardiogram with Doppler and color Doppler. Other Information Quality : Good INDICATION Ischemic Cardiomyopathy 2D DIMENSIONS RVDd2.0 (2.9-3.5cm)Left Atrium(2D)3.8 (1.6-4.0cm) IVSd1.5 (0.7-1.1cm)Aortic Root(2D)2.9 (2.0-3.7cm) LVDd6.2 (3.9-5.9cm)LVOT Diameter1.9 (1.8-2.4cm) PWd1.3 (0.7-1.1cm)LVDs2.9 (2.5-4.0cm) FS (%) 30.0 %SV157.8 ml LVEF(%)60.0 (>50%) Aortic Valve AoV Peak Wero.211.2cm/sAoV VTI41.6cm AO Peak GR.17.8mmHgLVOT Peak Wero.131.3cm/s AO Mean GR.8mmHgAVA (VMAX)1.79cm2 INA (VTI)2.74uv5FN P 1/2 Cypm136bp Mitral Valve MV E Ghahwgfn46.9cm/sMV DECEL JOKI745jd MV A Udzptmav651.1cm/sE/A Ratio0.5 Tricuspid Valve TR P. Awonzier728lp/sRAP QSTOSRAL6muNc TR Peak Gr.92vyLfQQNV56nxWg Pulmonary Vein S1 Mxdocjru11.9cm/sD2 Rltbzukf40.9cm/s LEFT VENTRICLE The Left Ventricle is moderately dilated. There is moderate concentric left ventricular hypertrophy. The left ventricular systolic function is normal and the ejection fraction is within normal range. Th e Ejection Fraction is 55-60%. There is normal LV segmental wall motion. Transmitral Doppler flow pat tern is Grade I-abnormal relaxation pattern. RIGHT VENTRICLE The right ventricle is normal size. The right ventricular systolic function is normal. ATRIA The left atrium size is normal. The right atrium size is normal. The interatrial septum is intact wit h no evidence for an atrial septal defect or patent foramen ovale as noted on 2-D or Doppler imaging. AORTIC VALVE The aortic valve is moderately thickened but opens well. Doppler and Color Flow revealed moderate aor tic regurgitation. There is no significant aortic valvular stenosis. MITRAL VALVE The mitral valve is calcified but opens well. Mitral annular calcification is mild to moderate. There is no evidence of mitral valve prolapse. There is no mitral valve stenosis. Doppler and Color-flow r evealed mild mitral regurgitation. TRICUSPID VALVE The tricuspid valve is normal in structure and function. Doppler and Color Flow revealed trace tricus pid regurgitation. There is mild pulmonary hypertension. The PA pressure was estimated at 30 mmHg. Th ere is no tricuspid valve stenosis. PULMONIC VALVE Doppler and Color Flow revealed mild pulmonic valvular regurgitation. There is no pulmonic valvular s tenosis. GREAT VESSELS The aortic root is normal in size. The ascending aorta is moderately dilated at 3.8 cm. The IVC is no rmal in size and collapses >50% with inspiration. PERICARDIAL EFFUSION There is no evidence of significant pericardial effusion. Critical Notification Critical Value: No <Conclusion> The left ventricular systolic function is normal and the ejection fraction is within normal range. Th e Ejection Fraction is 55-60%. There is moderate concentric left ventricular hypertrophy. There is normal LV segmental wall motion. Doppler and Color Flow revealed moderate aortic regurgitation. The ascending aorta is moderately dilated at 3.8 cm. Signed by : Britany Cuenca, Electronically Approved : 02/23/2019 13:47:18
== END ==
LOC: ECHO 12:44
PROVIDERS: ATTEND Internal Medicine Cardiovascular Disease
DX: I08.8 Other rheumatic multiple valve diseases (principal); I25.5 Ischemic cardiomyopathy; I27.20 Pulmonary hypertension, unspecified; I11.0 Hypertensive heart disease with heart failure; I50.9 Heart failure, unspecified; E03.9 Hypothyroidism, unspecified; E78.00 Pure hypercholesterolemia, unspecified
CPT/HCPCS: 93306

== ENCOUNTER 2019-09-25 08:34 | Inpatient (IN) | payer BC, OTHER ==
[~2019-09-25] VITALS: Ht 167.6 cm; Wt 76.3 kg
[2019-09-25 09:09] LABS: BASO # 0.1 x10^3/uL (0.0-0.2); BASO % 1 % (0-3); EOS % 0 % (0-3); HEMATOCRIT 42.7 % (36.0-47.0); HEMOGLOBIN 14.8 g/dL (12.0-15.5); LYMPH # 0.3 x10^3/uL (1.0-4.8); LYMPH % 3 % (24-48); MEAN CORPUSCULAR HEMOGLOBIN 34 pg (25-35); MEAN CORPUSCULAR HGB CONC 35 g/dL (31-37); MEAN CORPUSCULAR VOLUME 99 fL (79-100); MONO # 0.4 x10^3/uL (0.0-1.1); MONO % 4 % (0-9); NEUT # 9.9 x10^3/uL (1.8-7.7); NEUT % 92 % (31-73); PLATELET COUNT 171 x10^3/uL (140-400); WHITE BLOOD COUNT 10.8 x10^3/uL (4.0-11.0)
[2019-09-25 09:16] LABS: CLARITY,URINE CLOUDY
[2019-09-25 09:18] LABS: CALCIUM 8.9 mg/dL (8.5-10.1); CREATININE 1.4 mg/dL (0.6-1.0); GFR 35.6; POTASSIUM 3.8 mmol/L (3.5-5.1); PROTHROMBIN TIME PATIENT 12.5 SEC (11.7-14.0)
[2019-09-25 09:24] LABS: ALBUMIN 3.6 g/dL (3.4-5.0); ALBUMIN/GLOBULIN RATIO 0.9 (1.0-1.7); TOTAL BILIRUBIN 3.5 mg/dL (0.2-1.0); TOTAL PROTEIN 7.4 g/dL (6.4-8.2)
[2019-09-25] MEDS ORDERED: MORPHINE SULFATE 4 MG/ML VIAL. IV ONE (09:30)
[2019-09-25] MEDS ORDERED: ONDANSETRON PF 4 MG/2 ML VIAL. IVP ONE (09:30)
[2019-09-25 09:37] LABS: COLOR,URINE ORANGE
[2019-09-25 09:39] LABS: BACTERIA,URINE MANY /HPF (0-FEW); SQUAMOUS EPITHELIAL CELL,UR FEW /LPF
[2019-09-25 09:40] LABS: HYALINE CASTS, URINE OCCASIONAL /HPF
[2019-09-25 10:16] LABS: % BANDS 1 % (0-9); % LYMPHS 4 % (24-48); % MONOS 1 % (0-10); % SEGS 94 % (35-66); PLT ESTIMATE ADEQUATE (ADEQUATE)
--- NOTE | 2019-09-25 10:40 | RAD ---
ABDOMEN LTD History: Reason: RUQ ABDOMINAL PAIN, ELEVATED LFT / Spl. Instructions: / History: Comparison: None. Technique: Transabdominal ultrasound images are obtained of the right upper quadrant. Findings: Visualized pancreas is not well seen due to overlying bowel gas. Liver is normal in echogenicity. Right hepatic lobe measures 19.3 cm. Portal flow is hepatopedal. Distended gallbladder. No gallbladder wall thickening. No pericholecystic fluid. No cholelithiasis. Dilated common bile duct measures up to 1.3 cm. Distal aspect not well seen due to overlying structures. The right kidney measures 10.4 x 3.7 x 2.8 cm. Degraded evaluation due to overlying structures. Right superior renal cyst measures 1.5 cm. No follow-up imaging is recommended per consensus recommendations based on imaging criteria. Visualized portions of the aorta and IVC have normal caliber. IMPRESSION: 1. Dilated common bile duct. Recommend MRI/MRCP to further evaluate for distal obstruction. 2. Distended gallbladder. 3. Hepatomegaly. Electronically signed by: Raul Sung DO (09/25/2019 10:36 AM) [id number]
--- NOTE | 2019-09-25 10:44 | PHYS DOC ---
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 Patient has some nausea, denies any vomiting, denies any chest pain or any trouble breathing. Patient has history hypertension and atrial fibrillation patient did not take her medication this morning yet. Patient denies any cough or fever. Patient was brought here by EMS from the half-way. She is full code. Review of Systems: Review of Systems: Constitutional: Denies fever or chills. [] Eyes: Denies change in visual acuity. [] HENT: Denies nasal congestion or sore throat. [] Respiratory: Denies cough or shortness of breath. [] Cardiovascular: Denies chest pain or edema. [] GI: Positive for abdominal pain, nausea, vomiting, no bloody stools or diarrhea. [] : Denies dysuria. [] Musculoskeletal: Denies back pain or joint pain. [] Integument: Denies rash. [] Neurologic: Denies headache, focal weakness or sensory changes. [] Endocrine: Denies polyuria or polydipsia. [] Lymphatic: Denies swollen glands. [] Psychiatric: Denies depression or anxiety. [] Heart Score: Risk Factors: Risk Factors: DM, Current or recent (<one month) smoker, HTN, HLP, family history of CAD, obesity. Risk Scores: Score 0 - 3: 2.5% MACE over next 6 weeks - Discharge Home Score 4 - 6: 20.3% MACE over next 6 weeks - Admit for Clinical Observation Score 7 - 10: 72.7% MACE over next 6 weeks - Early Invasive Strategies Current Medications: Current Medications Medications (Trade) Dose Ordered Sig/Jagdish Start Time Stop Time Status Last Admin Dose Admin Morphine Sulfate (Morphine Sulfate) 4 mg 1X ONCE 09/25/19 09:30 09/25/19 09:31 DC 09/25/19 09:34 4 MG Ondansetron HCl (Zofran) 4 mg 1X ONCE 09/25/19 09:30 09/25/19 09:31 DC 09/25/19 09:33 4 MG Allergies: Allergies: Allergies Coded Allergies Type Severity Reaction Last Updated Verified No Known Drug Allergies 03/10/18 No Physical Exam: PE: Constitutional: Well developed, well nourished, no acute distress, non-toxic appearance. [] HENT: Normocephalic, atraumatic, bilateral external ears normal, oropharynx moist, no oral exudates, nose normal. [] Eyes: PERRLA, EOMI, conjunctiva normal, no discharge. [] Neck: Normal range of motion, no tenderness, supple, no stridor. [] Cardiovascular:Heart rate regular rhythm, loud systolic heart murmur [] Lungs & Thorax: Bilateral breath sounds clear to auscultation [] Abdomen: Bowel sounds normal, soft, There is tenderness in epigastric and RUQ AREA, NO REBOUND, no masses, no pulsatile masses. [] Skin: Warm, dry, no erythema, no rash. [] Back: No tenderness, no CVA tenderness. [] Extremities: No tenderness, no cyanosis, no clubbing, ROM intact, no edema. [] Neurologic: Alert and oriented X 3, normal motor function, normal sensory function, no focal deficits noted. [] Psychologic: Affect normal, judgement normal, mood normal. [] Current Patient Data: Labs: Laboratory Tests Test 09/25/19 08:44 09/25/19 09:00 White Blood Count 10.8 x10^3/uL (4.0-11.0) Red Blood Count 4.30 x10^6/uL (3.50-5.40) Hemoglobin 14.8 g/dL (12.0-15.5) Hematocrit 42.7 % (36.0-47.0) Mean Corpuscular Volume 99 fL (79-100) Mean Corpuscular Hemoglobin 34 pg (25-35) Mean Corpuscular Hemoglobin Concent 35 g/dL (31-37) Red Cell Distribution Width 14.0 % (11.5-14.5) Platelet Count 171 x10^3/uL (140-400) Neutrophils (%) (Auto) 92 % (31-73) H Lymphocytes (%) (Auto) 3 % (24-48) L Monocytes (%) (Auto) 4 % (0-9) Eosinophils (%) (Auto) 0 % (0-3) Basophils (%) (Auto) 1 % (0-3) Neutrophils # (Auto) 9.9 x10^3/uL (1.8-7.7) H Lymphocytes # (Auto) 0.3 x10^3/uL (1.0-4.8) L Monocytes # (Auto) 0.4 x10^3/uL (0.0-1.1) Eosinophils # (Auto) 0.0 x10^3/uL (0.0-0.7) Basophils # (Auto) 0.1 x10^3/uL (0.0-0.2) Segmented Neutrophils % 94 % (35-66) H Band Neutrophils % 1 % (0-9) Lymphocytes % 4 % (24-48) L Monocytes % 1 % (0-10) Platelet Estimate Adequate (ADEQUATE) Prothrombin Time 12.5 SEC (11.7-14.0) Prothrombin Time INR 1.0 (0.8-1.1) Activated Partial Thromboplast Time 24 SEC (24-38) Sodium Level 140 mmol/L (136-145) Potassium Level 3.8 mmol/L (3.5-5.1) Chloride Level 101 mmol/L (98-107) Carbon Dioxide Level 28 mmol/L (21-32) Anion Gap 11 (6-14) Blood Urea Nitrogen 22 mg/dL (7-20) H Creatinine 1.4 mg/dL (0.6-1.0) H Estimated GFR (Cockcroft-Gault) 35.6 BUN/Creatinine Ratio 16 (6-20) Glucose Level 187 mg/dL (70-99) H Calcium Level 8.9 mg/dL (8.5-10.1) Total Bilirubin 3.5 mg/dL (0.2-1.0) H Aspartate Amino Transferase (AST) 460 U/L (15-37) H Alanine Aminotransferase (ALT) 460 U/L (14-59) H Alkaline Phosphatase 376 U/L (46-116) H Troponin I Quantitative < 0.017 ng/mL (0.000-0.055) Total Protein 7.4 g/dL (6.4-8.2) Albumin 3.6 g/dL (3.4-5.0) Albumin/Globulin Ratio 0.9 (1.0-1.7) L Lipase 125 U/L (73-393) Urine Collection Type Unknown Urine Color [place] Urine Clarity Cloudy Urine pH (<5.0-8.0) Urine Specific [place] (1.000-1.030) Urine Protein mg/dL (NEG-TRACE) Urine Glucose (UA) mg/dL (NEG) Urine Ketones (Stick) mg/dL (NEG) Urine Blood (NEG) Urine Nitrite (NEG) Urine Bilirubin (NEG) Urine Urobilinogen Dipstick mg/dL (0.2 mg/dL) Urine Leukocyte Esterase (NEG) Urine RBC 1-2 /HPF (0-2) Urine WBC 5-10 /HPF (0-4) Urine Squamous Epithelial Cells Few /LPF Urine Bacteria Many /HPF (0-FEW) Urine Hyaline Casts Occasional /HPF Urine Mucus Slight /LPF Laboratory Tests 09/25/19 08:44 Laboratory Tests 09/25/19 08:44 Vital Signs: Vital Signs Date Time Temp Pulse Resp B/P (MAP) Pulse Ox O2 Delivery O2 Flow Rate FiO2 09/25/19 10:05 62 182/82 (115) 97 Room Air 09/25/19 09:34 20 09/25/19 08:41 97.8 97.8 EKG: EKG: EKG was done at 843, heart rate of 60 beats per minutes, sinus rhythm, no ST segment elevation. [] Radiology/Procedures: Radiology/Procedures: [][facility] [address] [place], [place] [id number] IMAGING REPORT Signed PATIENT: FATEMEH CLAY ACCOUNT: [id number] : 1930 LOCATION: ER AGE: 89 SEX: F EXAM STATUS: REG ER ORD. PHYSICIAN: HARDEEP CHAVEZ DO REASON: RUQ ABDOMINAL PAIN, ELEVATED LFT PROCEDURE: ABDOMEN LTD ABDOMEN LTD History: Reason: RUQ ABDOMINAL PAIN, ELEVATED LFT / Spl. Instructions: / History: Comparison: None. Technique: Transabdominal ultrasound images are obtained of the right upper quadrant. Findings: Visualized pancreas is not well seen due to overlying bowel gas. Liver is normal in echogenicity. Right hepatic lobe measures 19.3 cm. Portal flow is hepatopedal. Distended gallbladder. No gallbladder wall thickening. No pericholecystic fluid. No cholelithiasis. Dilated common bile duct measures up to 1.3 cm. Distal aspect not well seen due to overlying structures. The right kidney measures 10.4 x 3.7 x 2.8 cm. Degraded evaluation due to overlying structures. Right superior renal cyst measures 1.5 cm. No follow-up imaging is recommended per consensus recommendations based on imaging criteria. Visualized portions of the aorta and IVC have normal caliber. IMPRESSION: 1. Dilated common bile duct. Recommend MRI/MRCP to further evaluate for distal obstruction. 2. Distended gallbladder. 3. Hepatomegaly. Electronically signed by: Raul Sung DO (09/25/2019 10:36 AM) [id number] DICTATED and SIGNED BY: RAUL SUNG DO DATE: 09/25/19 1036 Course & Med Decision Making: Course & Med Decision Making Pertinent Labs and Imaging studies reviewed. (See chart for details) Patient is an 89-year-old female who was evaluated in ER due to epigastric abdominal pain, ultrasound of her gallbladder show dilated common bile duct, her liver function tests were significantly elevated. Patient will need an MRCP, she will need to be admitted to hospital for further evaluation and treatment. Discussed with Dr. Restrepo who agreed to admit the patient. Juany Disclaimer: Juany Disclaimer: This electronic medical record was generated, in whole or in part, using a voice recognition dictation system. Departure Departure Impression: Primary Impression: Abdominal pain Additional Impressions: Common bile duct dilatation HTN (hypertension) Disposition: ADMITTED INPATIENT Admitting Physician: LOPEZ (DR. RESTREPO) Condition: STABLE Referrals: RHONDA GARRIDO MD (PCP) Justicifation of Admission Dx: Justifications for Admission: Justification of Admission Dx: N/A HARDEEP CHAVEZ DO Sep 25, 2019 10:44
[2019-09-25] MEDS ORDERED: hydrALAZINE 20 MG/ML VIAL. IVP ONE (11:15)
[2019-09-25] MEDS ORDERED: ONDANSETRON PF 4 MG/2 ML VIAL. IV PRN (11:45)
[2019-09-25] MEDS: fentaNYL PF VIAL 100 MCG/2 ML VIAL IV PRN (12:25)
[2019-09-25 12:30] VITALS: BP 145/69
--- NOTE | 2019-09-25 12:35 | EKG ---
[facility] [address] [place] [address] Test Date: 2019-09-25 Test Time: 08:43:54 Pat Name: FATEMEH CLAY Department: Room: 408 Gender: F Copyholder: : 1930 Requested By: HARDEEP CHAVEZ Order Number: [id number] Reading MD: Measurements Intervals [place] Rate: 60 P: 47 SC: 194 QRS: 3 QRSD: 80 T: 38 QT: 418 QTc: 418 Interpretive Statements SINUS RHYTHM LEFT ATRIAL ABNORMALITY ST & T ABNORMALITY, CONSIDER HIGH LATERAL ISCHEMIA OR LEFT VENTRICULAR STRAIN ABNORMAL ECG RI6.02 No previous ECG available for comparison
--- NOTE | 2019-09-25 13:31 | PDOC2 ---
GI CONSULT Reason For Consult: Abd pain, dilated CBD HPI: HPI: 89 y/o female w/ pain in epigastrium radiating to LUQ - awoke from sleep "like someone punched me." Pain has resolved. Noted in ER w/ elevated LFTs and dilated CBD on US w/ distended GB (no stones). We saw last year for bloody stools and anemia after cardiac cath with stent placement - she deferred 'scopes at that time. Rare reflux on PPI. Denies dysphagia, n/v, chronic abd pain, weight loss, diarrhea, constipation, hematochezia, or melena. No previous EGD or colonoscopy. Denies GB, liver, pancreas, and PUD history. Summary list includes ASA, Brilinta, and amiodarone. PMH: PMH: CAD w/ stent, ICM, A Fib, HTN, HLD, AAA, essential tremor, CVA, anxiety, OA, [place] UTI, hypothyroidism, osteoporosis left radius ORIF, cataract removal, pubic rami fx, left olecranon ORIF FH: Family History: CAD Social History: Smoke: No ALCOHOL: none Drugs: None ROS: GEN: Denies fevers, chills, sweats HEENT: Denies blurred vision, sore throat CV: Denies chest pain RESP: Denies shortness of air, cough GI: Per HPI : Denies hematuria, dysuria ENDO: Denies weight changes NEURO: Denies confusion, dizziness MSK: Denies weakness, joint pain/swelling SKIN: Denies jaundice, pruritus Vitals: Vitals: Vital Signs Date Time Temp Pulse Resp B/P (MAP) Pulse Ox O2 Delivery O2 Flow Rate FiO2 09/25/19 13:22 95 Room Air 09/25/19 12:30 98.2 64 18 145/69 (94) 98.2 Labs: Labs: Laboratory Tests Test 09/25/19 08:44 09/25/19 09:00 White Blood Count 10.8 x10^3/uL (4.0-11.0) Red Blood Count 4.30 x10^6/uL (3.50-5.40) Hemoglobin 14.8 g/dL (12.0-15.5) Hematocrit 42.7 % (36.0-47.0) Mean Corpuscular Volume 99 fL (79-100) Mean Corpuscular Hemoglobin 34 pg (25-35) Mean Corpuscular Hemoglobin Concent 35 g/dL (31-37) Red Cell Distribution Width 14.0 % (11.5-14.5) Platelet Count 171 x10^3/uL (140-400) Neutrophils (%) (Auto) 92 % (31-73) Lymphocytes (%) (Auto) 3 % (24-48) Monocytes (%) (Auto) 4 % (0-9) Eosinophils (%) (Auto) 0 % (0-3) Basophils (%) (Auto) 1 % (0-3) Neutrophils # (Auto) 9.9 x10^3/uL (1.8-7.7) Lymphocytes # (Auto) 0.3 x10^3/uL (1.0-4.8) Monocytes # (Auto) 0.4 x10^3/uL (0.0-1.1) Eosinophils # (Auto) 0.0 x10^3/uL (0.0-0.7) Basophils # (Auto) 0.1 x10^3/uL (0.0-0.2) Segmented Neutrophils % 94 % (35-66) Band Neutrophils % 1 % (0-9) Lymphocytes % 4 % (24-48) Monocytes % 1 % (0-10) Platelet Estimate Adequate (ADEQUATE) Prothrombin Time 12.5 SEC (11.7-14.0) Prothromb Time International Ratio 1.0 (0.8-1.1) Activated Partial Thromboplast Time 24 SEC (24-38) Sodium Level 140 mmol/L (136-145) Potassium Level 3.8 mmol/L (3.5-5.1) Chloride Level 101 mmol/L (98-107) Carbon Dioxide Level 28 mmol/L (21-32) Anion Gap 11 (6-14) Blood Urea Nitrogen 22 mg/dL (7-20) Creatinine 1.4 mg/dL (0.6-1.0) Estimated GFR (Cockcroft-Gault) 35.6 BUN/Creatinine Ratio 16 (6-20) Glucose Level 187 mg/dL (70-99) Calcium Level 8.9 mg/dL (8.5-10.1) Total Bilirubin 3.5 mg/dL (0.2-1.0) Aspartate Amino Transf (AST/SGOT) 460 U/L (15-37) Alanine Aminotransferase (ALT/SGPT) 460 U/L (14-59) Alkaline Phosphatase 376 U/L (46-116) Troponin I Quantitative < 0.017 ng/mL (0.000-0.055) Total Protein 7.4 g/dL (6.4-8.2) Albumin 3.6 g/dL (3.4-5.0) Albumin/Globulin Ratio 0.9 (1.0-1.7) Lipase 125 U/L (73-393) Urine Collection Type Unknown Urine Color [place] Urine Clarity Cloudy Urine pH (<5.0-8.0) Urine Specific [place] (1.000-1.030) Urine Protein mg/dL (NEG-TRACE) Urine Glucose (UA) mg/dL (NEG) Urine Ketones (Stick) mg/dL (NEG) Urine Blood (NEG) Urine Nitrite (NEG) Urine Bilirubin (NEG) Urine Urobilinogen Dipstick mg/dL (0.2 mg/dL) Urine Leukocyte Esterase (NEG) Urine RBC 1-2 /HPF (0-2) Urine WBC 5-10 /HPF (0-4) Urine Squamous Epithelial Cells Few /LPF Urine Bacteria Many /HPF (0-FEW) Urine Hyaline Casts Occasional /HPF Urine Mucus Slight /LPF Allergies: Coded Allergies: No Known Drug Allergies (Unverified , 03/10/18) Medications: Current Medications Medications (Trade) Dose Ordered Sig/Jagdish Route PRN Reason Start Time Stop Time Status Last Admin Dose Admin Morphine Sulfate (Morphine Sulfate) 4 mg 1X ONCE IV 09/25/19 09:30 09/25/19 09:31 DC 09/25/19 09:34 Ondansetron HCl (Zofran) 4 mg 1X ONCE IVP 09/25/19 09:30 09/25/19 09:31 DC 09/25/19 09:33 Hydralazine HCl (Apresoline Inj) 10 mg 1X ONCE IVP 09/25/19 11:15 09/25/19 11:16 DC 09/25/19 11:53 Fentanyl Citrate (Fentanyl 2ml Vial) 50 mcg PRN Q1HR PRN IV PAIN 09/25/19 11:45 09/26/19 11:44 09/25/19 12:25 Imaging: Imaging: RUQ US 09/24 Findings: Visualized pancreas is not well seen due to overlying bowel gas. Liver is normal in echogenicity. Right hepatic lobe measures 19.3 cm. Portal flow is hepatopedal. Distended gallbladder. No gallbladder wall thickening. No pericholecystic fluid. No cholelithiasis. Dilated common bile duct measures up to 1.3 cm. Distal aspect not well seen due to overlying structures. The right kidney measures 10.4 x 3.7 x 2.8 cm. Degraded evaluation due to overlying structures. Right superior renal cyst measures 1.5 cm. No follow-up imaging is recommended per consensus recommendations based on imaging criteria. Visualized portions of the aorta and IVC have normal caliber. IMPRESSION: 1. Dilated common bile duct. Recommend MRI/MRCP to further evaluate for distal obstruction. 2. Distended gallbladder. 3. Hepatomegaly. PE: GEN: NAD, was resting HEENT: Atraumatic, PERRL LUNGS: CTAB HEART: RRR ABD: NABS, S/ND/NT EXTREMITY: No edema SKIN: No rashes, no jaundice NEURO/PSYCH: appropriate A/P: A/P: Upper abdominal pain Elevated LFTs, dilated CBD GERD CRC screen - none Hepatomegaly CAD, A Fib, CKD -- Returned to see w/ Dr. Sosa. Check CT A/P and COVID swab in case need for ERCP, also start IVF. May have clears after CT. Resume PPI. Recheck labs in a.m., urine culture pending. JOSE DE JESUS LYMAN Sep 25, 2019 13:31
[2019-09-25] MEDS ORDERED: LORA10TA3 PO (13:56)
[2019-09-25] MEDS ORDERED: FLUT9.9S NS (13:56)
[2019-09-25] MEDS ORDERED: BENZ200C47 PO (13:56)
[2019-09-25] MEDS ORDERED: MENT118G TP (13:56)
[2019-09-25] MEDS ORDERED: CONTRAST GIVEN. MC PRN (14:30)
[2019-09-25] MEDS ORDERED: IOHEXOL 240 MG/ML 50ML VIAL. PO ONE (14:30)
[2019-09-25 15:15] VITALS: BP 138/71
[2019-09-25] MEDS: PANTOPRAZOLE IV PUSH 40 MG VIAL. IVP SCH (15:23)
[2019-09-25] MEDS: IV 1/2 NORMAL SALINE 1,000 ML IV SCH (15:26)
--- NOTE | 2019-09-25 15:38 | PDOC1 ---
History and Physical Date of Admission Date of Admission DATE: 09/25/19 TIME: 15:33 Source Source: Chart review, Patient History of Present Illness History of Present Illness Ms. Dhaliwal, is a 89 year old female admti with recurrence of severe abd pain. She has epigastric abdominal pain that radiated to her back started about 3 AM this morning. Similar pain a couple weeks ago, and went away. she complains of pain, nausea, no vomiting, Patient was brought here by EMS from the longterm. Past Medical History Cardiovascular: AFIB, HTN Pulmonary: No pertinent hx CENTRAL NERVOUS SYSTEM: Other GI: No pertinent hx Heme/Onc: No pertinent hx Hepatobiliary: No pertinent hx Psych: Anxiety Musculoskeletal: Osteoarthritis Rheumatologic: No pertinent hx Infectious disease: No pertinent hx Renal/: No pertinent hx Endocrine: Hypothyroidism Past Surgical History Past Surgical History: Cataract Removal Family History Family History: Coronary Artery Disease, Heart Disease Social History Smoke: No ALCOHOL: none Drugs: None Current Problem List Problem List Problems Medical Problems: (1) Abdominal pain Status: Acute (2) Common bile duct dilatation Status: Acute (3) HTN (hypertension) Status: Acute Current Medications Current Medications Current Medications Morphine Sulfate (Morphine Sulfate) 4 mg 1X ONCE IV Last administered on 09/25/19at 09:34; Start 09/25/19 at 09:30; Stop 09/25/19 at 09:31; Status DC Ondansetron HCl (Zofran) 4 mg 1X ONCE IVP Last administered on 09/25/19at 09:33; Start 09/25/19 at 09:30; Stop 09/25/19 at 09:31; Status DC Hydralazine HCl (Apresoline Inj) 10 mg 1X ONCE IVP Last administered on 09/25/19at 11:53; Start 09/25/19 at 11:15; Stop 09/25/19 at 11:16; Status DC Ondansetron HCl (Zofran) 4 mg PRN Q8HRS PRN IV NAUSEA/VOMITING; Start 09/25/19 at 11:45; Stop 09/26/19 at 11:44 Fentanyl Citrate (Fentanyl 2ml Vial) 50 mcg PRN Q1HR PRN IV PAIN Last administered on 09/25/19at 12:25; Start 09/25/19 at 11:45; Stop 09/26/19 at 11:44 Pantoprazole Sodium (PROTONIX VIAL for IV PUSH) 40 mg DAILYAC IVP Last administered on 09/25/19at 15:23; Start 09/25/19 at 15:00 Iohexol (Omnipaque 240 Mg/ml) 30 ml 1X ONCE PO ; Start 09/25/19 at 14:30; Stop 09/25/19 at 14:31; Status DC Info (CONTRAST GIVEN -- Rx MONITORING) 1 each PRN DAILY PRN MC SEE COMMENTS; Start 09/25/19 at 14:30; Stop 09/27/19 at 14:29 Sodium Chloride 1,000 ml @ 75 mls/hr [id number] IV Last administered on 09/25/19at 15:26; Start 09/25/19 at 14:45 Active Scripts Active Vitamin D3 (Cholecalciferol (Vitamin D3)) 1,000 Unit Tablet 1,000 Unit PO DAILY Proair Hfa (Albuterol Sulfate) 8.5 Gm Hfa.aer.ad 2.5 Mg NEB RTQID Lasix (Furosemide) 40 Mg Tablet 1 Tab PO DAILY Klor-Con M20 (Potassium Chloride) 20 Meq Tab.er.prt 20 Meq PO DAILY 30 Days Reported Biofreeze (Menthol) 118 Ml Gel..ml. 1 [place] TP PRN 7 Days Benzonatate 200 Mg Capsule 1 Cap PO PRN TID PRN 7 Days Loratadine 10 Mg Tablet 1 Tab PO DAILY Flonase Allergy Relief (Fluticasone Propionate) 9.9 Ml [place].susp 2 Sprays NS BID Aspirin 325 Mg Tablet 81 Mg PO DAILY Levothyroxine Sodium 125 Mcg Tablet 1 Tab PO DAILY Metoprolol Tartrate 50 Mg Tablet 1 Tab PO DAILY Allergies Allergies: Coded Allergies: No Known Drug Allergies (Unverified , 03/10/18) ROS General: YES: Fatigue PSYCHOLOGICAL ROS: No: Anxiety, Behavioral Disorder, Concentration difficultie, Decreased libido, Depression, Disorientation, Hallucinations, Hostility, Irritablity, Memory difficulties, Mood Swings, Obsessive thoughts, Other Eyes: No Blurry vision, No Decreased vision, No Double vision, No Dry eyes, No Excessive tearing, No Eye Pain, No Itchy Eyes, No Loss of vision, No Photophobia, No Scotomata, No Uses contacts, No Uses glasses, No Other HEENT: No: Heacaches, Visual Changes, Hearing change, Nasal congestion, Nasal discharge, Oral lesions, Sinus pain, Sore Throat, Epistaxis, Sneezing, Snoring, Tinnitus, Vertigo, Vocal changes, Other Respiratory: No: Cough, Hemoptysis, Orthopnea, Pleuritic Pain, Shortness of breath, SOB with excertion, Sputum Changes, Stridor, Tachypnea, Wheezing, Other Cardiovascular: No Chest Pain, No Palpitations, No Orthopnea, No Paroxysmal Noc. Dyspnea, No Edema, No Lt Headedness, No Other Gastrointestinal: Yes Nausea, Yes Abdominal Pain Genitourinary: No Dysuria, No Frequency, No Incontinence, No Hematuria, No Retention, No Discharge, No Urgency, No Pain, No Flank Pain, No Other, No , No , No , No , No , No , No Musculoskeletal: Yes Joint Stiffness; No Gait Disturbance, No Joint Pain, No Joint Swelling, No Muscle Pain, No Muscular Weakness, No Pain In:, No Swelling In:, No Other Neurological: No Behavorial Changes, No Bowel/Bladder ControlChng, No Confusion, No Dizziness, No Gait Disturbance, No Headaches, No Impaired Coord/balance, No Memory Loss, No Numbness/Tingling, No Seizures, No Speech Problems, No Tremors, No Visual Changes, No Weakness, No Other Skin: No Dry Skin, No Eczema, No Hair Changes, No Lumps, No Mole Changes, No Mottling, No Nail Changes, No Pruritus, No Rash, No Skin Lesion Changes, No Other, No Acne Physical Exam General: Alert, Oriented X3, Cooperative, No acute distress HEENT: PERRLA, EOMI Lungs: Clear to auscultation, Normal air movement Heart: S1S2, no gallops Abdomen: Normal bowel sounds (tender, RUQ), Soft Extremities: No cyanosis, No edema Skin: No rashes Neuro: Normal tone, Sensation intact Psych/Mental Status: Mood NL Vitals Vitals Vital Signs Date Time Temp Pulse Resp B/P (MAP) Pulse Ox O2 Delivery O2 Flow Rate FiO2 09/25/19 14:05 Room Air 09/25/19 13:22 95 09/25/19 12:30 98.2 64 18 145/69 (94) 98.2 Labs Labs Laboratory Tests Test 09/25/19 08:44 09/25/19 09:00 White Blood Count 10.8 x10^3/uL (4.0-11.0) Red Blood Count 4.30 x10^6/uL (3.50-5.40) Hemoglobin 14.8 g/dL (12.0-15.5) Hematocrit 42.7 % (36.0-47.0) Mean Corpuscular Volume 99 fL (79-100) Mean Corpuscular Hemoglobin 34 pg (25-35) Mean Corpuscular Hemoglobin Concent 35 g/dL (31-37) Red Cell Distribution Width 14.0 % (11.5-14.5) Platelet Count 171 x10^3/uL (140-400) Neutrophils (%) (Auto) 92 % (31-73) Lymphocytes (%) (Auto) 3 % (24-48) Monocytes (%) (Auto) 4 % (0-9) Eosinophils (%) (Auto) 0 % (0-3) Basophils (%) (Auto) 1 % (0-3) Neutrophils # (Auto) 9.9 x10^3/uL (1.8-7.7) Lymphocytes # (Auto) 0.3 x10^3/uL (1.0-4.8) Monocytes # (Auto) 0.4 x10^3/uL (0.0-1.1) Eosinophils # (Auto) 0.0 x10^3/uL (0.0-0.7) Basophils # (Auto) 0.1 x10^3/uL (0.0-0.2) Segmented Neutrophils % 94 % (35-66) Band Neutrophils % 1 % (0-9) Lymphocytes % 4 % (24-48) Monocytes % 1 % (0-10) Platelet Estimate Adequate (ADEQUATE) Prothrombin Time 12.5 SEC (11.7-14.0) Prothromb Time International Ratio 1.0 (0.8-1.1) Activated Partial Thromboplast Time 24 SEC (24-38) Sodium Level 140 mmol/L (136-145) Potassium Level 3.8 mmol/L (3.5-5.1) Chloride Level 101 mmol/L (98-107) Carbon Dioxide Level 28 mmol/L (21-32) Anion Gap 11 (6-14) Blood Urea Nitrogen 22 mg/dL (7-20) Creatinine 1.4 mg/dL (0.6-1.0) Estimated GFR (Cockcroft-Gault) 35.6 BUN/Creatinine Ratio 16 (6-20) Glucose Level 187 mg/dL (70-99) Calcium Level 8.9 mg/dL (8.5-10.1) Total Bilirubin 3.5 mg/dL (0.2-1.0) Aspartate Amino Transf (AST/SGOT) 460 U/L (15-37) Alanine Aminotransferase (ALT/SGPT) 460 U/L (14-59) Alkaline Phosphatase 376 U/L (46-116) Troponin I Quantitative < 0.017 ng/mL (0.000-0.055) Total Protein 7.4 g/dL (6.4-8.2) Albumin 3.6 g/dL (3.4-5.0) Albumin/Globulin Ratio 0.9 (1.0-1.7) Lipase 125 U/L (73-393) Urine Collection Type Unknown Urine Color [place] Urine Clarity Cloudy Urine pH (<5.0-8.0) Urine Specific [place] (1.000-1.030) Urine Protein mg/dL (NEG-TRACE) Urine Glucose (UA) mg/dL (NEG) Urine Ketones (Stick) mg/dL (NEG) Urine Blood (NEG) Urine Nitrite (NEG) Urine Bilirubin (NEG) Urine Urobilinogen Dipstick mg/dL (0.2 mg/dL) Urine Leukocyte Esterase (NEG) Urine RBC 1-2 /HPF (0-2) Urine WBC 5-10 /HPF (0-4) Urine Squamous Epithelial Cells Few /LPF Urine Bacteria Many /HPF (0-FEW) Urine Hyaline Casts Occasional /HPF Urine Mucus Slight /LPF Laboratory Tests Test 09/25/19 08:44 09/25/19 09:00 White Blood Count 10.8 x10^3/uL (4.0-11.0) Red Blood Count 4.30 x10^6/uL (3.50-5.40) Hemoglobin 14.8 g/dL (12.0-15.5) Hematocrit 42.7 % (36.0-47.0) Mean Corpuscular Volume 99 fL (79-100) Mean Corpuscular Hemoglobin 34 pg (25-35) Mean Corpuscular Hemoglobin Concent 35 g/dL (31-37) Red Cell Distribution Width 14.0 % (11.5-14.5) Platelet Count 171 x10^3/uL (140-400) Neutrophils (%) (Auto) 92 % (31-73) Lymphocytes (%) (Auto) 3 % (24-48) Monocytes (%) (Auto) 4 % (0-9) Eosinophils (%) (Auto) 0 % (0-3) Basophils (%) (Auto) 1 % (0-3) Neutrophils # (Auto) 9.9 x10^3/uL (1.8-7.7) Lymphocytes # (Auto) 0.3 x10^3/uL (1.0-4.8) Monocytes # (Auto) 0.4 x10^3/uL (0.0-1.1) Eosinophils # (Auto) 0.0 x10^3/uL (0.0-0.7) Basophils # (Auto) 0.1 x10^3/uL (0.0-0.2) Segmented Neutrophils % 94 % (35-66) Band Neutrophils % 1 % (0-9) Lymphocytes % 4 % (24-48) Monocytes % 1 % (0-10) Platelet Estimate Adequate (ADEQUATE) Prothrombin Time 12.5 SEC (11.7-14.0) Prothromb Time International Ratio 1.0 (0.8-1.1) Activated Partial Thromboplast Time 24 SEC (24-38) Sodium Level 140 mmol/L (136-145) Potassium Level 3.8 mmol/L (3.5-5.1) Chloride Level 101 mmol/L (98-107) Carbon Dioxide Level 28 mmol/L (21-32) Anion Gap 11 (6-14) Blood Urea Nitrogen 22 mg/dL (7-20) Creatinine 1.4 mg/dL (0.6-1.0) Estimated GFR (Cockcroft-Gault) 35.6 BUN/Creatinine Ratio 16 (6-20) Glucose Level 187 mg/dL (70-99) Calcium Level 8.9 mg/dL (8.5-10.1) Total Bilirubin 3.5 mg/dL (0.2-1.0) Aspartate Amino Transf (AST/SGOT) 460 U/L (15-37) Alanine Aminotransferase (ALT/SGPT) 460 U/L (14-59) Alkaline Phosphatase 376 U/L (46-116) Troponin I Quantitative < 0.017 ng/mL (0.000-0.055) Total Protein 7.4 g/dL (6.4-8.2) Albumin 3.6 g/dL (3.4-5.0) Albumin/Globulin Ratio 0.9 (1.0-1.7) Lipase 125 U/L (73-393) Urine Collection Type Unknown Urine Color [place] Urine Clarity Cloudy Urine pH (<5.0-8.0) Urine Specific [place] (1.000-1.030) Urine Protein mg/dL (NEG-TRACE) Urine Glucose (UA) mg/dL (NEG) Urine Ketones (Stick) mg/dL (NEG) Urine Blood (NEG) Urine Nitrite (NEG) Urine Bilirubin (NEG) Urine Urobilinogen Dipstick mg/dL (0.2 mg/dL) Urine Leukocyte Esterase (NEG) Urine RBC 1-2 /HPF (0-2) Urine WBC 5-10 /HPF (0-4) Urine Squamous Epithelial Cells Few /LPF Urine Bacteria Many /HPF (0-FEW) Urine Hyaline Casts Occasional /HPF Urine Mucus Slight /LPF VTE Prophylaxis Ordered VTE Prophylaxis Devices: No VTE Pharmacological Prophylaxi: Yes Assessment/Plan Assessment/Plan RUQ pain, Upper abdominal pain common bile duct dilation, may need MRCP or ERCP w/ hepatomegaly Elevated LFTs, dilated CBD GERD CAD, A Fib, CKD -- Justicifation of Admission Dx: Justifications for Admission: Justification of Admission Dx: Yes (acute transaminitis, RUQ pain, CBD dilation) LEEANNA RESTREPO MD Sep 25, 2019 15:38
--- NOTE | 2019-09-25 16:38 | RAD ---
CT abdomen and pelvis with oral contrast only History: Dilated common bile duct on ultrasound Technique: CT imaging was performed of the abdomen and pelvis. Only oral contrast was also given. Multiplanar images are reviewed. Exposure: One or more of the following individualized dose reduction techniques were utilized for this examination: 1. Automated exposure control 2. Adjustment of the mA and/or kV according to patient size 3. Use of iterative reconstruction technique. Comparison: Ultrasound of the abdomen this same day; July 12, 2018 chest CTA; pelvis CT December 14, 2018 Findings: As seen on ultrasound, there is distention of the gallbladder although findings present on previous pelvis CT November 2018. There is some dependent density in the gallbladder lumen as may be seen with cholelithiasis although not well demonstrated on ultrasound. There is also appearance of wall prominence of the gallbladder although also poorly demonstrated on ultrasound. As best seen image 35 series 2, there is approximate 1.2 cm transverse by 1.4 cm CC by 0.9 cm calcification in the dilated common bile duct, more proximal caliber about 1.6 cm. There is also intrahepatic biliary ductal dilatation. There is a 1.2 cm cyst of the medial, mid to superior right kidney. Small calcification of the left kidney is probably vascular in etiology. There is no hydronephrosis of either kidney. There is no adrenal nodularity. There is splenic arterial calcification, also scattered calcification of the abdominal aorta. There are multiple splenic granulomas. There is fairly large hiatal hernia containing at least half of the stomach, larger than previous chest CTA. There is some coronary calcification. There is no pleural fluid. Pancreas is atrophic. There is a tiny fat-containing umbilical hernia. There is colonic diverticulosis greatest of the sigmoid colon. There is degenerative disc disease with vacuum phenomenon L3-4 through L5-S1. There is old left inferior pubic ramus fracture. There is mild lumbar dextroscoliosis. Impression: 1. There is choledocholithiasis. There is dilatation of the common bile duct and gallbladder, also likely gallbladder wall thickening as could be seen with cholecystitis. There is also some dependent hyperdensity in the gallbladder lumen suspicious for cholelithiasis although poorly demonstrated on ultrasound. 2. There is fairly large hiatal hernia containing at least half of the stomach. 3. There is colonic diverticulosis greatest of the sigmoid colon. Electronically signed by: Michael George MD (09/25/2019 4:35 PM) [facility]
[2019-09-25 19:00] VITALS: BP 160/75
[2019-09-25 23:00] VITALS: BP 145/67
[2019-09-26] VITALS (7 sets, daily range): BP systolic 92–162; BP diastolic 61–80
[2019-09-26] MEDS: IV 1/2 NORMAL SALINE 1,000 ML IV SCH ×2 (04:32→15:39)
[2019-09-26 04:39] LABS: BASO # 0.1 x10^3/uL (0.0-0.2); BASO % 0 % (0-3); EOS % 0 % (0-3); HEMATOCRIT 43.1 % (36.0-47.0); HEMOGLOBIN 14.6 g/dL (12.0-15.5); LYMPH # 0.7 x10^3/uL (1.0-4.8); LYMPH % 5 % (24-48); MEAN CORPUSCULAR HEMOGLOBIN 34 pg (25-35); MEAN CORPUSCULAR HGB CONC 34 g/dL (31-37); MEAN CORPUSCULAR VOLUME 99 fL (79-100); MONO # 1.1 x10^3/uL (0.0-1.1); MONO % 8 % (0-9); NEUT % 86 % (31-73); PLATELET COUNT 151 x10^3/uL (140-400); RED BLOOD COUNT 4.35 x10^6/uL (3.50-5.40); RED CELL DISTRIBUTION WIDTH 14.3 % (11.5-14.5); WHITE BLOOD COUNT 13.8 x10^3/uL (4.0-11.0)
[2019-09-26 04:54] LABS: ALBUMIN 3.1 g/dL (3.4-5.0); CALCIUM 8.5 mg/dL (8.5-10.1); GFR 52.4; POTASSIUM 3.1 mmol/L (3.5-5.1); TOTAL BILIRUBIN 2.2 mg/dL (0.2-1.0); TOTAL PROTEIN 6.1 g/dL (6.4-8.2)
[2019-09-26] MEDS: fentaNYL PF VIAL 100 MCG/2 ML VIAL IV PRN (07:53)
[2019-09-26] MEDS: PANTOPRAZOLE IV PUSH 40 MG VIAL. IVP SCH (07:56)
--- NOTE | 2019-09-26 09:11 | PDOC ---
PROGRESS NOTES History of Present Illness History of Present Illness VTE Prophylaxis Ordered VTE Prophylaxis Devices: No VTE Pharmacological Prophylaxi: Yes impression Assessment/Plan RUQ pain, Upper abdominal pain common bile duct dilation, may need MRCP or ERCP choledocholithiasis. There is dilatation of the common bile duct and gallbladder, also likely gallbladder wall thickening as could be seen with cholecystitis. w/ hepatomegaly covid neg 7/8 Elevated LFTs, dilated CBD GERD CAD, A Fib, CKD MRI/MRCP to further evaluate for distal obstruction. 8 still in pain, iv morphine needed often d/w son in room today 38 min pt exam, chart review, > 50% of time spent with exam, chart review., pt care coordination Vitals Vitals Vital Signs Date Time Temp Pulse Resp B/P (MAP) Pulse Ox O2 Delivery O2 Flow Rate FiO2 09/26/19 08:50 92 Room Air 09/26/19 07:00 98.9 78 18 154/73 (100) 98.9 Physical Exam General: Alert, Oriented X3, Cooperative, No acute distress, mild distress Heart: Regular rate Lungs: Clear Abdomen: Normal bowel sounds (tender, RUQ), Soft, Other (mild tenderness ruq) Extremities: No cyanosis, No edema Skin: No rashes Labs LABS CT abdomen and pelvis with oral contrast only History: Dilated common bile duct on ultrasound Technique: CT imaging was performed of the abdomen and pelvis. Only oral contrast was also given. Multiplanar images are reviewed. Exposure: One or more of the following individualized dose reduction techniques were utilized for this examination: 1. Automated exposure control 2. Adjustment of the mA and/or kV according to patient size 3. Use of iterative reconstruction technique. Comparison: Ultrasound of the abdomen this same day; July 12, 2018 chest CTA; pelvis CT December 14, 2018 Findings: As seen on ultrasound, there is distention of the gallbladder although findings present on previous pelvis CT November 2018. There is some dependent density in the gallbladder lumen as may be seen with cholelithiasis although not well demonstrated on ultrasound. There is also appearance of wall prominence of the gallbladder although also poorly demonstrated on ultrasound. As best seen image 35 series 2, there is approximate 1.2 cm transverse by 1.4 cm CC by 0.9 cm calcification in the dilated common bile duct, more proximal caliber about 1.6 cm. There is also intrahepatic biliary ductal dilatation. There is a 1.2 cm cyst of the medial, mid to superior right kidney. Small calcification of the left kidney is probably vascular in etiology. There is no hydronephrosis of either kidney. There is no adrenal nodularity. There is splenic arterial calcification, also scattered calcification of the abdominal aorta. There are multiple splenic granulomas. There is fairly large hiatal hernia containing at least half of the stomach, larger than previous chest CTA. There is some coronary calcification. There is no pleural fluid. Pancreas is atrophic. There is a tiny fat-containing umbilical hernia. There is colonic diverticulosis greatest of the sigmoid colon. There is degenerative disc disease with vacuum phenomenon L3-4 through L5-S1. There is old left inferior pubic ramus fracture. There is mild lumbar dextroscoliosis. Impression: 1. There is choledocholithiasis. There is dilatation of the common bile duct and gallbladder, also likely gallbladder wall thickening as could be seen with cholecystitis. There is also some dependent hyperdensity in the gallbladder lumen suspicious for cholelithiasis although poorly demonstrated on ultrasound. 2. There is fairly large hiatal hernia containing at least half of the stomach. 3. There is colonic diverticulosis greatest of the sigmoid colon. Electronically signed by: Michael George MD (09/25/2019 4:35 PM) [facility] Laboratory Tests Test 09/25/19 15:20 09/26/19 04:03 Coronavirus (COVID-19)(PCR) Negative (NEGATIVE) White Blood Count 13.8 x10^3/uL (4.0-11.0) Red Blood Count 4.35 x10^6/uL (3.50-5.40) Hemoglobin 14.6 g/dL (12.0-15.5) Hematocrit 43.1 % (36.0-47.0) Mean Corpuscular Volume 99 fL (79-100) Mean Corpuscular Hemoglobin 34 pg (25-35) Mean Corpuscular Hemoglobin Concent 34 g/dL (31-37) Red Cell Distribution Width 14.3 % (11.5-14.5) Platelet Count 151 x10^3/uL (140-400) Neutrophils (%) (Auto) 86 % (31-73) Lymphocytes (%) (Auto) 5 % (24-48) Monocytes (%) (Auto) 8 % (0-9) Eosinophils (%) (Auto) 0 % (0-3) Basophils (%) (Auto) 0 % (0-3) Neutrophils # (Auto) 12.0 x10^3/uL (1.8-7.7) Lymphocytes # (Auto) 0.7 x10^3/uL (1.0-4.8) Monocytes # (Auto) 1.1 x10^3/uL (0.0-1.1) Eosinophils # (Auto) 0.0 x10^3/uL (0.0-0.7) Basophils # (Auto) 0.1 x10^3/uL (0.0-0.2) Sodium Level 134 mmol/L (136-145) Potassium Level 3.1 mmol/L (3.5-5.1) Chloride Level 100 mmol/L (98-107) Carbon Dioxide Level 24 mmol/L (21-32) Anion Gap 10 (6-14) Blood Urea Nitrogen 18 mg/dL (7-20) Creatinine 1.0 mg/dL (0.6-1.0) Estimated GFR (Cockcroft-Gault) 52.4 BUN/Creatinine Ratio 18 (6-20) Glucose Level 121 mg/dL (70-99) Calcium Level 8.5 mg/dL (8.5-10.1) Total Bilirubin 2.2 mg/dL (0.2-1.0) Aspartate Amino Transf (AST/SGOT) 158 U/L (15-37) Alanine Aminotransferase (ALT/SGPT) 273 U/L (14-59) Alkaline Phosphatase 323 U/L (46-116) Total Protein 6.1 g/dL (6.4-8.2) Albumin 3.1 g/dL (3.4-5.0) Albumin/Globulin Ratio 1.0 (1.0-1.7) Assessment and Plan Assessmemt and Plan Problems Medical Problems: (1) Abdominal pain Status: Acute (2) Common bile duct dilatation Status: Acute (3) HTN (hypertension) Status: Acute Comment Review of Relevant I have reviewed the following items luna (where applicable) has been applied. Labs Laboratory Tests Test 09/25/19 08:44 09/25/19 09:00 09/25/19 15:20 09/26/19 04:03 White Blood Count 10.8 x10^3/uL (4.0-11.0) 13.8 x10^3/uL (4.0-11.0) Red Blood Count 4.30 x10^6/uL (3.50-5.40) 4.35 x10^6/uL (3.50-5.40) Hemoglobin 14.8 g/dL (12.0-15.5) 14.6 g/dL (12.0-15.5) Hematocrit 42.7 % (36.0-47.0) 43.1 % (36.0-47.0) Mean Corpuscular Volume 99 fL (79-100) 99 fL (79-100) Mean Corpuscular Hemoglobin 34 pg (25-35) 34 pg (25-35) Mean Corpuscular Hemoglobin Concent 35 g/dL (31-37) 34 g/dL (31-37) Red Cell Distribution Width 14.0 % (11.5-14.5) 14.3 % (11.5-14.5) Platelet Count 171 x10^3/uL (140-400) 151 x10^3/uL (140-400) Neutrophils (%) (Auto) 92 % (31-73) 86 % (31-73) Lymphocytes (%) (Auto) 3 % (24-48) 5 % (24-48) Monocytes (%) (Auto) 4 % (0-9) 8 % (0-9) Eosinophils (%) (Auto) 0 % (0-3) 0 % (0-3) Basophils (%) (Auto) 1 % (0-3) 0 % (0-3) Neutrophils # (Auto) 9.9 x10^3/uL (1.8-7.7) 12.0 x10^3/uL (1.8-7.7) Lymphocytes # (Auto) 0.3 x10^3/uL (1.0-4.8) 0.7 x10^3/uL (1.0-4.8) Monocytes # (Auto) 0.4 x10^3/uL (0.0-1.1) 1.1 x10^3/uL (0.0-1.1) Eosinophils # (Auto) 0.0 x10^3/uL (0.0-0.7) 0.0 x10^3/uL (0.0-0.7) Basophils # (Auto) 0.1 x10^3/uL (0.0-0.2) 0.1 x10^3/uL (0.0-0.2) Segmented Neutrophils % 94 % (35-66) Band Neutrophils % 1 % (0-9) Lymphocytes % 4 % (24-48) Monocytes % 1 % (0-10) Platelet Estimate Adequate (ADEQUATE) Prothrombin Time 12.5 SEC (11.7-14.0) Prothromb Time International Ratio 1.0 (0.8-1.1) Activated Partial Thromboplast Time 24 SEC (24-38) Sodium Level 140 mmol/L (136-145) 134 mmol/L (136-145) Potassium Level 3.8 mmol/L (3.5-5.1) 3.1 mmol/L (3.5-5.1) Chloride Level 101 mmol/L (98-107) 100 mmol/L (98-107) Carbon Dioxide Level 28 mmol/L (21-32) 24 mmol/L (21-32) Anion Gap 11 (6-14) 10 (6-14) Blood Urea Nitrogen 22 mg/dL (7-20) 18 mg/dL (7-20) Creatinine 1.4 mg/dL (0.6-1.0) 1.0 mg/dL (0.6-1.0) Estimated GFR (Cockcroft-Gault) 35.6 52.4 BUN/Creatinine Ratio 16 (6-20) 18 (6-20) Glucose Level 187 mg/dL (70-99) 121 mg/dL (70-99) Calcium Level 8.9 mg/dL (8.5-10.1) 8.5 mg/dL (8.5-10.1) Total Bilirubin 3.5 mg/dL (0.2-1.0) 2.2 mg/dL (0.2-1.0) Aspartate Amino Transf (AST/SGOT) 460 U/L (15-37) 158 U/L (15-37) Alanine Aminotransferase (ALT/SGPT) 460 U/L (14-59) 273 U/L (14-59) Alkaline Phosphatase 376 U/L (46-116) 323 U/L (46-116) Troponin I Quantitative < 0.017 ng/mL (0.000-0.055) Total Protein 7.4 g/dL (6.4-8.2) 6.1 g/dL (6.4-8.2) Albumin 3.6 g/dL (3.4-5.0) 3.1 g/dL (3.4-5.0) Albumin/Globulin Ratio 0.9 (1.0-1.7) 1.0 (1.0-1.7) Lipase 125 U/L (73-393) Urine Collection Type Unknown Urine Color [place] Urine Clarity Cloudy Urine pH (<5.0-8.0) Urine Specific [place] (1.000-1.030) Urine Protein mg/dL (NEG-TRACE) Urine Glucose (UA) mg/dL (NEG) Urine Ketones (Stick) mg/dL (NEG) Urine Blood (NEG) Urine Nitrite (NEG) Urine Bilirubin (NEG) Urine Urobilinogen Dipstick mg/dL (0.2 mg/dL) Urine Leukocyte Esterase (NEG) Urine RBC 1-2 /HPF (0-2) Urine WBC 5-10 /HPF (0-4) Urine Squamous Epithelial Cells Few /LPF Urine Bacteria Many /HPF (0-FEW) Urine Hyaline Casts Occasional /HPF Urine Mucus Slight /LPF Coronavirus (COVID-19)(PCR) Negative (NEGATIVE) Laboratory Tests Test 09/25/19 15:20 09/26/19 04:03 Coronavirus (COVID-19)(PCR) Negative (NEGATIVE) White Blood Count 13.8 x10^3/uL (4.0-11.0) Red Blood Count 4.35 x10^6/uL (3.50-5.40) Hemoglobin 14.6 g/dL (12.0-15.5) Hematocrit 43.1 % (36.0-47.0) Mean Corpuscular Volume 99 fL (79-100) Mean Corpuscular Hemoglobin 34 pg (25-35) Mean Corpuscular Hemoglobin Concent 34 g/dL (31-37) Red Cell Distribution Width 14.3 % (11.5-14.5) Platelet Count 151 x10^3/uL (140-400) Neutrophils (%) (Auto) 86 % (31-73) Lymphocytes (%) (Auto) 5 % (24-48) Monocytes (%) (Auto) 8 % (0-9) Eosinophils (%) (Auto) 0 % (0-3) Basophils (%) (Auto) 0 % (0-3) Neutrophils # (Auto) 12.0 x10^3/uL (1.8-7.7) Lymphocytes # (Auto) 0.7 x10^3/uL (1.0-4.8) Monocytes # (Auto) 1.1 x10^3/uL (0.0-1.1) Eosinophils # (Auto) 0.0 x10^3/uL (0.0-0.7) Basophils # (Auto) 0.1 x10^3/uL (0.0-0.2) Sodium Level 134 mmol/L (136-145) Potassium Level 3.1 mmol/L (3.5-5.1) Chloride Level 100 mmol/L (98-107) Carbon Dioxide Level 24 mmol/L (21-32) Anion Gap 10 (6-14) Blood Urea Nitrogen 18 mg/dL (7-20) Creatinine 1.0 mg/dL (0.6-1.0) Estimated GFR (Cockcroft-Gault) 52.4 BUN/Creatinine Ratio 18 (6-20) Glucose Level 121 mg/dL (70-99) Calcium Level 8.5 mg/dL (8.5-10.1) Total Bilirubin 2.2 mg/dL (0.2-1.0) Aspartate Amino Transf (AST/SGOT) 158 U/L (15-37) Alanine Aminotransferase (ALT/SGPT) 273 U/L (14-59) Alkaline Phosphatase 323 U/L (46-116) Total Protein 6.1 g/dL (6.4-8.2) Albumin 3.1 g/dL (3.4-5.0) Albumin/Globulin Ratio 1.0 (1.0-1.7) Medications Current Medications Morphine Sulfate (Morphine Sulfate) 4 mg 1X ONCE IV Last administered on at 09:34; Start 09/25/19 at 09:30; Stop 09/25/19 at 09:31; Status DC Ondansetron HCl (Zofran) 4 mg 1X ONCE IVP Last administered on 09/25/19at 09:33; Start 09/25/19 at 09:30; Stop 09/25/19 at 09:31; Status DC Hydralazine HCl (Apresoline Inj) 10 mg 1X ONCE IVP Last administered on 09/25/19at 11:53; Start 09/25/19 at 11:15; Stop 09/25/19 at 11:16; Status DC Ondansetron HCl (Zofran) 4 mg PRN Q8HRS PRN IV NAUSEA/VOMITING; Start 09/25/19 at 11:45; Stop 09/26/19 at 11:44 Fentanyl Citrate (Fentanyl 2ml Vial) 50 mcg PRN Q1HR PRN IV PAIN Last administered on 09/26/19at 07:53; Start 09/25/19 at 11:45; Stop 09/26/19 at 11:44 Pantoprazole Sodium (PROTONIX VIAL for IV PUSH) 40 mg DAILYAC IVP Last administered on 09/26/19at 07:56; Start 09/25/19 at 15:00 Iohexol (Omnipaque 240 Mg/ml) 30 ml 1X ONCE PO Last administered on 09/25/19at 14:30; Start 09/25/19 at 14:30; Stop 09/25/19 at 14:31; Status DC Info (CONTRAST GIVEN -- Rx MONITORING) 1 each PRN DAILY PRN MC SEE COMMENTS; Start 09/25/19 at 14:30; Stop 09/27/19 at 14:29 Sodium Chloride 1,000 ml @ 75 mls/hr [id number] IV Last administered on 09/26/19at 04:32; Start 09/25/19 at 14:45 Active Scripts Active Vitamin D3 (Cholecalciferol (Vitamin D3)) 1,000 Unit Tablet 1,000 Unit PO DAILY Proair Hfa (Albuterol Sulfate) 8.5 Gm Hfa.aer.ad 2.5 Mg NEB RTQID Lasix (Furosemide) 40 Mg Tablet 1 Tab PO DAILY Klor-Con M20 (Potassium Chloride) 20 Meq Tab.er.prt 20 Meq PO DAILY 30 Days Reported Biofreeze (Menthol) 118 Ml Gel..ml. 1 [place] TP PRN 7 Days Benzonatate 200 Mg Capsule 1 Cap PO PRN TID PRN 7 Days Loratadine 10 Mg Tablet 1 Tab PO DAILY Flonase Allergy Relief (Fluticasone Propionate) 9.9 Ml [place].susp 2 Sprays NS BID Aspirin 325 Mg Tablet 81 Mg PO DAILY Levothyroxine Sodium 125 Mcg Tablet 1 Tab PO DAILY Metoprolol Tartrate 50 Mg Tablet 1 Tab PO DAILY Vitals/I & O Vital Sign - Last 24 Hours 09/25/19 09/25/19 09/25/19 09/25/19 09:30 09:34 10:05 10:48 Pulse 58 62 62 Resp 20 B/P (MAP) 191/86 (121) 182/82 (115) 178/80 (112) Pulse Ox 96 97 97 97 O2 Delivery Room Air Room Air Room Air Room Air 09/25/19 09/25/19 09/25/19 09/25/19 11:48 11:53 11:57 12:13 Pulse 60 60 63 64 B/P (MAP) 165/75 (105) 167/76 167/77 (107) 151/67 (95) Pulse Ox 97 O2 Delivery Room Air 09/25/19 09/25/19 09/25/19 09/25/19 12:15 12:23 12:25 12:30 Temp 98.2 98.2 Pulse 62 64 64 Resp 18 18 B/P (MAP) 153/68 (96) 152/68 (96) 145/69 (94) Pulse Ox 97 97 97 95 O2 Delivery Room Air Room Air Room Air Room Air 09/25/19 09/25/19 09/25/19 09/25/19 13:22 14:05 15:15 19:00 Temp 98.5 98.1 98.5 98.1 Pulse 66 82 Resp 18 18 B/P (MAP) 138/71 (93) 160/75 (103) Pulse Ox 95 96 94 O2 Delivery Room Air Room Air Room Air Room Air 09/25/19 09/25/19 09/26/19 09/26/19 19:30 23:00 03:00 07:00 Temp 98.2 98.0 98.9 98.2 98.0 98.9 Pulse 80 83 78 Resp 18 18 18 B/P (MAP) 145/67 (93) 149/69 (95) 154/73 (100) Pulse Ox 96 90 92 O2 Delivery Room Air Room Air Room Air Room Air 09/26/19 09/26/19 09/26/19 07:15 07:53 08:50 Pulse Ox 92 O2 Delivery Room Air Room Air Room Air Intake and Output 09/25/19 09/25/19 09/26/19 15:00 23:00 07:00 Intake Total 360 ml 50 ml Balance 360 ml 50 ml Justicifation of Admission Dx: Justifications for Admission: Justification of Admission Dx: N/A TASHIA BAI MD Sep 26, 2019 09:11
--- NOTE | 2019-09-26 10:57 | NUR ---
SW following. Discussed with RN, SW verified pt is a resident of [facility] (ph: [phone], fax: [phone]). [facility] is a memory care assisted living, they do have in house rehab if their residents are needing care home. [facility] stated pt will need a COVID-19 test before being able to return. RN notified. SOREN will continue to follow.
--- NOTE | 2019-09-26 11:03 | PDOC ---
Subjective: Subjective: Had some more pain, better with morphine. Objective: Objective: Nurse called twice earlier - wondering about clears vs NPO, also to tell me son has questions. Gave okay to resume clears. Vital Signs: Vital Signs Date Time Temp Pulse Resp B/P (MAP) Pulse Ox O2 Delivery O2 Flow Rate FiO2 09/26/19 09:45 97.9 74 18 92/61 (71) 97 Room Air 97.9 Labs: Laboratory Tests Test 09/25/19 15:20 09/26/19 04:03 Coronavirus (COVID-19)(PCR) Negative White Blood Count 13.8 x10^3/uL Red Blood Count 4.35 x10^6/uL Hemoglobin 14.6 g/dL Hematocrit 43.1 % Mean Corpuscular Volume 99 fL Mean Corpuscular Hemoglobin 34 pg Mean Corpuscular Hemoglobin Concent 34 g/dL Red Cell Distribution Width 14.3 % Platelet Count 151 x10^3/uL Neutrophils (%) (Auto) 86 % Lymphocytes (%) (Auto) 5 % Monocytes (%) (Auto) 8 % Eosinophils (%) (Auto) 0 % Basophils (%) (Auto) 0 % Neutrophils # (Auto) 12.0 x10^3/uL Lymphocytes # (Auto) 0.7 x10^3/uL Monocytes # (Auto) 1.1 x10^3/uL Eosinophils # (Auto) 0.0 x10^3/uL Basophils # (Auto) 0.1 x10^3/uL Sodium Level 134 mmol/L Potassium Level 3.1 mmol/L Chloride Level 100 mmol/L Carbon Dioxide Level 24 mmol/L Anion Gap 10 Blood Urea Nitrogen 18 mg/dL Creatinine 1.0 mg/dL Estimated GFR (Cockcroft-Gault) 52.4 BUN/Creatinine Ratio 18 Glucose Level 121 mg/dL Calcium Level 8.5 mg/dL Total Bilirubin 2.2 mg/dL Aspartate Amino Transf (AST/SGOT) 158 U/L Alanine Aminotransferase (ALT/SGPT) 273 U/L Alkaline Phosphatase 323 U/L Total Protein 6.1 g/dL Albumin 3.1 g/dL Albumin/Globulin Ratio 1.0 Imaging: CT A/P 09/24 Impression: 1. There is choledocholithiasis. There is dilatation of the common bile duct and gallbladder, also likely gallbladder wall thickening as could be seen with cholecystitis. There is also some dependent hyperdensity in the gallbladder lumen suspicious for cholelithiasis although poorly demonstrated on ultrasound. 2. There is fairly large hiatal hernia containing at least half of the stomach. 3. There is colonic diverticulosis greatest of the sigmoid colon. PE: GEN: NAD LUNGS: CTAB HEART: RRR ABD: NABS, S/ND/NT NEURO/PSYCH: A & O 3 A/P: Upper abdominal pain Elevated LFTs - better Choledocholithiasis, hiatal hernia CAD, A Fib, CKD COVID-19 negative 09/24 -- Spoke w/ son Gideon via phone. He would like to pursue ERCP but requests cardiology eval first considering age and h/o A Fib - not sure who regular primary special educator is. Hiatal hernia might complicate ERCP. Will also ask surgery to comment re: ?cholelithiasis on CT (though not seen on US). Keep to clears for now, monitor labs. Will tentatively add ERCP for tomorrow afternoon pending above. Justicifation of Admission Dx: Justifications for Admission: Justification of Admission Dx: N/A JOSE DE JESUS LYMAN Sep 26, 2019 11:03
--- NOTE | 2019-09-26 11:39 | PDOC2 ---
ANETTE ALTMAN MOLDER BENCH 09/26/19 1139: CARDIAC CONSULT DATE OF CONSULT Date of Consult DATE: 09/26/19 TIME: 11:39 REASON FOR CONSULT Reason for Consult: Hx of AFIB, ERCP tomorrow, Preop eval REFERRING PHYSICIAN Referring Physician: Miranda SOURCE Source: Chart review, Patient HISTORY OF PRESENT ILLNESS HISTORY OF PRESENT ILLNESS This is a pleasant 89 yo female admitted for complains of abdominal pain. No chest pain, SOA and no recent falls or injury. No n/v fever or chills. Further imaging revealed choledocolithiasis. Consult is for preop eval. Cardiac shepherd no s/s. 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 GI: No pertinent hx Heme/Onc: No pertinent hx Hepatobiliary: No pertinent hx Psych: Anxiety Musculoskeletal: Osteoarthritis, 02/2018 fall resulting to left distal radius fracture Rheumatologic: No pertinent hx Infectious disease: No pertinent hx ENT: [place], uses hearing aids Renal/: UTI Endocrine: Hypothyroidism, Osteoporosis Dermatology: No pertinent hx PAST SURGICAL HISTORY Past Surgical History PCI, Left radius ORIF, cataract removal FAMILY HISTORY Family History Coronary Artery Disease (father), Heart Disease (mother "has hole in her heart") SOCIAL HISTORY Smoke: No ALCOHOL: none Drugs: None Lives: with Family CURRENT MEDICATIONS CURRENT MEDICATIONS Current Medications Medications (Trade) Dose Ordered Sig/Jagdish Route PRN Reason Start Time Stop Time Status Last Admin Dose Admin Fentanyl Citrate (Fentanyl 2ml Vial) 50 mcg PRN Q1HR PRN IV PAIN 09/25/19 11:45 09/26/19 11:44 09/26/19 07:53 Pantoprazole Sodium (PROTONIX VIAL for IV PUSH) 40 mg DAILYAC IVP 09/25/19 15:00 09/26/19 07:56 Iohexol (Omnipaque 240 Mg/ml) 30 ml 1X ONCE PO 09/25/19 14:30 09/25/19 14:31 DC 09/25/19 14:30 Sodium Chloride 1,000 ml @ 75 mls/hr [id number] IV 09/25/19 14:45 09/26/19 04:32 ALLERGIES ALLERGIES: Coded Allergies: No Known Drug Allergies (Unverified , 03/10/18) ROS Review of System 14 point ROS evaluated with pertinent positives noted per HPI PHYSICAL EXAM General: Alert, Oriented X3, Cooperative, No acute distress HEENT: Atraumatic, Mucous membr. moist/pink, Other (very [place]) Lungs: Clear to auscultation, Normal air movement Heart: Regular rate, Normal S1, Normal S2, Other (3/6 diastolic murmur to ERbs) Abdomen: Soft, Other (RUQ tenderness with palpation) Extremities: No cyanosis, No edema Skin: No breakdown, No significant lesion Neuro: Normal speech, Sensation intact Psych/Mental Status: Mental status NL, Mood NL MUSCULOSKELETAL: Osteoarthritic changes both hands VITALS/I&O VITALS/I&O: Vital Signs Date Time Temp Pulse Resp B/P (MAP) Pulse Ox O2 Delivery O2 Flow Rate FiO2 09/26/19 11:00 97.9 78 18 143/66 (91) 93 Room Air 97.9 I & O 09/25/19 09/25/19 09/26/19 15:00 23:00 07:00 Intake Total 360 ml 50 ml Balance 360 ml 50 ml LABS Lab: Laboratory Tests Test 09/25/19 15:20 09/26/19 04:03 Coronavirus (COVID-19)(PCR) Negative (NEGATIVE) White Blood Count 13.8 x10^3/uL (4.0-11.0) H Red Blood Count 4.35 x10^6/uL (3.50-5.40) Hemoglobin 14.6 g/dL (12.0-15.5) Hematocrit 43.1 % (36.0-47.0) Mean Corpuscular Volume 99 fL (79-100) Mean Corpuscular Hemoglobin 34 pg (25-35) Mean Corpuscular Hemoglobin Concent 34 g/dL (31-37) Red Cell Distribution Width 14.3 % (11.5-14.5) Platelet Count 151 x10^3/uL (140-400) Neutrophils (%) (Auto) 86 % (31-73) H Lymphocytes (%) (Auto) 5 % (24-48) L Monocytes (%) (Auto) 8 % (0-9) Eosinophils (%) (Auto) 0 % (0-3) Basophils (%) (Auto) 0 % (0-3) Neutrophils # (Auto) 12.0 x10^3/uL (1.8-7.7) H Lymphocytes # (Auto) 0.7 x10^3/uL (1.0-4.8) L Monocytes # (Auto) 1.1 x10^3/uL (0.0-1.1) Eosinophils # (Auto) 0.0 x10^3/uL (0.0-0.7) Basophils # (Auto) 0.1 x10^3/uL (0.0-0.2) Sodium Level 134 mmol/L (136-145) L Potassium Level 3.1 mmol/L (3.5-5.1) L Chloride Level 100 mmol/L (98-107) Carbon Dioxide Level 24 mmol/L (21-32) Anion Gap 10 (6-14) Blood Urea Nitrogen 18 mg/dL (7-20) Creatinine 1.0 mg/dL (0.6-1.0) Estimated GFR (Cockcroft-Gault) 52.4 BUN/Creatinine Ratio 18 (6-20) Glucose Level 121 mg/dL (70-99) H Calcium Level 8.5 mg/dL (8.5-10.1) Total Bilirubin 2.2 mg/dL (0.2-1.0) H Aspartate Amino Transferase (AST) 158 U/L (15-37) H Alanine Aminotransferase (ALT) 273 U/L (14-59) H Alkaline Phosphatase 323 U/L (46-116) H Total Protein 6.1 g/dL (6.4-8.2) L Albumin 3.1 g/dL (3.4-5.0) L Albumin/Globulin Ratio 1.0 (1.0-1.7) Laboratory Tests 09/26/19 04:03 Laboratory Tests 09/26/19 04:03 ECHOCARDIOGRAM ECHOCARDIOGRAM <Conclusion> The left ventricular systolic function is normal and the ejection fraction is within normal range. The Ejection Fraction is 55-60%. There is moderate concentric left ventricular hypertrophy. There is normal LV segmental wall motion. Doppler and Color Flow revealed moderate aortic regurgitation. The ascending aorta is moderately dilated at 3.8 cm. DATE: 02/23/19 1338 HEART CATH HEART CATH Conclusion 1. One vessel CAD 2. Elevated left sided filling pressures. 3. Successful PCI of the LAD with implantation of a Resolute 3.08/05 LIYAH. Recommendations ASA 81mg daily Atorvastatin therapy Ticagrelor 90mg bid for 1 year if tolerated. DATE: 07/13/18 1706 ASSESSMENT/PLAN ASSESSMENT/PLAN 1. Abdominal pain/Choledocholithiasis: ERCP planned tomorrow per GI 2. CAD: s/p PCI/LIYAH to LAD 06/2018, clinically stable 3. Hx of ICM: recovered with recent EF at 55% 4. PAFIB: maintaining SR per EKG. low burden noted prior. 5. HTN; controlled Recommendations 1. Continue baby ASA, no further birlinta. Continue secondary prevention measures once PO is allowed 2. EKG today. Low risk for perioperative CV events for noncardiac surgery 3. Metoprolol IV PRN while NPO, Monitor BP trend. BRITANY CUENCA MD 09/26/19 8000: CARDIAC CONSULT Attending Co-Sign The patient was seen and interviewed as well as examined at the bedside. The chart was reviewed. The case was discussed. Agree with the plan of care. ANETTE ALTMAN APRN Sep 26, 2019 11:39 BRITANY CUENCA MD Sep 26, 2019 22:53
--- NOTE | 2019-09-26 13:23 | EKG ---
[facility] [address] [place] [address] Test Date: 2019-09-26 Test Time: 13:19:50 Pat Name: FATEMEH CLAY Department: Room: 408 Gender: F Exotic Dancer: LISETTE : [id number] Requested By: ANETTE ALTMAN Order Number: [id number] Reading MD: Measurements Intervals [place] Rate: 79 P: 48 NC: 178 QRS: 0 QRSD: 82 T: 23 QT: 284 QTc: 326 Interpretive Statements SINUS RHYTHM LEFTWARD AXIS QRS(T) CONTOUR ABNORMALITY CONSIDER ANTEROSEPTAL MYOCARDIAL DAMAGE POSSIBLY ABNORMAL ECG RI6.02 Compared to ECG 09/25/2019 08:43:54 Left-axis deviation now present Atrial abnormality no longer present T-wave abnormality no longer present Possible ischemia no longer present
[2019-09-26] MEDS ORDERED: METOPROLOL TARTRATE 5 MG/5 ML VIAL. IVP PRN (13:45)
--- NOTE | 2019-09-26 15:31 | PDOC2 ---
CONSULT Date of Consult Date of Consult DATE: 09/26/19 TIME: 15:27 Reason for Consult Reason for Consult: choledocholithiasis, cholelithiasis Referring Physician Referring Physician: Dr. Sosa Identification/Chief Complaint Chief Complaint abd pain Source Source: Chart review, Patient History of Present Illness Reason for Visit: 89 yo F with c/o abd pain. Currently, somewhat improved. Noted to have choledocholithiasis and scheduled for ERCP tomorrow. Past Medical History Cardiovascular: AFIB, HTN Pulmonary: No pertinent hx CENTRAL NERVOUS SYSTEM: Other GI: No pertinent hx Heme/Onc: No pertinent hx Hepatobiliary: No pertinent hx Psych: Anxiety Musculoskeletal: Osteoarthritis Rheumatologic: No pertinent hx Infectious disease: No pertinent hx Renal/: No pertinent hx Endocrine: Hypothyroidism Past Surgical History Past Surgical History: Cataract Removal Family History Family History: Coronary Artery Disease, Heart Disease Social History No ALCOHOL: none Drugs: None Lives: with Family Current Problem List Problem List Problems Medical Problems: (1) Abdominal pain Status: Acute (2) Common bile duct dilatation Status: Acute (3) HTN (hypertension) Status: Acute Current Medications Current Medications Current Medications Morphine Sulfate (Morphine Sulfate) 4 mg 1X ONCE IV Last administered on 09/25/19at 09:34; Start 09/25/19 at 09:30; Stop 09/25/19 at 09:31; Status DC Ondansetron HCl (Zofran) 4 mg 1X ONCE IVP Last administered on 09/25/19at 09:33; Start 09/25/19 at 09:30; Stop 09/25/19 at 09:31; Status DC Hydralazine HCl (Apresoline Inj) 10 mg 1X ONCE IVP Last administered on 09/25/19at 11:53; Start 09/25/19 at 11:15; Stop 09/25/19 at 11:16; Status DC Ondansetron HCl (Zofran) 4 mg PRN Q8HRS PRN IV NAUSEA/VOMITING; Start 09/25/19 at 11:45; Stop 09/26/19 at 11:44; Status DC Fentanyl Citrate (Fentanyl 2ml Vial) 50 mcg PRN Q1HR PRN IV PAIN Last administered on 09/26/19at 07:53; Start 09/25/19 at 11:45; Stop 09/26/19 at 11:44; Status DC Pantoprazole Sodium (PROTONIX VIAL for IV PUSH) 40 mg DAILYAC IVP Last administered on 09/26/19at 07:56; Start 09/25/19 at 15:00 Iohexol (Omnipaque 240 Mg/ml) 30 ml 1X ONCE PO Last administered on 09/25/19at 14:30; Start 09/25/19 at 14:30; Stop 09/25/19 at 14:31; Status DC Info (CONTRAST GIVEN -- Rx MONITORING) 1 each PRN DAILY PRN MC SEE COMMENTS; Start 09/25/19 at 14:30; Stop 09/27/19 at 14:29 Sodium Chloride 1,000 ml @ 75 mls/hr [id number] IV Last administered on 09/26/19at 04:32; Start 09/25/19 at 14:45 Ringer's Solution 1,000 ml @ 50 mls/hr Q20H IV ; Start 09/27/19 at 07:00; Stop 09/27/19 at 18:59 Metoprolol Tartrate (Lopressor Vial) 5 mg PRN Q6HRS PRN IVP HYPERTENSION; Start 09/26/19 at 13:45 Active Scripts Active Vitamin D3 (Cholecalciferol (Vitamin D3)) 1,000 Unit Tablet 1,000 Unit PO DAILY Proair Hfa (Albuterol Sulfate) 8.5 Gm Hfa.aer.ad 2.5 Mg NEB RTQID Lasix (Furosemide) 40 Mg Tablet 1 Tab PO DAILY Klor-Con M20 (Potassium Chloride) 20 Meq Tab.er.prt 20 Meq PO DAILY 30 Days Reported Biofreeze (Menthol) 118 Ml Gel..ml. 1 [place] TP PRN 7 Days Benzonatate 200 Mg Capsule 1 Cap PO PRN TID PRN 7 Days Loratadine 10 Mg Tablet 1 Tab PO DAILY Flonase Allergy Relief (Fluticasone Propionate) 9.9 Ml [place].susp 2 Sprays NS BID Aspirin 325 Mg Tablet 81 Mg PO DAILY Levothyroxine Sodium 125 Mcg Tablet 1 Tab PO DAILY Metoprolol Tartrate 50 Mg Tablet 1 Tab PO DAILY Allergies Allergies: Coded Allergies: No Known Drug Allergies (Unverified , 03/10/18) ROS Gastrointestinal: Yes Abdominal Pain Physical Exam General: Alert, Cooperative, No acute distress HEENT: Atraumatic Lungs: Normal air movement Abdomen: Soft, Other (mild TTP RUQ) Extremities: No clubbing, No cyanosis Skin: No rashes, No breakdown Neuro: Normal speech, Sensation intact Psych/Mental Status: Mental status NL, Mood NL Vitals VITALS Vital Signs Date Time Temp Pulse Resp B/P (MAP) Pulse Ox O2 Delivery O2 Flow Rate FiO2 09/26/19 11:00 97.9 78 18 143/66 (91) 93 Room Air 97.9 Labs Labs Laboratory Tests Test 09/25/19 08:44 09/25/19 09:00 09/25/19 15:20 09/26/19 04:03 White Blood Count 10.8 x10^3/uL (4.0-11.0) 13.8 x10^3/uL (4.0-11.0) Red Blood Count 4.30 x10^6/uL (3.50-5.40) 4.35 x10^6/uL (3.50-5.40) Hemoglobin 14.8 g/dL (12.0-15.5) 14.6 g/dL (12.0-15.5) Hematocrit 42.7 % (36.0-47.0) 43.1 % (36.0-47.0) Mean Corpuscular Volume 99 fL (79-100) 99 fL (79-100) Mean Corpuscular Hemoglobin 34 pg (25-35) 34 pg (25-35) Mean Corpuscular Hemoglobin Concent 35 g/dL (31-37) 34 g/dL (31-37) Red Cell Distribution Width 14.0 % (11.5-14.5) 14.3 % (11.5-14.5) Platelet Count 171 x10^3/uL (140-400) 151 x10^3/uL (140-400) Neutrophils (%) (Auto) 92 % (31-73) 86 % (31-73) Lymphocytes (%) (Auto) 3 % (24-48) 5 % (24-48) Monocytes (%) (Auto) 4 % (0-9) 8 % (0-9) Eosinophils (%) (Auto) 0 % (0-3) 0 % (0-3) Basophils (%) (Auto) 1 % (0-3) 0 % (0-3) Neutrophils # (Auto) 9.9 x10^3/uL (1.8-7.7) 12.0 x10^3/uL (1.8-7.7) Lymphocytes # (Auto) 0.3 x10^3/uL (1.0-4.8) 0.7 x10^3/uL (1.0-4.8) Monocytes # (Auto) 0.4 x10^3/uL (0.0-1.1) 1.1 x10^3/uL (0.0-1.1) Eosinophils # (Auto) 0.0 x10^3/uL (0.0-0.7) 0.0 x10^3/uL (0.0-0.7) Basophils # (Auto) 0.1 x10^3/uL (0.0-0.2) 0.1 x10^3/uL (0.0-0.2) Segmented Neutrophils % 94 % (35-66) Band Neutrophils % 1 % (0-9) Lymphocytes % 4 % (24-48) Monocytes % 1 % (0-10) Platelet Estimate Adequate (ADEQUATE) Prothrombin Time 12.5 SEC (11.7-14.0) Prothromb Time International Ratio 1.0 (0.8-1.1) Activated Partial Thromboplast Time 24 SEC (24-38) Sodium Level 140 mmol/L (136-145) 134 mmol/L (136-145) Potassium Level 3.8 mmol/L (3.5-5.1) 3.1 mmol/L (3.5-5.1) Chloride Level 101 mmol/L (98-107) 100 mmol/L (98-107) Carbon Dioxide Level 28 mmol/L (21-32) 24 mmol/L (21-32) Anion Gap 11 (6-14) 10 (6-14) Blood Urea Nitrogen 22 mg/dL (7-20) 18 mg/dL (7-20) Creatinine 1.4 mg/dL (0.6-1.0) 1.0 mg/dL (0.6-1.0) Estimated GFR (Cockcroft-Gault) 35.6 52.4 BUN/Creatinine Ratio 16 (6-20) 18 (6-20) Glucose Level 187 mg/dL (70-99) 121 mg/dL (70-99) Calcium Level 8.9 mg/dL (8.5-10.1) 8.5 mg/dL (8.5-10.1) Total Bilirubin 3.5 mg/dL (0.2-1.0) 2.2 mg/dL (0.2-1.0) Aspartate Amino Transf (AST/SGOT) 460 U/L (15-37) 158 U/L (15-37) Alanine Aminotransferase (ALT/SGPT) 460 U/L (14-59) 273 U/L (14-59) Alkaline Phosphatase 376 U/L (46-116) 323 U/L (46-116) Troponin I Quantitative < 0.017 ng/mL (0.000-0.055) Total Protein 7.4 g/dL (6.4-8.2) 6.1 g/dL (6.4-8.2) Albumin 3.6 g/dL (3.4-5.0) 3.1 g/dL (3.4-5.0) Albumin/Globulin Ratio 0.9 (1.0-1.7) 1.0 (1.0-1.7) Lipase 125 U/L (73-393) Urine Collection Type Unknown Urine Color [place] Urine Clarity Cloudy Urine pH (<5.0-8.0) Urine Specific [place] (1.000-1.030) Urine Protein mg/dL (NEG-TRACE) Urine Glucose (UA) mg/dL (NEG) Urine Ketones (Stick) mg/dL (NEG) Urine Blood (NEG) Urine Nitrite (NEG) Urine Bilirubin (NEG) Urine Urobilinogen Dipstick mg/dL (0.2 mg/dL) Urine Leukocyte Esterase (NEG) Urine RBC 1-2 /HPF (0-2) Urine WBC 5-10 /HPF (0-4) Urine Squamous Epithelial Cells Few /LPF Urine Bacteria Many /HPF (0-FEW) Urine Hyaline Casts Occasional /HPF Urine Mucus Slight /LPF Coronavirus (COVID-19)(PCR) Negative (NEGATIVE) Laboratory Tests Test 09/26/19 04:03 White Blood Count 13.8 x10^3/uL (4.0-11.0) Red Blood Count 4.35 x10^6/uL (3.50-5.40) Hemoglobin 14.6 g/dL (12.0-15.5) Hematocrit 43.1 % (36.0-47.0) Mean Corpuscular Volume 99 fL (79-100) Mean Corpuscular Hemoglobin 34 pg (25-35) Mean Corpuscular Hemoglobin Concent 34 g/dL (31-37) Red Cell Distribution Width 14.3 % (11.5-14.5) Platelet Count 151 x10^3/uL (140-400) Neutrophils (%) (Auto) 86 % (31-73) Lymphocytes (%) (Auto) 5 % (24-48) Monocytes (%) (Auto) 8 % (0-9) Eosinophils (%) (Auto) 0 % (0-3) Basophils (%) (Auto) 0 % (0-3) Neutrophils # (Auto) 12.0 x10^3/uL (1.8-7.7) Lymphocytes # (Auto) 0.7 x10^3/uL (1.0-4.8) Monocytes # (Auto) 1.1 x10^3/uL (0.0-1.1) Eosinophils # (Auto) 0.0 x10^3/uL (0.0-0.7) Basophils # (Auto) 0.1 x10^3/uL (0.0-0.2) Sodium Level 134 mmol/L (136-145) Potassium Level 3.1 mmol/L (3.5-5.1) Chloride Level 100 mmol/L (98-107) Carbon Dioxide Level 24 mmol/L (21-32) Anion Gap 10 (6-14) Blood Urea Nitrogen 18 mg/dL (7-20) Creatinine 1.0 mg/dL (0.6-1.0) Estimated GFR (Cockcroft-Gault) 52.4 BUN/Creatinine Ratio 18 (6-20) Glucose Level 121 mg/dL (70-99) Calcium Level 8.5 mg/dL (8.5-10.1) Total Bilirubin 2.2 mg/dL (0.2-1.0) Aspartate Amino Transf (AST/SGOT) 158 U/L (15-37) Alanine Aminotransferase (ALT/SGPT) 273 U/L (14-59) Alkaline Phosphatase 323 U/L (46-116) Total Protein 6.1 g/dL (6.4-8.2) Albumin 3.1 g/dL (3.4-5.0) Albumin/Globulin Ratio 1.0 (1.0-1.7) Images Images US and CT concerning for choledocholithiasis and cholelithiasis Assessment/Plan Assessment/Plan choledocholithiasis agree with GI plans for ERCP may benefit from cholecystectomy, given risk for recurrence. She wishes to consider this. Will f/u pending ERCP Thanks for consult! KENIA GELLER MD Sep 26, 2019 15:31
[2019-09-27] VITALS (11 sets, daily range): BP systolic 138–170; BP diastolic 66–83
[2019-09-27 04:29] LABS: HEMATOCRIT 41.7 % (36.0-47.0); HEMOGLOBIN 14.5 g/dL (12.0-15.5); RED BLOOD COUNT 4.21 x10^6/uL (3.50-5.40); RED CELL DISTRIBUTION WIDTH 14.3 % (11.5-14.5); WHITE BLOOD COUNT 14.4 x10^3/uL (4.0-11.0)
[2019-09-27 05:05] LABS: ALBUMIN 2.6 g/dL (3.4-5.0); ALBUMIN/GLOBULIN RATIO 0.7 (1.0-1.7); CALCIUM 8.6 mg/dL (8.5-10.1); CREATININE 1.1 mg/dL (0.6-1.0); TOTAL BILIRUBIN 1.9 mg/dL (0.2-1.0); TOTAL PROTEIN 6.3 g/dL (6.4-8.2)
[2019-09-27] MEDS: IV 1/2 NORMAL SALINE 1,000 ML IV SCH (06:45)
[2019-09-27] MEDS ORDERED: IV RINGERS,LACTATED 1000ML 1,000 ML IV SCH (07:00)
[2019-09-27] MEDS: PANTOPRAZOLE IV PUSH 40 MG VIAL. IVP SCH (07:30)
--- NOTE | 2019-09-27 10:18 | PDOC ---
SURGICAL PROGRESS NOTE Subjective some RUQ pain family present she is considering lap damion Vital Signs Vital Signs Date Time Temp Pulse Resp B/P (MAP) Pulse Ox O2 Delivery O2 Flow Rate FiO2 09/27/19 07:00 98.4 80 16 159/83 (108) 94 Room Air 98.4 I&O Intake and Output 09/27/19 07:00 Intake Total 480 ml Balance 480 ml Intake Oral 480 ml # Voids 4 General: Alert, Cooperative, No acute distress Abdomen: Soft, Other (mild ttp RUQ) Labs Laboratory Tests Test 09/25/19 15:20 09/26/19 04:03 09/27/19 03:25 09/27/19 07:52 Coronavirus (COVID-19)(PCR) Negative (NEGATIVE) White Blood Count 13.8 x10^3/uL (4.0-11.0) 14.4 x10^3/uL (4.0-11.0) Red Blood Count 4.35 x10^6/uL (3.50-5.40) 4.21 x10^6/uL (3.50-5.40) Hemoglobin 14.6 g/dL (12.0-15.5) 14.5 g/dL (12.0-15.5) Hematocrit 43.1 % (36.0-47.0) 41.7 % (36.0-47.0) Mean Corpuscular Volume 99 fL (79-100) 99 fL (79-100) Mean Corpuscular Hemoglobin 34 pg (25-35) 34 pg (25-35) Mean Corpuscular Hemoglobin Concent 34 g/dL (31-37) 35 g/dL (31-37) Red Cell Distribution Width 14.3 % (11.5-14.5) 14.3 % (11.5-14.5) Platelet Count 151 x10^3/uL (140-400) 154 x10^3/uL (140-400) Neutrophils (%) (Auto) 86 % (31-73) Lymphocytes (%) (Auto) 5 % (24-48) Monocytes (%) (Auto) 8 % (0-9) Eosinophils (%) (Auto) 0 % (0-3) Basophils (%) (Auto) 0 % (0-3) Neutrophils # (Auto) 12.0 x10^3/uL (1.8-7.7) Lymphocytes # (Auto) 0.7 x10^3/uL (1.0-4.8) Monocytes # (Auto) 1.1 x10^3/uL (0.0-1.1) Eosinophils # (Auto) 0.0 x10^3/uL (0.0-0.7) Basophils # (Auto) 0.1 x10^3/uL (0.0-0.2) Sodium Level 134 mmol/L (136-145) 134 mmol/L (136-145) Potassium Level 3.1 mmol/L (3.5-5.1) 3.0 mmol/L (3.5-5.1) Chloride Level 100 mmol/L (98-107) 99 mmol/L (98-107) Carbon Dioxide Level 24 mmol/L (21-32) 26 mmol/L (21-32) Anion Gap 10 (6-14) 9 (6-14) Blood Urea Nitrogen 18 mg/dL (7-20) 17 mg/dL (7-20) Creatinine 1.0 mg/dL (0.6-1.0) 1.1 mg/dL (0.6-1.0) Estimated GFR (Cockcroft-Gault) 52.4 47.0 BUN/Creatinine Ratio 18 (6-20) 15 (6-20) Glucose Level 121 mg/dL (70-99) 113 mg/dL (70-99) Calcium Level 8.5 mg/dL (8.5-10.1) 8.6 mg/dL (8.5-10.1) Total Bilirubin 2.2 mg/dL (0.2-1.0) 1.9 mg/dL (0.2-1.0) Aspartate Amino Transf (AST/SGOT) 158 U/L (15-37) 49 U/L (15-37) Alanine Aminotransferase (ALT/SGPT) 273 U/L (14-59) 146 U/L (14-59) Alkaline Phosphatase 323 U/L (46-116) 254 U/L (46-116) Total Protein 6.1 g/dL (6.4-8.2) 6.3 g/dL (6.4-8.2) Albumin 3.1 g/dL (3.4-5.0) 2.6 g/dL (3.4-5.0) Albumin/Globulin Ratio 1.0 (1.0-1.7) 0.7 (1.0-1.7) Glucose (Fingerstick) 113 mg/dL (70-99) Laboratory Tests Test 09/27/19 03:25 09/27/19 07:52 White Blood Count 14.4 x10^3/uL (4.0-11.0) Red Blood Count 4.21 x10^6/uL (3.50-5.40) Hemoglobin 14.5 g/dL (12.0-15.5) Hematocrit 41.7 % (36.0-47.0) Mean Corpuscular Volume 99 fL (79-100) Mean Corpuscular Hemoglobin 34 pg (25-35) Mean Corpuscular Hemoglobin Concent 35 g/dL (31-37) Red Cell Distribution Width 14.3 % (11.5-14.5) Platelet Count 154 x10^3/uL (140-400) Sodium Level 134 mmol/L (136-145) Potassium Level 3.0 mmol/L (3.5-5.1) Chloride Level 99 mmol/L (98-107) Carbon Dioxide Level 26 mmol/L (21-32) Anion Gap 9 (6-14) Blood Urea Nitrogen 17 mg/dL (7-20) Creatinine 1.1 mg/dL (0.6-1.0) Estimated GFR (Cockcroft-Gault) 47.0 BUN/Creatinine Ratio 15 (6-20) Glucose Level 113 mg/dL (70-99) Calcium Level 8.6 mg/dL (8.5-10.1) Total Bilirubin 1.9 mg/dL (0.2-1.0) Aspartate Amino Transf (AST/SGOT) 49 U/L (15-37) Alanine Aminotransferase (ALT/SGPT) 146 U/L (14-59) Alkaline Phosphatase 254 U/L (46-116) Total Protein 6.3 g/dL (6.4-8.2) Albumin 2.6 g/dL (3.4-5.0) Albumin/Globulin Ratio 0.7 (1.0-1.7) Glucose (Fingerstick) 113 mg/dL (70-99) Problem List Problems Medical Problems: (1) Abdominal pain Status: Acute (2) Common bile duct dilatation Status: Acute (3) HTN (hypertension) Status: Acute Assessment/Plan ERCP today consider lap damion Justicifation of Admission Dx: Justifications for Admission: Justification of Admission Dx: N/A ZOILA GOMES APRN Sep 27, 2019 10:18
--- NOTE | 2019-09-27 10:47 | PDOC ---
PROGRESS NOTES History of Present Illness History of Present Illness VTE Prophylaxis Ordered VTE Prophylaxis Devices: No VTE Pharmacological Prophylaxi: Yes impression Assessment/Plan RUQ pain, Upper abdominal pain common bile duct dilation, may need MRCP or ERCP choledocholithiasis. There is dilatation of the common bile duct and gallbladder, also likely gallbladder wall thickening as could be seen with cholecystitis. w/ hepatomegaly covid neg 09/25 ERCP 09/26 CAD: s/p PCI/LIYAH to LAD 06/2018, clinically stable ICM: recovered with recent EF at 55% PAFIB: maintaining SR . consider lap damion Elevated LFTs, dilated CBD GERD CAD, A Fib, CKD MRI/MRCP to further evaluate for distal obstruction. 09/26 still in pain, iv morphine needed 29 min pt exam, chart review, > 50% of time spent with exam, chart review., pt care coordination Vitals Vitals Vital Signs Date Time Temp Pulse Resp B/P (MAP) Pulse Ox O2 Delivery O2 Flow Rate FiO2 09/27/19 07:00 98.4 80 16 159/83 (108) 94 Room Air 98.4 Physical Exam General: Alert, Cooperative, No acute distress, mild distress Heart: Regular rate, Normal S1, Normal S2, Other (3/6 diastolic murmur to ERbs) Lungs: Clear Abdomen: Soft, Other (mild ttp RUQ) Extremities: No clubbing, No cyanosis Skin: No rashes, No breakdown Labs LABS Laboratory Tests Test 09/27/19 03:25 09/27/19 07:52 White Blood Count 14.4 x10^3/uL (4.0-11.0) Red Blood Count 4.21 x10^6/uL (3.50-5.40) Hemoglobin 14.5 g/dL (12.0-15.5) Hematocrit 41.7 % (36.0-47.0) Mean Corpuscular Volume 99 fL (79-100) Mean Corpuscular Hemoglobin 34 pg (25-35) Mean Corpuscular Hemoglobin Concent 35 g/dL (31-37) Red Cell Distribution Width 14.3 % (11.5-14.5) Platelet Count 154 x10^3/uL (140-400) Sodium Level 134 mmol/L (136-145) Potassium Level 3.0 mmol/L (3.5-5.1) Chloride Level 99 mmol/L (98-107) Carbon Dioxide Level 26 mmol/L (21-32) Anion Gap 9 (6-14) Blood Urea Nitrogen 17 mg/dL (7-20) Creatinine 1.1 mg/dL (0.6-1.0) Estimated GFR (Cockcroft-Gault) 47.0 BUN/Creatinine Ratio 15 (6-20) Glucose Level 113 mg/dL (70-99) Calcium Level 8.6 mg/dL (8.5-10.1) Total Bilirubin 1.9 mg/dL (0.2-1.0) Aspartate Amino Transf (AST/SGOT) 49 U/L (15-37) Alanine Aminotransferase (ALT/SGPT) 146 U/L (14-59) Alkaline Phosphatase 254 U/L (46-116) Total Protein 6.3 g/dL (6.4-8.2) Albumin 2.6 g/dL (3.4-5.0) Albumin/Globulin Ratio 0.7 (1.0-1.7) Glucose (Fingerstick) 113 mg/dL (70-99) Assessment and Plan Assessmemt and Plan Problems Medical Problems: (1) Abdominal pain Status: Acute (2) Common bile duct dilatation Status: Acute (3) HTN (hypertension) Status: Acute Comment Review of Relevant I have reviewed the following items luna (where applicable) has been applied. Labs Laboratory Tests Test 09/25/19 15:20 09/26/19 04:03 09/27/19 03:25 09/27/19 07:52 Coronavirus (COVID-19)(PCR) Negative (NEGATIVE) White Blood Count 13.8 x10^3/uL (4.0-11.0) 14.4 x10^3/uL (4.0-11.0) Red Blood Count 4.35 x10^6/uL (3.50-5.40) 4.21 x10^6/uL (3.50-5.40) Hemoglobin 14.6 g/dL (12.0-15.5) 14.5 g/dL (12.0-15.5) Hematocrit 43.1 % (36.0-47.0) 41.7 % (36.0-47.0) Mean Corpuscular Volume 99 fL (79-100) 99 fL (79-100) Mean Corpuscular Hemoglobin 34 pg (25-35) 34 pg (25-35) Mean Corpuscular Hemoglobin Concent 34 g/dL (31-37) 35 g/dL (31-37) Red Cell Distribution Width 14.3 % (11.5-14.5) 14.3 % (11.5-14.5) Platelet Count 151 x10^3/uL (140-400) 154 x10^3/uL (140-400) Neutrophils (%) (Auto) 86 % (31-73) Lymphocytes (%) (Auto) 5 % (24-48) Monocytes (%) (Auto) 8 % (0-9) Eosinophils (%) (Auto) 0 % (0-3) Basophils (%) (Auto) 0 % (0-3) Neutrophils # (Auto) 12.0 x10^3/uL (1.8-7.7) Lymphocytes # (Auto) 0.7 x10^3/uL (1.0-4.8) Monocytes # (Auto) 1.1 x10^3/uL (0.0-1.1) Eosinophils # (Auto) 0.0 x10^3/uL (0.0-0.7) Basophils # (Auto) 0.1 x10^3/uL (0.0-0.2) Sodium Level 134 mmol/L (136-145) 134 mmol/L (136-145) Potassium Level 3.1 mmol/L (3.5-5.1) 3.0 mmol/L (3.5-5.1) Chloride Level 100 mmol/L (98-107) 99 mmol/L (98-107) Carbon Dioxide Level 24 mmol/L (21-32) 26 mmol/L (21-32) Anion Gap 10 (6-14) 9 (6-14) Blood Urea Nitrogen 18 mg/dL (7-20) 17 mg/dL (7-20) Creatinine 1.0 mg/dL (0.6-1.0) 1.1 mg/dL (0.6-1.0) Estimated GFR (Cockcroft-Gault) 52.4 47.0 BUN/Creatinine Ratio 18 (6-20) 15 (6-20) Glucose Level 121 mg/dL (70-99) 113 mg/dL (70-99) Calcium Level 8.5 mg/dL (8.5-10.1) 8.6 mg/dL (8.5-10.1) Total Bilirubin 2.2 mg/dL (0.2-1.0) 1.9 mg/dL (0.2-1.0) Aspartate Amino Transf (AST/SGOT) 158 U/L (15-37) 49 U/L (15-37) Alanine Aminotransferase (ALT/SGPT) 273 U/L (14-59) 146 U/L (14-59) Alkaline Phosphatase 323 U/L (46-116) 254 U/L (46-116) Total Protein 6.1 g/dL (6.4-8.2) 6.3 g/dL (6.4-8.2) Albumin 3.1 g/dL (3.4-5.0) 2.6 g/dL (3.4-5.0) Albumin/Globulin Ratio 1.0 (1.0-1.7) 0.7 (1.0-1.7) Glucose (Fingerstick) 113 mg/dL (70-99) Laboratory Tests Test 09/27/19 03:25 09/27/19 07:52 White Blood Count 14.4 x10^3/uL (4.0-11.0) Red Blood Count 4.21 x10^6/uL (3.50-5.40) Hemoglobin 14.5 g/dL (12.0-15.5) Hematocrit 41.7 % (36.0-47.0) Mean Corpuscular Volume 99 fL (79-100) Mean Corpuscular Hemoglobin 34 pg (25-35) Mean Corpuscular Hemoglobin Concent 35 g/dL (31-37) Red Cell Distribution Width 14.3 % (11.5-14.5) Platelet Count 154 x10^3/uL (140-400) Sodium Level 134 mmol/L (136-145) Potassium Level 3.0 mmol/L (3.5-5.1) Chloride Level 99 mmol/L (98-107) Carbon Dioxide Level 26 mmol/L (21-32) Anion Gap 9 (6-14) Blood Urea Nitrogen 17 mg/dL (7-20) Creatinine 1.1 mg/dL (0.6-1.0) Estimated GFR (Cockcroft-Gault) 47.0 BUN/Creatinine Ratio 15 (6-20) Glucose Level 113 mg/dL (70-99) Calcium Level 8.6 mg/dL (8.5-10.1) Total Bilirubin 1.9 mg/dL (0.2-1.0) Aspartate Amino Transf (AST/SGOT) 49 U/L (15-37) Alanine Aminotransferase (ALT/SGPT) 146 U/L (14-59) Alkaline Phosphatase 254 U/L (46-116) Total Protein 6.3 g/dL (6.4-8.2) Albumin 2.6 g/dL (3.4-5.0) Albumin/Globulin Ratio 0.7 (1.0-1.7) Glucose (Fingerstick) 113 mg/dL (70-99) Medications Current Medications Morphine Sulfate (Morphine Sulfate) 4 mg 1X ONCE IV Last administered on 09/25/19at 09:34; Start 09/25/19 at 09:30; Stop 09/25/19 at 09:31; Status DC Ondansetron HCl (Zofran) 4 mg 1X ONCE IVP Last administered on 09/25/19at 09:33; Start 09/25/19 at 09:30; Stop 09/25/19 at 09:31; Status DC Hydralazine HCl (Apresoline Inj) 10 mg 1X ONCE IVP Last administered on 09/25/19at 11:53; Start 09/25/19 at 11:15; Stop 09/25/19 at 11:16; Status DC Ondansetron HCl (Zofran) 4 mg PRN Q8HRS PRN IV NAUSEA/VOMITING; Start 09/25/19 at 11:45; Stop 09/26/19 at 11:44; Status DC Fentanyl Citrate (Fentanyl 2ml Vial) 50 mcg PRN Q1HR PRN IV PAIN Last administered on 09/26/19at 07:53; Start 09/25/19 at 11:45; Stop 09/26/19 at 11:44; Status DC Pantoprazole Sodium (PROTONIX VIAL for IV PUSH) 40 mg DAILYAC IVP Last administered on 09/26/19at 07:56; Start 09/25/19 at 15:00 Iohexol (Omnipaque 240 Mg/ml) 30 ml 1X ONCE PO Last administered on 09/25/19at 14:30; Start 09/25/19 at 14:30; Stop 09/25/19 at 14:31; Status DC Info (CONTRAST GIVEN -- Rx MONITORING) 1 each PRN DAILY PRN MC SEE COMMENTS; Start 09/25/19 at 14:30; Stop 09/27/19 at 14:29 Sodium Chloride 1,000 ml @ 75 mls/hr [id number] IV Last administered on 09/26/19at 15:39; Start 09/25/19 at 14:45 Ringer's Solution 1,000 ml @ 50 mls/hr Q20H IV ; Start 09/27/19 at 07:00; Stop 09/27/19 at 18:59 Metoprolol Tartrate (Lopressor Vial) 5 mg PRN Q6HRS PRN IVP HYPERTENSION; Start 09/26/19 at 13:45 Active Scripts Active Vitamin D3 (Cholecalciferol (Vitamin D3)) 1,000 Unit Tablet 1,000 Unit PO DAILY Proair Hfa (Albuterol Sulfate) 8.5 Gm Hfa.aer.ad 2.5 Mg NEB RTQID Lasix (Furosemide) 40 Mg Tablet 1 Tab PO DAILY Klor-Con M20 (Potassium Chloride) 20 Meq Tab.er.prt 20 Meq PO DAILY 30 Days Reported Biofreeze (Menthol) 118 Ml Gel..ml. 1 [place]atha TP PRN 7 Days Benzonatate 200 Mg Capsule 1 Cap PO PRN TID PRN 7 Days Loratadine 10 Mg Tablet 1 Tab PO DAILY Flonase Allergy Relief (Fluticasone Propionate) 9.9 Ml [place].susp 2 Sprays NS BID Aspirin 325 Mg Tablet 81 Mg PO DAILY Levothyroxine Sodium 125 Mcg Tablet 1 Tab PO DAILY Metoprolol Tartrate 50 Mg Tablet 1 Tab PO DAILY Vitals/I & O Vital Sign - Last 24 Hours 09/26/19 09/26/19 09/26/19 09/26/19 11:00 15:00 19:00 23:00 Temp 97.9 98.6 99.4 98.9 97.9 98.6 99.4 98.9 Pulse 78 80 84 85 Resp 18 18 18 18 B/P (MAP) 143/66 (91) 150/72 (98) 162/80 (107) 153/67 (95) Pulse Ox 93 93 93 92 O2 Delivery Room Air Room Air Room Air Room Air 09/27/19 09/27/19 03:00 07:00 Temp 98.7 98.4 98.7 98.4 Pulse 83 80 Resp 18 16 B/P (MAP) 151/74 (99) 159/83 (108) Pulse Ox 91 94 O2 Delivery Room Air Room Air Intake and Output 09/26/19 09/26/19 09/27/19 15:00 23:00 07:00 Intake Total 240 ml 240 ml Balance 240 ml 240 ml Nutrition Consultation Dietary Evaluation: Recommendations by RD: Dietary education by RD, Increase Calorie Intake, Protein supplementation Comments: rec cardiac diet when able to advance honor food preferences and offer snacks/ supplements from unit prn. Expected Outcomes/Goals: to meet >75% est nutr needs Interpretation of weight loss: >10% in 6 months Malnutrition Findings: Food and Nutrition Intake (Mod: <75% est energy req 7days Weight Status: Overweight Justicifation of Admission Dx: Justifications for Admission: Justification of Admission Dx: N/A TASHIA BAI MD Sep 27, 2019 10:47
--- NOTE | 2019-09-27 11:43 | PDOC ---
ANETTE ALTMAN ROOF BOLTER 09/27/19 1143: CARDIO Progress Notes Date and Time Date of Service 09/27/2019 Time of Evaluation 0950 Subjective Subjective: No Chest Pain, No shortness of breath, No Palpitations, Other (feels weak and still has abdominal pain) Vitals Vitals Vital Signs Date Time Temp Pulse Resp B/P (MAP) Pulse Ox O2 Delivery O2 Flow Rate FiO2 09/27/19 11:00 97.8 81 16 148/76 (100) 92 Room Air 97.8 Weight Weight [ ] Input and Output Intake and Output Intake and Output 09/27/19 07:00 Intake Total 480 ml Balance 480 ml Intake Oral 480 ml # Voids 4 Laboratory Labs Laboratory Tests Test 09/27/19 03:25 09/27/19 07:52 White Blood Count 14.4 x10^3/uL (4.0-11.0) Red Blood Count 4.21 x10^6/uL (3.50-5.40) Hemoglobin 14.5 g/dL (12.0-15.5) Hematocrit 41.7 % (36.0-47.0) Mean Corpuscular Volume 99 fL (79-100) Mean Corpuscular Hemoglobin 34 pg (25-35) Mean Corpuscular Hemoglobin Concent 35 g/dL (31-37) Red Cell Distribution Width 14.3 % (11.5-14.5) Platelet Count 154 x10^3/uL (140-400) Sodium Level 134 mmol/L (136-145) Potassium Level 3.0 mmol/L (3.5-5.1) Chloride Level 99 mmol/L (98-107) Carbon Dioxide Level 26 mmol/L (21-32) Anion Gap 9 (6-14) Blood Urea Nitrogen 17 mg/dL (7-20) Creatinine 1.1 mg/dL (0.6-1.0) Estimated GFR (Cockcroft-Gault) 47.0 BUN/Creatinine Ratio 15 (6-20) Glucose Level 113 mg/dL (70-99) Calcium Level 8.6 mg/dL (8.5-10.1) Total Bilirubin 1.9 mg/dL (0.2-1.0) Aspartate Amino Transf (AST/SGOT) 49 U/L (15-37) Alanine Aminotransferase (ALT/SGPT) 146 U/L (14-59) Alkaline Phosphatase 254 U/L (46-116) Total Protein 6.3 g/dL (6.4-8.2) Albumin 2.6 g/dL (3.4-5.0) Albumin/Globulin Ratio 0.7 (1.0-1.7) Glucose (Fingerstick) 113 mg/dL (70-99) Physical Exam HEENT: Other ([place]) Chest: Symmetric LUNGS: Other (diminished bases) Heart: RRR (no monitor), no gallops Abdomen: Other (soft) Extremities: No Calf Tenderness Neurology: alert, oriented, follow commands Assessment Assessment 1. Abdominal pain/Choledocholithiasis: ERCP planned today per GI 2. CAD: s/p PCI/LIYAH to LAD 06/2018, clinically stable 3. Hx of ICM: recovered with recent EF at 55% 4. PAFIB: maintaining SR per EKG. low burden noted prior. 5. HTN; controlled 6. Hypokalemia Recommendations 1. Continue baby ASA, no further birlinta. Continue secondary prevention measures once PO is allowed 2. EKG today. Low risk for perioperative CV events for noncardiac surgery 3. Metoprolol IV PRN while NPO, Monitor BP trend. 4. Aggresive IS, replace K, check Mg Justicifation of Admission Dx: Justifications for Admission: Justification of Admission Dx: N/A BRITANY CUENCA MD 09/27/19 1831: CARDIO Progress Notes Plan Plan Patient seen and examined. Agree with above nurse practitioner note. Continue supportive care. ANETTE ALTMAN APRN Sep 27, 2019 11:43 BRITANY CUENCA MD Sep 27, 2019 18:31
[2019-09-27] MEDS ORDERED: POTASSIUM CHLORIDE 20MEQ 100 ML IV ONE (12:00)
[2019-09-27] MEDS ORDERED: PROPOFOL 10 MG/ML (20ML) VIAL. IV ONE (13:00)
[2019-09-27] MEDS ORDERED: SUCCINYLCHOLINE 200 MG/10 ML VIAL. ONE (13:00)
[2019-09-27] MEDS ORDERED: DEXAMETHASONE SOD PHOS 20 MG/5 ML VIAL. ONE (13:00)
[2019-09-27] MEDS ORDERED: LIDOCAINE 2% 100 MG/5 ML SYRINGE. ONE (13:00)
[2019-09-27] MEDS ORDERED: PHENYLEPHRINE in 0.9% NACL PF 1 MG/10 ML SYRINGE. IV ONE (13:00)
[2019-09-27] MEDS ORDERED: IV RINGERS,LACTATED 1000ML 1,000 ML IV ONE (14:00)
[2019-09-27] MEDS ORDERED: IOHEXOL 300 MG/ML 100ML VIAL. ONE (14:06)
[2019-09-27] MEDS ORDERED: ONDANSETRON PF 4 MG/2 ML VIAL. ONE (14:11)
--- NOTE | 2019-09-27 14:59 | PDOC4 ---
Operative Note Operative Note ERCP with sphincterotomy and stone extractions Meds Propofol per anesthesia Pre-op dx CBD stones/abnl Ct scan/Jaundice Post-op dx Choledocholithiasis s/p sphincterotomy/stone extractions Plan am labs liquids as tolerated in am possible lap damionDANNA Luna MD Sep 27, 2019 14:59
--- NOTE | 2019-09-27 16:08 | RAD ---
EXAM: ERCP. HISTORY: Choledocholithiasis. FINDINGS: 9 fluoroscopic images of the biliary tree are obtained during ERCP. Fluoroscopy time 2 minutes 48 seconds. These demonstrate cannulation of the biliary tree and injection of contrast. There are changes of balloon sweep of the biliary tree. No filling defects are appreciated at the completion of the study. Refer to the operative report for full detail. Electronically signed by: Jaelyn Schwarz MD (09/27/2019 4:05 PM) [id number]
[2019-09-28] MEDS: IV 1/2 NORMAL SALINE 1,000 ML IV SCH ×3 (00:24→22:45)
[2019-09-28 03:00] VITALS: BP 169/88
[2019-09-28 05:04] LABS: BASO % 0 % (0-3); EOS % 0 % (0-3); HEMATOCRIT 41.8 % (36.0-47.0); HEMOGLOBIN 14.3 g/dL (12.0-15.5); LYMPH # 0.8 x10^3/uL (1.0-4.8); LYMPH % 7 % (24-48); MEAN CORPUSCULAR HEMOGLOBIN 34 pg (25-35); MEAN CORPUSCULAR HGB CONC 34 g/dL (31-37); MEAN CORPUSCULAR VOLUME 99 fL (79-100); MONO # 0.6 x10^3/uL (0.0-1.1); MONO % 5 % (0-9); NEUT # 10.5 x10^3/uL (1.8-7.7); NEUT % 88 % (31-73); PLATELET COUNT 154 x10^3/uL (140-400); RED BLOOD COUNT 4.22 x10^6/uL (3.50-5.40); RED CELL DISTRIBUTION WIDTH 14.1 % (11.5-14.5)
[2019-09-28 06:19] LABS: ALBUMIN 2.4 g/dL (3.4-5.0); ALBUMIN/GLOBULIN RATIO 0.6 (1.0-1.7); CALCIUM 8.5 mg/dL (8.5-10.1); CREATININE 1.1 mg/dL (0.6-1.0); POTASSIUM 3.4 mmol/L (3.5-5.1); TOTAL BILIRUBIN 1.3 mg/dL (0.2-1.0); TOTAL PROTEIN 6.4 g/dL (6.4-8.2)
[2019-09-28 07:00] VITALS: BP 166/79
[2019-09-28] MEDS ORDERED: POTASSIUM CHLORIDE 20MEQ 100 ML IV ONE (08:30)
[2019-09-28] MEDS: ASPIRIN ENTERIC COATED 81 MG TABLET.DR. PO SCH (08:37)
[2019-09-28] MEDS: PANTOPRAZOLE IV PUSH 40 MG VIAL. IVP SCH (08:38)
[2019-09-28] MEDS: METOPROLOL TART IMMED RELEASE 25 MG TABLET. PO SCH ×2 (08:39→21:23)
--- NOTE | 2019-09-28 09:15 | PDOC ---
PROGRESS NOTES History of Present Illness History of Present Illness VTE Prophylaxis Ordered VTE Prophylaxis Devices: No VTE Pharmacological Prophylaxi: Yes impression Assessment/Plan RUQ pain, Upper abdominal pain e coli uti on iv rocephin common bile duct dilation, may need MRCP or ERCP choledocholithiasis. There is dilatation of the common bile duct and gallbladder, also likely gallbladder wall thickening as could be seen with cholecystitis. w/ hepatomegaly covid neg 09/25 ERCP 09/26 CAD: s/p PCI/LIYAH to LAD 06/2018, clinically stable ICM: recovered with recent EF at 55% PAFIB: maintaining SR . 09/27 ercp cannulation of the biliary tree and injection of contrast. There are changes of balloon sweep of the biliary tree. No filling defects are appreciated at the completion of the study. consider lap damion 09/28 Elevated LFTs, dilated CBD GERD CAD, A Fib, CKD MRI/MRCP to further evaluate for distal obstruction. 09/26 iv rocephin 09/27 still in pain, iv morphine needed 27 min pt exam, chart review, > 50% of time spent with exam, chart review., pt care coordination Vitals Vitals Vital Signs Date Time Temp Pulse Resp B/P (MAP) Pulse Ox O2 Delivery O2 Flow Rate FiO2 09/28/19 08:39 67 166/79 09/28/19 07:00 98.3 16 94 Room Air 98.3 09/27/19 15:25 4 Physical Exam General: Alert, Cooperative, No acute distress, mild distress Heart: Regular rate, Normal S1, Normal S2, Other (3/6 diastolic murmur to ERbs) Lungs: Clear Abdomen: Normal bowel sounds, Soft, Other (mild ttp RUQ) Extremities: No clubbing, No cyanosis, No edema Skin: No rashes, No breakdown Labs LABS History: Dilated common bile duct on ultrasound Technique: CT imaging was performed of the abdomen and pelvis. Only oral contrast was also given. Multiplanar images are reviewed. Exposure: One or more of the following individualized dose reduction techniques were utilized for this examination: 1. Automated exposure control 2. Adjustment of the mA and/or kV according to patient size 3. Use of iterative reconstruction technique. Comparison: Ultrasound of the abdomen this same day; July 12, 2018 chest CTA; pelvis CT December 14, 2018 Findings: As seen on ultrasound, there is distention of the gallbladder although findings present on previous pelvis CT November 2018. There is some dependent density in the gallbladder lumen as may be seen with cholelithiasis although not well demonstrated on ultrasound. There is also appearance of wall prominence of the gallbladder although also poorly demonstrated on ultrasound. As best seen image 35 series 2, there is approximate 1.2 cm transverse by 1.4 cm CC by 0.9 cm calcification in the dilated common bile duct, more proximal caliber about 1.6 cm. There is also intrahepatic biliary ductal dilatation. There is a 1.2 cm cyst of the medial, mid to superior right kidney. Small calcification of the left kidney is probably vascular in etiology. There is no hydronephrosis of either kidney. There is no adrenal nodularity. There is splenic arterial calcification, also scattered calcification of the abdominal aorta. There are multiple splenic granulomas. There is fairly large hiatal hernia containing at least half of the stomach, larger than previous chest CTA. There is some coronary calcification. There is no pleural fluid. Pancreas is atrophic. There is a tiny fat-containing umbilical hernia. There is colonic diverticulosis greatest of the sigmoid colon. There is degenerative disc disease with vacuum phenomenon L3-4 through L5-S1. There is old left inferior pubic ramus fracture. There is mild lumbar dextroscoliosis. Impression: 1. There is choledocholithiasis. There is dilatation of the common bile duct and gallbladder, also likely gallbladder wall thickening as could be seen with cholecystitis. There is also some dependent hyperdensity in the gallbladder lumen suspicious for cholelithiasis although poorly demonstrated on ultrasound. 2. There is fairly large hiatal hernia containing at least half of the stomach. 3. There is colonic diverticulosis greatest of the sigmoid colon. Electronically signed by: Michael George MD (09/25/2019 4:35 PM) [facility] URINE CULTURE Final Final GREATER THAN 100,000 CFU/ML GRAM NEGATIVE RODS on 09/27/19 at 1103 FINAL ID= [ESCHERICHIA COLI] Testing Performed by: [address] [address] For Inquires, the Physician may contact the Microbiology department at [phone] ESCHERICHIA COLI ANTIMICROBIAL SUSCEPTIBILITY Final Comment NEG JESUS MANUEL 56 ESCHERICHIA COLI ANTIBIOTIC RESULT INTERPRETATION AMPICILLIN/SULBACTAM 16/8 I AMIKACIN <=16 S AMPICILLIN >16 R AMOXICILLIN/K CLAVULANATE <=8/4 S AZTREONAM <=4 S CEFTRIAXONE <=1 S CEFTAZIDIME <=1 S CEFOTAXIME <=2 S CEFOXITIN <=8 S CIPROFLOXACIN <=0.25 S CEFEPIME <=2 S CEFUROXIME <=4 S CEFTAZIDIME/AVIBACTAM <=4 S ERTAPENEM <=0.5 S NITROFURANTOIN <=32 S GENTAMICIN >8 R LEVOFLOXACIN <=0.5 S MEROPENEM <=1 S PIPERACILLIN/TAZOBACTAM <=8 S TRIMETHOPRIM/SULFAMETHOXAZOLE >2/38 R TETRACYCLINE >8 R TOBRAMYCIN 8 I Unless otherwise specified, Testing Performed by: REASON: choledocholithiasis,CBD stones, fl time=2:48min. PROCEDURE: ERCP BILIARY/PANCREATIC DUCT EXAM: ERCP. HISTORY: Choledocholithiasis. FINDINGS: 9 fluoroscopic images of the biliary tree are obtained during ERCP. Fluoroscopy time 2 minutes 48 seconds. These demonstrate cannulation of the biliary tree and injection of contrast. There are changes of balloon sweep of the biliary tree. No filling defects are appreciated at the completion of the study. Refer to the operative report for full detail. Electronically signed by: Jaelyn Schwarz MD (09/27/2019 4:05 PM) [id number] DICTATED and SIGNED BY: DARIN SCHWARZ MD DATE: 09/27/19 1605 Laboratory Tests Test 09/28/19 03:21 White Blood Count 12.0 x10^3/uL (4.0-11.0) Red Blood Count 4.22 x10^6/uL (3.50-5.40) Hemoglobin 14.3 g/dL (12.0-15.5) Hematocrit 41.8 % (36.0-47.0) Mean Corpuscular Volume 99 fL (79-100) Mean Corpuscular Hemoglobin 34 pg (25-35) Mean Corpuscular Hemoglobin Concent 34 g/dL (31-37) Red Cell Distribution Width 14.1 % (11.5-14.5) Platelet Count 154 x10^3/uL (140-400) Neutrophils (%) (Auto) 88 % (31-73) Lymphocytes (%) (Auto) 7 % (24-48) Monocytes (%) (Auto) 5 % (0-9) Eosinophils (%) (Auto) 0 % (0-3) Basophils (%) (Auto) 0 % (0-3) Neutrophils # (Auto) 10.5 x10^3/uL (1.8-7.7) Lymphocytes # (Auto) 0.8 x10^3/uL (1.0-4.8) Monocytes # (Auto) 0.6 x10^3/uL (0.0-1.1) Eosinophils # (Auto) 0.0 x10^3/uL (0.0-0.7) Basophils # (Auto) 0.0 x10^3/uL (0.0-0.2) Sodium Level 133 mmol/L (136-145) Potassium Level 3.4 mmol/L (3.5-5.1) Chloride Level 100 mmol/L (98-107) Carbon Dioxide Level 23 mmol/L (21-32) Anion Gap 10 (6-14) Blood Urea Nitrogen 16 mg/dL (7-20) Creatinine 1.1 mg/dL (0.6-1.0) Estimated GFR (Cockcroft-Gault) 47.0 BUN/Creatinine Ratio 15 (6-20) Glucose Level 113 mg/dL (70-99) Calcium Level 8.5 mg/dL (8.5-10.1) Total Bilirubin 1.3 mg/dL (0.2-1.0) Aspartate Amino Transf (AST/SGOT) 26 U/L (15-37) Alanine Aminotransferase (ALT/SGPT) 98 U/L (14-59) Alkaline Phosphatase 224 U/L (46-116) Total Protein 6.4 g/dL (6.4-8.2) Albumin 2.4 g/dL (3.4-5.0) Albumin/Globulin Ratio 0.6 (1.0-1.7) Amylase Level 25 U/L (25-115) Lipase 113 U/L (73-393) Assessment and Plan Assessmemt and Plan Problems Medical Problems: (1) Abdominal pain Status: Acute (2) Common bile duct dilatation Status: Acute (3) HTN (hypertension) Status: Acute Comment Review of Relevant I have reviewed the following items luna (where applicable) has been applied. Labs Laboratory Tests Test 09/27/19 03:25 09/27/19 07:52 09/28/19 03:21 White Blood Count 14.4 x10^3/uL (4.0-11.0) 12.0 x10^3/uL (4.0-11.0) Red Blood Count 4.21 x10^6/uL (3.50-5.40) 4.22 x10^6/uL (3.50-5.40) Hemoglobin 14.5 g/dL (12.0-15.5) 14.3 g/dL (12.0-15.5) Hematocrit 41.7 % (36.0-47.0) 41.8 % (36.0-47.0) Mean Corpuscular Volume 99 fL (79-100) 99 fL (79-100) Mean Corpuscular Hemoglobin 34 pg (25-35) 34 pg (25-35) Mean Corpuscular Hemoglobin Concent 35 g/dL (31-37) 34 g/dL (31-37) Red Cell Distribution Width 14.3 % (11.5-14.5) 14.1 % (11.5-14.5) Platelet Count 154 x10^3/uL (140-400) 154 x10^3/uL (140-400) Sodium Level 134 mmol/L (136-145) 133 mmol/L (136-145) Potassium Level 3.0 mmol/L (3.5-5.1) 3.4 mmol/L (3.5-5.1) Chloride Level 99 mmol/L (98-107) 100 mmol/L (98-107) Carbon Dioxide Level 26 mmol/L (21-32) 23 mmol/L (21-32) Anion Gap 9 (6-14) 10 (6-14) Blood Urea Nitrogen 17 mg/dL (7-20) 16 mg/dL (7-20) Creatinine 1.1 mg/dL (0.6-1.0) 1.1 mg/dL (0.6-1.0) Estimated GFR (Cockcroft-Gault) 47.0 47.0 BUN/Creatinine Ratio 15 (6-20) 15 (6-20) Glucose Level 113 mg/dL (70-99) 113 mg/dL (70-99) Calcium Level 8.6 mg/dL (8.5-10.1) 8.5 mg/dL (8.5-10.1) Magnesium Level 2.2 mg/dL (1.8-2.4) Total Bilirubin 1.9 mg/dL (0.2-1.0) 1.3 mg/dL (0.2-1.0) Aspartate Amino Transf (AST/SGOT) 49 U/L (15-37) 26 U/L (15-37) Alanine Aminotransferase (ALT/SGPT) 146 U/L (14-59) 98 U/L (14-59) Alkaline Phosphatase 254 U/L (46-116) 224 U/L (46-116) Total Protein 6.3 g/dL (6.4-8.2) 6.4 g/dL (6.4-8.2) Albumin 2.6 g/dL (3.4-5.0) 2.4 g/dL (3.4-5.0) Albumin/Globulin Ratio 0.7 (1.0-1.7) 0.6 (1.0-1.7) Glucose (Fingerstick) 113 mg/dL (70-99) Neutrophils (%) (Auto) 88 % (31-73) Lymphocytes (%) (Auto) 7 % (24-48) Monocytes (%) (Auto) 5 % (0-9) Eosinophils (%) (Auto) 0 % (0-3) Basophils (%) (Auto) 0 % (0-3) Neutrophils # (Auto) 10.5 x10^3/uL (1.8-7.7) Lymphocytes # (Auto) 0.8 x10^3/uL (1.0-4.8) Monocytes # (Auto) 0.6 x10^3/uL (0.0-1.1) Eosinophils # (Auto) 0.0 x10^3/uL (0.0-0.7) Basophils # (Auto) 0.0 x10^3/uL (0.0-0.2) Amylase Level 25 U/L (25-115) Lipase 113 U/L (73-393) Laboratory Tests Test 09/28/19 03:21 White Blood Count 12.0 x10^3/uL (4.0-11.0) Red Blood Count 4.22 x10^6/uL (3.50-5.40) Hemoglobin 14.3 g/dL (12.0-15.5) Hematocrit 41.8 % (36.0-47.0) Mean Corpuscular Volume 99 fL (79-100) Mean Corpuscular Hemoglobin 34 pg (25-35) Mean Corpuscular Hemoglobin Concent 34 g/dL (31-37) Red Cell Distribution Width 14.1 % (11.5-14.5) Platelet Count 154 x10^3/uL (140-400) Neutrophils (%) (Auto) 88 % (31-73) Lymphocytes (%) (Auto) 7 % (24-48) Monocytes (%) (Auto) 5 % (0-9) Eosinophils (%) (Auto) 0 % (0-3) Basophils (%) (Auto) 0 % (0-3) Neutrophils # (Auto) 10.5 x10^3/uL (1.8-7.7) Lymphocytes # (Auto) 0.8 x10^3/uL (1.0-4.8) Monocytes # (Auto) 0.6 x10^3/uL (0.0-1.1) Eosinophils # (Auto) 0.0 x10^3/uL (0.0-0.7) Basophils # (Auto) 0.0 x10^3/uL (0.0-0.2) Sodium Level 133 mmol/L (136-145) Potassium Level 3.4 mmol/L (3.5-5.1) Chloride Level 100 mmol/L (98-107) Carbon Dioxide Level 23 mmol/L (21-32) Anion Gap 10 (6-14) Blood Urea Nitrogen 16 mg/dL (7-20) Creatinine 1.1 mg/dL (0.6-1.0) Estimated GFR (Cockcroft-Gault) 47.0 BUN/Creatinine Ratio 15 (6-20) Glucose Level 113 mg/dL (70-99) Calcium Level 8.5 mg/dL (8.5-10.1) Total Bilirubin 1.3 mg/dL (0.2-1.0) Aspartate Amino Transf (AST/SGOT) 26 U/L (15-37) Alanine Aminotransferase (ALT/SGPT) 98 U/L (14-59) Alkaline Phosphatase 224 U/L (46-116) Total Protein 6.4 g/dL (6.4-8.2) Albumin 2.4 g/dL (3.4-5.0) Albumin/Globulin Ratio 0.6 (1.0-1.7) Amylase Level 25 U/L (25-115) Lipase 113 U/L (73-393) Microbiology 09/25/19 Urine Culture - Preliminary, Resulted Medications Current Medications Morphine Sulfate (Morphine Sulfate) 4 mg 1X ONCE IV Last administered on 09/25/19at 09:34; Start 09/25/19 at 09:30; Stop 09/25/19 at 09:31; Status DC Ondansetron HCl (Zofran) 4 mg 1X ONCE IVP Last administered on 09/25/19at 09:33; Start 09/25/19 at 09:30; Stop 09/25/19 at 09:31; Status DC Hydralazine HCl (Apresoline Inj) 10 mg 1X ONCE IVP Last administered on 09/25/19at 11:53; Start 09/25/19 at 11:15; Stop 09/25/19 at 11:16; Status DC Ondansetron HCl (Zofran) 4 mg PRN Q8HRS PRN IV NAUSEA/VOMITING; Start 09/25/19 at 11:45; Stop 09/26/19 at 11:44; Status DC Fentanyl Citrate (Fentanyl 2ml Vial) 50 mcg PRN Q1HR PRN IV PAIN Last admin istered on 09/26/19at 07:53; Start 09/25/19 at 11:45; Stop 09/26/19 at 11:44; Status DC Pantoprazole Sodium (PROTONIX VIAL for IV PUSH) 40 mg DAILYAC IVP Last administered on 09/28/19at 08:38; Start 09/25/19 at 15:00 Iohexol (Omnipaque 240 Mg/ml) 30 ml 1X ONCE PO Last administered on 09/25/19at 14:30; Start 09/25/19 at 14:30; Stop 09/25/19 at 14:31; Status DC Info (CONTRAST GIVEN -- Rx MONITORING) 1 each PRN DAILY PRN MC SEE COMMENTS; Start 09/25/19 at 14:30; Stop 09/27/19 at 14:29; Status DC Sodium Chloride 1,000 ml @ 75 mls/hr [id number] IV Last administered on 09/28/19at 00:24; Start 09/25/19 at 14:45 Ringer's Solution 1,000 ml @ 50 mls/hr Q20H IV Last administered on 09/27/19at 14:00; Start 09/27/19 at 07:00; Stop 09/27/19 at 18:59; Status DC Metoprolol Tartrate (Lopressor Vial) 5 mg PRN Q6HRS PRN IVP HYPERTENSION; Start 09/26/19 at 13:45 Potassium Chloride/Water 100 ml @ 50 mls/hr 1X ONCE IV Last administered on 09/27/19at 12:00; Start 09/27/19 at 12:00; Stop 09/27/19 at 13:59; Status DC Ringer's Solution 1,000 ml @ 75 mls/hr 1X ONCE IV ; Start 09/27/19 at 14:00; Stop 09/28/19 at 03:19; Status DC Iohexol (Omnipaque 300 Mg/ml) 100 ml STK-MED ONCE .ROUTE ; Start 09/27/19 at 14:06; Stop 09/27/19 at 14:07; Status DC Ondansetron HCl (Zofran) 4 mg STK-MED ONCE .ROUTE ; Start 09/27/19 at 14:11; Stop 09/27/19 at 14:12; Status DC Levofloxacin/ Dextrose 100 ml @ As Directed STK-MED ONCE IV ; Start 09/27/19 at 14:15; Stop 09/27/19 at 14:15; Status DC Levofloxacin/ Dextrose 100 ml @ 100 mls/hr 1X PREOP PRN IV PRIOR TO PROCEDURE Last administered on 09/27/19at 14:19; Start 09/27/19 at 14:35; Stop 09/28/19 at 14:34 Aspirin (Ecotrin) 81 mg [id number] PO Last administered on 09/28/19at 08:37; Start 09/28/19 at 08:00 Potassium Chloride/Water 100 ml @ 50 mls/hr 1X ONCE IV Last administered on 09/28/19at 08:38; Start 09/28/19 at 08:30; Stop 09/28/19 at 10:29 Succinylcholine Chloride (Anectine) 200 mg STK-MED ONCE .ROUTE ; Start 09/27/19 at 13:00; Stop 09/28/19 at 08:03; Status DC Phenylephrine HCl (PHENYLEPHRINE in 0.9% NACL PF) 1 mg STK-MED ONCE IV ; Start 09/27/19 at 13:00; Stop 09/28/19 at 08:03; Status DC Dexamethasone Sodium Phosphate (Decadron) 20 mg STK-MED ONCE .ROUTE ; Start 09/27/19 at 13:00; Stop 09/28/19 at 08:03; Status DC Propofol (Diprivan) 200 mg STK-MED ONCE IV ; Start 09/27/19 at 13:00; Stop 09/28/19 at 08:03; Status DC Lidocaine HCl (Lidocaine HCl 2% Abboject) 100 mg STK-MED ONCE .ROUTE ; Start 09/27/19 at 13:00; Stop 09/28/19 at 08:03; Status DC Metoprolol Tartrate (Lopressor) 25 mg BID PO Last administered on 09/28/19at 08:39; Start 09/28/19 at 09:00 Active Scripts Active Vitamin D3 (Cholecalciferol (Vitamin D3)) 1,000 Unit Tablet 1,000 Unit PO DAILY Proair Hfa (Albuterol Sulfate) 8.5 Gm Hfa.aer.ad 2.5 Mg NEB RTQID Lasix (Furosemide) 40 Mg Tablet 1 Tab PO DAILY Klor-Con M20 (Potassium Chloride) 20 Meq Tab.er.prt 20 Meq PO DAILY 30 Days Reported Biofreeze (Menthol) 118 Ml Gel..ml. 1 Tabatha TP PRN 7 Days Benzonatate 200 Mg Capsule 1 Cap PO PRN TID PRN 7 Days Loratadine 10 Mg Tablet 1 Tab PO DAILY Flonase Allergy Relief (Fluticasone Propionate) 9.9 Ml [place].susp 2 Sprays NS BID Aspirin 325 Mg Tablet 81 Mg PO DAILY Levothyroxine Sodium 125 Mcg Tablet 1 Tab PO DAILY Metoprolol Tartrate 50 Mg Tablet 1 Tab PO DAILY Vitals/I & O Vital Sign - Last 24 Hours 09/27/19 09/27/19 09/27/19 09/27/19 11:00 14:02 14:04 15:10 Temp 97.8 98.7 97.7 97.8 98.7 97.7 Pulse 81 86 80 Resp 16 20 18 B/P (MAP) 148/76 (100) 138/79 Pulse Ox 92 96 98 O2 Delivery Room Air Room Air Room Air O2 Flow Rate 4 09/27/19 09/27/19 09/27/19 09/27/19 15:10 15:20 15:25 15:32 Temp 98.1 98.1 Pulse 81 72 77 75 Resp 18 18 B/P (MAP) 138/66 167/67 (100) 157/68 142/72 (95) Pulse Ox 96 96 O2 Delivery Room Air Room Air O2 Flow Rate 4 4 09/27/19 09/27/19 09/27/19 09/27/19 15:40 15:47 16:02 16:17 Pulse 79 75 74 73 Resp 18 B/P (MAP) 154/65 162/73 (102) 160/66 (97) 170/76 (107) Pulse Ox 93 91 90 91 O2 Delivery Room Air 09/27/19 09/27/19 09/27/19 09/27/19 16:47 19:00 19:45 20:44 Temp 98.1 98.1 Pulse 77 81 Resp 18 B/P (MAP) 161/74 (103) 138/72 (94) Pulse Ox 91 94 91 O2 Delivery Room Air Room Air Room Air 09/27/19 09/28/19 09/28/19 09/28/19 23:00 03:00 07:00 08:39 Temp 98.1 98.7 98.3 98.1 98.7 98.3 Pulse 78 71 67 67 Resp 18 18 16 B/P (MAP) 157/79 (105) 169/88 (115) 166/79 (108) 166/79 Pulse Ox 95 94 94 O2 Delivery Room Air Room Air Room Air Intake and Output 09/27/19 09/27/19 09/28/19 15:00 23:00 07:00 Intake Total 600 ml 1000 ml Balance 600 ml 1000 ml Nutrition Consultation Dietary Evaluation: Recommendations by RD: Dietary education by RD, Increase Calorie Intake, Protein supplementation Comments: rec cardiac diet when able to advance honor food preferences and offer snacks/ supplements from unit prn. Expected Outcomes/Goals: to meet >75% est nutr needs Interpretation of weight loss: >10% in 6 months Malnutrition Findings: Food and Nutrition Intake (Mod: <75% est energy req 7days Weight Status: Overweight Justicifation of Admission Dx: Justifications for Admission: Justification of Admission Dx: N/A TASHIA BAI MD Sep 28, 2019 09:15
--- NOTE | 2019-09-28 09:21 | PDOC ---
Subjective: Subjective: Feels good - hungry. Nurse says possible cholecystectomy tomorrow - has been NPO but advised not to advance beyond clears. Objective: Vital Signs: Vital Signs Date Time Temp Pulse Resp B/P (MAP) Pulse Ox O2 Delivery O2 Flow Rate FiO2 09/28/19 08:39 67 166/79 09/28/19 07:00 98.3 16 94 Room Air 98.3 09/27/19 15:25 4 Labs: Laboratory Tests Test 09/28/19 03:21 White Blood Count 12.0 x10^3/uL Red Blood Count 4.22 x10^6/uL Hemoglobin 14.3 g/dL Hematocrit 41.8 % Mean Corpuscular Volume 99 fL Mean Corpuscular Hemoglobin 34 pg Mean Corpuscular Hemoglobin Concent 34 g/dL Red Cell Distribution Width 14.1 % Platelet Count 154 x10^3/uL Neutrophils (%) (Auto) 88 % Lymphocytes (%) (Auto) 7 % Monocytes (%) (Auto) 5 % Eosinophils (%) (Auto) 0 % Basophils (%) (Auto) 0 % Neutrophils # (Auto) 10.5 x10^3/uL Lymphocytes # (Auto) 0.8 x10^3/uL Monocytes # (Auto) 0.6 x10^3/uL Eosinophils # (Auto) 0.0 x10^3/uL Basophils # (Auto) 0.0 x10^3/uL Sodium Level 133 mmol/L Potassium Level 3.4 mmol/L Chloride Level 100 mmol/L Carbon Dioxide Level 23 mmol/L Anion Gap 10 Blood Urea Nitrogen 16 mg/dL Creatinine 1.1 mg/dL Estimated GFR (Cockcroft-Gault) 47.0 BUN/Creatinine Ratio 15 Glucose Level 113 mg/dL Calcium Level 8.5 mg/dL Total Bilirubin 1.3 mg/dL Aspartate Amino Transf (AST/SGOT) 26 U/L Alanine Aminotransferase (ALT/SGPT) 98 U/L Alkaline Phosphatase 224 U/L Total Protein 6.4 g/dL Albumin 2.4 g/dL Albumin/Globulin Ratio 0.6 Amylase Level 25 U/L Lipase 113 U/L Imaging: ERCP 09/26 FINDINGS: 9 fluoroscopic images of the biliary tree are obtained during ERCP. Fluoroscopy time 2 minutes 48 seconds. These demonstrate cannulationof the biliary tree and injection of contrast. There are changes of balloon sweep of the biliary tree. No filling defects are appreciated at the completion of the study. Pre-op dx CBD stones/abnl Ct scan/Jaundice Post-op dx Choledocholithiasis s/p sphincterotomy/stone extractions Plan am labs liquids as tolerated in am possible lap damion PE: GEN: NAD LUNGS: CTAB HEART: RRR ABD: S/ND/NT NEURO/PSYCH: A & O 3 A/P: Choledocholithiasis s/p ERCP as above Elevated LFTs - improved CAD, A Fib, CKD COVID-19 negative 09/24 -- Okay to ADAT per GI - defer to surgery w/ possible cholecystectomy tomorrow. Justicifation of Admission Dx: Justifications for Admission: Justification of Admission Dx: N/A JOSE DE JESUS LYMAN Sep 28, 2019 09:21
--- NOTE | 2019-09-28 09:37 | PDOC ---
SURGICAL PROGRESS NOTE Subjective Patient doing well no complaints Vital Signs Vital Signs Date Time Temp Pulse Resp B/P (MAP) Pulse Ox O2 Delivery O2 Flow Rate FiO2 09/28/19 08:39 67 166/79 09/28/19 07:00 98.3 16 94 Room Air 98.3 09/27/19 15:25 4 I&O Intake and Output 09/28/19 07:00 Intake Total 1600 ml Balance 1600 ml IV Total 1600 ml # Voids 6 PATIENT HAS A CHAKRABORTY: No General: Alert, Oriented X3, Cooperative, No acute distress Abdomen: Normal bowel sounds, Soft, No tenderness Labs Laboratory Tests Test 09/27/19 03:25 09/27/19 07:52 09/28/19 03:21 White Blood Count 14.4 x10^3/uL (4.0-11.0) 12.0 x10^3/uL (4.0-11.0) Red Blood Count 4.21 x10^6/uL (3.50-5.40) 4.22 x10^6/uL (3.50-5.40) Hemoglobin 14.5 g/dL (12.0-15.5) 14.3 g/dL (12.0-15.5) Hematocrit 41.7 % (36.0-47.0) 41.8 % (36.0-47.0) Mean Corpuscular Volume 99 fL (79-100) 99 fL (79-100) Mean Corpuscular Hemoglobin 34 pg (25-35) 34 pg (25-35) Mean Corpuscular Hemoglobin Concent 35 g/dL (31-37) 34 g/dL (31-37) Red Cell Distribution Width 14.3 % (11.5-14.5) 14.1 % (11.5-14.5) Platelet Count 154 x10^3/uL (140-400) 154 x10^3/uL (140-400) Sodium Level 134 mmol/L (136-145) 133 mmol/L (136-145) Potassium Level 3.0 mmol/L (3.5-5.1) 3.4 mmol/L (3.5-5.1) Chloride Level 99 mmol/L (98-107) 100 mmol/L (98-107) Carbon Dioxide Level 26 mmol/L (21-32) 23 mmol/L (21-32) Anion Gap 9 (6-14) 10 (6-14) Blood Urea Nitrogen 17 mg/dL (7-20) 16 mg/dL (7-20) Creatinine 1.1 mg/dL (0.6-1.0) 1.1 mg/dL (0.6-1.0) Estimated GFR (Cockcroft-Gault) 47.0 47.0 BUN/Creatinine Ratio 15 (6-20) 15 (6-20) Glucose Level 113 mg/dL (70-99) 113 mg/dL (70-99) Calcium Level 8.6 mg/dL (8.5-10.1) 8.5 mg/dL (8.5-10.1) Magnesium Level 2.2 mg/dL (1.8-2.4) Total Bilirubin 1.9 mg/dL (0.2-1.0) 1.3 mg/dL (0.2-1.0) Aspartate Amino Transf (AST/SGOT) 49 U/L (15-37) 26 U/L (15-37) Alanine Aminotransferase (ALT/SGPT) 146 U/L (14-59) 98 U/L (14-59) Alkaline Phosphatase 254 U/L (46-116) 224 U/L (46-116) Total Protein 6.3 g/dL (6.4-8.2) 6.4 g/dL (6.4-8.2) Albumin 2.6 g/dL (3.4-5.0) 2.4 g/dL (3.4-5.0) Albumin/Globulin Ratio 0.7 (1.0-1.7) 0.6 (1.0-1.7) Glucose (Fingerstick) 113 mg/dL (70-99) Neutrophils (%) (Auto) 88 % (31-73) Lymphocytes (%) (Auto) 7 % (24-48) Monocytes (%) (Auto) 5 % (0-9) Eosinophils (%) (Auto) 0 % (0-3) Basophils (%) (Auto) 0 % (0-3) Neutrophils # (Auto) 10.5 x10^3/uL (1.8-7.7) Lymphocytes # (Auto) 0.8 x10^3/uL (1.0-4.8) Monocytes # (Auto) 0.6 x10^3/uL (0.0-1.1) Eosinophils # (Auto) 0.0 x10^3/uL (0.0-0.7) Basophils # (Auto) 0.0 x10^3/uL (0.0-0.2) Amylase Level 25 U/L (25-115) Lipase 113 U/L (73-393) Laboratory Tests Test 09/28/19 03:21 White Blood Count 12.0 x10^3/uL (4.0-11.0) Red Blood Count 4.22 x10^6/uL (3.50-5.40) Hemoglobin 14.3 g/dL (12.0-15.5) Hematocrit 41.8 % (36.0-47.0) Mean Corpuscular Volume 99 fL (79-100) Mean Corpuscular Hemoglobin 34 pg (25-35) Mean Corpuscular Hemoglobin Concent 34 g/dL (31-37) Red Cell Distribution Width 14.1 % (11.5-14.5) Platelet Count 154 x10^3/uL (140-400) Neutrophils (%) (Auto) 88 % (31-73) Lymphocytes (%) (Auto) 7 % (24-48) Monocytes (%) (Auto) 5 % (0-9) Eosinophils (%) (Auto) 0 % (0-3) Basophils (%) (Auto) 0 % (0-3) Neutrophils # (Auto) 10.5 x10^3/uL (1.8-7.7) Lymphocytes # (Auto) 0.8 x10^3/uL (1.0-4.8) Monocytes # (Auto) 0.6 x10^3/uL (0.0-1.1) Eosinophils # (Auto) 0.0 x10^3/uL (0.0-0.7) Basophils # (Auto) 0.0 x10^3/uL (0.0-0.2) Sodium Level 133 mmol/L (136-145) Potassium Level 3.4 mmol/L (3.5-5.1) Chloride Level 100 mmol/L (98-107) Carbon Dioxide Level 23 mmol/L (21-32) Anion Gap 10 (6-14) Blood Urea Nitrogen 16 mg/dL (7-20) Creatinine 1.1 mg/dL (0.6-1.0) Estimated GFR (Cockcroft-Gault) 47.0 BUN/Creatinine Ratio 15 (6-20) Glucose Level 113 mg/dL (70-99) Calcium Level 8.5 mg/dL (8.5-10.1) Total Bilirubin 1.3 mg/dL (0.2-1.0) Aspartate Amino Transf (AST/SGOT) 26 U/L (15-37) Alanine Aminotransferase (ALT/SGPT) 98 U/L (14-59) Alkaline Phosphatase 224 U/L (46-116) Total Protein 6.4 g/dL (6.4-8.2) Albumin 2.4 g/dL (3.4-5.0) Albumin/Globulin Ratio 0.6 (1.0-1.7) Amylase Level 25 U/L (25-115) Lipase 113 U/L (73-393) Problem List Problems Medical Problems: (1) Abdominal pain Status: Acute (2) Common bile duct dilatation Status: Acute (3) HTN (hypertension) Status: Acute Assessment/Plan 89-year-old female status post ERCP with removal of common bile duct stone Tentatively plan for laparoscopic cholecystectomy will discussed with family Justicifation of Admission Dx: Justifications for Admission: Justification of Admission Dx: N/A TASHIA FELTON MD Sep 28, 2019 09:37
[2019-09-28 11:00] VITALS: BP 163/75
[2019-09-28] MEDS: cefTRIAXone IV Push 1 GM VIAL. IVP SCH (12:38)
[2019-09-28 15:00] VITALS: BP 170/75
[2019-09-28 19:30] VITALS: BP 131/77
[2019-09-28 23:00] VITALS: BP 150/78
[2019-09-29] VITALS (9 sets, daily range): BP systolic 135–171; BP diastolic 63–81
[2019-09-29] MEDS: IV 1/2 NORMAL SALINE 1,000 ML IV SCH (05:24)
[2019-09-29] MEDS: PANTOPRAZOLE IV PUSH 40 MG VIAL. IVP SCH (07:30)
[2019-09-29] MEDS: ASPIRIN ENTERIC COATED 81 MG TABLET.DR. PO SCH (08:00)
[2019-09-29] MEDS: METOPROLOL TART IMMED RELEASE 25 MG TABLET. PO SCH ×3 (09:00→21:57)
--- NOTE | 2019-09-29 10:39 | PDOC ---
SURGICAL PROGRESS NOTE Subjective Pre-Op Note 89 yo F with choledocholithiasis s/p ERCP. Pt currently without c/o, no N/V, no pain D/w pt options of observation versus proceeding with cholecystectomy to prevent recurrence. R/R/B/A d/w pt. Risks, including, but not limited to: bleeding, infection, damage to surrounding structures, risk of anesthesia, risk of open, risk of . She appears to understand, her questions are answered and she elects to proceed. Vital Signs Vital Signs Date Time Temp Pulse Resp B/P (MAP) Pulse Ox O2 Delivery O2 Flow Rate FiO2 09/29/19 07:00 98.0 69 18 146/64 (91) 94 Room Air 98.0 I&O Intake and Output 09/29/19 07:00 Intake Total 100 ml Balance 100 ml Intake Oral 100 ml # Voids 3 # Bowel Movements 3 Labs Laboratory Tests Test 09/28/19 03:21 White Blood Count 12.0 x10^3/uL (4.0-11.0) Red Blood Count 4.22 x10^6/uL (3.50-5.40) Hemoglobin 14.3 g/dL (12.0-15.5) Hematocrit 41.8 % (36.0-47.0) Mean Corpuscular Volume 99 fL (79-100) Mean Corpuscular Hemoglobin 34 pg (25-35) Mean Corpuscular Hemoglobin Concent 34 g/dL (31-37) Red Cell Distribution Width 14.1 % (11.5-14.5) Platelet Count 154 x10^3/uL (140-400) Neutrophils (%) (Auto) 88 % (31-73) Lymphocytes (%) (Auto) 7 % (24-48) Monocytes (%) (Auto) 5 % (0-9) Eosinophils (%) (Auto) 0 % (0-3) Basophils (%) (Auto) 0 % (0-3) Neutrophils # (Auto) 10.5 x10^3/uL (1.8-7.7) Lymphocytes # (Auto) 0.8 x10^3/uL (1.0-4.8) Monocytes # (Auto) 0.6 x10^3/uL (0.0-1.1) Eosinophils # (Auto) 0.0 x10^3/uL (0.0-0.7) Basophils # (Auto) 0.0 x10^3/uL (0.0-0.2) Sodium Level 133 mmol/L (136-145) Potassium Level 3.4 mmol/L (3.5-5.1) Chloride Level 100 mmol/L (98-107) Carbon Dioxide Level 23 mmol/L (21-32) Anion Gap 10 (6-14) Blood Urea Nitrogen 16 mg/dL (7-20) Creatinine 1.1 mg/dL (0.6-1.0) Estimated GFR (Cockcroft-Gault) 47.0 BUN/Creatinine Ratio 15 (6-20) Glucose Level 113 mg/dL (70-99) Calcium Level 8.5 mg/dL (8.5-10.1) Total Bilirubin 1.3 mg/dL (0.2-1.0) Aspartate Amino Transf (AST/SGOT) 26 U/L (15-37) Alanine Aminotransferase (ALT/SGPT) 98 U/L (14-59) Alkaline Phosphatase 224 U/L (46-116) Total Protein 6.4 g/dL (6.4-8.2) Albumin 2.4 g/dL (3.4-5.0) Albumin/Globulin Ratio 0.6 (1.0-1.7) Amylase Level 25 U/L (25-115) Lipase 113 U/L (73-393) Problem List Problems Medical Problems: (1) Abdominal pain Status: Acute (2) Common bile duct dilatation Status: Acute (3) HTN (hypertension) Status: Acute Justicifation of Admission Dx: Justifications for Admission: Justification of Admission Dx: N/A KENIA GELLER MD Sep 29, 2019 10:39
[2019-09-29] MEDS ORDERED: SEVOFLURANE 61 TO 120 MINUTES. IH ONE (11:23)
[2019-09-29] MEDS ORDERED: fentaNYL PF VIAL 100 MCG/2 ML VIAL ONE ×2 (11:26→14:04)
[2019-09-29] MEDS ORDERED: ROCURONIUM 50 MG/5 ML VIAL. ONE (11:26)
[2019-09-29] MEDS ORDERED: GLYCOPYRROLATE 1 MG/5 ML VIAL. ONE (11:26)
[2019-09-29] MEDS ORDERED: MIDAZOLAM HCL/PF 2 MG/2 ML VIAL. ONE (11:26)
[2019-09-29] MEDS ORDERED: NEOSTIGMINE METHYLSULFATE 5 MG/5 ML SYRINGE. ONE (11:26)
[2019-09-29] MEDS ORDERED: LIDOCAINE 2% PF 5 ML VIAL. ONE (11:32)
[2019-09-29] MEDS ORDERED: ONDANSETRON PF 4 MG/2 ML VIAL. ONE (11:32)
[2019-09-29] MEDS ORDERED: PROPOFOL 10 MG/ML (20ML) VIAL. IV ONE (11:32)
[2019-09-29] MEDS ORDERED: DEXAMETHASONE SOD PHOS 4 MG/ML VIAL ONE (11:32)
[2019-09-29] MEDS ORDERED: BISACODYL 10 MG SUPP.RECT. ONE (11:34)
[2019-09-29] MEDS ORDERED: BUPIVACAINE-EPI 0.5%-1:200000 MPF 30 ML VIAL. ONE (11:34)
[2019-09-29] MEDS ORDERED: SURGICEL HEMOSTAT 2X14 EACH. ONE (11:34)
[2019-09-29] MEDS ORDERED: IOHEXOL 300 MG/ML 50 ML VIAL. ONE (11:34)
[2019-09-29] MEDS ORDERED: HEPARIN for IV BOLUS 10,000 UNIT/10 ML VIAL. ONE (11:36)
[2019-09-29] MEDS ORDERED: IV RINGERS,LACTATED 1000ML 1,000 ML IV SCH (11:43)
[2019-09-29] MEDS ORDERED: PROCHLORPERAZINE 10 MG/2 ML VIAL. IV PRN (11:45)
[2019-09-29] MEDS ORDERED: HYDROmorphone 2 MG/ML VIAL IV PRN (11:45)
[2019-09-29] MEDS ORDERED: ONDANSETRON PF 4 MG/2 ML VIAL. IV PRN (11:45)
[2019-09-29] MEDS ORDERED: fentaNYL PF VIAL 100 MCG/2 ML VIAL IV PRN ×2 (11:45)
[2019-09-29] MEDS ORDERED: MORPHINE SULFATE 2 MG/ML VIAL. IV PRN (11:45)
[2019-09-29] MEDS ORDERED: ceFAZolin SODIUM IV Push 1 GM VIAL. IVP ONE ×2 (11:53→12:15)
[2019-09-29] MEDS ORDERED: PHENYLEPHRINE in 0.9% NACL PF 1 MG/10 ML SYRINGE. IV ONE (12:39)
--- NOTE | 2019-09-29 12:51 | PDOC ---
GENERAL General: No visit today in surgery this morning. VITAL SIGNS Vital Signs/I&O: Vital Signs Date Time Temp Pulse Resp B/P (MAP) Pulse Ox O2 Delivery O2 Flow Rate FiO2 09/29/19 11:00 97.9 64 18 135/81 (99) 96 Room Air 97.9 I & O 09/28/19 09/28/19 09/29/19 15:00 23:00 07:00 Intake Total 100 ml Balance 100 ml ALLERGIES Allergies: Allergies Coded Allergies Type Severity Reaction Last Updated Verified No Known Drug Allergies 09/27/19 No MEDS Medications: Current Medications Medications (Trade) Dose Ordered Sig/Jagdish Route PRN Reason Start Time Stop Time Status Last Admin Dose Admin Bupivacaine HCl/ Epinephrine Bitart (Sensorcain-Epi 0.5%-1:111874 Mpf) 30 ml STK-MED ONCE .ROUTE 09/29/19 11:34 09/29/19 11:34 DC 09/29/19 12:18 Iohexol (Omnipaque 300 Mg/ml) 50 ml STK-MED ONCE .ROUTE 09/29/19 11:34 09/29/19 11:34 DC 09/29/19 12:18 Bisacodyl (Dulcolax Supp) 10 mg STK-MED ONCE .ROUTE 09/29/19 11:34 09/29/19 11:34 DC 09/29/19 12:18 Heparin Sodium (Porcine) (Heparin Sodium) 10,000 unit STK-MED ONCE .ROUTE 09/29/19 11:36 09/29/19 11:36 DC 09/29/19 12:18 Justicifation of Admission Dx: Justifications for Admission: Justification of Admission Dx: N/A Nutrition Consultation Dietary Evaluation: Recommendations by RD: Dietary education by RD, Increase Calorie Intake, Protein supplementation Comments: rec cardiac diet when able to advance honor food preferences and offer snacks/ supplements from unit prn. Expected Outcomes/Goals: to meet >75% est nutr needs- not met, goal ongoing Interpretation of weight loss: >10% in 6 months Malnutrition Findings: Food and Nutrition Intake (Mod: <75% est energy req 7days Weight Status: Overweight ADAMARIS FREIRE MD Sep 29, 2019 12:51
--- NOTE | 2019-09-29 13:08 | RAD ---
Intraoperative cholangiogram INDICATION: Choledocholithiasis with common bile duct stone. TECHNIQUE: Under the direction of Dr. Goldman, fluoroscopic imaging was performed during intraoperative cholangiography with reported sphincterotomy, stone removal and balloon sweep performed. Total fluoroscopy time was 2 minutes and 48 seconds. 6 images were acquired for procedural documentation. FINDINGS: Cholecystectomy with cholangiogram performed through the cystic duct stump with a laparoscopic approach is evident. The intra and extrahepatic biliary radicles are dilated. The post injection images however show flow of contrast into the duodenum. IMPRESSION: Cholecystectomy with removal of common bile duct stone and free flow of contrast from the common bile duct into the duodenum. Electronically signed by: Mesfin Pimentel MD (09/29/2019 1:05 PM) [id number]
[2019-09-29] MEDS: IV RINGERS,LACTATED 1000ML 1,000 ML IV SCH (14:17)
[2019-09-29] MEDS: IV NORMAL SALINE 1000ML BAG 1,000 ML IV SCH (14:17)
--- NOTE | 2019-09-29 14:27 | PDOC4 ---
OPERATIVE NOTE Date: Date: Sep 29, 2019 Pre-Op Diagnosis: Calculous cholecystitis, choledocholithiasis Post-Op Diagnosis: same, severe cholecystitis Procedure Performed: laparoscopic cholecystectomy with cholangiogram Surgeon: oBb Geller Anesthesia Type: GETA plus local Blood Loss: 100 Specimans Obtained: gallbladder Findings: severe cholecystitis, distended large gallbladder with friable tissue, purulent, foul smelling fluid in gallbladder, normal cholangiogram Complications: none Operative Note: After obtaining informed consent, patient was taken to OR, induced under GETA and prepped in the usual fashion. 5 mm port placed umbilical and RUQ, 12 port placed epigastric, all under laparoscopic guidance. Abdominal cavity was expl ored and otherwise unremarkable. Gallbladder noted as above and was friable and bleed easily. Cystic duct dissected out. Cystic artery ligated with clips. Cholangiogram obtained via cystic duct and was normal. Cystic duct controlled with hemolok and clips. Gallbladder taken off the fossa using cautery. Gallbladder placed in bag, delivered and sent to pathology. Enlargement of epigastric incision was necessary given severe large size of gallbladder. Copious irrigation using 4 liters of fluid. Surgicel placed in fossa. 19 DASIA placed in fossa and secured with 3 0 nylon. Ports removed without bleeding. Fascia repaired with 0 vicryl. Skin repaired with 4 0 monocryl. Dressing placed. Patient tolerated procedure well and sent to PACU in stable condition. All counts correct. Wound class is dirty, 4. KENIA GELLER MD Sep 29, 2019 14:27
[2019-09-29] MEDS ORDERED: NALOXONE 0.4 MG/ML VIAL. IV PRN (14:30)
[2019-09-29] MEDS ORDERED: 0.9 % SODIUM CHLORIDE 10 ML DISP.SYRIN. IV PRN (14:30)
[2019-09-29] MEDS ORDERED: DEXTROSE 50% 25 GM / 50ML DISP.SYRIN. IV PRN (14:30)
[2019-09-29] MEDS: HYDROcodone/APAP 5/325MG 1 TAB TABLET PO PRN ×2 (16:06→21:58)
[2019-09-29] MEDS: cefTRIAXone IV Push 1 GM VIAL. IVP SCH (16:06)
[2019-09-29] MEDS: DOCUSATE SODIUM 100 MG CAPSULE. PO SCH ×2 (16:06→21:57)
[2019-09-29] MEDS: MORPHINE SULFATE 2 MG/ML VIAL. IV PRN ×2 (16:18→18:12)
[2019-09-30] MEDS: IV RINGERS,LACTATED 1000ML 1,000 ML IV SCH ×3 (00:17→11:24)
[2019-09-30] MEDS: IV 1/2 NORMAL SALINE 1,000 ML IV SCH ×2 (01:25→11:24)
[2019-09-30 03:00] VITALS: BP 180/67
[2019-09-30 04:56] LABS: BASO % 0 % (0-3); EOS % 0 % (0-3); HEMATOCRIT 40.4 % (36.0-47.0); LYMPH # 1.4 x10^3/uL (1.0-4.8); LYMPH % 14 % (24-48); MEAN CORPUSCULAR HEMOGLOBIN 34 pg (25-35); MEAN CORPUSCULAR HGB CONC 35 g/dL (31-37); MEAN CORPUSCULAR VOLUME 99 fL (79-100); MONO % 10 % (0-9); NEUT # 7.7 x10^3/uL (1.8-7.7); NEUT % 76 % (31-73); PLATELET COUNT 199 x10^3/uL (140-400); RED BLOOD COUNT 4.08 x10^6/uL (3.50-5.40); RED CELL DISTRIBUTION WIDTH 13.9 % (11.5-14.5); WHITE BLOOD COUNT 10.2 x10^3/uL (4.0-11.0)
[2019-09-30 05:27] LABS: ALBUMIN/GLOBULIN RATIO 0.5 (1.0-1.7); CALCIUM 8.1 mg/dL (8.5-10.1); DIRECT BILIRUBIN 0.3 mg/dL (0.0-0.2); GFR 52.4; POTASSIUM 3.5 mmol/L (3.5-5.1); TOTAL BILIRUBIN 0.6 mg/dL (0.2-1.0); TOTAL PROTEIN 5.8 g/dL (6.4-8.2)
[2019-09-30] MEDS: PANTOPRAZOLE IV PUSH 40 MG VIAL. IVP SCH (06:21)
[2019-09-30] MEDS: HYDROcodone/APAP 5/325MG 1 TAB TABLET PO PRN ×3 (06:21→20:58)
[2019-09-30 07:00] VITALS: BP 142/69
[2019-09-30] MEDS: ASPIRIN ENTERIC COATED 81 MG TABLET.DR. PO SCH (09:53)
[2019-09-30] MEDS: METOPROLOL TART IMMED RELEASE 25 MG TABLET. PO SCH ×2 (09:53→20:58)
[2019-09-30] MEDS: DOCUSATE SODIUM 100 MG CAPSULE. PO SCH ×2 (09:54→20:58)
--- NOTE | 2019-09-30 09:57 | PDOC ---
PROGRESS NOTES Chief Complaint Chief Complaint A/P: RUQ pain, Upper abdominal pain e coli uti on iv rocephin choledocholithiasis. There is dilatation of the common bile duct and gallbladder, also likely gallbladder wall thickening as could be seen with cholecystitis. w/ hepatomegaly covid neg 09/25 CAD: s/p PCI/LIYAH to LAD 06/2018, clinically stable ICM: recovered with recent EF at 55% PAFIB: maintaining SR . Elevated LFTs, dilated CBD GERD CAD A Fib CKD 27 min pt exam, chart review, > 50% of time spent with exam, chart review., pt care coordination History of Present Illness History of Present Illness Ms Dhaliwal is a 89 yo female w/ PMHX CAD w/ stent, ICM, A Fib, HTN, HLD, AAA, essential tremor, CVA, anxiety, OA, [place] UTI, hypothyroidism, osteoporosis admitted with pain in epigastrium radiating to LUQ. Noted in ER w/ elevated LFTs and dilated CBD on US w/ distended GB (no stones). 09/26 ERCP with sphincterotomy and stone extractions 09/27 still in pain, iv morphine needed Some pain overnight, afebrile. Labs stable, improved no leukocytosis. No shortness of breath or cough. She ate breakfast this morning and says she feels a little better. Passing gas. Asking when the pain and drain will go away. Vitals Vitals Vital Signs Date Time Temp Pulse Resp B/P (MAP) Pulse Ox O2 Delivery O2 Flow Rate FiO2 09/30/19 07:00 97.7 65 18 142/69 (93) 93 Room Air 97.7 09/29/19 14:30 4 Physical Exam General: Alert, Oriented X3, Cooperative, No acute distress Heart: Regular rate, Normal S1, Normal S2, Other (3/6 diastolic murmur to ERbs) Lungs: Clear Abdomen: Normal bowel sounds, Soft, Other (mild ttp RUQ) Extremities: No clubbing, No cyanosis, No edema Skin: No rashes, No breakdown Labs LABS Laboratory Tests Test 09/30/19 04:00 White Blood Count 10.2 x10^3/uL (4.0-11.0) Red Blood Count 4.08 x10^6/uL (3.50-5.40) Hemoglobin 14.0 g/dL (12.0-15.5) Hematocrit 40.4 % (36.0-47.0) Mean Corpuscular Volume 99 fL (79-100) Mean Corpuscular Hemoglobin 34 pg (25-35) Mean Corpuscular Hemoglobin Concent 35 g/dL (31-37) Red Cell Distribution Width 13.9 % (11.5-14.5) Platelet Count 199 x10^3/uL (140-400) Neutrophils (%) (Auto) 76 % (31-73) Lymphocytes (%) (Auto) 14 % (24-48) Monocytes (%) (Auto) 10 % (0-9) Eosinophils (%) (Auto) 0 % (0-3) Basophils (%) (Auto) 0 % (0-3) Neutrophils # (Auto) 7.7 x10^3/uL (1.8-7.7) Lymphocytes # (Auto) 1.4 x10^3/uL (1.0-4.8) Monocytes # (Auto) 1.0 x10^3/uL (0.0-1.1) Eosinophils # (Auto) 0.0 x10^3/uL (0.0-0.7) Basophils # (Auto) 0.0 x10^3/uL (0.0-0.2) Sodium Level 133 mmol/L (136-145) Potassium Level 3.5 mmol/L (3.5-5.1) Chloride Level 102 mmol/L (98-107) Carbon Dioxide Level 18 mmol/L (21-32) Anion Gap 13 (6-14) Blood Urea Nitrogen 14 mg/dL (7-20) Creatinine 1.0 mg/dL (0.6-1.0) Estimated GFR (Cockcroft-Gault) 52.4 BUN/Creatinine Ratio 14 (6-20) Glucose Level 115 mg/dL (70-99) Calcium Level 8.1 mg/dL (8.5-10.1) Total Bilirubin 0.6 mg/dL (0.2-1.0) Direct Bilirubin 0.3 mg/dL (0.0-0.2) Aspartate Amino Transf (AST/SGOT) 39 U/L (15-37) Alanine Aminotransferase (ALT/SGPT) 56 U/L (14-59) Alkaline Phosphatase 163 U/L (46-116) Total Protein 5.8 g/dL (6.4-8.2) Albumin 2.0 g/dL (3.4-5.0) Albumin/Globulin Ratio 0.5 (1.0-1.7) Assessment and Plan Assessmemt and Plan Problems Medical Problems: (1) Abdominal pain Status: Acute (2) Common bile duct dilatation Status: Acute (3) HTN (hypertension) Status: Acute Comment Review of Relevant I have reviewed the following items luna (where applicable) has been applied. Labs Laboratory Tests Test 09/30/19 04:00 White Blood Count 10.2 x10^3/uL (4.0-11.0) Red Blood Count 4.08 x10^6/uL (3.50-5.40) Hemoglobin 14.0 g/dL (12.0-15.5) Hematocrit 40.4 % (36.0-47.0) Mean Corpuscular Volume 99 fL (79-100) Mean Corpuscular Hemoglobin 34 pg (25-35) Mean Corpuscular Hemoglobin Concent 35 g/dL (31-37) Red Cell Distribution Width 13.9 % (11.5-14.5) Platelet Count 199 x10^3/uL (140-400) Neutrophils (%) (Auto) 76 % (31-73) Lymphocytes (%) (Auto) 14 % (24-48) Monocytes (%) (Auto) 10 % (0-9) Eosinophils (%) (Auto) 0 % (0-3) Basophils (%) (Auto) 0 % (0-3) Neutrophils # (Auto) 7.7 x10^3/uL (1.8-7.7) Lymphocytes # (Auto) 1.4 x10^3/uL (1.0-4.8) Monocytes # (Auto) 1.0 x10^3/uL (0.0-1.1) Eosinophils # (Auto) 0.0 x10^3/uL (0.0-0.7) Basophils # (Auto) 0.0 x10^3/uL (0.0-0.2) Sodium Level 133 mmol/L (136-145) Potassium Level 3.5 mmol/L (3.5-5.1) Chloride Level 102 mmol/L (98-107) Carbon Dioxide Level 18 mmol/L (21-32) Anion Gap 13 (6-14) Blood Urea Nitrogen 14 mg/dL (7-20) Creatinine 1.0 mg/dL (0.6-1.0) Estimated GFR (Cockcroft-Gault) 52.4 BUN/Creatinine Ratio 14 (6-20) Glucose Level 115 mg/dL (70-99) Calcium Level 8.1 mg/dL (8.5-10.1) Total Bilirubin 0.6 mg/dL (0.2-1.0) Direct Bilirubin 0.3 mg/dL (0.0-0.2) Aspartate Amino Transf (AST/SGOT) 39 U/L (15-37) Alanine Aminotransferase (ALT/SGPT) 56 U/L (14-59) Alkaline Phosphatase 163 U/L (46-116) Total Protein 5.8 g/dL (6.4-8.2) Albumin 2.0 g/dL (3.4-5.0) Albumin/Globulin Ratio 0.5 (1.0-1.7) Laboratory Tests Test 09/30/19 04:00 White Blood Count 10.2 x10^3/uL (4.0-11.0) Red Blood Count 4.08 x10^6/uL (3.50-5.40) Hemoglobin 14.0 g/dL (12.0-15.5) Hematocrit 40.4 % (36.0-47.0) Mean Corpuscular Volume 99 fL (79-100) Mean Corpuscular Hemoglobin 34 pg (25-35) Mean Corpuscular Hemoglobin Concent 35 g/dL (31-37) Red Cell Distribution Width 13.9 % (11.5-14.5) Platelet Count 199 x10^3/uL (140-400) Neutrophils (%) (Auto) 76 % (31-73) Lymphocytes (%) (Auto) 14 % (24-48) Monocytes (%) (Auto) 10 % (0-9) Eosinophils (%) (Auto) 0 % (0-3) Basophils (%) (Auto) 0 % (0-3) Neutrophils # (Auto) 7.7 x10^3/uL (1.8-7.7) Lymphocytes # (Auto) 1.4 x10^3/uL (1.0-4.8) Monocytes # (Auto) 1.0 x10^3/uL (0.0-1.1) Eosinophils # (Auto) 0.0 x10^3/uL (0.0-0.7) Basophils # (Auto) 0.0 x10^3/uL (0.0-0.2) Sodium Level 133 mmol/L (136-145) Potassium Level 3.5 mmol/L (3.5-5.1) Chloride Level 102 mmol/L (98-107) Carbon Dioxide Level 18 mmol/L (21-32) Anion Gap 13 (6-14) Blood Urea Nitrogen 14 mg/dL (7-20) Creatinine 1.0 mg/dL (0.6-1.0) Estimated GFR (Cockcroft-Gault) 52.4 BUN/Creatinine Ratio 14 (6-20) Glucose Level 115 mg/dL (70-99) Calcium Level 8.1 mg/dL (8.5-10.1) Total Bilirubin 0.6 mg/dL (0.2-1.0) Direct Bilirubin 0.3 mg/dL (0.0-0.2) Aspartate Amino Transf (AST/SGOT) 39 U/L (15-37) Alanine Aminotransferase (ALT/SGPT) 56 U/L (14-59) Alkaline Phosphatase 163 U/L (46-116) Total Protein 5.8 g/dL (6.4-8.2) Albumin 2.0 g/dL (3.4-5.0) Albumin/Globulin Ratio 0.5 (1.0-1.7) Microbiology 09/25/19 Urine Culture - Final, Complete 09/25/19 Antimicrobic Susceptibility - Final, Complete Medications Current Medications Morphine Sulfate (Morphine Sulfate) 4 mg 1X ONCE IV Last administered on 09/25/19at 09:34; Start 09/25/19 at 09:30; Stop 09/25/19 at 09:31; Status DC Ondansetron HCl (Zofran) 4 mg 1X ONCE IVP Last administered on 09/25/19at 09:33; Start 09/25/19 at 09:30; Stop 09/25/19 at 09:31; Status DC Hydralazine HCl (Apresoline Inj) 10 mg 1X ONCE IVP Last administered on 09/25/19at 11:53; Start 09/25/19 at 11:15; Stop 09/25/19 at 11:16; Status DC Ondansetron HCl (Zofran) 4 mg PRN Q8HRS PRN IV NAUSEA/VOMITING; Start 09/25/19 at 11:45; Stop 09/26/19 at 11:44; Status DC Fentanyl Citrate (Fentanyl 2ml Vial) 50 mcg PRN Q1HR PRN IV PAIN Last administered on 09/26/19at 07:53; Start 09/25/19 at 11:45; Stop 09/26/19 at 11:44; Status DC Pantoprazole Sodium (PROTONIX VIAL for IV PUSH) 40 mg DAILYAC IVP Last administered on 09/30/19at 06:21; Start 09/25/19 at 15:00 Iohexol (Omnipaque 240 Mg/ml) 30 ml 1X ONCE PO Last administered on 09/25/19at 14:30; Start 09/25/19 at 14:30; Stop 09/25/19 at 14:31; Status DC Info (CONTRAST GIVEN -- Rx MONITORING) 1 each PRN DAILY PRN MC SEE COMMENTS; Start 09/25/19 at 14:30; Stop 09/27/19 at 14:29; Status DC Sodium Chloride 1,000 ml @ 75 mls/hr [id number] IV Last administered on 09/29/19at 05:24; Start 09/25/19 at 14:45 Ringer's Solution 1,000 ml @ 50 mls/hr Q20H IV Last administered on 09/27/19at 14:00; Start 09/27/19 at 07:00; Stop 09/27/19 at 18:59; Status DC Metoprolol Tartrate (Lopressor Vial) 5 mg PRN Q6HRS PRN IVP HYPERTENSION; Start 09/26/19 at 13:45 Potassium Chloride/Water 100 ml @ 50 mls/hr 1X ONCE IV Last administered on 09/27/19at 12:00; Start 09/27/19 at 12:00; Stop 09/27/19 at 13:59; Status DC Ringer's Solution 1,000 ml @ 75 mls/hr 1X ONCE IV ; Start 09/27/19 at 14:00; Stop 09/28/19 at 03:19; Status DC Iohexol (Omnipaque 300 Mg/ml) 100 ml STK-MED ONCE .ROUTE ; Start 09/27/19 at 14:06; Stop 09/27/19 at 14:07; Status DC Ondansetron HCl (Zofran) 4 mg STK-MED ONCE .ROUTE ; Start 09/27/19 at 14:11; Stop 09/27/19 at 14:12; Status DC Levofloxacin/ Dextrose 100 ml @ As Directed STK-MED ONCE IV ; Start 09/27/19 at 14:15; Stop 09/27/19 at 14:15; Status DC Levofloxacin/ Dextrose 100 ml @ 100 mls/hr 1X PREOP PRN IV PRIOR TO PROCEDURE Last administered on 09/27/19at 14:19; Start 09/27/19 at 14:35; Stop 09/28/19 at 14:34; Status DC Aspirin (Ecotrin) 81 mg [id number] PO Last administered on 09/28/19at 08:37; Start 09/28/19 at 08:00 Potassium Chloride/Water 100 ml @ 50 mls/hr 1X ONCE IV Last administered on at 08:38; Start 09/28/19 at 08:30; Stop 09/28/19 at 10:29; Status DC Succinylcholine Chloride (A[place]) 200 mg STK-MED ONCE .ROUTE ; Start 09/27/19 at 13:00; Stop 09/28/19 at 08:03; Status DC Phenylephrine HCl (PHENYLEPHRINE in 0.9% NACL PF) 1 mg STK-MED ONCE IV ; Start 09/27/19 at 13:00; Stop 09/28/19 at 08:03; Status DC Dexamethasone Sodium Phosphate (Decadron) 20 mg STK-MED ONCE .ROUTE ; Start 09/27/19 at 13:00; Stop 09/28/19 at 08:03; Status DC Propofol (Diprivan) 200 mg STK-MED ONCE IV ; Start 09/27/19 at 13:00; Stop 09/28/19 at 08:03; Status DC Lidocaine HCl (Lidocaine HCl 2% Abboject) 100 mg STK-MED ONCE .ROUTE ; Start 09/27/19 at 13:00; Stop 09/28/19 at 08:03; Status DC Metoprolol Tartrate (Lopressor) 25 mg BID PO Last administered on 09/29/19at 21:57; Start 09/28/19 at 09:00 Ceftriaxone Sodium (Rocephin) 1 gm Q24H IVP Last administered on 09/29/19at 16:06; Start 09/28/19 at 11:30 Sevoflurane (Ultane) 60 ml STK-MED ONCE IH ; Start 09/29/19 at 11:23; Stop 09/29/19 at 11:23; Status DC Fentanyl Citrate (Fentanyl 2ml Vial) 100 mcg STK-MED ONCE .ROUTE ; Start 09/29/19 at 11:26; Stop 09/29/19 at 11:26; Status DC Midazolam HCl (Versed) 2 mg STK-MED ONCE .ROUTE ; Start 09/29/19 at 11:26; Stop 09/29/19 at 11:26; Status DC Glycopyrrolate (Robinul) 1 mg STK-MED ONCE .ROUTE ; Start 09/29/19 at 11:26; Stop 09/29/19 at 11:27; Status DC Neostigmine [place] (Neostigmine Methylsulfate) 5 mg STK-MED ONCE .ROUTE ; Start 09/29/19 at 11:26; Stop 09/29/19 at 11:27; Status DC Rocuronium [place] (Zemuron) 50 mg STK-MED ONCE .ROUTE ; Start 09/29/19 at 11:26; Stop 09/29/19 at 11:27; Status DC Ondansetron HCl (Zofran) 4 mg STK-MED ONCE .ROUTE ; Start 09/29/19 at 11:32; Stop 09/29/19 at 11:32; Status DC Propofol (Diprivan) 200 mg STK-MED ONCE IV ; Start 09/29/19 at 11:32; Stop 09/29/19 at 11:32; Status DC Lidocaine HCl (Lidocaine Pf 2% Vial) 5 ml STK-MED ONCE .ROUTE ; Start 09/29/19 at 11:32; Stop 09/29/19 at 11:32; Status DC Dexamethasone Sodium Phosphate (Decadron) 4 mg STK-MED ONCE .ROUTE ; Start 09/29/19 at 11:32; Stop 09/29/19 at 11:32; Status DC Bupivacaine HCl/ Epinephrine Bitart (Sensorcain-Epi 0.5%-1:111728 Mpf) 30 ml STK-MED ONCE .ROUTE Last administered on 09/29/19at 12:18; Start 09/29/19 at 11:34; Stop 09/29/19 at 11:34; Status DC Cellulose (Surgicel Hemostat 2x14) 1 each STK-MED ONCE .ROUTE Last administered on 09/29/19 12:18; Start 09/29/19 at 11:34; Stop 09/29/19 at 11:34; Status DC Iohexol (Omnipaque 300 Mg/ml) 50 ml STK-MED ONCE .ROUTE Last administered on 09/29/19 12:18; Start 09/29/19 at 11:34; Stop 09/29/19 at 11:34; Status DC Bisacodyl (Dulcolax Supp) 10 mg STK-MED ONCE .ROUTE Last administered on 09/29/19 12:18; Start 09/29/19 at 11:34; Stop 09/29/19 at 11:34; Status DC Heparin Sodium (Porcine) (Heparin Sodium) 10,000 unit STK-MED ONCE .ROUTE Last administered on 09/29/19 12:18; Start 09/29/19 at 11:36; Stop 09/29/19 at 11:36; Status DC Ondansetron HCl (Zofran) 4 mg PRN Q6HRS PRN IV NAUSEA/VOMITING Last administered on 09/29/19 16:18; Start 09/29/19 at 11:45; Stop 09/29/19 at 20:00; Status DC Fentanyl Citrate (Fentanyl 2ml Vial) 25 mcg PRN Q5MIN PRN IV MILD PAIN 1-3 Last administered on 09/29/19at 14:06; Start 09/29/19 at 11:45; Stop 09/29/19 at 20:00; Status DC Fentanyl Citrate (Fentanyl 2ml Vial) 50 mcg PRN Q5MIN PRN IV MODERATE TO SEVERE PAIN Last administered on 09/29/19 14:30; Start 09/29/19 at 11:45; Stop 09/29/19 at 20:00; Status DC Morphine Sulfate (Morphine Sulfate) 1 mg PRN Q10MIN PRN IV SEVERE PAIN 7-10; Start 09/29/19 at 11:45; Stop 09/29/19 at 20:00; Status DC Ringer's Solution 1,000 ml @ 30 mls/hr Q24H IV ; Start 09/29/19 at 11:43; Stop 09/29/19 at 23:43; Status DC Hydromorphone HCl (Dilaudid) 0.5 mg PRN Q10MIN PRN IV SEV PAIN, Second choice; Start 09/29/19 at 11:45; Stop 09/29/19 at 20:00; Status DC Prochlorperazine Edisylate (Compazine) 5 mg PACU PRN PRN IV NAUSEA, MRX1; Start 09/29/19 at 11:45; Stop 09/29/19 at 20:00; Status DC Cefazolin Sodium (Ancef) 1 gm STK-MED ONCE IVP ; Start 09/29/19 at 11:53; Stop 09/29/19 at 11:53; Status DC Cefazolin Sodium (Ancef) 1 gm STK-MED ONCE IVP ; Start 09/29/19 at 12:15; Stop 09/29/19 at 12:15; Status DC Phenylephrine HCl (PHENYLEPHRINE in 0.9% NACL PF) 1 mg STK-MED ONCE IV ; Start 09/29/19 at 12:39; Stop 09/29/19 at 12:39; Status DC Fentanyl Citrate (Fentanyl 2ml Vial) 100 mcg STK-MED ONCE .ROUTE ; Start 09/29/19 at 14:04; Stop 09/29/19 at 14:04; Status DC Sodium Chloride (Normal Saline Flush) 3 ml QSHIFT PRN IV AFTER MEDS AND BLOOD DRAWS; Start 09/29/19 at 14:30 Ringer's Solution 1,000 ml @ 100 mls/hr Q10H IV Last administered on 09/29/19at 14:17; Start 09/29/19 at 14:17 Dextrose (Dextrose 50%-Water Syringe) 12.5 gm PRN Q15MIN PRN IV SEE COMMENTS; Start 09/29/19 at 14:30 Acetaminophen/ Hydrocodone Bitart (Lortab 5/325) 1 tab PRN Q4HRS PRN PO MILD PAIN 1-3 Last administered on 09/30/19at 06:21; Start 09/29/19 at 14:30 Naloxone HCl (Narcan) 0.4 mg PRN Q2MIN PRN IV SEE INSTRUCTIONS; Start 09/29/19 at 14:30 Sodium Chloride 1,000 ml @ 25 mls/hr Q24H IV ; Start 09/29/19 at 14:17 Morphine Sulfate (Morphine Sulfate) 1 mg PRN Q1HR PRN IV PAIN Last administered on 09/29/19at 18:12; Start 09/29/19 at 14:30 Docusate Sodium (Colace) 100 mg BID PO Last administered on 09/29/19at 21:57; Start 09/29/19 at 15:00 Active Scripts Active Vitamin D3 (Cholecalciferol (Vitamin D3)) 1,000 Unit Tablet 1,000 Unit PO DAILY Proair Hfa (Albuterol Sulfate) 8.5 Gm Hfa.aer.ad 2.5 Mg NEB RTQID Lasix (Furosemide) 40 Mg Tablet 1 Tab PO DAILY Klor-Con M20 (Potassium Chloride) 20 Meq Tab.er.prt 20 Meq PO DAILY 30 Days Reported Biofreeze (Menthol) 118 Ml Gel..ml. 1 [place] TP PRN 7 Days Benzonatate 200 Mg Capsule 1 Cap PO PRN TID PRN 7 Days Loratadine 10 Mg Tablet 1 Tab PO DAILY Flonase Allergy Relief (Fluticasone Propionate) 9.9 Ml [place].susp 2 Sprays NS BID Aspirin 325 Mg Tablet 81 Mg PO DAILY Levothyroxine Sodium 125 Mcg Tablet 1 Tab PO DAILY Metoprolol Tartrate 50 Mg Tablet 1 Tab PO DAILY Vitals/I & O Vital Sign - Last 24 Hours 09/29/19 09/29/19 09/29/19 09/29/19 11:00 13:37 13:37 13:50 Temp 97.9 98.5 97.9 98.5 Pulse 64 64 63 Resp 18 18 16 B/P (MAP) 135/81 (99) 183/75 190/73 Pulse Ox 96 100 99 O2 Delivery Room Air Mask Simple Mask Simple Mask O2 Flow Rate 8 8 8 09/29/19 09/29/19 09/29/19 09/29/19 14:05 14:06 14:20 14:30 Temp 98.5 98.8 98.5 98.8 Pulse 64 64 Resp 18 18 18 18 B/P (MAP) 154/71 153/68 Pulse Ox 94 97 96 96 O2 Delivery Nasal Cannula Simple Mask Nasal Cannula Nasal Cannula O2 Flow Rate 2 8.0 4 4.0 09/29/19 09/29/19 09/29/19 09/29/19 14:30 14:45 15:00 15:15 Pulse 67 70 76 B/P (MAP) 153/64 (93) 159/65 (96) 150/65 (93) Pulse Ox 95 97 97 O2 Delivery Nasal Cannula Room Air Room Air Room Air O2 Flow Rate 4 09/29/19 09/29/19 09/29/19 09/29/19 15:30 16:08 19:00 20:00 Temp 98.9 98.9 Pulse 78 69 63 Resp 18 B/P (MAP) 154/63 (93) 171/81 171/76 (107) Pulse Ox 97 97 O2 Delivery Room Air Room Air Room Air 09/29/19 09/29/19 09/29/19 09/29/19 21:57 21:58 23:00 23:00 Temp 98.7 98.7 Pulse 63 63 Resp 18 B/P (MAP) 171/76 168/65 (99) Pulse Ox 95 O2 Delivery Nasal Cannula Room Air Room Air 09/30/19 09/30/19 09/30/19 03:00 06:21 07:00 Temp 98.7 97.7 98.7 97.7 Pulse 61 65 Resp 18 18 B/P (MAP) 180/67 (104) 142/69 (93) Pulse Ox 94 93 O2 Delivery Room Air Room Air Room Air Intake and Output 09/29/19 09/29/19 09/30/19 15:00 23:00 07:00 Intake Total 1500 ml Output Total 100 ml 160 ml 70 ml Balance 1400 ml -160 ml -70 ml Nutrition Consultation Dietary Evaluation: Recommendations by RD: Dietary education by RD, Increase Calorie Intake, Protein supplementation Comments: rec cardiac diet when able to advance honor food preferences and offer snacks/ supplements from unit prn. Expected Outcomes/Goals: to meet >75% est nutr needs- not met, goal ongoing Interpretation of weight loss: >10% in 6 months Malnutrition Findings: Food and Nutrition Intake (Mod: <75% est energy req 7days Weight Status: Overweight Justicifation of Admission Dx: Justifications for Admission: Justification of Admission Dx: N/A SHANA CHAMPAGNE MD Sep 30, 2019 09:57
[2019-09-30 11:00] VITALS: BP 123/58
[2019-09-30] MEDS: cefTRIAXone IV Push 1 GM VIAL. IVP SCH (11:23)
[2019-09-30] MEDS: IV NORMAL SALINE 1000ML BAG 1,000 ML IV SCH (11:24)
--- NOTE | 2019-09-30 11:56 | PDOC ---
SURGICAL PROGRESS NOTE Subjective Pt sleeping but awakens, c/o RUQ pain Vital Signs Vital Signs Date Time Temp Pulse Resp B/P (MAP) Pulse Ox O2 Delivery O2 Flow Rate FiO2 09/30/19 11:00 97.9 68 18 123/58 (79) 94 Room Air 97.9 09/29/19 14:30 4 I&O Intake and Output 09/30/19 07:00 Intake Total 1500 ml Output Total 330 ml Balance 1170 ml Intake Oral 300 ml IV Total 1200 ml Output Drainage Total 230 ml Estimated Blood Loss 100 ml # Voids 3 General: Alert, Oriented X3, Cooperative, mild distress Abdomen: Soft, Other (appropriate TTP, drain with serosang drainage) Labs Laboratory Tests Test 09/30/19 04:00 White Blood Count 10.2 x10^3/uL (4.0-11.0) Red Blood Count 4.08 x10^6/uL (3.50-5.40) Hemoglobin 14.0 g/dL (12.0-15.5) Hematocrit 40.4 % (36.0-47.0) Mean Corpuscular Volume 99 fL (79-100) Mean Corpuscular Hemoglobin 34 pg (25-35) Mean Corpuscular Hemoglobin Concent 35 g/dL (31-37) Red Cell Distribution Width 13.9 % (11.5-14.5) Platelet Count 199 x10^3/uL (140-400) Neutrophils (%) (Auto) 76 % (31-73) Lymphocytes (%) (Auto) 14 % (24-48) Monocytes (%) (Auto) 10 % (0-9) Eosinophils (%) (Auto) 0 % (0-3) Basophils (%) (Auto) 0 % (0-3) Neutrophils # (Auto) 7.7 x10^3/uL (1.8-7.7) Lymphocytes # (Auto) 1.4 x10^3/uL (1.0-4.8) Monocytes # (Auto) 1.0 x10^3/uL (0.0-1.1) Eosinophils # (Auto) 0.0 x10^3/uL (0.0-0.7) Basophils # (Auto) 0.0 x10^3/uL (0.0-0.2) Sodium Level 133 mmol/L (136-145) Potassium Level 3.5 mmol/L (3.5-5.1) Chloride Level 102 mmol/L (98-107) Carbon Dioxide Level 18 mmol/L (21-32) Anion Gap 13 (6-14) Blood Urea Nitrogen 14 mg/dL (7-20) Creatinine 1.0 mg/dL (0.6-1.0) Estimated GFR (Cockcroft-Gault) 52.4 BUN/Creatinine Ratio 14 (6-20) Glucose Level 115 mg/dL (70-99) Calcium Level 8.1 mg/dL (8.5-10.1) Total Bilirubin 0.6 mg/dL (0.2-1.0) Direct Bilirubin 0.3 mg/dL (0.0-0.2) Aspartate Amino Transf (AST/SGOT) 39 U/L (15-37) Alanine Aminotransferase (ALT/SGPT) 56 U/L (14-59) Alkaline Phosphatase 163 U/L (46-116) Total Protein 5.8 g/dL (6.4-8.2) Albumin 2.0 g/dL (3.4-5.0) Albumin/Globulin Ratio 0.5 (1.0-1.7) Laboratory Tests Test 09/30/19 04:00 White Blood Count 10.2 x10^3/uL (4.0-11.0) Red Blood Count 4.08 x10^6/uL (3.50-5.40) Hemoglobin 14.0 g/dL (12.0-15.5) Hematocrit 40.4 % (36.0-47.0) Mean Corpuscular Volume 99 fL (79-100) Mean Corpuscular Hemoglobin 34 pg (25-35) Mean Corpuscular Hemoglobin Concent 35 g/dL (31-37) Red Cell Distribution Width 13.9 % (11.5-14.5) Platelet Count 199 x10^3/uL (140-400) Neutrophils (%) (Auto) 76 % (31-73) Lymphocytes (%) (Auto) 14 % (24-48) Monocytes (%) (Auto) 10 % (0-9) Eosinophils (%) (Auto) 0 % (0-3) Basophils (%) (Auto) 0 % (0-3) Neutrophils # (Auto) 7.7 x10^3/uL (1.8-7.7) Lymphocytes # (Auto) 1.4 x10^3/uL (1.0-4.8) Monocytes # (Auto) 1.0 x10^3/uL (0.0-1.1) Eosinophils # (Auto) 0.0 x10^3/uL (0.0-0.7) Basophils # (Auto) 0.0 x10^3/uL (0.0-0.2) Sodium Level 133 mmol/L (136-145) Potassium Level 3.5 mmol/L (3.5-5.1) Chloride Level 102 mmol/L (98-107) Carbon Dioxide Level 18 mmol/L (21-32) Anion Gap 13 (6-14) Blood Urea Nitrogen 14 mg/dL (7-20) Creatinine 1.0 mg/dL (0.6-1.0) Estimated GFR (Cockcroft-Gault) 52.4 BUN/Creatinine Ratio 14 (6-20) Glucose Level 115 mg/dL (70-99) Calcium Level 8.1 mg/dL (8.5-10.1) Total Bilirubin 0.6 mg/dL (0.2-1.0) Direct Bilirubin 0.3 mg/dL (0.0-0.2) Aspartate Amino Transf (AST/SGOT) 39 U/L (15-37) Alanine Aminotransferase (ALT/SGPT) 56 U/L (14-59) Alkaline Phosphatase 163 U/L (46-116) Total Protein 5.8 g/dL (6.4-8.2) Albumin 2.0 g/dL (3.4-5.0) Albumin/Globulin Ratio 0.5 (1.0-1.7) Problem List Problems Medical Problems: (1) Abdominal pain Status: Acute (2) Common bile duct dilatation Status: Acute (3) HTN (hypertension) Status: Acute Assessment/Plan s/p lap damion cont pain control and supportive care cont abx for gallbladder empyema d/w pt and pt's supportive daughter. Justicifation of Admission Dx: Justifications for Admission: Justification of Admission Dx: N/A KENIA GELLER MD Sep 30, 2019 11:56
[2019-09-30 15:00] VITALS: BP 135/58
[2019-09-30 19:00] VITALS: BP 123/52
[2019-09-30 23:00] VITALS: BP 116/61
[2019-10-01] MEDS: HYDROcodone/APAP 5/325MG 1 TAB TABLET PO PRN ×3 (01:18→21:04)
[2019-10-01 03:00] VITALS: BP 150/67
[2019-10-01] MEDS: IV 1/2 NORMAL SALINE 1,000 ML IV SCH ×2 (04:05→11:01)
[2019-10-01] MEDS: IV RINGERS,LACTATED 1000ML 1,000 ML IV SCH ×2 (06:17→11:01)
[2019-10-01] MEDS: PANTOPRAZOLE IV PUSH 40 MG VIAL. IVP SCH (06:37)
[2019-10-01 07:00] VITALS: BP 152/69
[2019-10-01] MEDS: ASPIRIN ENTERIC COATED 81 MG TABLET.DR. PO SCH (08:11)
[2019-10-01] MEDS: LACTOBACILLUS RHAMNOSUS GG 1 CAPSULE. PO SCH ×2 (08:12→21:05)
[2019-10-01] MEDS: DOCUSATE SODIUM 100 MG CAPSULE. PO SCH ×2 (08:12→21:04)
[2019-10-01] MEDS: METOPROLOL TART IMMED RELEASE 25 MG TABLET. PO SCH ×2 (08:12→21:10)
--- NOTE | 2019-10-01 08:22 | PDOC ---
PROGRESS NOTES Chief Complaint Chief Complaint impression POD # 2 RUQ pain, Upper abdominal pain e coli uti on iv rocephin choledocholithiasis. There is dilatation of the common bile duct and gallbladder, also likely gallbladder wall thickening as could be seen with cholecystitis. w/ hepatomegaly severe cholecystitis, distended large gallbladder with friable tissue, purulent, foul smelling fluid in gallbladder, normal cholangiogram covid neg 09/25 CAD: s/p PCI/LIYAH to LAD 06/2018, clinically stable ICM: recovered with recent EF at 55% PAFIB: maintaining SR . Elevated LFTs, dilated CBD GERD CAD A Fib CKD s/p lap damion cont pain control iv cont abx for gallbladder empyema 27 min pt exam, chart review, > 50% of time spent with exam, chart review., pt care coordination History of Present Illness History of Present Illness Ms Dhaliwal is a 89 yo female w/ PMHX CAD w/ stent, ICM, A Fib, HTN, HLD, AAA, essential tremor, CVA, anxiety, OA, [place] UTI, hypothyroidism, osteoporosis admitted with pain in epigastrium radiating to LUQ. Noted in ER w/ elevated LFTs and dilated CBD on US w/ distended GB (no stones). 09/26 ERCP with sphincterotomy and stone extractions 09/27 still in pain, iv morphine needed Some pain overnight, afebrile. Labs stable, improved no leukocytosis. No shortness of breath or cough. She ate breakfast this morning and says she feels a little better. Passing gas. Asking when the pain and drain will go away. Vitals Vitals Vital Signs Date Time Temp Pulse Resp B/P (MAP) Pulse Ox O2 Delivery O2 Flow Rate FiO2 10/01/19 08:12 62 150/67 10/01/19 03:00 99.5 18 95 Room Air 99.5 Physical Exam General: Alert, Oriented X3, Cooperative, mild distress Heart: Regular rate, Normal S1, Normal S2, Other (3/6 diastolic murmur to ERbs) Lungs: Clear Abdomen: Soft, Other (appropriate TTP, drain with serosang drainage) Extremities: No clubbing, No cyanosis, No edema Skin: No rashes, No breakdown Labs LABS Date: Sep 29, 2019 Pre-Op Diagnosis: Calculous cholecystitis, choledocholithiasis Post-Op Diagnosis: same, severe cholecystitis Procedure Performed: laparoscopic cholecystectomy with cholangiogram Surgeon: Bob Tolentino Anesthesia Type: GETA plus local Blood Loss: 100 Specimans Obtained: gallbladder Findings: severe cholecystitis, distended large gallbladder with friable tissue, purulent, foul smelling fluid in gallbladder, normal cholangiogram Assessment and Plan Assessmemt and Plan Problems Medical Problems: (1) Abdominal pain Status: Acute (2) Common bile duct dilatation Status: Acute (3) HTN (hypertension) Status: Acute Comment Review of Relevant I have reviewed the following items luna (where applicable) has been applied. Labs Laboratory Tests Test 09/30/19 04:00 White Blood Count 10.2 x10^3/uL (4.0-11.0) Red Blood Count 4.08 x10^6/uL (3.50-5.40) Hemoglobin 14.0 g/dL (12.0-15.5) Hematocrit 40.4 % (36.0-47.0) Mean Corpuscular Volume 99 fL (79-100) Mean Corpuscular Hemoglobin 34 pg (25-35) Mean Corpuscular Hemoglobin Concent 35 g/dL (31-37) Red Cell Distribution Width 13.9 % (11.5-14.5) Platelet Count 199 x10^3/uL (140-400) Neutrophils (%) (Auto) 76 % (31-73) Lymphocytes (%) (Auto) 14 % (24-48) Monocytes (%) (Auto) 10 % (0-9) Eosinophils (%) (Auto) 0 % (0-3) Basophils (%) (Auto) 0 % (0-3) Neutrophils # (Auto) 7.7 x10^3/uL (1.8-7.7) Lymphocytes # (Auto) 1.4 x10^3/uL (1.0-4.8) Monocytes # (Auto) 1.0 x10^3/uL (0.0-1.1) Eosinophils # (Auto) 0.0 x10^3/uL (0.0-0.7) Basophils # (Auto) 0.0 x10^3/uL (0.0-0.2) Sodium Level 133 mmol/L (136-145) Potassium Level 3.5 mmol/L (3.5-5.1) Chloride Level 102 mmol/L (98-107) Carbon Dioxide Level 18 mmol/L (21-32) Anion Gap 13 (6-14) Blood Urea Nitrogen 14 mg/dL (7-20) Creatinine 1.0 mg/dL (0.6-1.0) Estimated GFR (Cockcroft-Gault) 52.4 BUN/Creatinine Ratio 14 (6-20) Glucose Level 115 mg/dL (70-99) Calcium Level 8.1 mg/dL (8.5-10.1) Total Bilirubin 0.6 mg/dL (0.2-1.0) Direct Bilirubin 0.3 mg/dL (0.0-0.2) Aspartate Amino Transf (AST/SGOT) 39 U/L (15-37) Alanine Aminotransferase (ALT/SGPT) 56 U/L (14-59) Alkaline Phosphatase 163 U/L (46-116) Total Protein 5.8 g/dL (6.4-8.2) Albumin 2.0 g/dL (3.4-5.0) Albumin/Globulin Ratio 0.5 (1.0-1.7) Microbiology 09/25/19 Urine Culture - Final, Complete 09/25/19 Antimicrobic Susceptibility - Final, Complete Medications Current Medications Morphine Sulfate (Morphine Sulfate) 4 mg 1X ONCE IV Last administered on 09/25/19at 09:34; Start 09/25/19 at 09:30; Stop 09/25/19 at 09:31; Status DC Ondansetron HCl (Zofran) 4 mg 1X ONCE IVP Last administered on 09/25/19at 09:33; Start 09/25/19 at 09:30; Stop 09/25/19 at 09:31; Status DC Hydralazine HCl (Apresoline Inj) 10 mg 1X ONCE IVP Last administered on 09/25/19at 11:53; Start 09/25/19 at 11:15; Stop 09/25/19 at 11:16; Status DC Ondansetron HCl (Zofran) 4 mg PRN Q8HRS PRN IV NAUSEA/VOMITING; Start 09/25/19 at 11:45; Stop 09/26/19 at 11:44; Status DC Fentanyl Citrate (Fentanyl 2ml Vial) 50 mcg PRN Q1HR PRN IV PAIN Last administered on 09/26/19at 07:53; Start 09/25/19 at 11:45; Stop 09/26/19 at 11:44; Status DC Pantoprazole Sodium (PROTONIX VIAL for IV PUSH) 40 mg DAILYAC IVP Last administered on 10/01/19at 06:37; Start 09/25/19 at 15:00 Iohexol (Omnipaque 240 Mg/ml) 30 ml 1X ONCE PO Last administered on 09/25/19at 14:30; Start 09/25/19 at 14:30; Stop 09/25/19 at 14:31; Status DC Info (CONTRAST GIVEN -- Rx MONITORING) 1 each PRN DAILY PRN MC SEE COMMENTS; Start 09/25/19 at 14:30; Stop 09/27/19 at 14:29; Status DC Sodium Chloride 1,000 ml @ 75 mls/hr [id number] IV Last administered on 09/29/19at 05:24; Start 09/25/19 at 14:45 Ringer's Solution 1,000 ml @ 50 mls/hr Q20H IV Last administered on 09/27/19at 14:00; Start 09/27/19 at 07:00; Stop 09/27/19 at 18:59; Status DC Metoprolol Tartrate (Lopressor Vial) 5 mg PRN Q6HRS PRN IVP HYPERTENSION; Start 09/26/19 at 13:45 Potassium Chloride/Water 100 ml @ 50 mls/hr 1X ONCE IV Last administered on 09/27/19at 12:00; Start 09/27/19 at 12:00; Stop 09/27/19 at 13:59; Status DC Ringer's Solution 1,000 ml @ 75 mls/hr 1X ONCE IV ; Start 09/27/19 at 14:00; Stop 09/28/19 at 03:19; Status DC Iohexol (Omnipaque 300 Mg/ml) 100 ml STK-MED ONCE .ROUTE ; Start 09/27/19 at 14:06; Stop 09/27/19 at 14:07; Status DC Ondansetron HCl (Zofran) 4 mg STK-MED ONCE .ROUTE ; Start 09/27/19 at 14:11; Stop 09/27/19 at 14:12; Status DC Levofloxacin/ Dextrose 100 ml @ As Directed STK-MED ONCE IV ; Start 09/27/19 at 14:15; Stop 09/27/19 at 14:15; Status DC Levofloxacin/ Dextrose 100 ml @ 100 mls/hr 1X PREOP PRN IV PRIOR TO PROCEDURE Last administered on 09/27/19at 14:19; Start 09/27/19 at 14:35; Stop 09/28/19 at 14:34; Status DC Aspirin (Ecotrin) 81 mg [id number] PO Last administered on 10/01/19at 08:11; Start 09/28/19 at 08:00 Potassium Chloride/Water 100 ml @ 50 mls/hr 1X ONCE IV Last administered on 09/28/19at 08:38; Start 09/28/19 at 08:30; Stop 09/28/19 at 10:29; Status DC Succinylcholine Chloride (Anectine) 200 mg STK-MED ONCE .ROUTE ; Start 09/27/19 at 13:00; Stop 09/28/19 at 08:03; Status DC Phenylephrine HCl (PHENYLEPHRINE in 0.9% NACL PF) 1 mg STK-MED ONCE IV ; Start 09/27/19 at 13:00; Stop 09/28/19 at 08:03; Status DC Dexamethasone Sodium Phosphate (Decadron) 20 mg STK-MED ONCE .ROUTE ; Start 09/27/19 at 13:00; Stop 09/28/19 at 08:03; Status DC Propofol (Diprivan) 200 mg STK-MED ONCE IV ; Start 09/27/19 at 13:00; Stop 09/28/19 at 08:03; Status DC Lidocaine HCl (Lidocaine HCl 2% Abboject) 100 mg STK-MED ONCE .ROUTE ; Start 09/27/19 at 13:00; Stop 09/28/19 at 08:03; Status DC Metoprolol Tartrate (Lopressor) 25 mg BID PO Last administered on 10/01/19at 08:12; Start 09/28/19 at 09:00 Ceftriaxone Sodium (Rocephin) 1 gm Q24H IVP Last administered on 09/30/19at 11:23; Start 09/28/19 at 11:30 Sevoflurane (Ultane) 60 ml STK-MED ONCE IH ; Start 09/29/19 at 11:23; Stop 09/29/19 at 11:23; Status DC Fentanyl Citrate (Fentanyl 2ml Vial) 100 mcg STK-MED ONCE .ROUTE ; Start 09/29/19 at 11:26; Stop 09/29/19 at 11:26; Status DC Midazolam HCl (Versed) 2 mg STK-MED ONCE .ROUTE ; Start 09/29/19 at 11:26; Stop 09/29/19 at 11:26; Status DC Glycopyrrolate (Robinul) 1 mg STK-MED ONCE .ROUTE ; Start 09/29/19 at 11:26; Stop 09/29/19 at 11:27; Status DC Neostigmine Busy (Neostigmine Methylsulfate) 5 mg STK-MED ONCE .ROUTE ; Start 09/29/19 at 11:26; Stop 09/29/19 at 11:27; Status DC Rocuronium Busy (Zemuron) 50 mg STK-MED ONCE .ROUTE ; Start 09/29/19 at 11:26; Stop 09/29/19 at 11:27; Status DC Ondansetron HCl (Zofran) 4 mg STK-MED ONCE .ROUTE ; Start 09/29/19 at 11:32; Stop 09/29/19 at 11:32; Status DC Propofol (Diprivan) 200 mg STK-MED ONCE IV ; Start 09/29/19 at 11:32; Stop 09/29/19 at 11:32; Status DC Lidocaine HCl (Lidocaine Pf 2% Vial) 5 ml STK-MED ONCE .ROUTE ; Start 09/29/19 at 11:32; Stop 09/29/19 at 11:32; Status DC Dexamethasone Sodium Phosphate (Decadron) 4 mg STK-MED ONCE .ROUTE ; Start 09/29/19 at 11:32; Stop 09/29/19 at 11:32; Status DC Bupivacaine HCl/ Epinephrine Bitart (Sensorcain-Epi 0.5%-1:[id number] Mpf) 30 ml STK-MED ONCE .ROUTE Last administered on 09/29/19at 12:18; Start 09/29/19 at 11:34; Stop 09/29/19 at 11:34; Status DC Cellulose (Surgicel Hemostat 2x14) 1 each STK-MED ONCE .ROUTE Last administered on 09/29/19at 12:18; Start 09/29/19 at 11:34; Stop 09/29/19 at 11:34; Status DC Iohexol (Omnipaque 300 Mg/ml) 50 ml STK-MED ONCE .ROUTE Last administered on 09/29/19at 12:18; Start 09/29/19 at 11:34; Stop 09/29/19 at 11:34; Status DC Bisacodyl (Dulcolax Supp) 10 mg STK-MED ONCE .ROUTE Last administered on 09/29/19at 12:18; Start 09/29/19 at 11:34; Stop 09/29/19 at 11:34; Status DC Heparin Sodium (Porcine) (Heparin Sodium) 10,000 unit STK-MED ONCE .ROUTE Last administered on 09/29/19at 12:18; Start 09/29/19 at 11:36; Stop 09/29/19 at 11:36; Status DC Ondansetron HCl (Zofran) 4 mg PRN Q6HRS PRN IV NAUSEA/VOMITING Last administered on 09/29/19at 16:18; Start 09/29/19 at 11:45; Stop 09/29/19 at 20:00; Status DC Fentanyl Citrate (Fentanyl 2ml Vial) 25 mcg PRN Q5MIN PRN IV MILD PAIN 1-3 Last administered on 09/29/19at 14:06; Start 09/29/19 at 11:45; Stop 09/29/19 at 20:00; Status DC Fentanyl Citrate (Fentanyl 2ml Vial) 50 mcg PRN Q5MIN PRN IV MODERATE TO SEVERE PAIN Last administered on 09/29/19at 14:30; Start 09/29/19 at 11:45; Stop 09/29/19 at 20:00; Status DC Morphine Sulfate (Morphine Sulfate) 1 mg PRN Q10MIN PRN IV SEVERE PAIN 7-10; Start 09/29/19 at 11:45; Stop 09/29/19 at 20:00; Status DC Ringer's Solution 1,000 ml @ 30 mls/hr Q24H IV ; Start 09/29/19 at 11:43; Stop 09/29/19 at 23:43; Status DC Hydromorphone HCl (Dilaudid) 0.5 mg PRN Q10MIN PRN IV SEV PAIN, Second choice; Start 09/29/19 at 11:45; Stop 09/29/19 at 20:00; Status DC Prochlorperazine Edisylate (Compazine) 5 mg PACU PRN PRN IV NAUSEA, MRX1; Start 09/29/19 at 11:45; Stop 09/29/19 at 20:00; Status DC Cefazolin Sodium (Ancef) 1 gm STK-MED ONCE IVP ; Start 09/29/19 at 11:53; Stop 09/29/19 at 11:53; Status DC Cefazolin Sodium (Ancef) 1 gm STK-MED ONCE IVP ; Start 09/29/19 at 12:15; Stop 09/29/19 at 12:15; Status DC Phenylephrine HCl (PHENYLEPHRINE in 0.9% NACL PF) 1 mg STK-MED ONCE IV ; Start 09/29/19 at 12:39; Stop 09/29/19 at 12:39; Status DC Fentanyl Citrate (Fentanyl 2ml Vial) 100 mcg STK-MED ONCE .ROUTE ; Start 09/29/19 at 14:04; Stop 09/29/19 at 14:04; Status DC Sodium Chloride (Normal Saline Flush) 3 ml QSHIFT PRN IV AFTER MEDS AND BLOOD DRAWS; Start 09/29/19 at 14:30 Ringer's Solution 1,000 ml @ 100 mls/hr Q10H IV Last administered on 09/29/19at 14:17; Start 09/29/19 at 14:17 Dextrose (Dextrose 50%-Water Syringe) 12.5 gm PRN Q15MIN PRN IV SEE COMMENTS; Start 09/29/19 at 14:30 Acetaminophen/ Hydrocodone Bitart (Lortab 5/325) 1 tab PRN Q4HRS PRN PO MILD PAIN 1-3 Last administered on 10/01/19at 01:18; Start 09/29/19 at 14:30 Naloxone HCl (Narcan) 0.4 mg PRN Q2MIN PRN IV SEE INSTRUCTIONS; Start 09/29/19 at 14:30 Sodium Chloride 1,000 ml @ 25 mls/hr Q24H IV ; Start 09/29/19 at 14:17 Morphine Sulfate (Morphine Sulfate) 1 mg PRN Q1HR PRN IV PAIN Last administered on 09/29/19at 18:12; Start 09/29/19 at 14:30 Docusate Sodium (Colace) 100 mg BID PO Last administered on 10/01/19at 08:12; Start 09/29/19 at 15:00 Lactobacillus Rhamnosus (Culturelle) 1 cap BID PO Last administered on 10/01/19at 08:12; Start 10/01/19 at 09:00 Active Scripts Active Vitamin D3 (Cholecalciferol (Vitamin D3)) 1,000 Unit Tablet 1,000 Unit PO DAILY Proair Hfa (Albuterol Sulfate) 8.5 Gm Hfa.aer.ad 2.5 Mg NEB RTQID Lasix (Furosemide) 40 Mg Tablet 1 Tab PO DAILY Klor-Con M20 (Potassium Chloride) 20 Meq Tab.er.prt 20 Meq PO DAILY 30 Days Reported Biofreeze (Menthol) 118 Ml Gel..ml. 1 [place] TP PRN 7 Days Benzonatate 200 Mg Capsule 1 Cap PO PRN TID PRN 7 Days Loratadine 10 Mg Tablet 1 Tab PO DAILY Flonase Allergy Relief (Fluticasone Propionate) 9.9 Ml [place].susp 2 Sprays NS BID Aspirin 325 Mg Tablet 81 Mg PO DAILY Levothyroxine Sodium 125 Mcg Tablet 1 Tab PO DAILY Metoprolol Tartrate 50 Mg Tablet 1 Tab PO DAILY Vitals/I & O Vital Sign - Last 24 Hours 09/30/19 09/30/19 09/30/19 09/30/19 09:53 11:00 15:00 19:00 Temp 97.9 98.0 97.9 97.9 98.0 97.9 Pulse 65 68 59 67 Resp 18 18 18 B/P (MAP) 142/69 123/58 (79) 135/58 (83) 123/52 (75) Pulse Ox 94 92 96 O2 Delivery Room Air Room Air Room Air 09/30/19 09/30/19 09/30/19 09/30/19 20:00 20:58 20:58 21:58 Pulse 67 B/P (MAP) 123/52 O2 Delivery Room Air Room Air Room Air 09/30/19 10/01/19 10/01/19 10/01/19 23:00 01:18 02:18 03:00 Temp 98.9 99.5 98.9 99.5 Pulse 94 62 Resp 18 18 B/P (MAP) 116/61 (79) 150/67 (94) Pulse Ox 95 95 O2 Delivery Room Air Room Air Room Air Room Air 10/01/19 08:12 Pulse 62 B/P (MAP) 150/67 Intake and Output 09/30/19 09/30/19 10/01/19 15:00 23:00 07:00 Intake Total 800 ml 240 ml Output Total 25 ml Balance 800 ml 240 ml -25 ml Nutrition Consultation Dietary Evaluation: Recommendations by RD: Dietary education by RD, Increase Calorie Intake, Protein supplementation Comments: rec cardiac diet when able to advance honor food preferences and offer snacks/ supplements from unit prn. Expected Outcomes/Goals: to meet >75% est nutr needs- not met, goal ongoing Interpretation of weight loss: >10% in 6 months Malnutrition Findings: Food and Nutrition Intake (Mod: <75% est energy req 7days Weight Status: Overweight Justicifation of Admission Dx: Justifications for Admission: Justification of Admission Dx: N/A TASHIA BAI MD Oct 01, 2019 08:21
--- NOTE | 2019-10-01 08:47 | PDOC ---
SURGICAL PROGRESS NOTE Subjective a little better no nausea sore with movement Vital Signs Vital Signs Date Time Temp Pulse Resp B/P (MAP) Pulse Ox O2 Delivery O2 Flow Rate FiO2 10/01/19 08:12 62 150/67 10/01/19 07:00 98.7 18 93 Room Air 98.7 I&O Intake and Output 10/01/19 07:00 Intake Total 1040 ml Output Total 25 ml Balance 1015 ml Intake Oral 1040 ml Output Drainage Total 25 ml # Voids 8 General: Alert, Cooperative, No acute distress Abdomen: Soft, Other (ND, drain serosang ) Labs Laboratory Tests Test 09/30/19 04:00 White Blood Count 10.2 x10^3/uL (4.0-11.0) Red Blood Count 4.08 x10^6/uL (3.50-5.40) Hemoglobin 14.0 g/dL (12.0-15.5) Hematocrit 40.4 % (36.0-47.0) Mean Corpuscular Volume 99 fL (79-100) Mean Corpuscular Hemoglobin 34 pg (25-35) Mean Corpuscular Hemoglobin Concent 35 g/dL (31-37) Red Cell Distribution Width 13.9 % (11.5-14.5) Platelet Count 199 x10^3/uL (140-400) Neutrophils (%) (Auto) 76 % (31-73) Lymphocytes (%) (Auto) 14 % (24-48) Monocytes (%) (Auto) 10 % (0-9) Eosinophils (%) (Auto) 0 % (0-3) Basophils (%) (Auto) 0 % (0-3) Neutrophils # (Auto) 7.7 x10^3/uL (1.8-7.7) Lymphocytes # (Auto) 1.4 x10^3/uL (1.0-4.8) Monocytes # (Auto) 1.0 x10^3/uL (0.0-1.1) Eosinophils # (Auto) 0.0 x10^3/uL (0.0-0.7) Basophils # (Auto) 0.0 x10^3/uL (0.0-0.2) Sodium Level 133 mmol/L (136-145) Potassium Level 3.5 mmol/L (3.5-5.1) Chloride Level 102 mmol/L (98-107) Carbon Dioxide Level 18 mmol/L (21-32) Anion Gap 13 (6-14) Blood Urea Nitrogen 14 mg/dL (7-20) Creatinine 1.0 mg/dL (0.6-1.0) Estimated GFR (Cockcroft-Gault) 52.4 BUN/Creatinine Ratio 14 (6-20) Glucose Level 115 mg/dL (70-99) Calcium Level 8.1 mg/dL (8.5-10.1) Total Bilirubin 0.6 mg/dL (0.2-1.0) Direct Bilirubin 0.3 mg/dL (0.0-0.2) Aspartate Amino Transf (AST/SGOT) 39 U/L (15-37) Alanine Aminotransferase (ALT/SGPT) 56 U/L (14-59) Alkaline Phosphatase 163 U/L (46-116) Total Protein 5.8 g/dL (6.4-8.2) Albumin 2.0 g/dL (3.4-5.0) Albumin/Globulin Ratio 0.5 (1.0-1.7) Problem List Problems Medical Problems: (1) Abdominal pain Status: Acute (2) Common bile duct dilatation Status: Acute (3) HTN (hypertension) Status: Acute Assessment/Plan s/p damion labs improved continue abx Justicifation of Admission Dx: Justifications for Admission: Justification of Admission Dx: N/A ZOILA GOMES COLORIST DYER Oct 01, 2019 08:47
--- NOTE | 2019-10-01 10:15 | PDOC ---
Subjective: Subjective: "I ate this morning." Pain managed. Objective: Objective: Stools charted 09/28. Vital Signs: Vital Signs Date Time Temp Pulse Resp B/P (MAP) Pulse Ox O2 Delivery O2 Flow Rate FiO2 10/01/19 09:50 16 Room Air 10/01/19 08:12 62 150/67 10/01/19 07:00 98.7 93 98.7 Imaging: IOC 09/28 IMPRESSION: Cholecystectomy with removal of common bile duct stone and free flow of contrast from the common bile duct into the duodenum. PE: GEN: NAD, was resting LUNGS: clear anteriorly HEART: RR ABD: BS+, soft, right-sided soreness, drain serosang NEURO/PSYCH: A & O 3 A/P: Choledocholithiasis s/p ERCP and cholecystectomy Leukocytosis, elevated LFTs - resolving UTI -- Continue per surgery. Taking Lortab, add Miralax. Change to PO PPI. Justicifation of Admission Dx: Justifications for Admission: Justification of Admission Dx: N/A JOSE DE JESUS LYMAN Oct 01, 2019 10:15
[2019-10-01] MEDS: POLYETHYLENE GLYCOL 3350 17 GM PACKET. PO SCH (10:38)
[2019-10-01] MEDS: cefTRIAXone IV Push 1 GM VIAL. IVP SCH (10:59)
[2019-10-01 11:00] VITALS: BP 128/74
[2019-10-01] MEDS: IV NORMAL SALINE 1000ML BAG 1,000 ML IV SCH (11:00)
--- NOTE | 2019-10-01 12:42 | PDOC ---
CARDIO Progress Notes Date and Time Date of Service 10/01/19 Time of Evaluation 1125 Subjective Subjective: No Chest Pain, No shortness of breath, No Palpitations, Other (abdominal pain improved. walked today) Vitals Vitals Vital Signs Date Time Temp Pulse Resp B/P (MAP) Pulse Ox O2 Delivery O2 Flow Rate FiO2 10/01/19 11:00 98.6 70 18 128/74 (92) 94 Room Air 98.6 Weight Weight [ ] Input and Output Intake and Output Intake and Output 10/01/19 07:00 Intake Total 1040 ml Output Total 25 ml Balance 1015 ml Intake Oral 1040 ml Output Drainage Total 25 ml # Voids 8 Microbiology Micro Microbiology 09/25/19 Urine Culture - Final, Complete 09/25/19 Antimicrobic Susceptibility - Final, Complete Physical Exam HEENT: Other ([place]) Chest: Symmetric LUNGS: Other (diminished bases) Heart: RRR (no monitor), no gallops Abdomen: Other (soft) Extremities: No Calf Tenderness Neurology: alert, oriented, follow commands Assessment Assessment 1. Abdominal pain/choledocholithiasis; s/p ERCP and cholecystectomy. Doing well postoperatively 2. CAD: s/p PCI/LIYAH to LAD 06/2018, clinically stable 3. Hx of ICM: recovered with recent EF at 55% 4. PAFIB: maintaining SR per EKG. not on tele. Rate controller per VS review 5. HTN; controlled 6. Hypokalemia Recommendations ASA therapy Metoprolol for rate control Continue post-op management as per surgical team Supportive care Justicifation of Admission Dx: Justifications for Admission: Justification of Admission Dx: N/A DIRK BEAN APRN Oct 01, 2019 12:42
[2019-10-01 15:00] VITALS: BP 175/72
[2019-10-01 19:00] VITALS: BP 169/68
[2019-10-01 23:00] VITALS: BP 137/67
[2019-10-02] MEDS: IV RINGERS,LACTATED 1000ML 1,000 ML IV SCH ×3 (02:17→22:17)
[2019-10-02 05:00] VITALS: BP 179/64
[2019-10-02] MEDS: IV 1/2 NORMAL SALINE 1,000 ML IV SCH ×2 (06:45→20:05)
[2019-10-02 07:15] VITALS: BP 147/57
[2019-10-02] MEDS: PANTOPRAZOLE 40 MG TABLET.DR. PO SCH (07:30)
[2019-10-02] MEDS: LACTOBACILLUS RHAMNOSUS GG 1 CAPSULE. PO SCH ×2 (08:30→20:30)
[2019-10-02] MEDS: DOCUSATE SODIUM 100 MG CAPSULE. PO SCH ×2 (08:30→20:30)
[2019-10-02] MEDS: POLYETHYLENE GLYCOL 3350 17 GM PACKET. PO SCH (08:30)
[2019-10-02] MEDS: METOPROLOL TART IMMED RELEASE 25 MG TABLET. PO SCH ×2 (08:30→20:31)
[2019-10-02] MEDS: ASPIRIN ENTERIC COATED 81 MG TABLET.DR. PO SCH (08:30)
--- NOTE | 2019-10-02 08:48 | PDOC ---
SURGICAL PROGRESS NOTE Subjective resting worked with PT tolerated some breakfast Vital Signs Vital Signs Date Time Temp Pulse Resp B/P (MAP) Pulse Ox O2 Delivery O2 Flow Rate FiO2 10/02/19 08:30 63 147/57 10/02/19 07:15 98.3 20 95 Room Air 98.3 I&O Intake and Output 10/02/19 07:00 Intake Total 780 ml Balance 780 ml Intake Oral 780 ml # Voids 4 General: Alert, Oriented X3, Cooperative Abdomen: Soft, Other (drain serosang) Problem List Problems Medical Problems: (1) Abdominal pain Status: Acute (2) Common bile duct dilatation Status: Acute (3) HTN (hypertension) Status: Acute Assessment/Plan s/p damion continue drain, abx--could work toward oral abx DC planning, reviewed PT noted--rec skilled care Justicifation of Admission Dx: Justifications for Admission: Justification of Admission Dx: N/A ZOILA GOMES APRN Oct 02, 2019 08:48
--- NOTE | 2019-10-02 09:53 | PDOC ---
PROGRESS NOTES Chief Complaint Chief Complaint impression POD # 2 RUQ pain, Upper abdominal pain e coli uti on iv rocephin choledocholithiasis. There is dilatation of the common bile duct and gallbladder, also likely gallbladder wall thickening as could be seen with cholecystitis. w/ hepatomegaly severe cholecystitis, distended large gallbladder with friable tissue, purulent, foul smelling fluid in gallbladder, normal cholangiogram covid neg 09/25 CAD: s/p PCI/LIYAH to LAD 06/2018, clinically stable ICM: recovered with recent EF at 55% PAFIB: maintaining SR . Elevated LFTs, dilated CBD GERD CAD A Fib CKD s/p lap damion cont pain control iv cont abx for gallbladder empyema NO STOOLS X 3 DAYS 10/01 27 min pt exam, chart review, > 50% of time spent with exam, chart review., pt care coordination History of Present Illness History of Present Illness Ms Dhaliwal is a 89 yo female w/ PMHX CAD w/ stent, ICM, A Fib, HTN, HLD, AAA, essential tremor, CVA, anxiety, OA, [place] UTI, hypothyroidism, osteoporosis admitted with pain in epigastrium radiating to LUQ. Noted in ER w/ elevated LFTs and dilated CBD on US w/ distended GB (no stones). 09/26 ERCP with sphincterotomy and stone extractions 09/27 still in pain, iv morphine needed Some pain overnight, afebrile. Labs stable, improved no leukocytosis. No shortness of breath or cough. She ate breakfast this morning and says she feels a little better. Passing gas. Asking when the pain and drain will go away. Vitals Vitals Vital Signs Date Time Temp Pulse Resp B/P (MAP) Pulse Ox O2 Delivery O2 Flow Rate FiO2 10/02/19 08:30 63 147/57 10/02/19 07:15 98.3 20 95 Room Air 98.3 Physical Exam General: Alert, Oriented X3, Cooperative Heart: Regular rate, Normal S1, Normal S2, Other (3/6 diastolic murmur to ERbs) Lungs: Clear Abdomen: Soft, Other (drain serosang) Extremities: No clubbing, No cyanosis, No edema Skin: No rashes, No breakdown Assessment and Plan Assessmemt and Plan Problems Medical Problems: (1) Abdominal pain Status: Acute (2) Common bile duct dilatation Status: Acute (3) HTN (hypertension) Status: Acute Comment Review of Relevant I have reviewed the following items luna (where applicable) has been applied. Labs Microbiology 09/25/19 Urine Culture - Final, Complete 09/25/19 Antimicrobic Susceptibility - Final, Complete Medications Current Medications Morphine Sulfate (Morphine Sulfate) 4 mg 1X ONCE IV Last administered on 09/25/19at 09:34; Start 09/25/19 at 09:30; Stop 09/25/19 at 09:31; Status DC Ondansetron HCl (Zofran) 4 mg 1X ONCE IVP Last administered on 09/25/19at 09:33; Start 09/25/19 at 09:30; Stop 09/25/19 at 09:31; Status DC Hydralazine HCl (Apresoline Inj) 10 mg 1X ONCE IVP Last administered on 09/25/19at 11:53; Start 09/25/19 at 11:15; Stop 09/25/19 at 11:16; Status DC Ondansetron HCl (Zofran) 4 mg PRN Q8HRS PRN IV NAUSEA/VOMITING; Start 09/25/19 at 11:45; Stop 09/26/19 at 11:44; Status DC Fentanyl Citrate (Fentanyl 2ml Vial) 50 mcg PRN Q1HR PRN IV PAIN Last administered on 09/26/19at 07:53; Start 09/25/19 at 11:45; Stop 09/26/19 at 11:44; Status DC Pantoprazole Sodium (PROTONIX VIAL for IV PUSH) 40 mg DAILYAC IVP Last administered on 10/01/19at 06:37; Start 09/25/19 at 15:00; Stop 10/01/19 at 10:16; Status DC Iohexol (Omnipaque 240 Mg/ml) 30 ml 1X ONCE PO Last administered on 09/25/19at 14:30; Start 09/25/19 at 14:30; Stop 09/25/19 at 14:31; Status DC Info (CONTRAST GIVEN -- Rx MONITORING) 1 each PRN DAILY PRN MC SEE COMMENTS; Start 09/25/19 at 14:30; Stop 09/27/19 at 14:29; Status DC Sodium Chloride 1,000 ml @ 75 mls/hr [id number] IV Last administered on 09/29/19at 05:24; Start 09/25/19 at 14:45 Ringer's Solution 1,000 ml @ 50 mls/hr Q20H IV Last administered on 09/27/19at 14:00; Start 09/27/19 at 07:00; Stop 09/27/19 at 18:59; Status DC Metoprolol Tartrate (Lopressor Vial) 5 mg PRN Q6HRS PRN IVP HYPERTENSION; Start 09/26/19 at 13:45 Potassium Chloride/Water 100 ml @ 50 mls/hr 1X ONCE IV Last administered on 09/27/19at 12:00; Start 09/27/19 at 12:00; Stop 09/27/19 at 13:59; Status DC Ringer's Solution 1,000 ml @ 75 mls/hr 1X ONCE IV ; Start 09/27/19 at 14:00; Stop 09/28/19 at 03:19; Status DC Iohexol (Omnipaque 300 Mg/ml) 100 ml STK-MED ONCE .ROUTE ; Start 09/27/19 at 14:06; Stop 09/27/19 at 14:07; Status DC Ondansetron HCl (Zofran) 4 mg STK-MED ONCE .ROUTE ; Start 09/27/19 at 14:11; Stop 09/27/19 at 14:12; Status DC Levofloxacin/ Dextrose 100 ml @ As Directed STK-MED ONCE IV ; Start 09/27/19 at 14:15; Stop 09/27/19 at 14:15; Status DC Levofloxacin/ Dextrose 100 ml @ 100 mls/hr 1X PREOP PRN IV PRIOR TO PROCEDURE Last administered on 09/27/19at 14:19; Start 09/27/19 at 14:35; Stop 09/28/19 at 14:34; Status DC Aspirin (Ecotrin) 81 mg [id number] PO Last administered on 10/02/19at 08:30; Start 09/28/19 at 08:00 Potassium Chloride/Water 100 ml @ 50 mls/hr 1X ONCE IV Last administered on 09/28/19at 08:38; Start 09/28/19 at 08:30; Stop 09/28/19 at 10:29; Status DC Succinylcholine Chloride (Anectine) 200 mg STK-MED ONCE .ROUTE ; Start 09/27/19 at 13:00; Stop 09/28/19 at 08:03; Status DC Phenylephrine HCl (PHENYLEPHRINE in 0.9% NACL PF) 1 mg STK-MED ONCE IV ; Start 09/27/19 at 13:00; Stop 09/28/19 at 08:03; Status DC Dexamethasone Sodium Phosphate (Decadron) 20 mg STK-MED ONCE .ROUTE ; Start 09/27/19 at 13:00; Stop 09/28/19 at 08:03; Status DC Propofol (Diprivan) 200 mg STK-MED ONCE IV ; Start 09/27/19 at 13:00; Stop 09/28/19 at 08:03; Status DC Lidocaine HCl (Lidocaine HCl 2% Abboject) 100 mg STK-MED ONCE .ROUTE ; Start 09/27/19 at 13:00; Stop 09/28/19 at 08:03; Status DC Metoprolol Tartrate (Lopressor) 25 mg BID PO Last administered on 10/02/19at 08 :30; Start 09/28/19 at 09:00 Ceftriaxone Sodium (Rocephin) 1 gm Q24H IVP Last administered on 10/01/19at 10:59; Start 09/28/19 at 11:30 Sevoflurane (Ultane) 60 ml STK-MED ONCE IH ; Start 09/29/19 at 11:23; Stop 09/29/19 at 11:23; Status DC Fentanyl Citrate (Fentanyl 2ml Vial) 100 mcg STK-MED ONCE .ROUTE ; Start 09/29/19 at 11:26; Stop 09/29/19 at 11:26; Status DC Midazolam HCl (Versed) 2 mg STK-MED ONCE .ROUTE ; Start 09/29/19 at 11:26; Stop 09/29/19 at 11:26; Status DC Glycopyrrolate (Robinul) 1 mg STK-MED ONCE .ROUTE ; Start 09/29/19 at 11:26; Stop 09/29/19 at 11:27; Status DC Neostigmine Menard (Neostigmine Methylsulfate) 5 mg STK-MED ONCE .ROUTE ; Start 09/29/19 at 11:26; Stop 09/29/19 at 11:27; Status DC Rocuronium Menard (Zemuron) 50 mg STK-MED ONCE .ROUTE ; Start 09/29/19 at 11:26; Stop 09/29/19 at 11:27; Status DC Ondansetron HCl (Zofran) 4 mg STK-MED ONCE .ROUTE ; Start 09/29/19 at 11:32; Stop 09/29/19 at 11:32; Status DC Propofol (Diprivan) 200 mg STK-MED ONCE IV ; Start 09/29/19 at 11:32; Stop 09/29/19 at 11:32; Status DC Lidocaine HCl (Lidocaine Pf 2% Vial) 5 ml STK-MED ONCE .ROUTE ; Start 09/29/19 at 11:32; Stop 09/29/19 at 11:32; Status DC Dexamethasone Sodium Phosphate (Decadron) 4 mg STK-MED ONCE .ROUTE ; Start 09/29/19 at 11:32; Stop 09/29/19 at 11:32; Status DC Bupivacaine HCl/ Epinephrine Bitart (Sensorcain-Epi 0.5%-1:[id number] Mpf) 30 ml STK-MED ONCE .ROUTE Last administered on 09/29/19at 12:18; Start 09/29/19 at 11:34; Stop 09/29/19 at 11:34; Status DC Cellulose (Surgicel Hemostat 2x14) 1 each STK-MED ONCE .ROUTE Last administered on 09/29/19at 12:18; Start 09/29/19 at 11:34; Stop 09/29/19 at 11:34; Status DC Iohexol (Omnipaque 300 Mg/ml) 50 ml STK-MED ONCE .ROUTE Last administered on 09/29/19at 12:18; Start 09/29/19 at 11:34; Stop 09/29/19 at 11:34; Status DC Bisacodyl (Dulcolax Supp) 10 mg STK-MED ONCE .ROUTE Last administered on 09/29/19at 12:18; Start 09/29/19 at 11:34; Stop 09/29/19 at 11:34; Status DC Heparin Sodium (Porcine) (Heparin Sodium) 10,000 unit STK-MED ONCE .ROUTE Last administered on 09/29/19at 12:18; Start 09/29/19 at 11:36; Stop 09/29/19 at 11:36; Status DC Ondansetron HCl (Zofran) 4 mg PRN Q6HRS PRN IV NAUSEA/VOMITING Last administered on 09/29/19at 16:18; Start 09/29/19 at 11:45; Stop 09/29/19 at 20:00; Status DC Fentanyl Citrate (Fentanyl 2ml Vial) 25 mcg PRN Q5MIN PRN IV MILD PAIN 1-3 Last administered on 09/29/19at 14:06; Start 09/29/19 at 11:45; Stop 09/29/19 at 20:00; Status DC Fentanyl Citrate (Fentanyl 2ml Vial) 50 mcg PRN Q5MIN PRN IV MODERATE TO SEVERE PAIN Last administered on 09/29/19at 14:30; Start 09/29/19 at 11:45; Stop 09/29/19 at 20:00; Status DC Morphine Sulfate (Morphine Sulfate) 1 mg PRN Q10MIN PRN IV SEVERE PAIN 7-10; Start 09/29/19 at 11:45; Stop 09/29/19 at 20:00; Status DC Ringer's Solution 1,000 ml @ 30 mls/hr Q24H IV ; Start 09/29/19 at 11:43; Stop 09/29/19 at 23:43; Status DC Hydromorphone HCl (Dilaudid) 0.5 mg PRN Q10MIN PRN IV SEV PAIN, Second choice; Start 09/29/19 at 11:45; Stop 09/29/19 at 20:00; Status DC Prochlorperazine Edisylate (Compazine) 5 mg PACU PRN PRN IV NAUSEA, MRX1; Start 09/29/19 at 11:45; Stop 09/29/19 at 20:00; Status DC Cefazolin Sodium (Ancef) 1 gm STK-MED ONCE IVP ; Start 09/29/19 at 11:53; Stop 09/29/19 at 11:53; Status DC Cefazolin Sodium (Ancef) 1 gm STK-MED ONCE IVP ; Start 09/29/19 at 12:15; Stop 09/29/19 at 12:15; Status DC Phenylephrine HCl (PHENYLEPHRINE in 0.9% NACL PF) 1 mg STK-MED ONCE IV ; Start 09/29/19 at 12:39; Stop 09/29/19 at 12:39; Status DC Fentanyl Citrate (Fentanyl 2ml Vial) 100 mcg STK-MED ONCE .ROUTE ; Start 09/29/19 at 14:04; Stop 09/29/19 at 14:04; Status DC Sodium Chloride (Normal Saline Flush) 3 ml QSHIFT PRN IV AFTER MEDS AND BLOOD DRAWS; Start 09/29/19 at 14:30 Ringer's Solution 1,000 ml @ 100 mls/hr Q10H IV Last administered on 09/29/19at 14:17; Start 09/29/19 at 14:17 Dextrose (Dextrose 50%-Water Syringe) 12.5 gm PRN Q15MIN PRN IV SEE COMMENTS; Start 09/29/19 at 14:30 Acetaminophen/ Hydrocodone Bitart (Lortab 5/325) 1 tab PRN Q4HRS PRN PO MILD PAIN 1-3 Last administered on 10/01/19at 21:04; Start 09/29/19 at 14:30 Naloxone HCl (Narcan) 0.4 mg PRN Q2MIN PRN IV SEE INSTRUCTIONS; Start 09/29/19 at 14:30 Sodium Chloride 1,000 ml @ 25 mls/hr Q24H IV ; Start 09/29/19 at 14:17 Morphine Sulfate (Morphine Sulfate) 1 mg PRN Q1HR PRN IV PAIN Last administered on 09/29/19at 18:12; Start 09/29/19 at 14:30 Docusate Sodium (Colace) 100 mg BID PO Last administered on 10/02/19at 08:30; Start 09/29/19 at 15:00 Lactobacillus Rhamnosus (Culturelle) 1 cap BID PO Last administered on at 08:30; Start 10/01/19 at 09:00 Pantoprazole Sodium (Protonix) 40 mg DAILYAC PO ; Start 10/02/19 at 07:30 Polyethylene Glycol (miraLAX PACKET) 17 gm DAILY PO Last administered on 10/02/19at 08:30; Start 10/01/19 at 10:30 Active Scripts Active Vitamin D3 (Cholecalciferol (Vitamin D3)) 1,000 Unit Tablet 1,000 Unit PO DAILY Proair Hfa (Albuterol Sulfate) 8.5 Gm Hfa.aer.ad 2.5 Mg NEB RTQID Lasix (Furosemide) 40 Mg Tablet 1 Tab PO DAILY Klor-Con M20 (Potassium Chloride) 20 Meq Tab.er.prt 20 Meq PO DAILY 30 Days Reported Biofreeze (Menthol) 118 Ml Gel..ml. 1 [place] TP PRN 7 Days Benzonatate 200 Mg Capsule 1 Cap PO PRN TID PRN 7 Days Loratadine 10 Mg Tablet 1 Tab PO DAILY Flonase Allergy Relief (Fluticasone Propionate) 9.9 Ml [place].susp 2 Sprays NS BID Aspirin 325 Mg Tablet 81 Mg PO DAILY Levothyroxine Sodium 125 Mcg Tablet 1 Tab PO DAILY Metoprolol Tartrate 50 Mg Tablet 1 Tab PO DAILY Vitals/I & O Vital Sign - Last 24 Hours 10/01/19 10/01/19 10/01/19 10/01/19 10:45 11:00 15:00 19:00 Temp 98.6 98.6 99.2 98.6 98.6 99.2 Pulse 70 65 73 Resp 16 18 18 18 B/P (MAP) 128/74 (92) 175/72 (106) 169/68 (101) Pulse Ox 94 94 94 O2 Delivery Room Air Room Air Room Air Room Air 10/01/19 10/01/19 10/01/19 10/01/19 21:04 21:10 22:04 23:00 Temp 98.5 98.5 Pulse 73 61 Resp 18 B/P (MAP) 169/68 137/67 (90) Pulse Ox 92 O2 Delivery Room Air Room Air Room Air 10/02/19 10/02/19 10/02/19 05:00 07:15 08:30 Temp 98.6 98.3 98.6 98.3 Pulse 64 63 63 Resp 18 20 B/P (MAP) 179/64 (102) 147/57 (87) 147/57 Pulse Ox 94 95 O2 Delivery Room Air Room Air Intake and Output 10/01/19 10/01/19 10/02/19 14:59 22:59 06:59 Intake Total 540 ml 240 ml Balance 540 ml 240 ml Nutrition Consultation Dietary Evaluation: Recommendations by RD: Dietary education by RD, Increase Calorie Intake, Protein supplementation Comments: rec continue with cardiac diet honor food preferences and offer snacks/ supplements from unit prn. Expected Outcomes/Goals: to meet >75% est nutr needs- met, goal ongoing Interpretation of weight loss: >10% in 6 months Malnutrition Findings: Food and Nutrition Intake (Mod: <75% est energy req 7days Weight Status: Overweight Justicifation of Admission Dx: Justifications for Admission: Justification of Admission Dx: N/A TASHIA BAI MD Oct 02, 2019 09:53
--- NOTE | 2019-10-02 10:16 | PDOC ---
Subjective: Subjective: Tolerating diet, not much abd pain. Hasn't stooled in a few days. Objective: Vital Signs: Vital Signs Date Time Temp Pulse Resp B/P (MAP) Pulse Ox O2 Delivery O2 Flow Rate FiO2 10/02/19 08:30 63 147/57 10/02/19 07:15 98.3 20 95 Room Air 98.3 PE: GEN: NAD LUNGS: CTAB HEART: RRR ABD: soft, drain minimal serosang, quiet BS NEURO/PSYCH: A & O 3 A/P: Choledocholithiasis s/p ERCP and cholecystectomy Elevated LFTs - improved (checked 09/29) UTI -- Continue Miralax. Justicifation of Admission Dx: Justifications for Admission: Justification of Admission Dx: N/A JOSE DE JESUS LYMAN Oct 02, 2019 10:16
[2019-10-02] MEDS ORDERED: BISACODYL 5 MG TABLET.DR. PO PRN (10:30)
[2019-10-02 10:54] VITALS: BP 140/67
[2019-10-02] MEDS: IV NORMAL SALINE 1000ML BAG 1,000 ML IV SCH (11:29)
[2019-10-02] MEDS: HYDROcodone/APAP 5/325MG 1 TAB TABLET PO PRN ×2 (12:05→20:31)
[2019-10-02] MEDS: cefTRIAXone IV Push 1 GM VIAL. IVP SCH (12:05)
[2019-10-02 14:48] VITALS: BP 166/72
--- NOTE | 2019-10-02 18:06 | PATHOLOGY ---
[facility] Accession Number: [id number] . 01 Material submitted: . gallbladder - GALLBLADDER . 02 Diagnosis: Gallbladder, laparoscopic cholecystectomy: - Cholelithiasis. - Acute necrotizing (gangrenous) and focal chronic cholecystitis with focally increased eosinophils. (JPM:oral; 10/02/2019) R 10/02/2019 1709 Local . 02 Comment: There is no evidence of malignancy. (DASIAM:oral; 10/02/2019) . 02 Electronically signed: . Keanu Montano MD, Pathologist NPI- [id number] . 01 Gross description: . The specimen is received in formalin labeled "Isra, Allegra, gallbladder" and consists of a deflated hemorrhagic boogie-brown gallbladder measuring 12.3 x 5.6 x 2.5 cm. The margin is inked black. Opening reveals a lumen filled with viscous green-brown material and multiple smooth black calculi measuring up to 0.6 cm. The mucosa is gangrenous green-brown with an average wall thickness of 0.3 cm. No masses are identified. [place]anger sections are submitted in A1-A2. (SDY; 10/01/2019) SYU/SYU 10/01/2019 1834 Local . 02 Pathologist provided ICD-10: K80.12 . 02 CPT . 734779 Specimen Comment: A courtesy copy of this report has been sent to [phone] Specimen Comment: [id number], Specimen Comment: Report sent to ,DR RESTREPO / DR GARRIDO Performed at: [address], [place], [place] [id number] MD Robin Fulton MD Phone: [phone] Performed at: [address] [id number] MD Keanu Montano MD Phone: [phone]
[2019-10-02 19:50] VITALS: BP 173/72
[2019-10-02 23:35] VITALS: BP 165/78
[2019-10-03 03:12] VITALS: BP 162/70
[2019-10-03] MEDS: IV RINGERS,LACTATED 1000ML 1,000 ML IV SCH (06:51)
[2019-10-03] MEDS: IV NORMAL SALINE 1000ML BAG 1,000 ML IV SCH (06:51)
[2019-10-03] MEDS: IV 1/2 NORMAL SALINE 1,000 ML IV SCH ×2 (06:51→22:41)
[2019-10-03 07:18] VITALS: BP 177/76
[2019-10-03] MEDS: ASPIRIN ENTERIC COATED 81 MG TABLET.DR. PO SCH (08:10)
[2019-10-03] MEDS: LACTOBACILLUS RHAMNOSUS GG 1 CAPSULE. PO SCH ×2 (08:10→20:46)
[2019-10-03] MEDS: METOPROLOL TART IMMED RELEASE 25 MG TABLET. PO SCH ×2 (08:10→20:47)
[2019-10-03] MEDS: POLYETHYLENE GLYCOL 3350 17 GM PACKET. PO SCH (08:10)
[2019-10-03] MEDS: PANTOPRAZOLE 40 MG TABLET.DR. PO SCH (08:11)
[2019-10-03] MEDS: DOCUSATE SODIUM 100 MG CAPSULE. PO SCH ×2 (08:11→20:46)
--- NOTE | 2019-10-03 08:50 | PDOC ---
PROGRESS NOTES Chief Complaint Chief Complaint impression POD # 3 RUQ pain, Upper abdominal pain e coli uti on iv rocephin choledocholithiasis. There is dilatation of the common bile duct and gallbladder, also likely gallbladder wall thickening as could be seen with cholecystitis. w/ hepatomegaly severe cholecystitis, distended large gallbladder with friable tissue, purulent, foul smelling fluid in gallbladder, normal cholangiogram covid neg 09/25 CAD: s/p PCI/LIYAH to LAD 06/2018, clinically stable ICM: recovered with recent EF at 55% PAFIB: maintaining SR . Elevated LFTs, dilated CBD GERD CAD A Fib CKD s/p lap damion cont pain control iv cont abx for gallbladder empyema NO STOOLS X 4 DAYS 10/02 Prokinetics/laxatives fro constipation. CPM 28 min pt exam, chart review, > 50% of time spent with exam, chart review., pt care coordination History of Present Illness History of Present Illness Ms Dhaliwal is a 89 yo female w/ PMHX CAD w/ stent, ICM, A Fib, HTN, HLD, AAA, essential tremor, CVA, anxiety, OA, [place] UTI, hypothyroidism, osteoporosis admitted with pain in epigastrium radiating to LUQ. Noted in ER w/ elevated LFTs and dilated CBD on US w/ distended GB (no stones). 09/26 ERCP with sphincterotomy and stone extractions 09/27 still in pain, iv morphine needed Some pain overnight, afebrile. Labs stable, improved no leukocytosis. No shortness of breath or cough. She ate breakfast this morning and says she feels a little better. Passing gas. Asking when the pain and drain will go away. Vitals Vitals Vital Signs Date Time Temp Pulse Resp B/P (MAP) Pulse Ox O2 Delivery O2 Flow Rate FiO2 10/03/19 08:10 66 177/76 10/03/19 07:35 Room Air 10/03/19 07:18 98.4 18 93 98.4 Physical Exam General: Alert, Oriented X3, Cooperative, No acute distress Heart: Regular rate, Normal S1, Normal S2, Other (3/6 diastolic murmur to ERbs) Lungs: Clear Abdomen: Normal bowel sounds, Soft, No tenderness, Other (drain serosang) Extremities: No clubbing, No cyanosis, No edema Skin: No rashes, No breakdown Assessment and Plan Assessmemt and Plan Problems Medical Problems: (1) Abdominal pain Status: Acute (2) Common bile duct dilatation Status: Acute (3) HTN (hypertension) Status: Acute Comment Review of Relevant I have reviewed the following items luna (where applicable) has been applied. Labs Microbiology 09/25/19 Urine Culture - Final, Complete 09/25/19 Antimicrobic Susceptibility - Final, Complete Medications Current Medications Morphine Sulfate (Morphine Sulfate) 4 mg 1X ONCE IV Last administered on 09/25/19at 09:34; Start 09/25/19 at 09:30; Stop 09/25/19 at 09:31; Status DC Ondansetron HCl (Zofran) 4 mg 1X ONCE IVP Last administered on 09/25/19at 09:33; Start 09/25/19 at 09:30; Stop 09/25/19 at 09:31; Status DC Hydralazine HCl (Apresoline Inj) 10 mg 1X ONCE IVP Last administered on 09/25/19at 11:53; Start 09/25/19 at 11:15; Stop 09/25/19 at 11:16; Status DC Ondansetron HCl (Zofran) 4 mg PRN Q8HRS PRN IV NAUSEA/VOMITING; Start 09/25/19 at 11:45; Stop 09/26/19 at 11:44; Status DC Fentanyl Citrate (Fentanyl 2ml Vial) 50 mcg PRN Q1HR PRN IV PAIN Last administered on 09/26/19at 07:53; Start 09/25/19 at 11:45; Stop 09/26/19 at 11:44; Status DC Pantoprazole Sodium (PROTONIX VIAL for IV PUSH) 40 mg DAILYAC IVP Last administered on 10/01/19at 06:37; Start 09/25/19 at 15:00; Stop 10/01/19 at 10:16; Status DC Iohexol (Omnipaque 240 Mg/ml) 30 ml 1X ONCE PO Last administered on 09/25/19at 14:30; Start 09/25/19 at 14:30; Stop 09/25/19 at 14:31; Status DC Info (CONTRAST GIVEN -- Rx MONITORING) 1 each PRN DAILY PRN MC SEE COMMENTS; Start 09/25/19 at 14:30; Stop 09/27/19 at 14:29; Status DC Sodium Chloride 1,000 ml @ 75 mls/hr [id number] IV Last administered on 09/29/19at 05:24; Start 09/25/19 at 14:45 Ringer's Solution 1,000 ml @ 50 mls/hr Q20H IV Last administered on 09/27/19at 14:00; Start 09/27/19 at 07:00; Stop 09/27/19 at 18:59; Status DC Metoprolol Tartrate (Lopressor Vial) 5 mg PRN Q6HRS PRN IVP HYPERTENSION; Start 09/26/19 at 13:45 Potassium Chloride/Water 100 ml @ 50 mls/hr 1X ONCE IV Last administered on 09/27/19at 12:00; Start 09/27/19 at 12:00; Stop 09/27/19 at 13:59; Status DC Ringer's Solution 1,000 ml @ 75 mls/hr 1X ONCE IV ; Start 09/27/19 at 14:00; Stop 09/28/19 at 03:19; Status DC Iohexol (Omnipaque 300 Mg/ml) 100 ml STK-MED ONCE .ROUTE ; Start 09/27/19 at 14:06; Stop 09/27/19 at 14:07; Status DC Ondansetron HCl (Zofran) 4 mg STK-MED ONCE .ROUTE ; Start 09/27/19 at 14:11; Stop 09/27/19 at 14:12; Status DC Levofloxacin/ Dextrose 100 ml @ As Directed STK-MED ONCE IV ; Start 09/27/19 at 14:15; Stop 09/27/19 at 14:15; Status DC Levofloxacin/ Dextrose 100 ml @ 100 mls/hr 1X PREOP PRN IV PRIOR TO PROCEDURE Last administered on 09/27/19at 14:19; Start 09/27/19 at 14:35; Stop 09/28/19 at 14:34; Status DC Aspirin (Ecotrin) 81 mg [id number] PO Last administered on 10/03/19at 08:10; Start 09/28/19 at 08:00 Potassium Chloride/Water 100 ml @ 50 mls/hr 1X ONCE IV Last administered on 09/28/19at 08:38; Start 7/10/20 at 08:30; Stop 09/28/19 at 10:29; Status DC Succinylcholine Chloride (Anectine) 200 mg STK-MED ONCE .ROUTE ; Start 09/27/19 at 13:00; Stop 09/28/19 at 08:03; Status DC Phenylephrine HCl (PHENYLEPHRINE in 0.9% NACL PF) 1 mg STK-MED ONCE IV ; Start 09/27/19 at 13:00; Stop 09/28/19 at 08:03; Status DC Dexamethasone Sodium Phosphate (Decadron) 20 mg STK-MED ONCE .ROUTE ; Start 09/27/19 at 13:00; Stop 09/28/19 at 08:03; Status DC Propofol (Diprivan) 200 mg STK-MED ONCE IV ; Start 09/27/19 at 13:00; Stop 09/28/19 at 08:03; Status DC Lidocaine HCl (Lidocaine HCl 2% Abboject) 100 mg STK-MED ONCE .ROUTE ; Start 09/27/19 at 13:00; Stop 09/28/19 at 08:03; Status DC Metoprolol Tartrate (Lopressor) 25 mg BID PO Last administered on 10/03/19at 08:10; Start 09/28/19 at 09:00 Ceftriaxone Sodium (Rocephin) 1 gm Q24H IVP Last administered on 10/02/19at 12:05; Start 09/28/19 at 11:30 Sevoflurane (Ultane) 60 ml STK-MED ONCE IH ; Start 09/29/19 at 11:23; Stop 09/29/19 at 11:23; Status DC Fentanyl Citrate (Fentanyl 2ml Vial) 100 mcg STK-MED ONCE .ROUTE ; Start 09/29/19 at 11:26; Stop 09/29/19 at 11:26; Status DC Midazolam HCl (Versed) 2 mg STK-MED ONCE .ROUTE ; Start 09/29/19 at 11:26; Stop 09/29/19 at 11:26; Status DC Glycopyrrolate (Robinul) 1 mg STK-MED ONCE .ROUTE ; Start 09/29/19 at 11:26; Stop 09/29/19 at 11:27; Status DC Neostigmine [place] (Neostigmine Methylsulfate) 5 mg STK-MED ONCE .ROUTE ; Start 7/11/20 at 11:26; Stop 09/29/19 at 11:27; Status DC Rocuronium [place] (Zemuron) 50 mg STK-MED ONCE .ROUTE ; Start 09/29/19 at 11:26; Stop 09/29/19 at 11:27; Status DC Ondansetron HCl (Zofran) 4 mg STK-MED ONCE .ROUTE ; Start 09/29/19 at 11:32; Stop 09/29/19 at 11:32; Status DC Propofol (Diprivan) 200 mg STK-MED ONCE IV ; Start 09/29/19 at 11:32; Stop 09/29/19 at 11:32; Status DC Lidocaine HCl (Lidocaine Pf 2% Vial) 5 ml STK-MED ONCE .ROUTE ; Start 09/29/19 at 11:32; Stop 09/29/19 at 11:32; Status DC Dexamethasone Sodium Phosphate (Decadron) 4 mg STK-MED ONCE .ROUTE ; Start 09/29/19 at 11:32; Stop 09/29/19 at 11:32; Status DC Bupivacaine HCl/ Epinephrine Bitart (Sensorcain-Epi 0.5%-1:899888 Mpf) 30 ml STK-MED ONCE .ROUTE Last administered on 09/29/19at 12:18; Start 09/29/19 at 11:34; Stop 09/29/19 at 11:34; Status DC Cellulose (Surgicel Hemostat 2x14) 1 each STK-MED ONCE .ROUTE Last administered on 09/29/19at 12:18; Start 09/29/19 at 11:34; Stop 09/29/19 at 11:34; Status DC Iohexol (Omnipaque 300 Mg/ml) 50 ml STK-MED ONCE .ROUTE Last administered on 09/29/19at 12:18; Start 09/29/19 at 11:34; Stop 09/29/19 at 11:34; Status DC Bisacodyl (Dulcolax Supp) 10 mg STK-MED ONCE .ROUTE Last administered on 09/29/19at 12:18; Start 09/29/19 at 11:34; Stop 09/29/19 at 11:34; Status DC Heparin Sodium (Porcine) (Heparin Sodium) 10,000 unit STK-MED ONCE .ROUTE Last administered on 09/29/19at 12:18; Start 09/29/19 at 11:36; Stop 09/29/19 at 11:36; Status DC Ondansetron HCl (Zofran) 4 mg PRN Q6HRS PRN IV NAUSEA/VOMITING Last administered on 09/29/19at 16:18; Start 09/29/19 at 11:45; Stop 09/29/19 at 20:00; Status DC Fentanyl Citrate (Fentanyl 2ml Vial) 25 mcg PRN Q5MIN PRN IV MILD PAIN 1-3 Last administered on 09/29/19at 14:06; Start 09/29/19 at 11:45; Stop 09/29/19 at 20:00; Status DC Fentanyl Citrate (Fentanyl 2ml Vial) 50 mcg PRN Q5MIN PRN IV MODERATE TO SEVERE PAIN Last administered on 09/29/19at 14:30; Start 09/29/19 at 11:45; Stop 09/29/19 at 20:00; Status DC Morphine Sulfate (Morphine Sulfate) 1 mg PRN Q10MIN PRN IV SEVERE PAIN 7-10; Start 09/29/19 at 11:45; Stop 09/29/19 at 20:00; Status DC Ringer's Solution 1,000 ml @ 30 mls/hr Q24H IV ; Start 09/29/19 at 11:43; Stop 09/29/19 at 23:43; Status DC Hydromorphone HCl (Dilaudid) 0.5 mg PRN Q10MIN PRN IV SEV PAIN, Second choice; Start 09/29/19 at 11:45; Stop 09/29/19 at 20:00; Status DC Prochlorperazine Edisylate (Compazine) 5 mg PACU PRN PRN IV NAUSEA, MRX1; Start 09/29/19 at 11:45; Stop 09/29/19 at 20:00; Status DC Cefazolin Sodium (Ancef) 1 gm STK-MED ONCE IVP ; Start 09/29/19 at 11:53; Stop 09/29/19 at 11:53; Status DC Cefazolin Sodium (Ancef) 1 gm STK-MED ONCE IVP ; Start 09/29/19 at 12:15; Stop 09/29/19 at 12:15; Status DC Phenylephrine HCl (PHENYLEPHRINE in 0.9% NACL PF) 1 mg STK-MED ONCE IV ; Start 09/29/19 at 12:39; Stop 09/29/19 at 12:39; Status DC Fentanyl Citrate (Fentanyl 2ml Vial) 100 mcg STK-MED ONCE .ROUTE ; Start 09/29/19 at 14:04; Stop 09/29/19 at 14:04; Status DC Sodium Chloride (Normal Saline Flush) 3 ml QSHIFT PRN IV AFTER MEDS AND BLOOD DRAWS; Start 09/29/19 at 14:30 Ringer's Solution 1,000 ml @ 100 mls/hr Q10H IV Last administered on 09/29/19at 14:17; Start 09/29/19 at 14:17 Dextrose (Dextrose 50%-Water Syringe) 12.5 gm PRN Q15MIN PRN IV SEE COMMENTS; Start 09/29/19 at 14:30 Acetaminophen/ Hydrocodone Bitart (Lortab 5/325) 1 tab PRN Q4HRS PRN PO MILD PAIN 1-3 Last administered on 10/02/19at 20:31; Start 09/29/19 at 14:30 Naloxone HCl (Narcan) 0.4 mg PRN Q2MIN PRN IV SEE INSTRUCTIONS; Start 09/29/19 at 14:30 Sodium Chloride 1,000 ml @ 25 mls/hr Q24H IV ; Start 09/29/19 at 14:17 Morphine Sulfate (Morphine Sulfate) 1 mg PRN Q1HR PRN IV PAIN Last administered on 09/29/19at 18:12; Start 09/29/19 at 14:30 Docusate Sodium (Colace) 100 mg BID PO Last administered on 10/03/19at 08:11; Start 09/29/19 at 15:00 Lactobacillus Rhamnosus (Culturelle) 1 cap BID PO Last administered on 10/03/19at 08:10; Start 10/01/19 at 09:00 Pantoprazole Sodium (Protonix) 40 mg DAILYAC PO Last administered on 10/03/19at 08:11; Start 10/02/19 at 07:30 Polyethylene Glycol (miraLAX PACKET) 17 gm DAILY PO Last administered on 10/03/19at 08:10; Start 10/01/19 at 10:30 Bisacodyl (Dulcolax Tab) 5 mg PRN DAILY PRN PO CONSTIPATION Last administered on 10/03/19at 08:10; Start 10/02/19 at 10:30 Active Scripts Active Vitamin D3 (Cholecalciferol (Vitamin D3)) 1,000 Unit Tablet 1,000 Unit PO DAILY Proair Hfa (Albuterol Sulfate) 8.5 Gm Hfa.aer.ad 2.5 Mg NEB RTQID Lasix (Furosemide) 40 Mg Tablet 1 Tab PO DAILY Klor-Con M20 (Potassium Chloride) 20 Meq Tab.er.prt 20 Meq PO DAILY 30 Days Reported Biofreeze (Menthol) 118 Ml Gel..ml. 1 [place] TP PRN 7 Days Benzonatate 200 Mg Capsule 1 Cap PO PRN TID PRN 7 Days Loratadine 10 Mg Tablet 1 Tab PO DAILY Flonase Allergy Relief (Fluticasone Propionate) 9.9 Ml [place].susp 2 Sprays NS BID Aspirin 325 Mg Tablet 81 Mg PO DAILY Levothyroxine Sodium 125 Mcg Tablet 1 Tab PO DAILY Metoprolol Tartrate 50 Mg Tablet 1 Tab PO DAILY Vitals/I & O Vital Sign - Last 24 Hours 10/02/19 10/02/19 10/02/19 10/02/19 10:54 12:05 12:59 14:48 Temp 98.0 97.9 98.0 97.9 Pulse 61 70 Resp 18 18 B/P (MAP) 140/67 (91) 166/72 (103) Pulse Ox 94 94 94 95 O2 Delivery Room Air Room Air Room Air Room Air 10/02/19 10/02/19 10/02/19 10/02/19 19:30 19:50 20:31 20:31 Temp 98.5 98.5 Pulse 67 67 Resp 16 B/P (MAP) 173/72 (105) 173/72 Pulse Ox 92 O2 Delivery Room Air Room Air Room Air 10/02/19 10/02/19 10/03/19 10/03/19 21:31 23:35 03:12 07:18 Temp 98.1 98.2 98.4 98.1 98.2 98.4 Pulse 68 59 66 Resp 16 16 18 B/P (MAP) 165/78 (107) 162/70 (100) 177/76 (109) Pulse Ox 95 93 93 O2 Delivery Room Air Room Air Room Air Room Air 10/03/19 10/03/19 07:35 08:10 Pulse 66 B/P (MAP) 177/76 O2 Delivery Room Air Intake and Output 10/02/19 10/02/19 10/03/19 15:00 23:00 07:00 Intake Total 580 ml 300 ml 170 ml Balance 580 ml 300 ml 170 ml Nutrition Consultation Dietary Evaluation: Recommendations by RD: Dietary education by RD, Increase Calorie Intake, Protein supplementation Comments: rec continue with cardiac diet honor food preferences and offer snacks/ supplements from unit prn. Expected Outcomes/Goals: to meet >75% est nutr needs- met, goal ongoing Interpretation of weight loss: >10% in 6 months Malnutrition Findings: Food and Nutrition Intake (Mod: <75% est energy req 7days Weight Status: Overweight Justicifation of Admission Dx: Justifications for Admission: Justification of Admission Dx: N/A TASHIA BAI MD Oct 03, 2019 08:50
--- NOTE | 2019-10-03 08:53 | PDOC ---
Subjective: Subjective: Pain's better except with movement. Passing a little gas, no stool. Eating. Objective: Objective: Reviewed chart - needs PO atbx and drain removal before DC. Vital Signs: Vital Signs Date Time Temp Pulse Resp B/P (MAP) Pulse Ox O2 Delivery O2 Flow Rate FiO2 10/03/19 08:10 66 177/76 10/03/19 07:35 Room Air 10/03/19 07:18 98.4 18 93 98.4 Labs: Diagnosis: Gallbladder, laparoscopic cholecystectomy: - Cholelithiasis. - Acute necrotizing (gangrenous) and focal chronic cholecystitis with focally increased eosinophils. PE: GEN: NAD LUNGS: CTAB HEART: RRR ABD: NABS, soft, drain serosang NEURO/PSYCH: A & O 3 A/P: Choledocholithiasis s/p ERCP and cholecystectomy Elevated LFTs - improved (last checked 09/29) UTI -- Continue Miralax, try Dulcolax x 1. Justicifation of Admission Dx: Justifications for Admission: Justification of Admission Dx: N/A JOSE DE JESUS LYMAN Oct 03, 2019 08:53
[2019-10-03] MEDS ORDERED: BISACODYL 5 MG TABLET.DR. PO ONE (09:00)
[2019-10-03] MEDS ORDERED: BISACODYL 10 MG SUPP.RECT. PR ONE (10:00)
--- NOTE | 2019-10-03 10:00 | PDOC ---
SURGICAL PROGRESS NOTE Subjective feels constipated tolerating diet pain managed ambulating some Vital Signs Vital Signs Date Time Temp Pulse Resp B/P (MAP) Pulse Ox O2 Delivery O2 Flow Rate FiO2 10/03/19 08:10 66 177/76 10/03/19 07:35 Room Air 10/03/19 07:18 98.4 18 93 98.4 I&O Intake and Output 10/03/19 07:00 Intake Total 1050 ml Balance 1050 ml Intake Oral 1050 ml # Voids 8 General: Alert, Cooperative, No acute distress Abdomen: Soft, Other (ND, drain in place) Problem List Problems Medical Problems: (1) Abdominal pain Status: Acute (2) Common bile duct dilatation Status: Acute (3) HTN (hypertension) Status: Acute Assessment/Plan remove lorena add suppository ok to change to oral abx at dc Justicifation of Admission Dx: Justifications for Admission: Justification of Admission Dx: N/A ZOILA GOMES APRN Oct 03, 2019 10:00
[2019-10-03 11:06] VITALS: BP 154/75
[2019-10-03] MEDS: HYDROcodone/APAP 5/325MG 1 TAB TABLET PO PRN ×2 (11:39→20:47)
[2019-10-03] MEDS: cefTRIAXone IV Push 1 GM VIAL. IVP SCH (11:40)
[2019-10-03 15:05] VITALS: BP 155/72
[2019-10-03 19:00] VITALS: BP 166/86
[2019-10-03 23:00] VITALS: BP 177/84
[2019-10-04] MEDS: HYDROcodone/APAP 5/325MG 1 TAB TABLET PO PRN (02:39)
[2019-10-04 03:00] VITALS: BP 144/69
[2019-10-04] MEDS: IV RINGERS,LACTATED 1000ML 1,000 ML IV SCH ×2 (04:17→12:55)
[2019-10-04 07:00] VITALS: BP 169/78
--- NOTE | 2019-10-04 08:00 | NUR ---
Medication note: Discussed constipation with pt, since she has had a BM today, will hold Miralax.
--- NOTE | 2019-10-04 08:24 | PDOC ---
PROGRESS NOTES Chief Complaint Chief Complaint impression POD # 4 RUQ pain, Upper abdominal pain e coli uti on iv rocephin choledocholithiasis. There is dilatation of the common bile duct and gallbladder, also likely gallbladder wall thickening as could be seen with cholecystitis. w/ hepatomegaly severe cholecystitis, distended large gallbladder with friable tissue, purulent, foul smelling fluid in gallbladder, normal cholangiogram covid neg 09/25 CAD: s/p PCI/LIYAH to LAD 06/2018, clinically stable ICM: recovered with recent EF at 55% PAFIB: maintaining SR . Elevated LFTs, dilated CBD GERD CAD A Fib CKD s/p lap damion cont pain control iv cont abx for gallbladder empyema NO STOOLS X 4 DAYS 10/02 Prokinetics/laxatives fro constipation. CPM SMALL STOOL YESTERDAY 10/02 POOR APPETITE 10/03 28 min pt exam, chart review, > 50% of time spent with exam, chart review., pt care coordination History of Present Illness History of Present Illness Ms Dhaliwal is a 89 yo female w/ PMHX CAD w/ stent, ICM, A Fib, HTN, HLD, AAA, essential tremor, CVA, anxiety, OA, [place] UTI, hypothyroidism, osteoporosis admitted with pain in epigastrium radiating to LUQ. Noted in ER w/ elevated LFTs and dilated CBD on US w/ distended GB (no stones). 09/26 ERCP with sphincterotomy and stone extractions 09/27 still in pain, iv morphine needed Some pain overnight, afebrile. Labs stable, improved no leukocytosis. No shortness of breath or cough. She ate breakfast this morning and says she feels a little better. Passing gas. Asking when the pain and drain will go away. Vitals Vitals Vital Signs Date Time Temp Pulse Resp B/P (MAP) Pulse Ox O2 Delivery O2 Flow Rate FiO2 10/04/19 07:00 97.6 61 18 169/78 (108) 96 Room Air 97.6 Physical Exam General: Alert, Oriented X3, Cooperative, No acute distress Heart: Regular rate, Normal S1, Normal S2, Other (3/6 diastolic murmur to ERbs) Lungs: Clear Abdomen: Normal bowel sounds, Soft, No tenderness, Other (drain serosang) Extremities: No clubbing, No cyanosis, No edema Skin: No rashes, No breakdown Assessment and Plan Assessmemt and Plan Problems Medical Problems: (1) Abdominal pain Status: Acute (2) Common bile duct dilatation Status: Acute (3) HTN (hypertension) Status: Acute Comment Review of Relevant I have reviewed the following items luna (where applicable) has been applied. Labs Microbiology 09/25/19 Urine Culture - Final, Complete 09/25/19 Antimicrobic Susceptibility - Final, Complete Medications Current Medications Morphine Sulfate (Morphine Sulfate) 4 mg 1X ONCE IV Last administered on 09/25/19at 09:34; Start 09/25/19 at 09:30; Stop 09/25/19 at 09:31; Status DC Ondansetron HCl (Zofran) 4 mg 1X ONCE IVP Last administered on 09/25/19at 09:33; Start 09/25/19 at 09:30; Stop 09/25/19 at 09:31; Status DC Hydralazine HCl (Apresoline Inj) 10 mg 1X ONCE IVP Last administered on 09/25/19at 11:53; Start 09/25/19 at 11:15; Stop 09/25/19 at 11:16; Status DC Ondansetron HCl (Zofran) 4 mg PRN Q8HRS PRN IV NAUSEA/VOMITING; Start 09/25/19 at 11:45; Stop 09/26/19 at 11:44; Status DC Fentanyl Citrate (Fentanyl 2ml Vial) 50 mcg PRN Q1HR PRN IV PAIN Last administered on 09/26/19at 07:53; Start 09/25/19 at 11:45; Stop 09/26/19 at 11:44; Status DC Pantoprazole Sodium (PROTONIX VIAL for IV PUSH) 40 mg DAILYAC IVP Last administered on 10/01/19at 06:37; Start 09/25/19 at 15:00; Stop 10/01/19 at 10:16; Status DC Iohexol (Omnipaque 240 Mg/ml) 30 ml 1X ONCE PO Last administered on 09/25/19at 14:30; Start 09/25/19 at 14:30; Stop 09/25/19 at 14:31; Status DC Info (CONTRAST GIVEN -- Rx MONITORING) 1 each PRN DAILY PRN MC SEE COMMENTS; Start 09/25/19 at 14:30; Stop 09/27/19 at 14:29; Status DC Sodium Chloride 1,000 ml @ 75 mls/hr [id number] IV Last administered on 09/29/19at 05:24; Start 09/25/19 at 14:45 Ringer's Solution 1,000 ml @ 50 mls/hr Q20H IV Last administered on 09/27/19at 14:00; Start 09/27/19 at 07:00; Stop 09/27/19 at 18:59; Status DC Metoprolol Tartrate (Lopressor Vial) 5 mg PRN Q6HRS PRN IVP HYPERTENSION; Start 09/26/19 at 13:45 Potassium Chloride/Water 100 ml @ 50 mls/hr 1X ONCE IV Last administered on 09/27/19at 12:00; Start 09/27/19 at 12:00; Stop 09/27/19 at 13:59; Status DC Ringer's Solution 1,000 ml @ 75 mls/hr 1X ONCE IV ; Start 09/27/19 at 14:00; Stop 09/28/19 at 03:19; Status DC Iohexol (Omnipaque 300 Mg/ml) 100 ml STK-MED ONCE .ROUTE ; Start 09/27/19 at 14:06; Stop 09/27/19 at 14:07; Status DC Ondansetron HCl (Zofran) 4 mg STK-MED ONCE .ROUTE ; Start 09/27/19 at 14:11; Sto p 09/27/19 at 14:12; Status DC Levofloxacin/ Dextrose 100 ml @ As Directed STK-MED ONCE IV ; Start 09/27/19 at 14:15; Stop 09/27/19 at 14:15; Status DC Levofloxacin/ Dextrose 100 ml @ 100 mls/hr 1X PREOP PRN IV PRIOR TO PROCEDURE Last administered on 09/27/19at 14:19; Start 09/27/19 at 14:35; Stop 09/28/19 at 14:34; Status DC Aspirin (Ecotrin) 81 mg [id number] PO Last administered on 10/03/19at 08:10; Start 09/28/19 at 08:00 Potassium Chloride/Water 100 ml @ 50 mls/hr 1X ONCE IV Last administered on 09/28/19at 08:38; Start 09/28/19 at 08:30; Stop 09/28/19 at 10:29; Status DC Succinylcholine Chloride (Anectine) 200 mg STK-MED ONCE .ROUTE ; Start 09/27/19 at 13:00; Stop 09/28/19 at 08:03; Status DC Phenylephrine HCl (PHENYLEPHRINE in 0.9% NACL PF) 1 mg STK-MED ONCE IV ; Start 09/27/19 at 13:00; Stop 09/28/19 at 08:03; Status DC Dexamethasone Sodium Phosphate (Decadron) 20 mg STK-MED ONCE .ROUTE ; Start 09/27/19 at 13:00; Stop 09/28/19 at 08:03; Status DC Propofol (Diprivan) 200 mg STK-MED ONCE IV ; Start 09/27/19 at 13:00; Stop 09/28/19 at 08:03; Status DC Lidocaine HCl (Lidocaine HCl 2% Abboject) 100 mg STK-MED ONCE .ROUTE ; Start at 13:00; Stop 09/28/19 at 08:03; Status DC Metoprolol Tartrate (Lopressor) 25 mg BID PO Last administered on 10/03/19at 20:47; Start 09/28/19 at 09:00 Ceftriaxone Sodium (Rocephin) 1 gm Q24H IVP Last administered on 10/03/19at 11:40; Start 09/28/19 at 11:30 Sevoflurane (Ultane) 60 ml STK-MED ONCE IH ; Start 09/29/19 at 11:23; Stop 09/29/19 at 11:23; Status DC Fentanyl Citrate (Fentanyl 2ml Vial) 100 mcg STK-MED ONCE .ROUTE ; Start 09/29/19 at 11:26; Stop 09/29/19 at 11:26; Status DC Midazolam HCl (Versed) 2 mg STK-MED ONCE .ROUTE ; Start 09/29/19 at 11:26; Stop 09/29/19 at 11:26; Status DC Glycopyrrolate (Robinul) 1 mg STK-MED ONCE .ROUTE ; Start 09/29/19 at 11:26; Stop 09/29/19 at 11:27; Status DC Neostigmine [place] (Neostigmine Methylsulfate) 5 mg STK-MED ONCE .ROUTE ; Start 09/29/19 at 11:26; Stop 09/29/19 at 11:27; Status DC Rocuronium [place] (Zemuron) 50 mg STK-MED ONCE .ROUTE ; Start 09/29/19 at 11:26; Stop 09/29/19 at 11:27; Status DC Ondansetron HCl (Zofran) 4 mg STK-MED ONCE .ROUTE ; Start 09/29/19 at 11:32; Stop 09/29/19 at 11:32; Status DC Propofol (Diprivan) 200 mg STK-MED ONCE IV ; Start 09/29/19 at 11:32; Stop 09/29/19 at 11:32; Status DC Lidocaine HCl (Lidocaine Pf 2% Vial) 5 ml STK-MED ONCE .ROUTE ; Start 09/29/19 at 11:32; Stop 09/29/19 at 11:32; Status DC Dexamethasone Sodium Phosphate (Decadron) 4 mg STK-MED ONCE .ROUTE ; Start 09/29/19 at 11:32; Stop 09/29/19 at 11:32; Status DC Bupivacaine HCl/ Epinephrine Bitart (Sensorcain-Epi 0.5%-1:838237 Mpf) 30 ml STK-MED ONCE .ROUTE Last administered on 09/29/19at 12:18; Start 09/29/19 at 11:34; Stop 09/29/19 at 11:34; Status DC Cellulose (Surgicel Hemostat 2x14) 1 each STK-MED ONCE .ROUTE Last administered on 09/29/19at 12:18; Start 09/29/19 at 11:34; Stop 09/29/19 at 11:34; Status DC Iohexol (Omnipaque 300 Mg/ml) 50 ml STK-MED ONCE .ROUTE Last administered on 09/29/19at 12:18; Start 09/29/19 at 11:34; Stop 09/29/19 at 11:34; Status DC Bisacodyl (Dulcolax Supp) 10 mg STK-MED ONCE .ROUTE Last administered on 09/29/19at 12:18; Start 09/29/19 at 11:34; Stop 09/29/19 at 11:34; Status DC Heparin Sodium (Porcine) (Heparin Sodium) 10,000 unit STK-MED ONCE .ROUTE Last administered on 09/29/19at 12:18; Start 09/29/19 at 11:36; Stop 09/29/19 at 11:36; Status DC Ondansetron HCl (Zofran) 4 mg PRN Q6HRS PRN IV NAUSEA/VOMITING Last administered on 09/29/19at 16:18; Start 09/29/19 at 11:45; Stop 09/29/19 at 20:00; Status DC Fentanyl Citrate (Fentanyl 2ml Vial) 25 mcg PRN Q5MIN PRN IV MILD PAIN 1-3 Last administered on 09/29/19at 14:06; Start 09/29/19 at 11:45; Stop 09/29/19 at 20:00; Status DC Fentanyl Citrate (Fentanyl 2ml Vial) 50 mcg PRN Q5MIN PRN IV MODERATE TO SEVERE PAIN Last administered on 09/29/19at 14:30; Start 09/29/19 at 11:45; Stop 09/29/19 at 20:00; Status DC Morphine Sulfate (Morphine Sulfate) 1 mg PRN Q10MIN PRN IV SEVERE PAIN 7-10; Start 09/29/19 at 11:45; Stop 09/29/19 at 20:00; Status DC Ringer's Solution 1,000 ml @ 30 mls/hr Q24H IV ; Start 09/29/19 at 11:43; Stop 09/29/19 at 23:43; Status DC Hydromorphone HCl (Dilaudid) 0.5 mg PRN Q10MIN PRN IV SEV PAIN, Second choice; Start 09/29/19 at 11:45; Stop 09/29/19 at 20:00; Status DC Prochlorperazine Edisylate (Compazine) 5 mg PACU PRN PRN IV NAUSEA, MRX1; Start 09/29/19 at 11:45; Stop 09/29/19 at 20:00; Status DC Cefazolin Sodium (Ancef) 1 gm STK-MED ONCE IVP ; Start 09/29/19 at 11:53; Stop 09/29/19 at 11:53; Status DC Cefazolin Sodium (Ancef) 1 gm STK-MED ONCE IVP ; Start 09/29/19 at 12:15; Stop 09/29/19 at 12:15; Status DC Phenylephrine HCl (PHENYLEPHRINE in 0.9% NACL PF) 1 mg STK-MED ONCE IV ; Start 09/29/19 at 12:39; Stop 09/29/19 at 12:39; Status DC Fentanyl Citrate (Fentanyl 2ml Vial) 100 mcg STK-MED ONCE .ROUTE ; Start 09/29/19 at 14:04; Stop 09/29/19 at 14:04; Status DC Sodium Chloride (Normal Saline Flush) 3 ml QSHIFT PRN IV AFTER MEDS AND BLOOD DRAWS; Start 09/29/19 at 14:30 Ringer's Solution 1,000 ml @ 100 mls/hr Q10H IV Last administered on 09/29/19at 14:17; Start 09/29/19 at 14:17 Dextrose (Dextrose 50%-Water Syringe) 12.5 gm PRN Q15MIN PRN IV SEE COMMENTS; Start 09/29/19 at 14:30 Acetaminophen/ Hydrocodone Bitart (Lortab 5/325) 1 tab PRN Q4HRS PRN PO MILD PAIN 1-3 Last administered on 10/04/19at 02:39; Start 09/29/19 at 14:30 Naloxone HCl (Narcan) 0.4 mg PRN Q2MIN PRN IV SEE INSTRUCTIONS; Start 09/29/19 at 14:30 Sodium Chloride 1,000 ml @ 25 mls/hr Q24H IV ; Start 09/29/19 at 14:17 Morphine Sulfate (Morphine Sulfate) 1 mg PRN Q1HR PRN IV PAIN Last administered on 09/29/19at 18:12; Start 09/29/19 at 14:30 Docusate Sodium (Colace) 100 mg BID PO Last administered on 10/03/19at 20:46; Start 09/29/19 at 15:00 Lactobacillus Rhamnosus (Culturelle) 1 cap BID PO Last administered on 09/18 20:46; Start 10/01/19 at 09:00 Pantoprazole Sodium (Protonix) 40 mg DAILYAC PO Last administered on 10/03/19at 08:11; Start 10/02/19 at 07:30 Polyethylene Glycol (miraLAX PACKET) 17 gm DAILY PO Last administered on 10/03/19at 08:10; Start 10/01/19 at 10:30 Bisacodyl (Dulcolax Tab) 5 mg PRN DAILY PRN PO CONSTIPATION Last administered on 7/15/20at 08:10; Start 10/02/19 at 10:30 Bisacodyl (Dulcolax Tab) 5 mg 1X ONCE PO ; Start 10/03/19 at 09:00; Stop 10/03/19 at 09:01; Status DC Bisacodyl (Dulcolax Supp) 10 mg 1X ONCE [place] Last administered on 10/03/19at 10:26; Start 10/03/19 at 10:00; Stop 10/03/19 at 10:01; Status DC Active Scripts Active Vitamin D3 (Cholecalciferol (Vitamin D3)) 1,000 Unit Tablet 1,000 Unit PO DAILY Proair Hfa (Albuterol Sulfate) 8.5 Gm Hfa.aer.ad 2.5 Mg NEB RTQID Lasix (Furosemide) 40 Mg Tablet 1 Tab PO DAILY Klor-Con M20 (Potassium Chloride) 20 Meq Tab.er.prt 20 Meq PO DAILY 30 Days Reported Biofreeze (Menthol) 118 Ml Gel..ml. 1 [place] TP PRN 7 Days Benzonatate 200 Mg Capsule 1 Cap PO PRN TID PRN 7 Days Loratadine 10 Mg Tablet 1 Tab PO DAILY Flonase Allergy Relief (Fluticasone Propionate) 9.9 Ml [place].susp 2 Sprays NS BID Aspirin 325 Mg Tablet 81 Mg PO DAILY Levothyroxine Sodium 125 Mcg Tablet 1 Tab PO DAILY Metoprolol Tartrate 50 Mg Tablet 1 Tab PO DAILY Vitals/I & O Vital Sign - Last 24 Hours 10/03/19 10/03/19 10/03/19 10/03/19 11:06 11:39 12:40 15:05 Temp 98.3 98.4 98.3 98.4 Pulse 63 73 Resp 18 19 B/P (MAP) 154/75 (101) 155/72 (99) Pulse Ox 93 93 93 92 O2 Delivery Room Air Room Air Room Air Room Air 10/03/19 10/03/19 10/03/19 10/03/19 19:00 20:30 20:47 20:47 Temp 98.3 98.3 Pulse 74 74 Resp 18 B/P (MAP) 166/86 (112) 166/86 Pulse Ox 94 O2 Delivery Room Air Room Air Room Air 10/03/19 10/03/19 10/04/19 10/04/19 21:47 23:00 02:39 03:00 Temp 97.9 98.0 97.9 98.0 Pulse 66 63 Resp 18 18 B/P (MAP) 177/84 (115) 144/69 (94) Pulse Ox 92 91 O2 Delivery Room Air Room Air Room Air Room Air 10/04/19 10/04/19 03:39 07:00 Temp 97.6 97.6 Pulse 61 Resp 18 B/P (MAP) 169/78 (108) Pulse Ox 96 O2 Delivery Room Air Room Air Intake and Output 10/03/19 10/03/19 10/04/19 15:00 23:00 07:00 Intake Total 350 ml 200 ml Output Total 100 ml Balance 350 ml 200 ml -100 ml Nutrition Consultation Dietary Evaluation: Recommendations by RD: Dietary education by RD, Increase Calorie Intake, Protein supplementation Comments: rec continue with cardiac diet honor food preferences and offer snacks/ supplements from unit prn. Expected Outcomes/Goals: to meet >75% est nutr needs- met, goal ongoing Interpretation of weight loss: >10% in 6 months Malnutrition Findings: Food and Nutrition Intake (Mod: <75% est energy req 7days Weight Status: Overweight Justicifation of Admission Dx: Justifications for Admission: Justification of Admission Dx: N/A TASHIA BAI MD Oct 04, 2019 08:24
[2019-10-04] MEDS: LACTOBACILLUS RHAMNOSUS GG 1 CAPSULE. PO SCH (08:56)
[2019-10-04] MEDS: ASPIRIN ENTERIC COATED 81 MG TABLET.DR. PO SCH (08:57)
[2019-10-04] MEDS: DOCUSATE SODIUM 100 MG CAPSULE. PO SCH (08:57)
[2019-10-04] MEDS: METOPROLOL TART IMMED RELEASE 25 MG TABLET. PO SCH (08:57)
[2019-10-04] MEDS: PANTOPRAZOLE 40 MG TABLET.DR. PO SCH (08:57)
[2019-10-04] MEDS: POLYETHYLENE GLYCOL 3350 17 GM PACKET. PO SCH (08:58)
--- NOTE | 2019-10-04 09:10 | PDOC ---
SURGICAL PROGRESS NOTE Subjective still feels constipated, small bm yesterday not eating much though up in chair this AM Vital Signs Vital Signs Date Time Temp Pulse Resp B/P (MAP) Pulse Ox O2 Delivery O2 Flow Rate FiO2 10/04/19 08:57 61 169/78 10/04/19 07:00 97.6 18 96 Room Air 97.6 I&O Intake and Output 10/04/19 07:00 Intake Total 550 ml Output Total 100 ml Balance 450 ml Intake Oral 550 ml Output Urine Total 100 ml # Voids 2 General: Alert, Oriented X3, Cooperative Abdomen: Soft, Other (lap sites c/d/i) Problem List Problems Medical Problems: (1) Abdominal pain Status: Acute (2) Common bile duct dilatation Status: Acute (3) HTN (hypertension) Status: Acute Assessment/Plan s/p damion continue bowel regimen Justicifation of Admission Dx: Justifications for Admission: Justification of Admission Dx: N/A ZOILA GOMES APRN Oct 04, 2019 09:10
--- NOTE | 2019-10-04 10:15 | PDOC ---
Subjective: Subjective: Eating a little, not much appetite. Stooling some - not used to feeling constipated. Objective: Vital Signs: Vital Signs Date Time Temp Pulse Resp B/P (MAP) Pulse Ox O2 Delivery O2 Flow Rate FiO2 10/04/19 08:57 61 169/78 10/04/19 07:00 97.6 18 96 Room Air 97.6 PE: GEN: NAD, up in recliner wearing pjs LUNGS: CTAB HEART: RRR ABD: BS, soft, non-tender NEURO/PSYCH: A & O 3 A/P: Choledocholithiasis s/p ERCP and cholecystectomy Constipation UTI, HTN -- Encouraged PO. Getting Lortab so will try [place]. Justicifation of Admission Dx: Justifications for Admission: Justification of Admission Dx: N/A JOSE DE JESUS LYMAN Oct 04, 2019 10:15
[2019-10-04 11:00] VITALS: BP 154/64
[2019-10-04] MEDS ORDERED: LUBIPROSTONE 24 MCG CAPSULE PO SCH (12:00)
[2019-10-04] MEDS: IV 1/2 NORMAL SALINE 1,000 ML IV SCH (12:03)
[2019-10-04] MEDS: cefTRIAXone IV Push 1 GM VIAL. IVP SCH (12:46)
[2019-10-04] MEDS: IV NORMAL SALINE 1000ML BAG 1,000 ML IV SCH (12:55)
--- NOTE | 2019-10-04 14:30 | PDOC3 ---
Discharge Summary Date of Admission: Sep 25, 2019 Date of Discharge: Oct 04, 2019 Follow-Up: 1-2 days Admitting Diagnosis comment: DISCHARGE DX ====== POD # 4 Date: Sep 29, 2019 Pre-Op Diagnosis: Calculous cholecystitis, choledocholithiasis Post-Op Diagnosis: same, severe cholecystitis Procedure Performed: laparoscopic cholecystectomy with cholangiogram Surgeon: Bob Tolentino Anesthesia Type: GETA plus local Blood Loss: 100 Specimans Obtained: gallbladder Findings: severe cholecystitis, distended large gallbladder with friable tissue, purulent, foul smelling fluid in gallbladder, normal cholangiogram Complications: none Operative Note: After obtaining informed consent, patient was taken to OR, induced under GETA and prepped in the usual fashion Operative Note Operative Note Operative Note ERCP with sphincterotomy and stone extractions Meds Propofol per anesthesia Pre-op dx CBD stones/abnl Ct scan/Jaundice Post-op dx Choledocholithiasis s/p sphincterotomy/stone extractions Plan am labs liquids as tolerated in am possible lap damionDANNA Luna MD RUQ pain, Upper abdominal pain e coli uti on iv rocephin choledocholithiasis. There is dilatation of the common bile duct and gallbladd er, also likely gallbladder wall thickening as could be seen with cholecystitis. w/ hepatomegaly severe cholecystitis, distended large gallbladder with friable tissue, purulent, foul smelling fluid in gallbladder, normal cholangiogram covid neg 09/25 CAD: s/p PCI/LIYAH to LAD 06/2018, clinically stable ICM: recovered with recent EF at 55% PAFIB: maintaining SR . Elevated LFTs, dilated CBD GERD CAD A Fib CKD s/p lap damion cont pain control iv cont abx for gallbladder empyema NO STOOLS X 4 DAYS 10/02 Prokinetics/laxatives fro constipation. CPM SMALL STOOL YESTERDAY 10/02 now better APPETITE 10/03 another stool today, gi and surgery agree with d/c plans 28 min pt exam d/c planning time , chart review, > 50% of time spent with exam, chart review., pt care coordination History of Present Illness History of Present Illness Ms Dhaliwal is a 89 yo female w/ PMHX CAD w/ stent, ICM, A Fib, HTN, HLD, AAA, essential tremor, CVA, anxiety, OA, [place] UTI, hypothyroidism, osteoporosis admitted with pain in epigastrium radiating to LUQ. Noted in ER w/ elevated LFTs and dilated CBD on US w/ distended GB (no stones). 09/26 ERCP with sphincterotomy and stone extractions 09/27 still in pain, iv morphine needed Some pain overnight, afebrile. Labs stable, improved no leukocytosis. No shortness of breath or cough. She ate breakfast this morning and says she feels a little better. Passing gas. Asking when the pain and drain will go away. Vitals Vitals Vital Signs Date Time Temp Pulse Resp B/P (MAP) Pulse Ox O2 Delivery O2 Flow Rate FiO2 10/04/19 07:00 97.6 61 18 169/78 (108) 96 Room Air 97.6 Physical Exam General: Alert, Oriented X3, Cooperative, No acute distress Heart: Regular rate, Normal S1, Normal S2, Other (3/6 diastolic murmur to ERbs) Lungs: Clear Abdomen: Normal bowel sounds, Soft, No tenderness, Other (drain serosang) Extremities: No clubbing, No cyanosis, No edema Skin: No rashes, No breakdown Assessment and Plan Assessmemt and Plan Problems Medical Problems: (1) Abdominal pain Status: Acute (2) Common bile duct dilatation Status: Acute (3) HTN (hypertension) Status: Acute FINAL DIAGNOSIS Problems Medical Problems: (1) Abdominal pain Status: Acute (2) Common bile duct dilatation Status: Acute (3) HTN (hypertension) Status: Acute Brief Hospital Course Ms. Dhaliwal is a 89 old [sex] who presented with [ACUTE CHOLECYSTITIS ] CONDITION AT DISCHARGE: Improved Discharge Medications Current Medications Morphine Sulfate (Morphine Sulfate) 4 mg 1X ONCE IV Last administered on 09/25/19at 09:34; Start 09/25/19 at 09:30; Stop 09/25/19 at 09:31; Status DC Ondansetron HCl (Zofran) 4 mg 1X ONCE IVP Last administered on 09/25/19at 09:33; Start 09/25/19 at 09:30; Stop 09/25/19 at 09:31; Status DC Hydralazine HCl (Apresoline Inj) 10 mg 1X ONCE IVP Last administered on 09/25/19at 11:53; Start 09/25/19 at 11:15; Stop 09/25/19 at 11:16; Status DC Ondansetron HCl (Zofran) 4 mg PRN Q8HRS PRN IV NAUSEA/VOMITING; Start 09/25/19 at 11:45; Stop 09/26/19 at 11:44; Status DC Fentanyl Citrate (Fentanyl 2ml Vial) 50 mcg PRN Q1HR PRN IV PAIN Last administered on 09/26/19at 07:53; Start 09/25/19 at 11:45; Stop 09/26/19 at 11:44; Status DC Pantoprazole Sodium (PROTONIX VIAL for IV PUSH) 40 mg DAILYAC IVP Last administered on 10/01/19at 06:37; Start 09/25/19 at 15:00; Stop 10/01/19 at 10:16; Status DC Iohexol (Omnipaque 240 Mg/ml) 30 ml 1X ONCE PO Last administered on 09/25/19at 14:30; Start 09/25/19 at 14:30; Stop 09/25/19 at 14:31; Status DC Info (CONTRAST GIVEN -- Rx MONITORING) 1 each PRN DAILY PRN MC SEE COMMENTS; Start 09/25/19 at 14:30; Stop 09/27/19 at 14:29; Status DC Sodium Chloride 1,000 ml @ 75 mls/hr [id number] IV Last administered on 09/29/19at 05:24; Start 09/25/19 at 14:45 Ringer's Solution 1,000 ml @ 50 mls/hr Q20H IV Last administered on 09/27/19at 14:00; Start 09/27/19 at 07:00; Stop 09/27/19 at 18:59; Status DC Metoprolol Tartrate (Lopressor Vial) 5 mg PRN Q6HRS PRN IVP HYPERTENSION; Start 09/26/19 at 13:45 Potassium Chloride/Water 100 ml @ 50 mls/hr 1X ONCE IV Last administered on 09/27/19at 12:00; Start 09/27/19 at 12:00; Stop 09/27/19 at 13:59; Status DC Ringer's Solution 1,000 ml @ 75 mls/hr 1X ONCE IV ; Start 09/27/19 at 14:00; Stop 09/28/19 at 03:19; Status DC Iohexol (Omnipaque 300 Mg/ml) 100 ml STK-MED ONCE .ROUTE ; Start 09/27/19 at 14:06; Stop 09/27/19 at 14:07; Status DC Ondansetron HCl (Zofran) 4 mg STK-MED ONCE .ROUTE ; Start 09/27/19 at 14:11; Stop 09/27/19 at 14:12; Status DC Levofloxacin/ Dextrose 100 ml @ As Directed STK-MED ONCE IV ; Start 09/27/19 at 14:15; Stop 09/27/19 at 14:15; Status DC Levofloxacin/ Dextrose 100 ml @ 100 mls/hr 1X PREOP PRN IV PRIOR TO PROCEDURE Last administered on 09/27/19at 14:19; Start 09/27/19 at 14:35; Stop 09/28/19 at 14:34; Status DC Aspirin (Ecotrin) 81 mg DAILYWBKFT PO Last administered on 10/04/19at 08:57; Start 09/28/19 at 08:00 Potassium Chloride/Water 100 ml @ 50 mls/hr 1X ONCE IV Last administered on 09/28/19at 08:38; Start 09/28/19 at 08:30; Stop 09/28/19 at 10:29; Status DC Succinylcholine Chloride (Anectine) 200 mg STK-MED ONCE .ROUTE ; Start 09/27/19 at 13:00; Stop 09/28/19 at 08:03; Status DC Phenylephrine HCl (PHENYLEPHRINE in 0.9% NACL PF) 1 mg STK-MED ONCE IV ; Start 09/27/19 at 13:00; Stop 09/28/19 at 08:03; Status DC Dexamethasone Sodium Phosphate (Decadron) 20 mg STK-MED ONCE .ROUTE ; Start 09/27/19 at 13:00; Stop 09/28/19 at 08:03; Status DC Propofol (Diprivan) 200 mg STK-MED ONCE IV ; Start 09/27/19 at 13:00; Stop 09/28/19 at 08:03; Status DC Lidocaine HCl (Lidocaine HCl 2% Abboject) 100 mg STK-MED ONCE .ROUTE ; Start 09/27/19 at 13:00; Stop 09/28/19 at 08:03; Status DC Metoprolol Tartrate (Lopressor) 25 mg BID PO Last administered on 10/04/19at 08:57; Start 09/28/19 at 09:00 Ceftriaxone Sodium (Rocephin) 1 gm Q24H IVP Last administered on 10/04/19at 12:46; Start 09/28/19 at 11:30 Sevoflurane (Ultane) 60 ml STK-MED ONCE IH ; Start 09/29/19 at 11:23; Stop 09/29/19 at 11:23; Status DC Fentanyl Citrate (Fentanyl 2ml Vial) 100 mcg STK-MED ONCE .ROUTE ; Start 09/29/19 at 11:26; Stop 09/29/19 at 11:26; Status DC Midazolam HCl (Versed) 2 mg STK-MED ONCE .ROUTE ; Start 09/29/19 at 11:26; Stop 09/29/19 at 11:26; Status DC Glycopyrrolate (Robinul) 1 mg STK-MED ONCE .ROUTE ; Start 09/29/19 at 11:26; Stop 09/29/19 at 11:27; Status DC Neostigmine [place] (Neostigmine Methylsulfate) 5 mg STK-MED ONCE .ROUTE ; Start 09/29/19 at 11:26; Stop 09/29/19 at 11:27; Status DC Rocuronium [place] (Zemuron) 50 mg STK-MED ONCE .ROUTE ; Start 09/29/19 at 11:26; Stop 09/29/19 at 11:27; Status DC Ondansetron HCl (Zofran) 4 mg STK-MED ONCE .ROUTE ; Start 09/29/19 at 11:32; Stop 09/29/19 at 11:32; Status DC Propofol (Diprivan) 200 mg STK-MED ONCE IV ; Start 09/29/19 at 11:32; Stop 09/29/19 at 11:32; Status DC Lidocaine HCl (Lidocaine Pf 2% Vial) 5 ml STK-MED ONCE .ROUTE ; Start 09/29/19 at 11:32; Stop 09/29/19 at 11:32; Status DC Dexamethasone Sodium Phosphate (Decadron) 4 mg STK-MED ONCE .ROUTE ; Start 09/29/19 at 11:32; Stop 09/29/19 at 11:32; Status DC Bupivacaine HCl/ Epinephrine Bitart (Sensorcain-Epi 0.5%-1:136026 Mpf) 30 ml STK-MED ONCE .ROUTE Last administered on 09/29/19 12:18; Start 09/29/19 at 11:34; Stop 09/29/19 at 11:34; Status DC Cellulose (Surgicel Hemostat 2x14) 1 each STK-MED ONCE .ROUTE Last administered on 09/29/19 12:18; Start 09/29/19 at 11:34; Stop 09/29/19 at 11:34; Status DC Iohexol (Omnipaque 300 Mg/ml) 50 ml STK-MED ONCE .ROUTE Last administered on 09/29/19 12:18; Start 09/29/19 at 11:34; Stop 09/29/19 at 11:34; Status DC Bisacodyl (Dulcolax Supp) 10 mg STK-MED ONCE .ROUTE Last administered on 09/29/19 12:18; Start 09/29/19 at 11:34; Stop 09/29/19 at 11:34; Status DC Heparin Sodium (Porcine) (Heparin Sodium) 10,000 unit STK-MED ONCE .ROUTE Last administered on 09/29/19 12:18; Start 09/29/19 at 11:36; Stop 09/29/19 at 11:36; Status DC Ondansetron HCl (Zofran) 4 mg PRN Q6HRS PRN IV NAUSEA/VOMITING Last administered on 09/29/19at 16:18; Start 09/29/19 at 11:45; Stop 09/29/19 at 20:00; Status DC Fentanyl Citrate (Fentanyl 2ml Vial) 25 mcg PRN Q5MIN PRN IV MILD PAIN 1-3 Last administered on 09/29/19at 14:06; Start 09/29/19 at 11:45; Stop 09/29/19 at 20:00; Status DC Fentanyl Citrate (Fentanyl 2ml Vial) 50 mcg PRN Q5MIN PRN IV MODERATE TO SEVERE PAIN Last administered on 09/29/19at 14:30; Start 09/29/19 at 11:45; Stop 09/29/19 at 20:00; Status DC Morphine Sulfate (Morphine Sulfate) 1 mg PRN Q10MIN PRN IV SEVERE PAIN 7-10; Start 09/29/19 at 11:45; Stop 09/29/19 at 20:00; Status DC Ringer's Solution 1,000 ml @ 30 mls/hr Q24H IV ; Start 09/29/19 at 11:43; Stop 09/29/19 at 23:43; Status DC Hydromorphone HCl (Dilaudid) 0.5 mg PRN Q10MIN PRN IV SEV PAIN, Second choice; Start 09/29/19 at 11:45; Stop 09/29/19 at 20:00; Status DC Prochlorperazine Edisylate (Compazine) 5 mg PACU PRN PRN IV NAUSEA, MRX1; Start 09/29/19 at 11:45; Stop 09/29/19 at 20:00; Status DC Cefazolin Sodium (Ancef) 1 gm STK-MED ONCE IVP ; Start 09/29/19 at 11:53; Stop 09/29/19 at 11:53; Status DC Cefazolin Sodium (Ancef) 1 gm STK-MED ONCE IVP ; Start 09/29/19 at 12:15; Stop 09/29/19 at 12:15; Status DC Phenylephrine HCl (PHENYLEPHRINE in 0.9% NACL PF) 1 mg STK-MED ONCE IV ; Start 09/29/19 at 12:39; Stop 09/29/19 at 12:39; Status DC Fentanyl Citrate (Fentanyl 2ml Vial) 100 mcg STK-MED ONCE .ROUTE ; Start 09/29/19 at 14:04; Stop 09/29/19 at 14:04; Status DC Sodium Chloride (Normal Saline Flush) 3 ml QSHIFT PRN IV AFTER MEDS AND BLOOD DRAWS; Start 09/29/19 at 14:30 Ringer's Solution 1,000 ml @ 100 mls/hr Q10H IV Last administered on 09/29/19at 14:17; Start 09/29/19 at 14:17 Dextrose (Dextrose 50%-Water Syringe) 12.5 gm PRN Q15MIN PRN IV SEE COMMENTS; Start 09/29/19 at 14:30 Acetaminophen/ Hydrocodone Bitart (Lortab 5/325) 1 tab PRN Q4HRS PRN PO MILD PAIN 1-3 Last administered on 10/04/19at 02:39; Start 09/29/19 at 14:30 Naloxone HCl (Narcan) 0.4 mg PRN Q2MIN PRN IV SEE INSTRUCTIONS; Start 09/29/19 at 14:30 Sodium Chloride 1,000 ml @ 25 mls/hr Q24H IV ; Start 09/29/19 at 14:17 Morphine Sulfate (Morphine Sulfate) 1 mg PRN Q1HR PRN IV PAIN Last administered on 09/29/19at 18:12; Start 09/29/19 at 14:30 Docusate Sodium (Colace) 100 mg BID PO Last administered on 10/04/19at 08:57; Start 09/29/19 at 15:00 Lactobacillus Rhamnosus (Culturelle) 1 cap BID PO Last administered on 10/04/19at 08:56; Start 10/01/19 at 09:00 Pantoprazole Sodium (Protonix) 40 mg DAILYAC PO Last administered on 10/04/19at 08:57; Start 10/02/19 at 07:30 Polyethylene Glycol (miraLAX PACKET) 17 gm DAILY PO Last administered on 0at 08:10; Start 10/01/19 at 10:30 Bisacodyl (Dulcolax Tab) 5 mg PRN DAILY PRN PO CONSTIPATION Last administered on 10/03/19at 08:10; Start 10/02/19 at 10:30 Bisacodyl (Dulcolax Tab) 5 mg 1X ONCE PO ; Start 10/03/19 at 09:00; Stop 10/03/19 at 09:01; Status DC Bisacodyl (Dulcolax Supp) 10 mg 1X ONCE RI Last administered on 10/03/19at 10:26; Start 10/03/19 at 10:00; Stop 10/03/19 at 10:01; Status DC Lubiprostone (Amitiza) 24 mcg BIDWMEALS PO ; Start 10/04/19 at 12:00 Active Scripts Active Vitamin D3 (Cholecalciferol (Vitamin D3)) 1,000 Unit Tablet 1,000 Unit PO DAILY Proair Hfa (Albuterol Sulfate) 8.5 Gm Hfa.aer.ad 2.5 Mg NEB RTQID Lasix (Furosemide) 40 Mg Tablet 1 Tab PO DAILY Klor-Con M20 (Potassium Chloride) 20 Meq Tab.er.prt 20 Meq PO DAILY 30 Days Reported Biofreeze (Menthol) 118 Ml Gel..ml. 1 [place] TP PRN 7 Days Benzonatate 200 Mg Capsule 1 Cap PO PRN TID PRN 7 Days Loratadine 10 Mg Tablet 1 Tab PO DAILY Flonase Allergy Relief (Fluticasone Propionate) 9.9 Ml [place].susp 2 Sprays NS BID Aspirin 325 Mg Tablet 81 Mg PO DAILY Levothyroxine Sodium 125 Mcg Tablet 1 Tab PO DAILY Metoprolol Tartrate 50 Mg Tablet 1 Tab PO DAILY Vital Signs Vital Signs Date Time Temp Pulse Resp B/P (MAP) Pulse Ox O2 Delivery O2 Flow Rate FiO2 10/04/19 11:00 98.0 67 18 154/64 (94) 97 Room Air 98.0 Allergies Allergies Coded Allergies Type Severity Reaction Last Updated Verified No Known Drug Allergies 09/27/19 No Disposition/Orders: D/C to Home w/ HH Justicifation of Admission Dx: Justifications for Admission: Justification of Admission Dx: N/A TASHIA BAI MD Oct 04, 2019 14:30
[2019-10-04] MEDS ORDERED: CEPH-263 PO (14:38)
[2019-10-04] MEDS ORDERED: PANT40TA77 PO (14:38)
[2019-10-04] MEDS ORDERED: LACT1CAP19 PO (14:38)
[2019-10-04] MEDS ORDERED: LUBI24CA7 PO (14:38)
[2019-10-04] MEDS ORDERED: DOCU-153 PO (14:38)
[2019-10-04] MEDS ORDERED: ASPI-886 PO (14:38)
[2019-10-04] MEDS ORDERED: METO25TA4 PO (14:38)
[2019-10-04] MEDS ORDERED: POLY17PO28 PO (14:38)
[2019-10-04] MEDS ORDERED: BISA5TAB4 PO (14:38)
--- NOTE | 2019-10-04 14:39 | SNU/HH DC ---
DISCHARGE WITH HOME HEALTH DISCHARGE INFORMATION: Discharge Date: Oct 04, 2019 Final Diagnosis: Problems Medical Problems: (1) Abdominal pain Status: Acute (2) Common bile duct dilatation Status: Acute (3) HTN (hypertension) Status: Acute Condition on Discharge: Stable CODE STATUS: Code Status: Full HOME HEALTH: Face to Face: I certify this patient is under my care and that I, or a nurse practitioner or physician's assistant director of security working with me, had a face to face encounter that meets the physician face to face encounter requirements with this patient on []. Medical Complications: DJD, Other (POST SURGERY) Long Term For: Assess Cardiopulm Status, Assess/Skilled Observatio, Bowel/Bladder Training, Medication Management, Pain Management RN For Eval/Treatment: Yes Physical Therapy For: Evalulation/Treatment Occupational Therapy For: Evaluation/Treatment Speech Language Pathology For: Evaluation/Treatment Home Health Aide For: Self-care LABORATORY ENGINEER For: Community Resources Pt Meets Homebound Status: Fatigue w/ amb. POST DISCHARGE ORDERS: Activity Instructions for Disc: Activity as tolerated Weight Bearing Status after Di: Non weight bearing DIET AFTER DISCHARGE: Cardiac Wound/Incision Care: No wound care needed CHECKS AFTER DISCHARGE: Checks after discharge: Check blood press - daily, Check your Temp as needed TREATMENT/EQUIPMENT ORDERS: Adaptive Equipment Issued: Front wheeled walker, Walker CERTIFICATION STATEMENT: Certification Statement: Certification Statement: Based on the above finding, I certify that this patient is confined to the home and needs intermittent usp care, physical therapy and/or speech therapy, or continues to need occupational therapy.~ This patient is under my care, and I have initiated the establishment of the plan of care.~ This patient will be followed by myself or a community physician who will periodically review the plan of care. Home Meds Active Scripts Cephalexin (KEFLEX) 250 Mg Capsule, 1 CAP PO QID for UTI for 7 Days, #28 CAP 0 Refills Prov:TASHIA BAI MD 10/04/19 Lactobacillus Rhamnosus Gg (CULTURELLE) 1 Each Cap.sprink, 1 CAP PO BID for SUPPLEMENT for 30 Days, #60 CAP Prov:TASHIA BAI MD 10/04/19 Pantoprazole Sodium (PANTOPRAZOLE SODIUM ) 40 Mg Tablet.dr, 40 MG PO DAILYAC for GERD for 30 Days, #30 TAB.SR Prov:TASHIA BAI MD 10/04/19 Polyethylene Glycol 3350 (POLYETHYLENE GLYCOL 3350) 17 Gm Powd.pack, 17 GM PO DAILY for STOOLS for 30 Days, #30 PKT Prov:TASHIA BAI MD 10/04/19 Lubiprostone (AMITIZA) 24 Mcg Capsule, 24 MCG PO BIDWMEALS for STOOLS for 7 Days, #14 CAP Prov:TASHIA BAI MD 10/04/19 Docusate Sodium (DOK) 100 Mg Capsule, 100 MG PO BID for STOOLS for 30 Days, #60 CAP Prov:TASHIA BAI MD 10/04/19 Bisacodyl (BISACODYL) 5 Mg Tablet., 5 MG PO PRN DAILY PRN for CONSTIPATION for 10 Days, #10 TAB.SR Prov:TASHIA BAI MD 10/04/19 Aspirin (ASPIRIN EC) 81 Mg Tablet., 81 MG PO DAILYWBKFT for HEART HEALTH for 30 Days, #30 TAB.SR Prov:TASHIA BAI MD 10/04/19 Metoprolol Tartrate (METOPROLOL TARTRATE) 25 Mg Tablet, 25 MG PO BID for HEART for 30 Days, #60 TAB Prov:TASHIA BAI MD 10/04/19 Cholecalciferol (Vitamin D3) (VITAMIN D3) 1,000 Unit Tablet, 1000 UNIT PO DAILY for low Vut D, #30 TAB Prov:HUNG AMAYA MD 12/17/18 Albuterol Sulfate (Proair Hfa) 8.5 Gm Hfa.aer.ad, 2.5 MG NEB RTQID for soa, #60 INHALER Prov:HUNG AMAYA MD 12/17/18 Reported Medications Loratadine (LORATADINE) 10 Mg Tablet, 1 TAB PO DAILY for allergies, #30 TAB 5 Refills 09/25/19 Fluticasone Propionate (Flonase Allergy Relief) 9.9 Ml [place].susp, 2 SPRAYS NS BID for allergies, BOTTLE 09/25/19 Levothyroxine Sodium (LEVOTHYROXINE SODIUM) 125 Mcg Tablet, 1 TAB PO DAILY for hypothyroidism, #30 TAB 5 Refills 03/11/18 Discontinued Reported Medications Menthol (BIOFREEZE) 118 Ml Gel..ml., 1 MARK TP PRN for pain for 7 Days, #118 ML 0 Refills 09/25/19 Benzonatate (BENZONATATE) 200 Mg Capsule, 1 CAP PO PRN TID PRN for cough for 7 Days, #21 CAP 0 Refills 09/25/19 Aspirin (ASPIRIN) 325 Mg Tablet, 81 MG PO DAILY for , TAB 07/12/18 Metoprolol Tartrate (METOPROLOL TARTRATE) 50 Mg Tablet, 1 TAB PO DAILY for hypertension, #60 TAB 5 Refills 03/11/18 Discontinued Scripts Furosemide (LASIX) 40 Mg Tablet, 1 TAB PO DAILY for chf, #90 TAB 1 Refill Prov:HARDEEP MARIE MD 07/17/18 Potassium Chloride (KLOR-CON M20) 20 Meq Tab.er.prt, 20 MEQ PO DAILY for chf for 30 Days, #30 TAB.SR Prov:HARDEEP MARIE MD 07/17/18 TASHIA BAI MD Oct 04, 2019 14:39
--- NOTE | 2019-10-04 15:13 | SNU/HH DC ---
DISCHARGE ORDERS DISCHARGE INFORMATION: DISCHARGE DATE: Oct 04, 2019 FINAL DIAGNOSIS Problems Medical Problems: (1) Abdominal pain Status: Acute (2) Common bile duct dilatation Status: Acute (3) HTN (hypertension) Status: Acute CONDITION ON DISCHARGE: Stable CODE STATUS: Code Status: Full LONGTERM: SNF STAY <30 DAYS: Yes HOSPICE: HOSPICE: No HOSPICE EVAL & TREAT: No LTAC: ADMIT TO LTAC: No POST DISCHARGE ORDERS: ACTIVITY ORDERS: Activity as tolerated WEIGHT BEARING STATUS: Non weight bearing DIET AFTER DISCHARGE: Cardiac WOUND/INCISION CARE: No wound care needed CHECKS AFTER DISCHARGE: CHECKS AFTER DISCHARGE: Check blood press - daily, Check your Temp as needed TREATMENT/EQUIPMENT ORDERS: ADAPTIVE EQUIPMENT NEEDED: Front wheeled walker, Walker Physical Therapy For: Evalulation/Treatment Occupational Therapy For: Evaluation/Treatment Speech Language Pathology For: Evaluation/Treatment DISCHARGE MEDICATIONS: Home Meds Active Scripts Cephalexin (KEFLEX) 250 Mg Capsule, 1 CAP PO QID for UTI for 7 Days, #28 CAP 0 Refills Prov:TASHIA BAI MD 10/04/19 Lactobacillus Rhamnosus Gg (CULTURELLE) 1 Each Cap.sprink, 1 CAP PO BID for SUPPLEMENT for 30 Days, #60 CAP Prov:TASHIA BAI MD 10/04/19 Pantoprazole Sodium (PANTOPRAZOLE SODIUM ) 40 Mg Tablet., 40 MG PO DAILYAC for GERD for 30 Days, #30 TAB.SR Prov:TASHIA BAI MD 10/04/19 Polyethylene Glycol 3350 (POLYETHYLENE GLYCOL 3350) 17 Gm Powd.pack, 17 GM PO DAILY for STOOLS for 30 Days, #30 PKT Prov:TASHIA BAI MD 10/04/19 Lubiprostone (AMITIZA) 24 Mcg Capsule, 24 MCG PO BIDWMEALS for STOOLS for 7 Days, #14 CAP Prov:TASHIA BAI MD 10/04/19 Docusate Sodium (DOK) 100 Mg Capsule, 100 MG PO BID for STOOLS for 30 Days, #60 CAP Prov:TASHIA BAI MD 10/04/19 Bisacodyl (BISACODYL) 5 Mg Tablet., 5 MG PO PRN DAILY PRN for CONSTIPATION for 10 Days, #10 TAB.SR Prov:TASHIA BAI MD 10/04/19 Aspirin (ASPIRIN EC) 81 Mg Tablet.dr, 81 MG PO DAILYWBKFT for HEART HEALTH for 3 0 Days, #30 TAB.SR Prov:TASHIA BAI MD 10/04/19 Metoprolol Tartrate (METOPROLOL TARTRATE) 25 Mg Tablet, 25 MG PO BID for HEART for 30 Days, #60 TAB Prov:TASHIA BAI MD 10/04/19 Cholecalciferol (Vitamin D3) (VITAMIN D3) 1,000 Unit Tablet, 1000 UNIT PO DAILY for low Vut D, #30 TAB Prov:HUNG AMAYA MD 12/17/18 Albuterol Sulfate (Proair Hfa) 8.5 Gm Hfa.aer.ad, 2.5 MG NEB RTQID for soa, #60 INHALER Prov:HUNG AMAYA MD 12/17/18 Reported Medications Loratadine (LORATADINE) 10 Mg Tablet, 1 TAB PO DAILY for allergies, #30 TAB 5 Refills 09/25/19 Fluticasone Propionate (Flonase Allergy Relief) 9.9 Ml [place].susp, 2 SPRAYS NS BID for allergies, BOTTLE 09/25/19 Levothyroxine Sodium (LEVOTHYROXINE SODIUM) 125 Mcg Tablet, 1 TAB PO DAILY for hypothyroidism, #30 TAB 5 Refills 03/11/18 Discontinued Reported Medications Menthol (BIOFREEZE) 118 Ml Gel..ml., 1 MARK TP PRN for pain for 7 Days, #118 ML 0 Refills 09/25/19 Benzonatate (BENZONATATE) 200 Mg Capsule, 1 CAP PO PRN TID PRN for cough for 7 Days, #21 CAP 0 Refills 09/25/19 Aspirin (ASPIRIN) 325 Mg Tablet, 81 MG PO DAILY for , TAB 07/12/18 Metoprolol Tartrate (METOPROLOL TARTRATE) 50 Mg Tablet, 1 TAB PO DAILY for hy pertension, #60 TAB 5 Refills 03/11/18 Discontinued Scripts Furosemide (LASIX) 40 Mg Tablet, 1 TAB PO DAILY for chf, #90 TAB 1 Refill Prov:HARDEEP MARIE MD 07/17/18 Potassium Chloride (KLOR-CON M20) 20 Meq Tab.er.prt, 20 MEQ PO DAILY for chf for 30 Days, #30 TAB.SR Prov:HARDEEP MARIE MD 07/17/18 TASHIA BAI MD Oct 04, 2019 15:13
[2019-10-04 15:17] VITALS: BP 189/79
--- NOTE | 2019-10-04 17:32 | NUR ---
Discharge Note: FATEMEH CLAY Discharge instructions and discharge home medications reviewed with Home Care Nurse/Telephone and a copy given. All questions have been answered and understanding verbalized. The following instructions and handouts were given: MALNUTRITION EDUCATION, CURRENT MEDICATION LIST, FOLLOW UP INSTRUCTIONS. Discontinued lines and drains: Right wrist DC'ed. Patient discharged to [facility] with daughter via private car.
== END 2019-10-04 17:45 | DRG 418 ==
LOC: ER 08:34 → 4 NORTH 11:10
PROVIDERS: ADMIT Internal Medicine; ATTEND Internal Medicine
PROC: 0FC98ZZ Extirpation of Matter from Common Bile Duct, Via Natural or Artificial Opening Endoscopic (ICD-10-PCS; principal; 2019-09-27 17:00)
PROC: 0FT44ZZ Resection of Gallbladder, Percutaneous Endoscopic Approach (ICD-10-PCS; 2019-09-29)
PROC: BF101ZZ Fluoroscopy of Bile Ducts using Low Osmolar Contrast (ICD-10-PCS; 2019-09-29)
DX: K80.60 Calculus of gallbladder and bile duct with cholecystitis, unspecified, without obstruction (principal); I13.0 Hypertensive heart and chronic kidney disease with heart failure and stage 1 through stage 4 chronic kidney disease, or unspecified chronic kidney disease; N39.0 Urinary tract infection, site not specified; B96.20 Unspecified Escherichia coli [E. coli] as the cause of diseases classified elsewhere; I25.10 Atherosclerotic heart disease of native coronary artery without angina pectoris; Z20.828 Contact with and (suspected) exposure to other viral communicable diseases; Z82.49 Family history of ischemic heart disease and other diseases of the circulatory system; Z86.73 Personal history of transient ischemic attack (TIA), and cerebral infarction without residual deficits; Z95.5 Presence of coronary angioplasty implant and graft; M19.90 Unspecified osteoarthritis, unspecified site; F41.9 Anxiety disorder, unspecified; M81.0 Age-related osteoporosis without current pathological fracture; Z98.49 Cataract extraction status, unspecified eye; K21.9 Gastro-esophageal reflux disease without esophagitis; K59.00 Constipation, unspecified; K57.30 Diverticulosis of large intestine without perforation or abscess without bleeding; K44.9 Diaphragmatic hernia without obstruction or gangrene; I71.4 Abdominal aortic aneurysm, without rupture; I50.9 Heart failure, unspecified; I48.0 Paroxysmal atrial fibrillation; E87.6 Hypokalemia; E78.5 Hyperlipidemia, unspecified; E03.9 Hypothyroidism, unspecified; K82.8 Other specified diseases of gallbladder; N18.9 Chronic kidney disease, unspecified; R16.0 Hepatomegaly, not elsewhere classified
CPT/HCPCS: 36415; 43262; 43264; 74176; 74300; 74330; 76705; 80053; 81001; 82150; 82248; 82962; 83690; 83735; 84484; 85007; 85025; 85027; 85610; 85730; 87086; 88304; 93005; 96365; 96375; A7015; C1726; C1757; C9113; J0330; J0360; J0690; J0696; J1100; J1644; J1956; J2250; J2270; J2370; J2405; J2704; J2710; J3010; J3480; J3490; J7120; Q9966; Q9967; 97110-GO; 97110-GP; 97116-GP; 97530-GP; 97535-GO; 99285-25; G0378; U0003-CS